=== PATIENT | female | born 1955 | race Caucasian/White ===

== ENCOUNTER 2021-07-14 23:40 | Inpatient (IN) | payer MEDICARE, OTHER ==
[~2021-07-14] VITALS: Ht 165.1 cm; Wt 122.1 kg
[~2021-07-14 23:40] MED LIST: CHOL2000 PO; CIPR500T94 PO; CYAN100072 PO; HYDR-2761 PO; MULT-246 PO; NITR100C62 PO; ONDA4TAB12 PO; SULF-143 PO; TAMS0.4C2 PO
[2021-07-14 23:50] VITALS: BP 145/75
[2021-07-15] MEDS ORDERED: BENZOCAINE/MENTHOL LOZENGE. PO PRN
[2021-07-15] MEDS: guaiFENesin DM 200MG/20MG 10 ML SYRUP PO PRN ×2 (00:37→10:23)
[2021-07-15] MEDS: ACETAMINOPHEN 325 MG TABLET. PO PRN ×2 (00:54→10:23)
[2021-07-15 03:00] VITALS: BP 140/77
[2021-07-15 04:46] LABS: BASO % 0 % (0-3); EOS % 0 % (0-3); HEMATOCRIT 35.3 % (36.0-47.0); HEMOGLOBIN 11.8 g/dL (12.0-15.5); LYMPH # 0.9 x10^3/uL (1.0-4.8); LYMPH % 9 % (24-48); MEAN CORPUSCULAR HEMOGLOBIN 29 pg (25-35); MEAN CORPUSCULAR HGB CONC 33 g/dL (31-37); MEAN CORPUSCULAR VOLUME 86 fL (79-100); MONO # 0.7 x10^3/uL (0.0-1.1); MONO % 6 % (0-9); NEUT # 8.9 x10^3/uL (1.8-7.7); NEUT % 85 % (31-73); PLATELET COUNT 350 x10^3/uL (140-400); RED BLOOD COUNT 4.13 x10^6/uL (3.50-5.40); RED CELL DISTRIBUTION WIDTH 14.4 % (11.5-14.5); WHITE BLOOD COUNT 10.5 x10^3/uL (4.0-11.0)
[2021-07-15 05:24] LABS: % LYMPHS 5 % (24-48); % MONOS 6 % (0-10); % SEGS 89 % (35-66); ALBUMIN 2.3 g/dL (3.4-5.0); ALBUMIN/GLOBULIN RATIO 0.6 (1.0-1.7); CALCIUM 8.4 mg/dL (8.5-10.1); CREATININE 0.8 mg/dL (0.6-1.0); PLT ESTIMATE ADEQUATE (ADEQUATE); POTASSIUM 3.8 mmol/L (3.5-5.1); TOTAL BILIRUBIN 0.3 mg/dL (0.2-1.0); TOXIC GRANULATION SLIGHT
[2021-07-15 07:00] VITALS: BP 140/80
[2021-07-15] MEDS ORDERED: DEXAMETHASONE SOD PHOS 4 MG/ML VIAL IVP SCH (09:00)
[2021-07-15] MEDS ORDERED: POTASSIUM CL 20MEQ D5-0.45NACL 1,000 ML IV ONE (09:15)
--- NOTE | 2021-07-15 09:15 | PDOC1 ---
History and Physical Date of Admission Date of Admission DATE: 07/15/21 TIME: 09:13 Identification/Chief Complaint Chief Complaint short of breath Source Source: Chart review, Patient History of Present Illness History of Present Illness pt admitted to [facility] days ago for noted shortness of rbeath, was COVID positive ,and worsened over days. weakness and lethargy worse, hypoxia worse over days, transferred here for poss ICU need, on NRB, risk of intubation is high, this AM, she feels OK, looks lethargic, reports coughing is she moves at all, did eat some breakfast, complaints of headache, 8/10 pain REVIEW OF SYSTEMS: The patient denied any blurring of vision, cataracts, glaucoma or macular degeneration. Denied any earache, tinnitus or sensory deafness. Denied any nosebleed, stuffy nose or postnasal drip. Denied any sore throat, sore tongue, toothache, hoarseness of voice or difficulty swallowing. Denied any nausea, vomiting. Did have some diarrhea. Denied any hematemesis, melena or hematochezia. Denied any dysuria, frequency or hematuria. Denied any chest pain, shortness of breath, orthopnea, paroxysmal nocturnal dyspnea. She does have cough, it is mostly dry. Did feel dizzy. Past Medical History Past Medical History prior severe obeisty, now BMI 35 Cardiovascular: No pertinent hx Pulmonary: No pertinent hx GI: No pertinent hx Past Surgical History Past Surgical History prior morbid obesity for which she underwent gastric bypass surgery. r tonsillectomy and adenoidectomy, cholecystectomy, appendectomy, total abdominal hysterectomy, Family History Family History FAMILY HISTORY: She has one living brother and one living sister. Her younger brother at age of 55 because of myocardial infarction. Mother at age of 91 with dementia. Father at age of 79 because of liver cancer. SOCIAL HISTORY: She lives alone, has a son and a daughter. She quit smoking about 18 years ago. Does not drink alcohol or use any drugs. 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 Family History: No Significant Social History Smoke: Quit (18 years ago) ALCOHOL: rare Drugs: None Current Medications Current Medications Current Medications Ondansetron HCl (Zofran) 4 mg PRN Q6HRS PRN IVP NAUSEA/VOMITING; Start 07/15/21 at 00:00 Throat Lozenges (Cepacol Sore Throat Lozenge) 1 vincent PRN Q2HRS PRN PO SORE THROAT; Start 07/15/21 at 00:00 Ceftriaxone Sodium (Rocephin) 1 gm Q24H IVP ; Start 07/15/21 at 09:00 Azithromycin (Zithromax) 250 mg DAILY PO ; Start 07/15/21 at 09:00 Dexamethasone Sodium Phosphate (Decadron) 10 mg DAILY IVP ; Start 07/15/21 at 09:00 Enoxaparin Sodium (Lovenox 40mg Syringe) 40 mg Q24H SQ ; Start 07/15/21 at 09:00 Lactobacillus Rhamnosus (Culturelle) 1 cap BID PO ; Start 07/15/21 at 09:00 Acetaminophen (Tylenol) 650 mg PRN Q4HRS PRN PO MILD PAIN / TEMP > 100.3'F Last administered on 07/15/21at 00:54; Start 07/15/21 at 00:00 Guaifenesin (Robitussin Dm) 10 ml PRN Q4HRS PRN PO COUGH Last administered on 07/15/21at 00:37; Start 07/15/21 at 00:00 Remdesivir 100 mg/ Sodium Chloride 230 ml @ 460 mls/hr DAILY IV ; Start 07/15/21 at 09:00; Stop 07/18/21 at 09:29 Active Scripts Active Allergies Allergies: Coded Allergies: No Known Drug Allergies (Unverified , 05/15/16) ROS General: YES: Chills, Fatigue, Malaise; No: Night Sweats, Appetite, Other PSYCHOLOGICAL ROS: YES: Sleep disturbances; No: Anxiety, Behavioral Disorder, Concentration difficultie, Decreased libido, Depression, Disorientation, Hallucinations, Hostility, Irritablity, Memory difficulties, Mood Swings, Obsessive thoughts, Physical abuse, Sexual abuse, Suicidal ideation, Other Eyes: No Blurry vision, No Decreased vision, No Double vision, No Dry eyes, No Excessive tearing, No Eye Pain, No Itchy Eyes, No Loss of vision, No Photo phobia, No Scotomata, No Uses contacts, No Uses glasses, No Other HEENT: YES: Heacaches Respiratory: YES: Cough, Pleuritic Pain, Shortness of breath, SOB with excertion Cardiovascular: yes Chest Pain; No Palpitations, No Orthopnea, No Paroxysmal Noc. Dyspnea, No Edema, No Lt Headedness, No Other Gastrointestinal: Yes Nausea; No Vomiting, No Abdominal Pain, No Diarrhea, No Constipation, No Melena, No Hematochezia, No Other Genitourinary: No Dysuria, No Frequency, No Incontinence, No Hematuria, No Retention, No Discharge, No Urgency, No Pain, No Flank Pain, No Other, No , No , No , No , No , No , No Musculoskeletal: Yes Muscle Pain, Yes Muscular Weakness; No Gait Disturbance, No Joint Pain, No Joint Stiffness, No Joint Swelling, No Pain In:, No Swelling In:, No Other Neurological: Yes Headaches; No Behavorial Changes, No Bowel/Bladder ControlChng, No Confusion, No Dizziness, No Gait Disturbance, No Impaired Coord/balance, No Memory Loss, No Numbness/Tingling, No Seizures, No Speech Problems, No Tremors, No Visual Changes, No Weakness, No Other Skin: No Dry Skin, No Eczema, No Hair Changes, No Lumps, No Mole Changes, No Mottling, No Nail Changes, No Pruritus, No Rash, No Skin Lesion Changes, No Other, No Acne Physical Exam General: Alert, Oriented X3, Cooperative, mild distress HEENT: Atraumatic, PERRLA Lungs: Clear to auscultation Abdomen: Normal bowel sounds, Soft (obese, ) Extremities: No edema, Normal pulses Skin: No significant lesion Neuro: Cranial nerves 3-12 NL Psych/Mental Status: Mental status NL, Mood NL Vitals Vitals Vital Signs Date Time Temp Pulse Resp B/P (MAP) Pulse Ox O2 Delivery O2 Flow Rate FiO2 07/15/21 07:00 95.7 70 18 140/80 (100) 96 95.7 07/15/21 03:00 NonRebreather Mask 30.0 Labs Labs Laboratory Tests Test 07/15/21 04:00 White Blood Count 10.5 x10^3/uL (4.0-11.0) Red Blood Count 4.13 x10^6/uL (3.50-5.40) Hemoglobin 11.8 g/dL (12.0-15.5) Hematocrit 35.3 % (36.0-47.0) Mean Corpuscular Volume 86 fL (79-100) Mean Corpuscular Hemoglobin 29 pg (25-35) Mean Corpuscular Hemoglobin Concent 33 g/dL (31-37) Red Cell Distribution Width 14.4 % (11.5-14.5) Platelet Count 350 x10^3/uL (140-400) Neutrophils (%) (Auto) 85 % (31-73) Lymphocytes (%) (Auto) 9 % (24-48) Monocytes (%) (Auto) 6 % (0-9) Eosinophils (%) (Auto) 0 % (0-3) Basophils (%) (Auto) 0 % (0-3) Neutrophils # (Auto) 8.9 x10^3/uL (1.8-7.7) Lymphocytes # (Auto) 0.9 x10^3/uL (1.0-4.8) Monocytes # (Auto) 0.7 x10^3/uL (0.0-1.1) Eosinophils # (Auto) 0.0 x10^3/uL (0.0-0.7) Basophils # (Auto) 0.0 x10^3/uL (0.0-0.2) Segmented Neutrophils % 89 % (35-66) Lymphocytes % 5 % (24-48) Monocytes % 6 % (0-10) Toxic Granulation Slight Platelet Estimate Adequate (ADEQUATE) Sodium Level 142 mmol/L (136-145) Potassium Level 3.8 mmol/L (3.5-5.1) Chloride Level 105 mmol/L (98-107) Carbon Dioxide Level 31 mmol/L (21-32) Anion Gap 6 (6-14) Blood Urea Nitrogen 18 mg/dL (7-20) Creatinine 0.8 mg/dL (0.6-1.0) Estimated GFR (Cockcroft-Gault) 72.0 BUN/Creatinine Ratio 23 (6-20) Glucose Level 108 mg/dL (70-99) Calcium Level 8.4 mg/dL (8.5-10.1) Ferritin 195 ng/mL (8-252) Total Bilirubin 0.3 mg/dL (0.2-1.0) Aspartate Amino Transf (AST/SGOT) 26 U/L (15-37) Alanine Aminotransferase (ALT/SGPT) 25 U/L (14-59) Alkaline Phosphatase 79 U/L (46-116) Total Protein 6.0 g/dL (6.4-8.2) Albumin 2.3 g/dL (3.4-5.0) Albumin/Globulin Ratio 0.6 (1.0-1.7) Laboratory Tests Test 07/15/21 04:00 White Blood Count 10.5 x10^3/uL (4.0-11.0) Red Blood Count 4.13 x10^6/uL (3.50-5.40) Hemoglobin 11.8 g/dL (12.0-15.5) Hematocrit 35.3 % (36.0-47.0) Mean Corpuscular Volume 86 fL (79-100) Mean Corpuscular Hemoglobin 29 pg (25-35) Mean Corpuscular Hemoglobin Concent 33 g/dL (31-37) Red Cell Distribution Width 14.4 % (11.5-14.5) Platelet Count 350 x10^3/uL (140-400) Neutrophils (%) (Auto) 85 % (31-73) Lymphocytes (%) (Auto) 9 % (24-48) Monocytes (%) (Auto) 6 % (0-9) Eosinophils (%) (Auto) 0 % (0-3) Basophils (%) (Auto) 0 % (0-3) Neutrophils # (Auto) 8.9 x10^3/uL (1.8-7.7) Lymphocytes # (Auto) 0.9 x10^3/uL (1.0-4.8) Monocytes # (Auto) 0.7 x10^3/uL (0.0-1.1) Eosinophils # (Auto) 0.0 x10^3/uL (0.0-0.7) Basophils # (Auto) 0.0 x10^3/uL (0.0-0.2) Segmented Neutrophils % 89 % (35-66) Lymphocytes % 5 % (24-48) Monocytes % 6 % (0-10) Toxic Granulation Slight Platelet Estimate Adequate (ADEQUATE) Sodium Level 142 mmol/L (136-145) Potassium Level 3.8 mmol/L (3.5-5.1) Chloride Level 105 mmol/L (98-107) Carbon Dioxide Level 31 mmol/L (21-32) Anion Gap 6 (6-14) Blood Urea Nitrogen 18 mg/dL (7-20) Creatinine 0.8 mg/dL (0.6-1.0) Estimated GFR (Cockcroft-Gault) 72.0 BUN/Creatinine Ratio 23 (6-20) Glucose Level 108 mg/dL (70-99) Calcium Level 8.4 mg/dL (8.5-10.1) Ferritin 195 ng/mL (8-252) Total Bilirubin 0.3 mg/dL (0.2-1.0) Aspartate Amino Transf (AST/SGOT) 26 U/L (15-37) Alanine Aminotransferase (ALT/SGPT) 25 U/L (14-59) Alkaline Phosphatase 79 U/L (46-116) Total Protein 6.0 g/dL (6.4-8.2) Albumin 2.3 g/dL (3.4-5.0) Albumin/Globulin Ratio 0.6 (1.0-1.7) VTE Prophylaxis Ordered VTE Prophylaxis Devices: Yes VTE Pharmacological Prophylaxi: Yes Assessment/Plan Assessment/Plan acute hypoxic respiratory failure COVID 19 pneumonia, will give standard treatement protocol looks a little dry, scant UO and poor PO intake, will give 1 liter iv fluid ARDS sepsis obese, BMI 35, with severe malnutrition, albumin 2.3 Justifications for Admission Other Justification JERMAINE PETERS MD Jul 15, 2021 09:15
[2021-07-15] MEDS: REMDESIVIR 100mg in NORMAL SALINE 250ML X 4 DAYS IV SCH (10:23)
[2021-07-15] MEDS: ASCORBIC ACID 500 MG TABLET PO SCH (10:23)
[2021-07-15] MEDS: ENOXAPARIN 40 MG/0.4 ML SYRINGE. SQ SCH (10:23)
[2021-07-15] MEDS: LACTOBACILLUS RHAMNOSUS GG 1 CAPSULE. PO SCH ×2 (10:23→20:04)
[2021-07-15] MEDS: AZITHROMYCIN 250 MG TABLET. PO SCH (10:23)
[2021-07-15] MEDS: cefTRIAXone IV Push 1 GM VIAL. IVP SCH (10:24)
[2021-07-15] MEDS: ZINC SULFATE 220 MG CAPSULE. PO SCH (10:24)
[2021-07-15 11:00] VITALS: BP 135/64
--- NOTE | 2021-07-15 13:08 | PDOC ---
PULMONARY PROGRESS NOTES DATE: 07/15/21 TIME: 13:07 Vitals Vital Signs Date Time Temp Pulse Resp B/P (MAP) Pulse Ox O2 Delivery O2 Flow Rate FiO2 07/15/21 11:00 96.1 63 17 135/64 (87) 89 Nonrebreather and Nasal Canula 30.0 96.1 Labs Laboratory Tests Test 07/15/21 04:00 White Blood Count 10.5 x10^3/uL (4.0-11.0) Red Blood Count 4.13 x10^6/uL (3.50-5.40) Hemoglobin 11.8 g/dL (12.0-15.5) Hematocrit 35.3 % (36.0-47.0) Mean Corpuscular Volume 86 fL (79-100) Mean Corpuscular Hemoglobin 29 pg (25-35) Mean Corpuscular Hemoglobin Concent 33 g/dL (31-37) Red Cell Distribution Width 14.4 % (11.5-14.5) Platelet Count 350 x10^3/uL (140-400) Neutrophils (%) (Auto) 85 % (31-73) Lymphocytes (%) (Auto) 9 % (24-48) Monocytes (%) (Auto) 6 % (0-9) Eosinophils (%) (Auto) 0 % (0-3) Basophils (%) (Auto) 0 % (0-3) Neutrophils # (Auto) 8.9 x10^3/uL (1.8-7.7) Lymphocytes # (Auto) 0.9 x10^3/uL (1.0-4.8) Monocytes # (Auto) 0.7 x10^3/uL (0.0-1.1) Eosinophils # (Auto) 0.0 x10^3/uL (0.0-0.7) Basophils # (Auto) 0.0 x10^3/uL (0.0-0.2) Segmented Neutrophils % 89 % (35-66) Lymphocytes % 5 % (24-48) Monocytes % 6 % (0-10) Toxic Granulation Slight Platelet Estimate Adequate (ADEQUATE) Sodium Level 142 mmol/L (136-145) Potassium Level 3.8 mmol/L (3.5-5.1) Chloride Level 105 mmol/L (98-107) Carbon Dioxide Level 31 mmol/L (21-32) Anion Gap 6 (6-14) Blood Urea Nitrogen 18 mg/dL (7-20) Creatinine 0.8 mg/dL (0.6-1.0) Estimated GFR (Cockcroft-Gault) 72.0 BUN/Creatinine Ratio 23 (6-20) Glucose Level 108 mg/dL (70-99) Calcium Level 8.4 mg/dL (8.5-10.1) Ferritin 195 ng/mL (8-252) Total Bilirubin 0.3 mg/dL (0.2-1.0) Aspartate Amino Transf (AST/SGOT) 26 U/L (15-37) Alanine Aminotransferase (ALT/SGPT) 25 U/L (14-59) Alkaline Phosphatase 79 U/L (46-116) Total Protein 6.0 g/dL (6.4-8.2) Albumin 2.3 g/dL (3.4-5.0) Albumin/Globulin Ratio 0.6 (1.0-1.7) Laboratory Tests Test 07/15/21 04:00 White Blood Count 10.5 x10^3/uL (4.0-11.0) Red Blood Count 4.13 x10^6/uL (3.50-5.40) Hemoglobin 11.8 g/dL (12.0-15.5) Hematocrit 35.3 % (36.0-47.0) Mean Corpuscular Volume 86 fL (79-100) Mean Corpuscular Hemoglobin 29 pg (25-35) Mean Corpuscular Hemoglobin Concent 33 g/dL (31-37) Red Cell Distribution Width 14.4 % (11.5-14.5) Platelet Count 350 x10^3/uL (140-400) Neutrophils (%) (Auto) 85 % (31-73) Lymphocytes (%) (Auto) 9 % (24-48) Monocytes (%) (Auto) 6 % (0-9) Eosinophils (%) (Auto) 0 % (0-3) Basophils (%) (Auto) 0 % (0-3) Neutrophils # (Auto) 8.9 x10^3/uL (1.8-7.7) Lymphocytes # (Auto) 0.9 x10^3/uL (1.0-4.8) Monocytes # (Auto) 0.7 x10^3/uL (0.0-1.1) Eosinophils # (Auto) 0.0 x10^3/uL (0.0-0.7) Basophils # (Auto) 0.0 x10^3/uL (0.0-0.2) Segmented Neutrophils % 89 % (35-66) Lymphocytes % 5 % (24-48) Monocytes % 6 % (0-10) Toxic Granulation Slight Platelet Estimate Adequate (ADEQUATE) Sodium Level 142 mmol/L (136-145) Potassium Level 3.8 mmol/L (3.5-5.1) Chloride Level 105 mmol/L (98-107) Carbon Dioxide Level 31 mmol/L (21-32) Anion Gap 6 (6-14) Blood Urea Nitrogen 18 mg/dL (7-20) Creatinine 0.8 mg/dL (0.6-1.0) Estimated GFR (Cockcroft-Gault) 72.0 BUN/Creatinine Ratio 23 (6-20) Glucose Level 108 mg/dL (70-99) Calcium Level 8.4 mg/dL (8.5-10.1) Ferritin 195 ng/mL (8-252) Total Bilirubin 0.3 mg/dL (0.2-1.0) Aspartate Amino Transf (AST/SGOT) 26 U/L (15-37) Alanine Aminotransferase (ALT/SGPT) 25 U/L (14-59) Alkaline Phosphatase 79 U/L (46-116) Total Protein 6.0 g/dL (6.4-8.2) Albumin 2.3 g/dL (3.4-5.0) Albumin/Globulin Ratio 0.6 (1.0-1.7) Medications Active Scripts Medications Dose Route/Sig Max Daily Dose Days Date Category Impression . Full note dictated COVID-19 viral pneumonia/ARDS respiratory failure Continue current support Discussed with nurse initiate SJ Carrasco MD Jul 15, 2021 13:08
[2021-07-15 15:56] VITALS: BP 129/71
[2021-07-15 19:00] VITALS: BP 139/76
--- NOTE | 2021-07-15 20:05 | CONS ---
DATE OF CONSULTATION: 07/15/2021 ATTENDING PHYSICIAN: Dr. An. REASON FOR CONSULTATION: The patient is seen in Pulmonary consultation at the request of Dr. An for COVID-19 viral pneumonia. HISTORY OF PRESENT ILLNESS: The patient is a 66-year-old that has been sick for approximately 2 weeks. Last Saturday, she tested positive for COVID. She has not been vaccinated. She was initially admitted to [facility]. She progressed to worsening shortness of breath. She is currently on 100% nonrebreather and nasal cannula. She is hovering around 90-95%. I was asked to see her in consultation. Her imaging study was reviewed, compatible with COVID-19 viral pneumonia. Her labs were likewise reviewed. She had a white count that is normal. Electrolytes were noted. PAST MEDICAL HISTORY: Otherwise, unremarkable. No significant past medical history. She is obese. PAST SURGICAL HISTORY: None. ALLERGIES: No known drug allergies. REVIEW OF SYSTEMS: As indicated above, otherwise a 10-point system was reviewed and negative. CURRENT MEDICATIONS: List was reviewed. She is receiving steroids and remdesivir along with empiric antibiotics. She is on DVT prophylaxis. PHYSICAL EXAMINATION: VITAL SIGNS: Stable. O2 saturation was greater than 92%. LUNGS: Clear. No wheezes. CARDIOVASCULAR: Regular rate and rhythm with S1, S2, no S3. ABDOMEN: Soft, nontender, nondistended. EXTREMITIES: No clubbing, cyanosis or edema. NEUROLOGIC: The patient was awake, alert, following commands. A detailed neuro exam was not performed. IMPRESSION: 1. Acute hypoxemic respiratory failure. 2. COVID-19 viral pneumonia/acute respiratory distress syndrome. 3. Possible bacterial pneumonia. 4. Obesity. PLAN: 1. Continue support with steroids and empiric antibiotics. 2. IV remdesivir. 3. DVT prophylaxis. 4. If continues to do poorly may require Vapotherm or BiPAP. 5. Monitor closely for further deterioration. SESAR LOCKHART: Julius TID: [id number]
[2021-07-15 22:39] VITALS: BP 169/87
[2021-07-16] MEDS: STERILE WATER for RESP 1,000 ML BAG. INH PRN ×2 (01:37→16:19)
[2021-07-16 02:32] VITALS: BP 176/85
[2021-07-16 07:00] VITALS: BP 164/90
[2021-07-16] MEDS: cefTRIAXone IV Push 1 GM VIAL. IVP SCH (09:08)
[2021-07-16] MEDS: ENOXAPARIN 40 MG/0.4 ML SYRINGE. SQ SCH (09:08)
[2021-07-16] MEDS: guaiFENesin DM 200MG/20MG 10 ML SYRUP PO PRN (09:08)
[2021-07-16] MEDS: DEXAMETHASONE SOD PHOS 4 MG/ML VIAL IVP SCH (09:08)
[2021-07-16] MEDS: oxyCODONE/APAP 5/325 1 TAB TABLET PO PRN (09:09)
[2021-07-16] MEDS: AZITHROMYCIN 250 MG TABLET. PO SCH (09:09)
[2021-07-16] MEDS: LACTOBACILLUS RHAMNOSUS GG 1 CAPSULE. PO SCH ×2 (09:09→20:14)
[2021-07-16] MEDS: ASCORBIC ACID 500 MG TABLET PO SCH (09:09)
[2021-07-16] MEDS: ZINC SULFATE 220 MG CAPSULE. PO SCH (09:09)
[2021-07-16] MEDS: REMDESIVIR 100mg in NORMAL SALINE 250ML X 4 DAYS IV SCH (09:09)
--- NOTE | 2021-07-16 10:27 | PDOC ---
PULMONARY PROGRESS NOTES DATE: 07/16/21 TIME: 10:26 Subjective Patient at times desaturates, currently on nonrebreather and nasal cannula No chest pain no pressure Vitals Vital Signs Date Time Temp Pulse Resp B/P (MAP) Pulse Ox O2 Delivery O2 Flow Rate FiO2 07/16/21 09:39 17 93 40.0 07/16/21 08:27 VAPOTHERM 07/16/21 07:00 96.5 71 164/90 (114) 96.5 ROS: No Nausea, No Chest Pain, No Abdominal Pain, No Increase Cough Lungs: Crackles Cardiovascular: S1, S2 Abdomen: Soft Neuro Exam: Alert Extremities: No Edema Skin: Warm Labs Laboratory Tests Test 07/15/21 04:00 White Blood Count 10.5 x10^3/uL (4.0-11.0) Red Blood Count 4.13 x10^6/uL (3.50-5.40) Hemoglobin 11.8 g/dL (12.0-15.5) Hematocrit 35.3 % (36.0-47.0) Mean Corpuscular Volume 86 fL (79-100) Mean Corpuscular Hemoglobin 29 pg (25-35) Mean Corpuscular Hemoglobin Concent 33 g/dL (31-37) Red Cell Distribution Width 14.4 % (11.5-14.5) Platelet Count 350 x10^3/uL (140-400) Neutrophils (%) (Auto) 85 % (31-73) Lymphocytes (%) (Auto) 9 % (24-48) Monocytes (%) (Auto) 6 % (0-9) Eosinophils (%) (Auto) 0 % (0-3) Basophils (%) (Auto) 0 % (0-3) Neutrophils # (Auto) 8.9 x10^3/uL (1.8-7.7) Lymphocytes # (Auto) 0.9 x10^3/uL (1.0-4.8) Monocytes # (Auto) 0.7 x10^3/uL (0.0-1.1) Eosinophils # (Auto) 0.0 x10^3/uL (0.0-0.7) Basophils # (Auto) 0.0 x10^3/uL (0.0-0.2) Segmented Neutrophils % 89 % (35-66) Lymphocytes % 5 % (24-48) Monocytes % 6 % (0-10) Toxic Granulation Slight Platelet Estimate Adequate (ADEQUATE) Sodium Level 142 mmol/L (136-145) Potassium Level 3.8 mmol/L (3.5-5.1) Chloride Level 105 mmol/L (98-107) Carbon Dioxide Level 31 mmol/L (21-32) Anion Gap 6 (6-14) Blood Urea Nitrogen 18 mg/dL (7-20) Creatinine 0.8 mg/dL (0.6-1.0) Estimated GFR (Cockcroft-Gault) 72.0 BUN/Creatinine Ratio 23 (6-20) Glucose Level 108 mg/dL (70-99) Calcium Level 8.4 mg/dL (8.5-10.1) Ferritin 195 ng/mL (8-252) Total Bilirubin 0.3 mg/dL (0.2-1.0) Aspartate Amino Transf (AST/SGOT) 26 U/L (15-37) Alanine Aminotransferase (ALT/SGPT) 25 U/L (14-59) Alkaline Phosphatase 79 U/L (46-116) Total Protein 6.0 g/dL (6.4-8.2) Albumin 2.3 g/dL (3.4-5.0) Albumin/Globulin Ratio 0.6 (1.0-1.7) Medications Active Scripts Medications Dose Route/Sig Max Daily Dose Days Date Category Impression . IMPRESSION: 1. Acute hypoxemic respiratory failure. 2. COVID-19 viral pneumonia/acute respiratory distress syndrome. 3. Possible bacterial pneumonia. 4. Obesity. Plan . Continue current support Empiric antibiotics Steroids Remdesivir Monitor closely for deterioration Discussed with RN if possible up to chair PLAN: 1. Continue support with steroids and empiric antibiotics. 2. IV remdesivir. 3. DVT prophylaxis. 4. If continues to do poorly may require Vapotherm or BiPAP. 5. Monitor closely for further deterioration. SJ MORA MD Jul 16, 2021 10:27
--- NOTE | 2021-07-16 10:50 | PDOC ---
[employer] PROGRESS NOTE Date of Service DOS: DATE: 07/16/21 TIME: 10:48 Chief Complaint Chief Complaint acute hypoxic respiratory failure COVID 19 pneumonia, standard treatement protocol sepsis obese, BMI 35, with malnutrition, albumin 2.3 on admit . History of Present Illness History of Present Illness . hsa been place on VAPOTHERM today Continue current support Empiric antibiotics Steroids, vitamins, lovenox Remdesivir Monitor closely for deterioration Discussed with RN if possible up to chair Vitals/I&O Vitals/I&O: Vital Signs Date Time Temp Pulse Resp B/P (MAP) Pulse Ox O2 Delivery O2 Flow Rate FiO2 07/16/21 09:39 17 93 40.0 07/16/21 08:27 VAPOTHERM 07/16/21 07:00 96.5 71 164/90 (114) 96.5 I & O 07/15/21 07/15/21 07/16/21 15:00 23:00 07:00 Intake Total 120 ml 280 ml 0 ml Balance 120 ml 280 ml 0 ml Physical Exam General: Alert, Oriented X3, Cooperative, mild distress Lungs: Crackles Abdomen: Normal bowel sounds, Soft (obese, ) Extremities: No edema, Normal pulses Skin: No significant lesion Review of Systems Review of Systems: resp distress, weakness Comment Review of Relevant I have reviewed the following items jluis (where applicable) has been applied. Medications: Current Medications Medications (Trade) Dose Ordered Sig/Dov Route PRN Reason Start Time Stop Time Status Last Admin Dose Admin Dexamethasone Sodium Phosphate (Decadron) 6 mg DAILY IVP 07/16/21 09:00 07/16/21 09:08 Sterile Water (WATER for RESP) 1,000 ml CONT PRN INH VIA VAPOTHERM DEVICE 07/15/21 13:30 07/16/21 01:37 Justifications for Admission Other Justification JERMAINE PETERS MD Jul 16, 2021 10:50
[2021-07-16] MEDS: POTASSIUM CL 20MEQ D5-0.45NACL 1,000 ML IV SCH ×2 (11:12→20:14)
[2021-07-16 11:44] VITALS: BP 156/83
[2021-07-16 14:59] VITALS: BP 130/75
[2021-07-16 19:42] VITALS: BP 152/87
[2021-07-16 22:01] VITALS: BP 144/87
[2021-07-17] MEDS: guaiFENesin DM 200MG/20MG 10 ML SYRUP PO PRN (00:23)
[2021-07-17 02:22] VITALS: BP 155/86
[2021-07-17 07:00] VITALS: BP 148/74
[2021-07-17] MEDS: LACTOBACILLUS RHAMNOSUS GG 1 CAPSULE. PO SCH ×2 (08:41→19:13)
[2021-07-17] MEDS: AZITHROMYCIN 250 MG TABLET. PO SCH (08:41)
[2021-07-17] MEDS: ZINC SULFATE 220 MG CAPSULE. PO SCH (08:41)
[2021-07-17] MEDS: ASCORBIC ACID 500 MG TABLET PO SCH (08:41)
[2021-07-17] MEDS: ONDANSETRON PF 4 MG/2 ML VIAL. IVP PRN (08:41)
[2021-07-17] MEDS: ACETAMINOPHEN 325 MG TABLET. PO PRN ×2 (08:42→19:18)
[2021-07-17] MEDS: DEXAMETHASONE SOD PHOS 4 MG/ML VIAL IVP SCH (08:42)
[2021-07-17] MEDS: cefTRIAXone IV Push 1 GM VIAL. IVP SCH (08:43)
[2021-07-17] MEDS: REMDESIVIR 100mg in NORMAL SALINE 250ML X 4 DAYS IV SCH (08:43)
[2021-07-17] MEDS: POTASSIUM CL 20MEQ D5-0.45NACL 1,000 ML IV SCH (08:43)
[2021-07-17] MEDS: ENOXAPARIN 40 MG/0.4 ML SYRINGE. SQ SCH (08:44)
[2021-07-17 11:00] VITALS: BP 136/77
--- NOTE | 2021-07-17 11:54 | PDOC ---
PULMONARY PROGRESS NOTES DATE: 07/17/21 TIME: 11:54 Subjective Patient feels about the same On Vapotherm Vitals Vital Signs Date Time Temp Pulse Resp B/P (MAP) Pulse Ox O2 Delivery O2 Flow Rate FiO2 07/17/21 11:07 94 VAPOTHERM 40.0 07/17/21 07:00 97.2 84 17 148/74 (98) 97.2 ROS: No Nausea, No Chest Pain, No Abdominal Pain, No Increase Cough Lungs: Crackles Cardiovascular: S1, S2 Abdomen: Soft Neuro Exam: Alert Extremities: No Edema Skin: Warm Medications Active Scripts Medications Dose Route/Sig Max Daily Dose Days Date Category Impression . IMPRESSION: 1. Acute hypoxemic respiratory failure. 2. COVID-19 viral pneumonia/acute respiratory distress syndrome. 3. Possible bacterial pneumonia. 4. Obesity. Plan . Updated 07/17 Continue Vapotherm Antibiotics Steroids ordered Remdesivir Up to chair ontinue current support Empiric antibiotics Steroids Remdesivir Monitor closely for deterioration Discussed with RN if possible up to chair PLAN: 1. Continue support with steroids and empiric antibiotics. 2. IV remdesivir. 3. DVT prophylaxis. 4. If continues to do poorly may require Vapotherm or BiPAP. 5. Monitor closely for further deterioration. SJ MORA MD Jul 17, 2021 11:54
[2021-07-17 15:00] VITALS: BP 110/65
--- NOTE | 2021-07-17 15:35 | PDOC ---
[employer] PROGRESS NOTE Date of Service DOS: DATE: 07/17/21 TIME: 15:32 Chief Complaint Chief Complaint acute hypoxic respiratory failure COVID 19 pneumonia, standard treatement protocol sepsis obese, BMI 35, with malnutrition, albumin 2.3 on admit . History of Present Illness History of Present Illness . hsa been place on VAPOTHERM today Continue current support Empiric antibiotics Steroids, vitamins, lovenox Remdesivir Monitor closely for deterioration Discussed with RN if possible up to chair 07/17/2021 No acute events overnight. Patient saturating 90% on 40% Vapotherm. No concerns nursing at this time. Patient's chart, labs, images were reviewed and discussed with RN In addition to my E/M visit, advance care planning done with A total time of 20 minutes was spent from 920 to 940 face to face in discussion with the patient regarding their goals of care, CODE STATUS. Vitals/I&O Vitals/I&O: Vital Signs Date Time Temp Pulse Resp B/P (MAP) Pulse Ox O2 Delivery O2 Flow Rate FiO2 07/17/21 13:12 92 VAPOTHERM 40.0 07/17/21 11:00 98.1 85 18 136/77 (96) 98.1 I & O 07/16/21 07/16/21 07/17/21 15:00 23:00 07:00 Intake Total 550 ml 300 ml 400 ml Output Total 200 ml Balance 550 ml 300 ml 200 ml Physical Exam General: Alert, Oriented X3, Cooperative, mild distress Lungs: Crackles Abdomen: Normal bowel sounds, Soft (obese, ) Extremities: No edema, Normal pulses Skin: No significant lesion Comment Review of Relevant I have reviewed the following items jluis (where applicable) has been applied. Justifications for Admission Other Justification NEPTALI BLANCAS MD Jul 17, 2021 15:35
[2021-07-17 19:12] VITALS: BP 114/63
[2021-07-17 22:09] VITALS: BP 108/61
[2021-07-18 03:58] VITALS: BP 126/73
[2021-07-18 07:00] VITALS: BP 141/76
--- NOTE | 2021-07-18 08:38 | PDOC ---
PULMONARY PROGRESS NOTES DATE: 07/18/21 TIME: 08:37 Subjective Continues to desaturate with minimal exertion On Vapotherm and 40 L 100% Vitals Vital Signs Date Time Temp Pulse Resp B/P (MAP) Pulse Ox O2 Delivery O2 Flow Rate FiO2 07/18/21 07:58 89 VAPOTHERM 40.0 07/18/21 03:58 98.0 75 18 126/73 (90) 98.0 ROS: No Nausea, No Chest Pain, No Abdominal Pain, No Increase Cough Lungs: Crackles Cardiovascular: S1, S2 Abdomen: Soft Neuro Exam: Alert Extremities: No Edema Skin: Warm Medications Active Scripts Medications Dose Route/Sig Max Daily Dose Days Date Category Impression . IMPRESSION: 1. Acute hypoxemic respiratory failure. 2. COVID-19 viral pneumonia/acute respiratory distress syndrome. 3. Possible bacterial pneumonia. 4. Obesity. Plan . Updated 07/18 We will continue steroids and remdesivir, empiric antibiotics, Vapotherm, up to chair as possible Will check into LTAC referral updated 07/17 Continue Vapotherm Antibiotics Steroids ordered Remdesivir Up to chair ontinue current support Empiric antibiotics Steroids Remdesivir Monitor closely for deterioration Discussed with RN if possible up to chair SJ MORA MD Jul 18, 2021 08:37
[2021-07-18] MEDS: REMDESIVIR 100mg in NORMAL SALINE 250ML X 4 DAYS IV SCH (08:59)
[2021-07-18] MEDS: ASCORBIC ACID 500 MG TABLET PO SCH (09:00)
[2021-07-18] MEDS: AZITHROMYCIN 250 MG TABLET. PO SCH (09:00)
[2021-07-18] MEDS: LACTOBACILLUS RHAMNOSUS GG 1 CAPSULE. PO SCH ×2 (09:00→19:12)
[2021-07-18] MEDS: ENOXAPARIN 40 MG/0.4 ML SYRINGE. SQ SCH (09:00)
[2021-07-18] MEDS: ZINC SULFATE 220 MG CAPSULE. PO SCH (09:00)
[2021-07-18] MEDS: DEXAMETHASONE SOD PHOS 4 MG/ML VIAL IVP SCH (09:01)
[2021-07-18] MEDS: cefTRIAXone IV Push 1 GM VIAL. IVP SCH (09:01)
[2021-07-18 11:00] VITALS: BP 132/70
[2021-07-18 15:00] VITALS: BP 111/58
--- NOTE | 2021-07-18 15:12 | PDOC ---
[employer] PROGRESS NOTE Date of Service DOS: DATE: 07/18/21 TIME: 15:09 Chief Complaint Chief Complaint acute hypoxic respiratory failure COVID 19 pneumonia, standard treatement protocol sepsis obese, BMI 35, with malnutrition, albumin 2.3 on admit . History of Present Illness History of Present Illness Continue current support Empiric antibiotics Steroids, vitamins, lovenox Remdesivir Monitor closely for deterioration Discussed with RN if possible up to chair 07/17/2021 No acute events overnight. Patient saturating 90% on 40% Vapotherm. No concerns nursing at this time. Patient's chart, labs, images were reviewed and discussed with RN In addition to my E/M visit, advance care planning done with A total time of 20 minutes was spent from 920 to 940 face to face in discussion with the patient regarding their goals of care, CODE STATUS. 07/18/2021 No acute events overnight. Patient saturating 89% on Vapotherm. No dyspnea upon exertion or at rest. Pending chest x-ray results. No other concerns from nursing. Vitals/I&O Vitals/I&O: Vital Signs Date Time Temp Pulse Resp B/P (MAP) Pulse Ox O2 Delivery O2 Flow Rate FiO2 07/18/21 14:35 93 VAPOTHERM 40.0 07/18/21 11:00 97.5 87 16 132/70 (90) 97.5 I & O 07/17/21 07/17/21 07/18/21 15:00 23:00 07:00 Intake Total 1590 ml 340 ml 100 ml Output Total 800 ml 500 ml Balance 1590 ml -460 ml -400 ml Physical Exam General: Alert, Oriented X3, Cooperative, mild distress Lungs: Crackles Abdomen: Normal bowel sounds, Soft (obese, ) Extremities: No edema, Normal pulses Skin: No significant lesion Comment Review of Relevant I have reviewed the following items jluis (where applicable) has been applied. Justifications for Admission Other Justification NEPTALI BLANCAS MD Jul 18, 2021 15:12
--- NOTE | 2021-07-18 15:32 | NUR ---
SS following for discharge planning. SS reviewed pt chart and discussed with pt RN. Pt is from home and is currently on Vapotherm and non-rebreather at 100%. COVID19 positive. Pt on IV Decadron and IV Rocephin. Sales Account Specialist requesting referral to [facility], ; fax [phone]. SS phoned and faxed referral as requested. Pt's RN notified. SS will continue to follow for discharge planning.
--- NOTE | 2021-07-18 15:34 | RAD ---
Single view of the chest. 07/18/2021 1:19 PM Indication: Reason: covid pna Comparison: None available Findings: Patchy alveolar and interstitial infiltrates are seen throughout the bilateral lungs consis tent with history of Covid pneumonia. No pneumothorax is seen. No definitive effusion is identified. No comparison chest x-rays available for review. No acute osseous changes are appreciated. IMPRESSION: Patchy interstitial and alveolar infiltrates consistent with provided history of Covid pn eumonia Electronically signed by: Kolton Beal MD (07/18/2021 3:31 PM) [id number]
[2021-07-18] MEDS: STERILE WATER for RESP 1,000 ML BAG. INH PRN (16:00)
[2021-07-18] MEDS: guaiFENesin DM 200MG/20MG 10 ML SYRUP PO PRN (19:19)
[2021-07-18] MEDS: oxyCODONE/APAP 5/325 1 TAB TABLET PO PRN (19:20)
[2021-07-18 19:24] VITALS: BP 116/70
[2021-07-18 22:28] VITALS: BP 118/68
[2021-07-19 03:39] VITALS: BP 129/73
[2021-07-19 07:00] VITALS: BP 132/73
[2021-07-19] MEDS: DEXAMETHASONE SOD PHOS 4 MG/ML VIAL IVP SCH (08:35)
[2021-07-19] MEDS: cefTRIAXone IV Push 1 GM VIAL. IVP SCH (08:35)
[2021-07-19] MEDS: ZINC SULFATE 220 MG CAPSULE. PO SCH (08:38)
[2021-07-19] MEDS: LACTOBACILLUS RHAMNOSUS GG 1 CAPSULE. PO SCH ×2 (08:38→20:38)
[2021-07-19] MEDS: ENOXAPARIN 40 MG/0.4 ML SYRINGE. SQ SCH (08:38)
[2021-07-19] MEDS: ASCORBIC ACID 500 MG TABLET PO SCH (08:39)
[2021-07-19] MEDS: AZITHROMYCIN 250 MG TABLET. PO SCH (08:39)
--- NOTE | 2021-07-19 09:44 | PDOC ---
PULMONARY PROGRESS NOTES DATE: 07/19/21 TIME: 09:44 Subjective Feels better today No periods of desaturation On Vapotherm and 40 L 100% Vitals Vital Signs Date Time Temp Pulse Resp B/P (MAP) Pulse Ox O2 Delivery O2 Flow Rate FiO2 07/19/21 08:30 Vapotherm 40.0 07/19/21 07:51 91 07/19/21 07:00 97.6 85 22 132/73 (92) 97.6 ROS: No Nausea, No Chest Pain, No Abdominal Pain, No Increase Cough Lungs: Crackles Cardiovascular: S1, S2 Abdomen: Soft Neuro Exam: Alert Extremities: No Edema Skin: Warm Medications Active Scripts Medications Dose Route/Sig Max Daily Dose Days Date Category Impression . IMPRESSION: 1. Acute hypoxemic respiratory failure. 2. COVID-19 viral pneumonia/acute respiratory distress syndrome. 3. Possible bacterial pneumonia. 4. Obesity. Plan . Updated 07/19 Continue current support Vapotherm Discussed with social service Remdesivir Steroid updated 07/18 We will continue steroids and remdesivir, empiric antibiotics, Vapotherm, up to chair as possible Will check into LTAC referral updated 07/17 Continue Vapotherm Antibiotics Steroids ordered Remdesivir Up to chair ontinue current support Empiric antibiotics Steroids Remdesivir Monitor closely for deterioration Discussed with RN if possible up to chair SJ MORA MD Jul 19, 2021 09:44
[2021-07-19 11:00] VITALS: BP 131/70
--- NOTE | 2021-07-19 13:47 | NUR ---
NURSING CONTACT WITH FAMILY INITIATED BY THIS NURSE TO UPDATE THEM ON PT STATUS. RELATED PATIENT CONDITION , RECENT MEAL INTAKE ET GETTING OUT OF BED FOR TOILETING. DR PARKS COMMENTS REGARDING HER IMPROVED APPEARANCE ET DESIRE TO STICK TO TREATMENT PLAN ALSO PASSED ALONG TO FAMILY. OFFERED TO ANSWER ANY QUESTIONS THEY MAY HAVE, THEY STATED THEY HAD NONE ET WERE "TICKLED" WITH HER PROGRESS.
[2021-07-19 15:00] VITALS: BP 128/72
[2021-07-19] MEDS: STERILE WATER for RESP 1,000 ML BAG. INH PRN (16:17)
--- NOTE | 2021-07-19 17:45 | NUR ---
NURSING PT UP TO CHAIR AT BEDSIDE FOR EVENING MEAL. SHE TOLERATED WELL. PT ET FAMILY BOTH VOICE RELIEF THAT SHE IS ABLE TO GET OUT OF BED FOR MEALS ET TOILETING NEEDS.
[2021-07-19 19:13] VITALS: BP 123/70
--- NOTE | 2021-07-19 21:34 | PDOC ---
[employer] PROGRESS NOTE Date of Service DOS: DATE: 07/19/21 TIME: 21:31 Chief Complaint Chief Complaint acute hypoxic respiratory failure COVID 19 pneumonia, standard treatement protocol sepsis obese, BMI 35, with malnutrition, albumin 2.3 on admit . History of Present Illness History of Present Illness Continue current support Empiric antibiotics Steroids, vitamins, lovenox Remdesivir Monitor closely for deterioration Discussed with RN if possible up to chair 07/17/2021 No acute events overnight. Patient saturating 90% on 40% Vapotherm. No concerns nursing at this time. Patient's chart, labs, images were reviewed and discussed with RN In addition to my E/M visit, advance care planning done with A total time of 20 minutes was spent from 920 to 940 face to face in discussion with the patient regarding their goals of care, CODE STATUS. 07/18/2021 No acute events overnight. Patient saturating 89% on Vapotherm. No dyspnea upon exertion or at rest. Pending chest x-ray results. No other concerns from nursing. 07/19/21 No acute events overnight. Saturating 91% on vapotherm. No dyspnea and is motiviated to get out of bed onto chair. total critical care time spent of 33 minutes Vitals/I&O Vitals/I&O: Vital Signs Date Time Temp Pulse Resp B/P (MAP) Pulse Ox O2 Delivery O2 Flow Rate FiO2 07/19/21 20:00 Vapotherm 40.0 07/19/21 19:13 96.7 93 20 123/70 (87) 93 96.7 I & O 07/18/21 07/18/21 07/19/21 15:00 23:00 07:00 Intake Total 180 ml 180 ml 100 ml Balance 180 ml 180 ml 100 ml Physical Exam General: Alert, Oriented X3, Cooperative, mild distress Lungs: Crackles Abdomen: Normal bowel sounds, Soft (obese, ) Extremities: No edema, Normal pulses Skin: No significant lesion Comment Review of Relevant I have reviewed the following items jluis (where applicable) has been applied. Justifications for Admission Other Justification NEPTALI BLANCAS MD Jul 19, 2021 21:34
[2021-07-19 23:00] VITALS: BP 139/74
[2021-07-20] MEDS: STERILE WATER for RESP 1,000 ML BAG. INH PRN ×2 (02:40→08:03)
[2021-07-20 03:39] VITALS: BP 139/76
[2021-07-20 06:39] VITALS: BP 141/76
--- NOTE | 2021-07-20 07:40 | NUR ---
Helped pt ambulate to bedside commode with oxygen saturation dropping to 79%, patient recovered to spO2 of 87% after 15 minutes of rest.
[2021-07-20] MEDS: ZINC SULFATE 220 MG CAPSULE. PO SCH (08:44)
[2021-07-20] MEDS: ENOXAPARIN 40 MG/0.4 ML SYRINGE. SQ SCH (08:44)
[2021-07-20] MEDS: ASCORBIC ACID 500 MG TABLET PO SCH (08:44)
[2021-07-20] MEDS: LACTOBACILLUS RHAMNOSUS GG 1 CAPSULE. PO SCH ×2 (08:44→20:38)
[2021-07-20] MEDS: cefTRIAXone IV Push 1 GM VIAL. IVP SCH (08:44)
[2021-07-20] MEDS: DEXAMETHASONE SOD PHOS 4 MG/ML VIAL IVP SCH (08:44)
[2021-07-20] MEDS: AZITHROMYCIN 250 MG TABLET. PO SCH (08:44)
--- NOTE | 2021-07-20 09:39 | PDOC ---
PULMONARY PROGRESS NOTES DATE: 07/20/21 TIME: 09:39 Subjective Patient feels about the same. Not more short of air Vitals Vital Signs Date Time Temp Pulse Resp B/P (MAP) Pulse Ox O2 Delivery O2 Flow Rate FiO2 07/20/21 08:01 92 VAPOTHERM 40.0 07/20/21 06:39 98.6 90 18 141/76 (97) 98.6 ROS: No Nausea, No Chest Pain, No Abdominal Pain, No Increase Cough Lungs: Crackles Cardiovascular: S1, S2 Abdomen: Soft Neuro Exam: Alert Extremities: No Edema Skin: Warm Medications Active Scripts Medications Dose Route/Sig Max Daily Dose Days Date Category Impression . IMPRESSION: 1. Acute hypoxemic respiratory failure. 2. COVID-19 viral pneumonia/acute respiratory distress syndrome. 3. Possible bacterial pneumonia. 4. Obesity. Plan . Updated 07/20 Patient has been on Vapotherm 40 L flow, 100% oxygen She was due to transfer to [facility], unfortunately unable to tolerate BiPAP, for transfer I visited with patient during the time that EMS was here for transfer. I recommend that she stays. At this juncture not safe to transfer patient to LTAC on BiPAP updated 07/19 Continue current support Vapotherm Discussed with social service Remdesivir Steroid updated 07/18 We will continue steroids and remdesivir, empiric antibiotics, Vapotherm, up to chair as possible Will check into LTAC referral updated 07/17 Continue Vapotherm Antibiotics Steroids ordered Remdesivir Up to chair SJ MORA MD Jul 20, 2021 09:39
[2021-07-20 10:58] VITALS: BP 149/79
[2021-07-20] MEDS ORDERED: PRED20TA PO (12:26)
--- NOTE | 2021-07-20 12:27 | SNU/HH DC ---
DISCHARGE ORDERS DISCHARGE INFORMATION: DISCHARGE DATE: Jul 20, 2021 CONDITION ON DISCHARGE: Stable CODE STATUS: Code Status: Full CARE HOME: SNF STAY <30 DAYS: Yes POST DISCHARGE ORDERS: ACTIVITY ORDERS: Activity as tolerated WEIGHT BEARING STATUS: As tolerated DIET AFTER DISCHARGE: Cardiac FOLLOW-UP: PHYSICIAN FOLLOW-UP: PCP BJ upon discharge on arrival to [facility] ADDITIONAL FOLLOW-UP: Pulmonology as needed LAB ORDERS FOR FOLLOW-UP: CBC, CMP, chest x-ray ANTICOAGULATION F/U NEEDED: DVT prophylaxis for Covid pneumonia TREATMENT/EQUIPMENT ORDERS: RESPIRATORY EQUIPMENT NEEDED: Oxygen Physical Therapy For: Evalulation/Treatment Occupational Therapy For: Evaluation/Treatment DISCHARGE MEDICATIONS: Home Meds Active Scripts Prednisone (PREDNISONE) 20 Mg Tablet, 1 TAB PO DAILY for covid pneumonia for 5 Days, #5 TAB Prov:NEPTALI BLANCAS MD 07/20/21 NEPTALI BLANCAS MD Jul 20, 2021 12:27
[2021-07-20 15:01] VITALS: BP 139/79
[2021-07-20 19:00] VITALS: BP 133/71
[2021-07-20 22:42] VITALS: BP 155/73
[2021-07-21 03:03] VITALS: BP 116/73
[2021-07-21 07:00] VITALS: BP 120/66
[2021-07-21] MEDS: LACTOBACILLUS RHAMNOSUS GG 1 CAPSULE. PO SCH ×2 (08:16→21:02)
[2021-07-21] MEDS: AZITHROMYCIN 250 MG TABLET. PO SCH (08:17)
[2021-07-21] MEDS: ENOXAPARIN 40 MG/0.4 ML SYRINGE. SQ SCH (08:17)
[2021-07-21] MEDS: ASCORBIC ACID 500 MG TABLET PO SCH (08:17)
[2021-07-21] MEDS: ZINC SULFATE 220 MG CAPSULE. PO SCH (08:17)
[2021-07-21] MEDS: DEXAMETHASONE SOD PHOS 4 MG/ML VIAL IVP SCH (08:19)
[2021-07-21] MEDS: cefTRIAXone IV Push 1 GM VIAL. IVP SCH (08:23)
--- NOTE | 2021-07-21 08:29 | PDOC ---
[employer] PROGRESS NOTE Date of Service DOS: DATE: 07/20/21 TIME: 08:28 Chief Complaint Chief Complaint acute hypoxic respiratory failure COVID 19 pneumonia, standard treatement protocol sepsis obese, BMI 35, with malnutrition, albumin 2.3 on admit . History of Present Illness History of Present Illness Continue current support Empiric antibiotics Steroids, vitamins, lovenox Remdesivir Monitor closely for deterioration Discussed with RN if possible up to chair 07/17/2021 No acute events overnight. Patient saturating 90% on 40% Vapotherm. No concerns nursing at this time. Patient's chart, labs, images were reviewed and discussed with RN In addition to my E/M visit, advance care planning done with A total time of 20 minutes was spent from 920 to 940 face to face in discussion with the patient regarding their goals of care, CODE STATUS. 07/18/2021 No acute events overnight. Patient saturating 89% on Vapotherm. No dyspnea upon exertion or at rest. Pending chest x-ray results. No other concerns from nursing. 07/19/21 No acute events overnight. Saturating 91% on vapotherm. No dyspnea and is motiviated to get out of bed onto chair. total critical care time spent of 33 minutes 07/20/2021 No acute events overnight. Patient seen and examined bedside. Saturating well on Vapotherm. Patient accepted at [facility]. No concerns with nursing. A total of 35 minutes of critical care time was spent in reviewing chart, labs, and images. Discussed with RN and SW. Vitals/I&O Vitals/I&O: Vital Signs Date Time Temp Pulse Resp B/P (MAP) Pulse Ox O2 Delivery O2 Flow Rate FiO2 07/21/21 04:11 90 VAPOTHERM 40.0 07/21/21 03:03 97.7 93 22 116/73 (87) 97.7 I & O 07/20/21 07/20/21 07/21/21 15:00 23:00 07:00 Intake Total 580 ml 180 ml 100 ml Output Total 100 ml Balance 580 ml 180 ml 0 ml Physical Exam General: Alert, Oriented X3, Cooperative, mild distress Lungs: Crackles Abdomen: Normal bowel sounds, Soft (obese, ) Extremities: No edema, Normal pulses Skin: No significant lesion Comment Review of Relevant I have reviewed the following items jluis (where applicable) has been applied. Justifications for Admission Other Justification NEPTALI BLANCAS MD Jul 21, 2021 08:29
--- NOTE | 2021-07-21 08:41 | PDOC ---
PULMONARY PROGRESS NOTES DATE: 07/21/21 TIME: 08:38 Subjective Patient feels about the same. Not more short of air Remains on 100% FiO2 via Vapotherm and 15 L nonrebreather mask Vitals Vital Signs Date Time Temp Pulse Resp B/P (MAP) Pulse Ox O2 Delivery O2 Flow Rate FiO2 07/21/21 08:32 88 VAPOTHERM 40.0 07/21/21 07:00 98.7 82 24 120/66 (84) 98.7 ROS: No Nausea, No Chest Pain, No Abdominal Pain, No Increase Cough Lungs: Crackles Cardiovascular: S1, S2 Abdomen: Soft Neuro Exam: Alert Extremities: No Edema Skin: Warm Medications Active Scripts Medications Dose Route/Sig Max Daily Dose Days Date Category Impression . IMPRESSION: 1. Acute hypoxemic respiratory failure. 2. COVID-19 viral pneumonia/acute respiratory distress syndrome. 3. Possible bacterial pneumonia. 4. Obesity. Plan . Updated 07/21 Patient has been on Vapotherm 40 L flow, 100% oxygen and additional nonrebreather mask. She was due to transfer to [facility], unfortunately unable to tolerate BiPAP, for transfer At present she is unstable for the transfer. We will continue present aggressive care for now. Continue steroids with taper over 10 days Updated 07/20 Patient has been on Vapotherm 40 L flow, 100% oxygen She was due to transfer to [facility], unfortunately unable to tolerate BiPAP, for transfer I visited with patient during the time that EMS was here for transfer. I recommend that she stays. At this juncture not safe to transfer patient to AC on BiPAP updated 07/19 Continue current support Vapotherm Discussed with social service Remdesivir Steroid updated 07/18 We will continue steroids and remdesivir, empiric antibiotics, Vapotherm, up to chair as possible Will check into LTAC referral updated 07/17 Continue Vapotherm Antibiotics Steroids ordered Remdesivir Up to chair RAFIA EGAN MD Jul 21, 2021 08:41
[2021-07-21 11:00] VITALS: BP 116/66
--- NOTE | 2021-07-21 12:48 | NUR ---
SPOKE WITH FAMILY THIS AM, RE: PT STATUS. THEY REQUESTED INFORMATION FROM SS RE: POSSIBLE OTHER FACILITIES FOR DC PLANNING. THEY ALSO EXPRESSED A DESIRE FOR HER TO BE UP FOR EVERY MEAL. ENCOURAGED PT TO CHAIR FOR NOON MEAL, BUT SHE DECLINED. CONTACT INFO FOR SON PASSED ON TO SS.
[2021-07-21] MEDS: oxyCODONE/APAP 5/325 1 TAB TABLET PO PRN (13:18)
--- NOTE | 2021-07-21 13:39 | NUR ---
SS following up with discharge planning. SS reviewed pt chart and discussed with pt RN. Pt's son, Lorenzo, , contacted SS requesting referral to other LTACH facilities. Pt's son discussed concerns with SS and requested referral to [facility], ; fax [phone], and [facility], ; fax [phone]. Pt's son reported that he is arranging tours at both facilities. SS phoned and faxed referrals as requested. Pt's son provided with SS and Case Quality Improvement Specialist's contact information. Pt's son requesting that SS continue to follow at this time. SS will continue to follow for discharge planning. Addendum: 07/21/21 at 1346 by MAKENZIE NASSAR Pt is currently on Vapotherm at 100% and non-rebreather at 15 liters. Pt on IV Decadron. Not stable for transfer at this time. Addendum: 07/21/21 at 1537 by MAKENZIE NASSAR Pt accepted at [facility]. Pt's son, Lorenzo, contacted and reported that he would like pt transferred to [facility] on Saturday if bed is available. SS discussed with physician and Pulmonology. Pt's family requesting new COVID19 test prior to discharge. Pt's RN notified.
--- NOTE | 2021-07-21 14:17 | PDOC ---
[employer] PROGRESS NOTE Date of Service DOS: DATE: 07/21/21 TIME: 14:15 Chief Complaint Chief Complaint acute hypoxic respiratory failure COVID 19 pneumonia, standard treatement protocol sepsis obese, BMI 35, with malnutrition, albumin 2.3 on admit . History of Present Illness History of Present Illness 07/17/2021 No acute events overnight. Patient saturating 90% on 40% Vapotherm. No c oncerns nursing at this time. Patient's chart, labs, images were reviewed and discussed with RN In addition to my E/M visit, advance care planning done with A total time of 20 minutes was spent from 920 to 940 face to face in discussion with the patient regarding their goals of care, CODE STATUS. 07/18/2021 No acute events overnight. Patient saturating 89% on Vapotherm. No dyspnea upon exertion or at rest. Pending chest x-ray results. No other concerns from nursing. 07/19/21 No acute events overnight. Saturating 91% on vapotherm. No dyspnea and is motiviated to get out of bed onto chair. total critical care time spent of 33 minutes 07/20/2021 No acute events overnight. Patient seen and examined bedside. Saturating well on Vapotherm. Patient accepted at [facility]. No concerns with nursing. A total of 35 minutes of critical care time was spent in reviewing chart, labs, and images. Discussed with RN and SW. 07/21/2021 No acute events overnight. Unfortunately patient was unable to be transferred t o [facility] because of unable to tolerate BiPAP. At this point we will continue BiPAP and Vapotherm for inpatient care. Patient's chart, labs, images were reviewed and discussed with RN A total of 32 minutes of critical care time was spent in reviewing chart, labs, and images. Discussed with RN and SW. Vitals/I&O Vitals/I&O: Vital Signs Date Time Temp Pulse Resp B/P (MAP) Pulse Ox O2 Delivery O2 Flow Rate FiO2 07/21/21 13:18 20 93 vapotherm et non rebreather 40.0 07/21/21 11:00 97.6 92 116/66 (83) 97.6 I & O 07/20/21 07/20/21 07/21/21 15:00 23:00 07:00 Intake Total 580 ml 180 ml 100 ml Output Total 100 ml Balance 580 ml 180 ml 0 ml Physical Exam General: Alert, Oriented X3, Cooperative, mild distress Lungs: Crackles Abdomen: Normal bowel sounds, Soft (obese, ) Extremities: No edema, Normal pulses Skin: No significant lesion Comment Review of Relevant I have reviewed the following items jluis (where applicable) has been applied. Justifications for Admission Other Justification NEPTALI BLANCAS MD Jul 21, 2021 14:17
[2021-07-21 15:00] VITALS: BP 122/70
[2021-07-21 19:00] VITALS: BP 132/76
[2021-07-21 23:00] VITALS: BP 122/72
[2021-07-22 02:00] VITALS: BP 147/79
[2021-07-22 07:00] VITALS: BP 120/57
--- NOTE | 2021-07-22 08:44 | PDOC ---
PULMONARY PROGRESS NOTES DATE: 07/22/21 TIME: 08:42 Subjective Patient feels about the same. Not more short of air Remains on 100% FiO2 via Vapotherm and 15 L nonrebreather mask Vitals Vital Signs Date Time Temp Pulse Resp B/P (MAP) Pulse Ox O2 Delivery O2 Flow Rate FiO2 07/22/21 07:00 96.9 98 25 120/57 (78) 100 Vapotherm 40.0 96.9 ROS: No Nausea, No Chest Pain, No Abdominal Pain, No Increase Cough Lungs: Crackles Cardiovascular: S1, S2 Abdomen: Soft Neuro Exam: Alert Extremities: No Edema Skin: Warm Medications Active Scripts Medications Dose Route/Sig Max Daily Dose Days Date Category Impression . IMPRESSION: 1. Acute hypoxemic respiratory failure. 2. COVID-19 viral pneumonia/acute respiratory distress syndrome. 3. Possible bacterial pneumonia. 4. Obesity. Plan . Updated 07/22 Patient has been on Vapotherm 40 L flow, 100% oxygen and additional nonrebreather mask. Patient is tolerating the current oxygen reasonably well. Patient's [facility] She should be stable for the transfer due to very short distance of transfer We will continue present aggressive care for now. Continue steroids with taper over 10 days Updated 07/21 Patient has been on Vapotherm 40 L flow, 100% oxygen and additional nonrebreather mask. She was due to transfer to [facility], unfortunately unable to tolerate BiPAP, for transfer At present she is unstable for the transfer. We will continue present aggressive care for now. Continue steroids with taper over 10 days Updated 07/20 Patient has been on Vapotherm 40 L flow, 100% oxygen She was due to transfer to [facility], unfortunately unable to tolerate BiPAP, for transfer I visited with patient during the time that EMS was here for transfer. I recommend that she stays. At this juncture not safe to transfer patient to [facility] on BiPAP updated 07/19 Continue current support Vapotherm Discussed with social service Remdesivir Steroid updated 07/18 We will continue steroids and remdesivir, empiric antibiotics, Vapotherm, up to chair as possible Will check into LTAC referral updated 07/17 Continue Vapotherm Antibiotics Steroids ordered Remdesivir Up to chair RAFIA EGAN MD Jul 22, 2021 08:43
[2021-07-22] MEDS: LACTOBACILLUS RHAMNOSUS GG 1 CAPSULE. PO SCH ×2 (10:02→20:42)
[2021-07-22] MEDS: ZINC SULFATE 220 MG CAPSULE. PO SCH (10:02)
[2021-07-22] MEDS: ASCORBIC ACID 500 MG TABLET PO SCH (10:02)
[2021-07-22] MEDS: DEXAMETHASONE SOD PHOS 4 MG/ML VIAL IVP SCH (10:02)
[2021-07-22] MEDS: ENOXAPARIN 40 MG/0.4 ML SYRINGE. SQ SCH (10:03)
[2021-07-22 11:00] VITALS: BP 117/63
[2021-07-22] MEDS ORDERED: LOPERAMIDE 2 MG CAPSULE PO PRN (12:45)
--- NOTE | 2021-07-22 13:02 | PDOC ---
[employer] PROGRESS NOTE Date of Service DOS: DATE: 07/22/21 TIME: 13:00 Chief Complaint Chief Complaint acute hypoxic respiratory failure COVID 19 pneumonia, standard treatement protocol sepsis obese, BMI 35, with malnutrition, albumin 2.3 on admit . History of Present Illness History of Present Illness 07/17/2021 No acute events overnight. Patient saturating 90% on 40% Vapotherm. No c oncerns nursing at this time. Patient's chart, labs, images were reviewed and discussed with RN In addition to my E/M visit, advance care planning done with A total time of 20 minutes was spent from 920 to 940 face to face in discussion with the patient regarding their goals of care, CODE STATUS. 07/18/2021 No acute events overnight. Patient saturating 89% on Vapotherm. No dyspnea upon exertion or at rest. Pending chest x-ray results. No other concerns from nursing. 07/19/21 No acute events overnight. Saturating 91% on vapotherm. No dyspnea and is motiviated to get out of bed onto chair. total critical care time spent of 33 minutes 07/20/2021 No acute events overnight. Patient seen and examined bedside. Saturating well on Vapotherm. Patient accepted at [facility]. No concerns with nursing. A total of 35 minutes of critical care time was spent in reviewing chart, labs, and images. Discussed with RN and TRAVIS. 07/21/2021 No acute events overnight. Unfortunately patient was unable to be transferred t o [facility] because of unable to tolerate BiPAP. At this point we will continue BiPAP and Vapotherm for inpatient care. Patient's chart, labs, images were reviewed and discussed with RN A total of 32 minutes of critical care time was spent in reviewing chart, labs, and images. Discussed with RN and SW. 07/22/2021 No acute events overnight. Patient seen and examined bedside. Saturating 100% on FiO2 and 15 L nonrebreather mask. Does complain of diarrhea and one-time Imodium was administered. Afebrile last 24 hours. Continue PT OT modalities. Encourage prone positioning when able. Patient's chart, labs, images were reviewed and discussed with RN A total of 32 minutes of critical care time was spent in reviewing chart, labs, and images. Discussed with RN and SW. Vitals/I&O Vitals/I&O: Vital Signs Date Time Temp Pulse Resp B/P (MAP) Pulse Ox O2 Delivery O2 Flow Rate FiO2 07/22/21 11:37 84 VAPOTHERM 40.0 07/22/21 11:00 97.5 97 25 117/63 (81) 97.5 I & O 07/21/21 07/21/21 07/22/21 15:00 23:00 07:00 Intake Total 200 ml 320 ml 150 ml Output Total 350 ml 100 ml Balance -150 ml 220 ml 150 ml Physical Exam General: Alert, Oriented X3, Cooperative, mild distress Lungs: Crackles Abdomen: Normal bowel sounds, Soft (obese, ) Extremities: No edema, Normal pulses Skin: No significant lesion Labs Labs: Laboratory Tests Test 07/21/21 15:50 SARS-CoV-2 RNA ([facility]) Positive (Negative) Comment Review of Relevant I have reviewed the following items jluis (where applicable) has been applied. Justifications for Admission Other Justification NEPTALI BLANCAS MD Jul 22, 2021 13:02
[2021-07-22 15:00] VITALS: BP 104/57
[2021-07-22 19:14] VITALS: BP 134/71
[2021-07-22] MEDS: guaiFENesin DM 200MG/20MG 10 ML SYRUP PO PRN (20:46)
[2021-07-22 22:25] VITALS: BP 146/76
[2021-07-22] MEDS: ONDANSETRON PF 4 MG/2 ML VIAL. IVP PRN (22:51)
[2021-07-22] MEDS: LORazepam 0.5 MG TABLET PO PRN (22:51)
[2021-07-23] VITALS (14 sets, daily range): BP systolic 84–157; BP diastolic 57–98
[2021-07-23] MEDS: guaiFENesin DM 200MG/20MG 10 ML SYRUP PO PRN ×2 (04:50→13:00)
--- NOTE | 2021-07-23 09:19 | PDOC ---
PULMONARY PROGRESS NOTES DATE: 07/23/21 TIME: 09:17 Subjective Patient had a rough night. Oxygen levels fluctuated in the high 70s and low 80s. BiPAP was offered but she declined to use the BiPAP. Remains on 100% FiO2 via Vapotherm and 15 L nonrebreather mask Vitals Vital Signs Date Time Temp Pulse Resp B/P (MAP) Pulse Ox O2 Delivery O2 Flow Rate FiO2 07/23/21 07:27 83 VAPOTHERM 40.0 07/23/21 06:05 97.9 117 20 142/72 (95) 97.9 ROS: No Nausea, No Chest Pain, No Abdominal Pain, No Increase Cough General: Alert Lungs: Crackles Cardiovascular: S1, S2 Abdomen: Soft Neuro Exam: Alert Extremities: No Edema Skin: Warm Labs Laboratory Tests Test 07/21/21 15:50 SARS-CoV-2 RNA ([facility]YSON) Positive (Negative) Medications Active Scripts Medications Dose Route/Sig Max Daily Dose Days Date Category Impression . IMPRESSION: 1. Acute hypoxemic respiratory failure secondary to COVID-19 viral pneumonia. 2. COVID-19 viral pneumonia/acute respiratory distress syndrome. 3. Possible bacterial pneumonia. 4. Obesity. Plan . Updated 07/23 As discussed above patient had a rough night. Her oxygen level fluctuated in the high 70s and low 80s. She declined to be placed on BiPAP. Patient has been on Vapotherm 40 L flow, 100% oxygen and additional nonrebreather mask. She desaturates with minimal activity. We will continue present aggressive care for now. Continue steroids with taper over 10 days I had a long discussion with the patient and it was witnessed by the nurse Cindy about advanced directives. All pros and cons of being on a ventilator were discussed. Patient does not want to be on a ventilator. I spoke to patient's son Lorenzo and informed about patient's decision. She will be a DNR. We will continue present aggressive care. [facility] for the transfer. Critical care time 30 minutes addend: Informed by RN. Patient changed her decision to be full code. She will be transfered to ICU and will proceed with intubation. Updated 07/22 Patient has been on Vapotherm 40 L flow, 100% oxygen and additional nonrebreather mask. Patient is tolerating the current oxygen reasonably well. [facility] She should be stable for the transfer due to very short distance of transfer We will continue present aggressive care for now. Continue steroids with taper over 10 days Updated 07/21 Patient has been on Vapotherm 40 L flow, 100% oxygen and additional nonrebreather mask. She was due to transfer to [facility], unfortunately unable to tolerate BiPAP, for transfer At present she is unstable for the transfer. We will continue present aggressive care for now. Continue steroids with taper over 10 days Updated 07/20 Patient has been on Vapotherm 40 L flow, 100% oxygen She was due to transfer to [facility], unfortunately unable to tolerate BiPAP, for transfer I visited with patient during the time that EMS was here for transfer. I recommend that she stays. At this juncture not safe to transfer patient to [facility] on BiPAP updated 07/19 Continue current support Vapotherm Discussed with social service Remdesivir Steroid updated 07/18 We will continue steroids and remdesivir, empiric antibiotics, Vapotherm, up to chair as possible Will check into LTAC referral updated 07/17 Continue Vapotherm Antibiotics Steroids ordered Remdesivir Up to chair RAFAI EGAN MD Jul 23, 2021 09:19
[2021-07-23] MEDS: ZINC SULFATE 220 MG CAPSULE. PO SCH (09:47)
[2021-07-23] MEDS: LACTOBACILLUS RHAMNOSUS GG 1 CAPSULE. PO SCH ×2 (09:47→20:23)
[2021-07-23] MEDS: LORazepam 0.5 MG TABLET PO PRN (09:47)
[2021-07-23] MEDS: ASCORBIC ACID 500 MG TABLET PO SCH (09:47)
[2021-07-23] MEDS: ENOXAPARIN 40 MG/0.4 ML SYRINGE. SQ SCH (09:48)
[2021-07-23] MEDS: DEXAMETHASONE SOD PHOS 4 MG/ML VIAL IVP SCH (09:48)
--- NOTE | 2021-07-23 11:37 | PDOC ---
[employer] PROGRESS NOTE Date of Service DOS: DATE: 07/23/21 TIME: 11:34 Chief Complaint Chief Complaint acute hypoxic respiratory failure COVID 19 pneumonia, standard treatement protocol sepsis obese, BMI 35, with malnutrition, albumin 2.3 on admit . History of Present Illness History of Present Illness 07/17/2021 No acute events overnight. Patient saturating 90% on 40% Vapotherm. No c oncerns nursing at this time. Patient's chart, labs, images were reviewed and discussed with RN In addition to my E/M visit, advance care planning done with A total time of 20 minutes was spent from 920 to 940 face to face in discussion with the patient regarding their goals of care, CODE STATUS. 07/18/2021 No acute events overnight. Patient saturating 89% on Vapotherm. No dyspnea upon exertion or at rest. Pending chest x-ray results. No other concerns from nursing. 07/19/21 No acute events overnight. Saturating 91% on vapotherm. No dyspnea and is motiviated to get out of bed onto chair. total critical care time spent of 33 minutes 07/20/2021 No acute events overnight. Patient seen and examined bedside. Saturating well on Vapotherm. Patient accepted at [facility]. No concerns with nursing. A total of 35 minutes of critical care time was spent in reviewing chart, labs, and images. Discussed with RN and TRAVIS. 07/21/2021 No acute events overnight. Unfortunately patient was unable to be transferred t o [facility] because of unable to tolerate BiPAP. At this point we will continue BiPAP and Vapotherm for inpatient care. Patient's chart, labs, images were reviewed and discussed with RN A total of 32 minutes of critical care time was spent in reviewing chart, labs, and images. Discussed with RN and SW. 07/22/2021 No acute events overnight. Patient seen and examined bedside. Saturating 100% on FiO2 and 15 L nonrebreather mask. Does complain of diarrhea and one-time Imodium was administered. Afebrile last 24 hours. Continue PT OT modalities. Encourage prone positioning when able. Patient's chart, labs, images were reviewed and discussed with RN A total of 32 minutes of critical care time was spent in reviewing chart, labs, and images. Discussed with RN and TRAVIS. 07/23/2021 No acute events overnight. Patient seen and examined resting comfortably at bedside. Saturating 83% on Vapotherm. Patient did have dyspneic episodes overnight desaturating down to 70s and 80s. She was offered BiPAP but she is declining and wishing to be DNR today. Patient's chart, labs, images were reviewed and discussed with RN Vitals/I&O Vitals/I&O: Vital Signs Date Time Temp Pulse Resp B/P (MAP) Pulse Ox O2 Delivery O2 Flow Rate FiO2 07/23/21 07:27 83 VAPOTHERM 40.0 07/23/21 06:05 97.9 117 20 142/72 (95) 97.9 I & O 07/22/21 07/22/21 07/23/21 15:00 23:00 07:00 Intake Total 200 ml 240 ml 0 ml Output Total 400 ml 200 ml Balance 200 ml -160 ml -200 ml Physical Exam General: Alert, Oriented X3, Cooperative, mild distress Lungs: Crackles Abdomen: Normal bowel sounds, Soft (obese, ) Extremities: No edema, Normal pulses Skin: No significant lesion Comment Review of Relevant I have reviewed the following items jluis (where applicable) has been applied. Medications: Current Medications Medications (Trade) Dose Ordered Sig/Dov Route PRN Reason Start Time Stop Time Status Last Admin Dose Admin Loperamide HCl (Imodium) 2 mg PRN 1X PRN PO DIARRHEA 07/22/21 12:45 07/22/21 20:42 Justifications for Admission Other Justification NEPTALI BLANCAS MD Jul 23, 2021 11:37
[2021-07-23] MEDS: oxyCODONE/APAP 5/325 1 TAB TABLET PO PRN (13:00)
[2021-07-23] MEDS ORDERED: SUCCINYLCHOLINE 200 MG/10 ML VIAL. ONE ×2 (13:45→14:00)
[2021-07-23] MEDS ORDERED: ETOMIDATE 20 MG/10 ML VIAL. IV ONE ×2 (13:45→14:00)
[2021-07-23] MEDS ORDERED: PROPOFOL 100 ML IV ONE (13:45)
[2021-07-23] MEDS ORDERED: PROPOFOL 10 MG/ML (100ML) VIAL. IV ONE (14:00)
[2021-07-23] MEDS ORDERED: MORPHINE SULFATE 4 MG/ML INJ. IV PRN (14:00)
[2021-07-23] MEDS ORDERED: MORPHINE SULFATE 2 MG/ML INJ. IV PRN (14:00)
[2021-07-23] MEDS ORDERED: fentaNYL PF VIAL 100 MCG/2 ML VIAL IV PRN ×2 (14:00)
[2021-07-23] MEDS ORDERED: LORazepam 0.5 MG TABLET PO PRN (14:30)
[2021-07-23] MEDS: MIDAZOLAM 100mg/100ml NS BAG 100 ML IV PRN (14:57)
[2021-07-23] MEDS: VECURONIUM BOLUS 10 MG VIAL. IV PRN (15:02)
[2021-07-23 16:26] LABS: BASE EXCESS COOX -1 mmol/L (-3-3); HCO3 COOX 25 mmol/L (21-28); METHEMOGLOBIN 0.3 % (0.0-1.9); OXYHEMOGLOBIN 85.6 %; PCO2 COOX 49 mmHg (35-46); PO2 COOX 58 mmHg (65-108); SAT O2 COOX 87 % (92-99)
--- NOTE | 2021-07-23 16:28 | RAD ---
PROCEDURE: XR CHEST 1V.07/23/2021 4:24 PM REASON FOR STUDY: Reason: gastric and ETT placement / Spl. Instructions: / History: . COMPARISON: Study of 07/18/2021. FINDINGS: ETT is now present with its tip about 4 cm above the ratna. NG tube extends at least to th e proximal stomach. Bilateral infiltrates persist and may have worsened slightly. No pleural fluid or pneumothorax is seen. Heart size is normal. IMPRESSION: Placement of ET and NG. Electronically signed by: Kennedy Rivera Jr., MD (07/23/2021 4:25 PM) [id number]
[2021-07-23] MEDS: PROPOFOL 100 ML IV PRN (18:22)
[2021-07-24] VITALS (24 sets, daily range): BP systolic 77–136; BP diastolic 51–76
[2021-07-24] MEDS: MIDAZOLAM 100mg/100ml NS BAG 100 ML IV PRN ×2 (03:22→14:05)
[2021-07-24] MEDS: PROPOFOL 100 ML IV PRN ×2 (03:49→13:03)
[2021-07-24 07:01] LABS: ALBUMIN 1.9 g/dL (3.4-5.0); ALBUMIN/GLOBULIN RATIO 0.5 (1.0-1.7); CALCIUM 8.5 mg/dL (8.5-10.1); CREATININE 0.8 mg/dL (0.6-1.0); POTASSIUM 4.7 mmol/L (3.5-5.1); TOTAL BILIRUBIN 0.4 mg/dL (0.2-1.0); TOTAL PROTEIN 5.9 g/dL (6.4-8.2)
[2021-07-24 07:17] LABS: BASO % 0 % (0-3); EOS % 0 % (0-3); HEMATOCRIT 36.7 % (36.0-47.0); HEMOGLOBIN 11.9 g/dL (12.0-15.5); LYMPH # 0.7 x10^3/uL (1.0-4.8); LYMPH % 3 % (24-48); MEAN CORPUSCULAR HEMOGLOBIN 28 pg (25-35); MEAN CORPUSCULAR HGB CONC 32 g/dL (31-37); MEAN CORPUSCULAR VOLUME 87 fL (79-100); MONO # 1.1 x10^3/uL (0.0-1.1); MONO % 5 % (0-9); NEUT # 19.7 x10^3/uL (1.8-7.7); NEUT % 91 % (31-73); PLATELET COUNT 413 x10^3/uL (140-400); RED CELL DISTRIBUTION WIDTH 15.1 % (11.5-14.5); WHITE BLOOD COUNT 21.5 x10^3/uL (4.0-11.0)
[2021-07-24 07:43] LABS: MAGNESIUM 2.5 mg/dL (1.8-2.4); PHOSPHORUS 4.3 mg/dL (2.6-4.7)
--- NOTE | 2021-07-24 08:03 | PDOC ---
[employer] PROGRESS NOTE Date of Service DOS: DATE: 07/24/21 TIME: 07:58 Chief Complaint Chief Complaint acute hypoxic respiratory failure COVID 19 pneumonia, standard treatement protocol sepsis obese, BMI 35, with malnutrition, albumin 2.3 on admit . History of Present Illness History of Present Illness 07/17/2021 No acute events overnight. Patient saturating 90% on 40% Vapotherm. No c oncerns nursing at this time. Patient's chart, labs, images were reviewed and discussed with RN In addition to my E/M visit, advance care planning done with A total time of 20 minutes was spent from 920 to 940 face to face in discussion with the patient regarding their goals of care, CODE STATUS. 07/18/2021 No acute events overnight. Patient saturating 89% on Vapotherm. No dyspnea upon exertion or at rest. Pending chest x-ray results. No other concerns from nursing. 07/19/21 No acute events overnight. Saturating 91% on vapotherm. No dyspnea and is motiviated to get out of bed onto chair. total critical care time spent of 33 minutes 07/20/2021 No acute events overnight. Patient seen and examined bedside. Saturating well on Vapotherm. Patient accepted at [facility]. No concerns with nursing. A total of 35 minutes of critical care time was spent in reviewing chart, labs, and images. Discussed with RN and TRAVIS. 07/21/2021 No acute events overnight. Unfortunately patient was unable to be transferred t o [facility] because of unable to tolerate BiPAP. At this point we will continue BiPAP and Vapotherm for inpatient care. Patient's chart, labs, images were reviewed and discussed with RN A total of 32 minutes of critical care time was spent in reviewing chart, labs, and images. Discussed with RN and SW. 07/22/2021 No acute events overnight. Patient seen and examined bedside. Saturating 100% on FiO2 and 15 L nonrebreather mask. Does complain of diarrhea and one-time Imodium was administered. Afebrile last 24 hours. Continue PT OT modalities. Encourage prone positioning when able. Patient's chart, labs, images were reviewed and discussed with RN A total of 32 minutes of critical care time was spent in reviewing chart, labs, and images. Discussed with RN and TRAVIS. 07/23/2021 No acute events overnight. Patient seen and examined resting comfortably at bedside. Saturating 83% on Vapotherm. Patient did have dyspneic episodes overnight desaturating down to 70s and 80s. She was offered BiPAP but she is declining and wishing to be DNR today. Patient's chart, labs, images were reviewed and discussed with RN 07/24/2021: Patient transferred to the ICU and intubated overnight. Currently afebrile, tachycardic. On vent with FiO2 100%, PEEP 8. We will continue steroids to complete 10-day course; begin taper tomorrow. Vitals/I&O Vitals/I&O: Vital Signs Date Time Temp Pulse Resp B/P (MAP) Pulse Ox O2 Delivery O2 Flow Rate FiO2 07/24/21 07:00 101 22 87/55 (66) 95 Ventilator 07/24/21 04:00 98.3 98.3 07/23/21 23:15 40.0 I & O 07/23/21 07/23/21 07/24/21 15:00 23:00 07:00 Intake Total 35 ml 172 ml Output Total 725 ml 275 ml Balance -690 ml -103 ml Physical Exam General: Cooperative, mild distress, Other (ET and NG tube in place) Heart: Other (Tachycardic) Lungs: Crackles Abdomen: Normal bowel sounds, Soft (obese, ) Extremities: No edema, Normal pulses Skin: No significant lesion Labs Labs: Laboratory Tests Test 07/23/21 16:20 07/23/21 23:45 07/24/21 05:40 O2 Saturation 87 % (92-99) Arterial Blood pH 7.33 (7.35-7.45) Arterial Blood pCO2 at Patient Temp 49 mmHg (35-46) Arterial Blood pO2 at Patient Temp 58 mmHg (65-108) Arterial Blood HCO3 25 mmol/L (21-28) Arterial Blood Base Excess -1 mmol/L (-3-3) Oxyhemoglobin 85.6 % Methemoglobin 0.3 % (0.0-1.9) Carbon Monoxide, Quantitative 1.0 % (0.0-1.9) FiO2 100 Glucose (Fingerstick) 146 mg/dL (70-99) White Blood Count 21.5 x10^3/uL (4.0-11.0) Red Blood Count 4.20 x10^6/uL (3.50-5.40) Hemoglobin 11.9 g/dL (12.0-15.5) Hematocrit 36.7 % (36.0-47.0) Mean Corpuscular Volume 87 fL (79-100) Mean Corpuscular Hemoglobin 28 pg (25-35) Mean Corpuscular Hemoglobin Concent 32 g/dL (31-37) Red Cell Distribution Width 15.1 % (11.5-14.5) Platelet Count 413 x10^3/uL (140-400) Neutrophils (%) (Auto) 91 % (31-73) Lymphocytes (%) (Auto) 3 % (24-48) Monocytes (%) (Auto) 5 % (0-9) Eosinophils (%) (Auto) 0 % (0-3) Basophils (%) (Auto) 0 % (0-3) Neutrophils # (Auto) 19.7 x10^3/uL (1.8-7.7) Lymphocytes # (Auto) 0.7 x10^3/uL (1.0-4.8) Monocytes # (Auto) 1.1 x10^3/uL (0.0-1.1) Eosinophils # (Auto) 0.0 x10^3/uL (0.0-0.7) Basophils # (Auto) 0.0 x10^3/uL (0.0-0.2) Sodium Level 138 mmol/L (136-145) Potassium Level 4.7 mmol/L (3.5-5.1) Chloride Level 102 mmol/L (98-107) Carbon Dioxide Level 30 mmol/L (21-32) Anion Gap 6 (6-14) Blood Urea Nitrogen 29 mg/dL (7-20) Creatinine 0.8 mg/dL (0.6-1.0) Estimated GFR (Cockcroft-Gault) 72.0 BUN/Creatinine Ratio 36 (6-20) Glucose Level 122 mg/dL (70-99) Calcium Level 8.5 mg/dL (8.5-10.1) Phosphorus Level 4.3 mg/dL (2.6-4.7) Magnesium Level 2.5 mg/dL (1.8-2.4) Total Bilirubin 0.4 mg/dL (0.2-1.0) Aspartate Amino Transf (AST/SGOT) 24 U/L (15-37) Alanine Aminotransferase (ALT/SGPT) 15 U/L (14-59) Alkaline Phosphatase 119 U/L (46-116) Total Protein 5.9 g/dL (6.4-8.2) Albumin 1.9 g/dL (3.4-5.0) Albumin/Globulin Ratio 0.5 (1.0-1.7) Comment Review of Relevant I have reviewed the following items jluis (where applicable) has been applied. Medications: Current Medications Medications (Trade) Dose Ordered Sig/Dov Route PRN Reason Start Time Stop Time Status Last Admin Dose Admin Fentanyl Citrate 30 ml @ 0 mls/hr CONT PRN IV SEE PROTOCOL 07/23/21 14:00 07/23/21 23:15 Propofol 100 ml @ 0 mls/hr CONT PRN IV PER PROTOCOL 07/23/21 14:00 07/24/21 03:49 Midazolam HCl 100 ml @ 0 mls/hr CONT PRN IV SEE PROTOCOL 07/23/21 14:00 07/24/21 03:22 Vecuronium [place] (Norcuron Bolus) 6 mg PRN Q2HR PRN IV VENTILATOR COMPLIANCE 07/23/21 14:00 07/23/21 15:02 Justifications for Admission Other Justification GAYLE YUNG MD Jul 24, 2021 08:03
[2021-07-24 08:40] LABS: BASE EXCESS ABG 3 mmol/L (-3-3); HCO3 ABG 28 mmol/L (21-28); PCO2 ABG 46 mmHg (35-46); PO2 ABG 62 mmHg (65-108); SAT O2 ABG 90 % (92-99)
[2021-07-24] MEDS: PANTOPRAZOLE IV PUSH 40 MG VIAL. IVP SCH (09:04)
[2021-07-24] MEDS: LACTOBACILLUS RHAMNOSUS GG 1 CAPSULE. PO SCH ×2 (09:04→21:02)
[2021-07-24] MEDS: DEXAMETHASONE SOD PHOS 4 MG/ML VIAL IVP SCH (09:04)
[2021-07-24] MEDS: ASCORBIC ACID 500 MG TABLET PO SCH (09:04)
[2021-07-24] MEDS: ZINC SULFATE 220 MG CAPSULE. PO SCH (09:04)
[2021-07-24] MEDS: ENOXAPARIN 40 MG/0.4 ML SYRINGE. SQ SCH (09:05)
[2021-07-24 09:06] LABS: % MONOS 1 % (0-10); % SEGS 99 % (35-66); PLT ESTIMATE ADEQUATE (ADEQUATE)
[2021-07-24] MEDS ORDERED: IV NORMAL SALINE 500ML BAG 500 ML IV PRN (10:00)
--- NOTE | 2021-07-24 10:08 | PDOC ---
PULMONARY PROGRESS NOTES DATE: 07/24/21 TIME: 10:04 Subjective Patient change her CODE STATUS 07/23 to full code. Patient was transferred to the ICU intubated and sedated.07/23 Currently on assist control mode ,100% FiO2 and 8 of PEEP Vitals Vital Signs Date Time Temp Pulse Resp B/P (MAP) Pulse Ox O2 Delivery O2 Flow Rate FiO2 07/24/21 08:26 97 Ventilator 07/24/21 07:00 101 22 87/55 (66) 07/24/21 04:00 98.3 98.3 07/23/21 23:15 40.0 Comments Visual exam done due to COVID-19 pneumonia. Patient sedated, no paradoxical breathing. No edema no skin rash Labs Laboratory Tests Test 07/23/21 16:20 07/23/21 23:45 07/24/21 05:40 O2 Saturation 87 % (92-99) Arterial Blood pH 7.33 (7.35-7.45) Arterial Blood pCO2 at Patient Temp 49 mmHg (35-46) Arterial Blood pO2 at Patient Temp 58 mmHg (65-108) Arterial Blood HCO3 25 mmol/L (21-28) Arterial Blood Base Excess -1 mmol/L (-3-3) Oxyhemoglobin 85.6 % Methemoglobin 0.3 % (0.0-1.9) Carbon Monoxide, Quantitative 1.0 % (0.0-1.9) FiO2 100 Glucose (Fingerstick) 146 mg/dL (70-99) White Blood Count 21.5 x10^3/uL (4.0-11.0) Red Blood Count 4.20 x10^6/uL (3.50-5.40) Hemoglobin 11.9 g/dL (12.0-15.5) Hematocrit 36.7 % (36.0-47.0) Mean Corpuscular Volume 87 fL (79-100) Mean Corpuscular Hemoglobin 28 pg (25-35) Mean Corpuscular Hemoglobin Concent 32 g/dL (31-37) Red Cell Distribution Width 15.1 % (11.5-14.5) Platelet Count 413 x10^3/uL (140-400) Neutrophils (%) (Auto) 91 % (31-73) Lymphocytes (%) (Auto) 3 % (24-48) Monocytes (%) (Auto) 5 % (0-9) Eosinophils (%) (Auto) 0 % (0-3) Basophils (%) (Auto) 0 % (0-3) Neutrophils # (Auto) 19.7 x10^3/uL (1.8-7.7) Lymphocytes # (Auto) 0.7 x10^3/uL (1.0-4.8) Monocytes # (Auto) 1.1 x10^3/uL (0.0-1.1) Eosinophils # (Auto) 0.0 x10^3/uL (0.0-0.7) Basophils # (Auto) 0.0 x10^3/uL (0.0-0.2) Segmented Neutrophils % 99 % (35-66) Monocytes % 1 % (0-10) Platelet Estimate Adequate (ADEQUATE) Sodium Level 138 mmol/L (136-145) Potassium Level 4.7 mmol/L (3.5-5.1) Chloride Level 102 mmol/L (98-107) Carbon Dioxide Level 30 mmol/L (21-32) Anion Gap 6 (6-14) Blood Urea Nitrogen 29 mg/dL (7-20) Creatinine 0.8 mg/dL (0.6-1.0) Estimated GFR (Cockcroft-Gault) 72.0 BUN/Creatinine Ratio 36 (6-20) Glucose Level 122 mg/dL (70-99) Calcium Level 8.5 mg/dL (8.5-10.1) Phosphorus Level 4.3 mg/dL (2.6-4.7) Magnesium Level 2.5 mg/dL (1.8-2.4) Total Bilirubin 0.4 mg/dL (0.2-1.0) Aspartate Amino Transf (AST/SGOT) 24 U/L (15-37) Alanine Aminotransferase (ALT/SGPT) 15 U/L (14-59) Alkaline Phosphatase 119 U/L (46-116) Total Protein 5.9 g/dL (6.4-8.2) Albumin 1.9 g/dL (3.4-5.0) Albumin/Globulin Ratio 0.5 (1.0-1.7) Laboratory Tests Test 07/23/21 16:20 07/23/21 23:45 07/24/21 05:40 O2 Saturation 87 % (92-99) Arterial Blood pH 7.33 (7.35-7.45) Arterial Blood pCO2 at Patient Temp 49 mmHg (35-46) Arterial Blood pO2 at Patient Temp 58 mmHg (65-108) Arterial Blood HCO3 25 mmol/L (21-28) Arterial Blood Base Excess -1 mmol/L (-3-3) Oxyhemoglobin 85.6 % Methemoglobin 0.3 % (0.0-1.9) Carbon Monoxide, Quantitative 1.0 % (0.0-1.9) FiO2 100 Glucose (Fingerstick) 146 mg/dL (70-99) White Blood Count 21.5 x10^3/uL (4.0-11.0) Red Blood Count 4.20 x10^6/uL (3.50-5.40) Hemoglobin 11.9 g/dL (12.0-15.5) Hematocrit 36.7 % (36.0-47.0) Mean Corpuscular Volume 87 fL (79-100) Mean Corpuscular Hemoglobin 28 pg (25-35) Mean Corpuscular Hemoglobin Concent 32 g/dL (31-37) Red Cell Distribution Width 15.1 % (11.5-14.5) Platelet Count 413 x10^3/uL (140-400) Neutrophils (%) (Auto) 91 % (31-73) Lymphocytes (%) (Auto) 3 % (24-48) Monocytes (%) (Auto) 5 % (0-9) Eosinophils (%) (Auto) 0 % (0-3) Basophils (%) (Auto) 0 % (0-3) Neutrophils # (Auto) 19.7 x10^3/uL (1.8-7.7) Lymphocytes # (Auto) 0.7 x10^3/uL (1.0-4.8) Monocytes # (Auto) 1.1 x10^3/uL (0.0-1.1) Eosinophils # (Auto) 0.0 x10^3/uL (0.0-0.7) Basophils # (Auto) 0.0 x10^3/uL (0.0-0.2) Segmented Neutrophils % 99 % (35-66) Monocytes % 1 % (0-10) Platelet Estimate Adequate (ADEQUATE) Sodium Level 138 mmol/L (136-145) Potassium Level 4.7 mmol/L (3.5-5.1) Chloride Level 102 mmol/L (98-107) Carbon Dioxide Level 30 mmol/L (21-32) Anion Gap 6 (6-14) Blood Urea Nitrogen 29 mg/dL (7-20) Creatinine 0.8 mg/dL (0.6-1.0) Estimated GFR (Cockcroft-Gault) 72.0 BUN/Creatinine Ratio 36 (6-20) Glucose Level 122 mg/dL (70-99) Calcium Level 8.5 mg/dL (8.5-10.1) Phosphorus Level 4.3 mg/dL (2.6-4.7) Magnesium Level 2.5 mg/dL (1.8-2.4) Total Bilirubin 0.4 mg/dL (0.2-1.0) Aspartate Amino Transf (AST/SGOT) 24 U/L (15-37) Alanine Aminotransferase (ALT/SGPT) 15 U/L (14-59) Alkaline Phosphatase 119 U/L (46-116) Total Protein 5.9 g/dL (6.4-8.2) Albumin 1.9 g/dL (3.4-5.0) Albumin/Globulin Ratio 0.5 (1.0-1.7) Medications Active Scripts Medications Dose Route/Sig Max Daily Dose Days Date Category Comments Chest x-ray reviewed 07/23/2021. Diffuse bilateral interstitial infiltrates Impression . IMPRESSION: 1. Acute hypoxemic respiratory failure secondary to COVID-19 viral pneumonia/ARDS. Worsening hypoxia. Intubated 07/23/2021 2. COVID-19 viral pneumonia/acute respiratory distress syndrome. 3. Possible bacterial pneumonia. 4. Obesity. Plan . Updated 07/24/21 Continue present assist control mode, 100% FiO2, and 8 of PEEP. Follow ABGs and make necessary adjustments. Today's PO2 is 58. No room to wean. We will continue present aggressive care for now. Continue steroids with taper over 10 days DVT prophylaxis Stress ulcer prophylaxis Enteral nutrition Follow labs and make corrections as needed Critical care time 30 minutes Updated 07/23 As discussed above patient had a rough night. Her oxygen level fluctuated in the high 70s and low 80s. She declined to be placed on BiPAP. Patient has been on Vapotherm 40 L flow, 100% oxygen and additional nonrebreather mask. She desaturates with minimal activity. We will continue present aggressive care for now. Continue steroids with taper over 10 days I had a long discussion with the patient and it was witnessed by the nurse Cindy about advanced directives. All pros and cons of being on a ventilator were discussed. Patient does not want to be on a ventilator. I spoke to patient's son Lorenzo and informed about patient's decision. She will be a DNR. We will continue present aggressive care. At this point will only transfer to [facility] if we have BiPAP available for the transfer. Critical care time 30 minutes addend: Informed by RN. Patient changed her decision to be full code. She will be transfered to ICU and will proceed with intubation. Updated 07/22 Patient has been on Vapotherm 40 L flow, 100% oxygen and additional nonrebreather mask. Patient is tolerating the current oxygen reasonably well. Patient's family wants her to transfer to [facility] Saturday. She should be stable for the transfer due to very short distance of transfer We will continue present aggressive care for now. Continue steroids with taper over 10 days Updated 07/21 Patient has been on Vapotherm 40 L flow, 100% oxygen and additional nonrebreather mask. She was due to transfer to [facility], unfortunately unable to tolerate BiPAP, for transfer At present she is unstable for the transfer. We will continue present aggressive care for now. Continue steroids with taper over 10 days Updated 07/20 Patient has been on Vapotherm 40 L flow, 100% oxygen She was due to transfer to [facility], unfortunately unable to tolerate BiPAP, for transfer I visited with patient during the time that EMS was here for transfer. I recommend that she stays. At this juncture not safe to transfer patient to [facility] on BiPAP updated 07/19 Continue current support Vapotherm Discussed with social service Remdesivir Steroid updated 07/18 We will continue steroids and remdesivir, empiric antibiotics, Vapotherm, up to chair as possible Will check into LTAC referral updated 07/17 Continue Vapotherm Antibiotics Steroids ordered Remdesivir Up to chair RAFIA EGAN MD Jul 24, 2021 10:08
[2021-07-24 10:13] LABS: FIO2 ABG 100% VENT
[2021-07-24] MEDS: DEXMEDETOMIDINE 400 MCG in IV NORMAL SALINE 100ML 96 ML IV PRN ×3 (10:54→22:53)
--- NOTE | 2021-07-24 12:35 | RAD ---
EXAM: Chest, single view. HISTORY: PICC line placement. COMPARISON: 07/23/2021 FINDINGS: A frontal view of the chest is obtained. There is a right PICC with the tip overlying expec matt location of the superior cavoatrial junction. There is no pneumothorax. There is an endotracheal tube within the mid trachea. There is a nasogastric tube within the proximal stomach. There is stable diffuse interstitial infiltrate. No pleural effusion is seen. The heart is normal in size. IMPRESSION: 1. Right PICC with the tip overlying expected region of the superior cavoatrial junction. 2. Stable diffuse infiltrate and remaining support lines and tubes. Electronically signed by: Debbie Sellers MD (07/24/2021 12:32 PM) [id number]
--- NOTE | 2021-07-24 15:04 | NUR ---
SS following up with discharge planning. SS reviewed pt chart and discussed with pt RN. Pt was transferred to ICU on 07/23/2021 and was intubated. Pt is currently on the vent at 100%. COVID19 positive. Pt now on tube feeding. Pt on Propofol, Fentanyl, Versed, and Precedex. Pt on IV Decadron. Pt accepted at [facility], ; fax [phone]. Pt not stable for transfer today. Clinical updates phoned and faxed to [facility]. SS contacted pt's son Lorenzo, , and provided update. SS will continue to follow for discharge planning.
[2021-07-24] MEDS ORDERED: DEXTROSE 50% 25 GM / 50ML DISP.SYRIN. IV PRN (18:00)
[2021-07-24] MEDS: INSULIN LISPRO 300 UNITS/3 ML VIAL. SQ SCH (18:45)
[2021-07-25] VITALS (34 sets, daily range): BP systolic 112–168; BP diastolic 68–93
[2021-07-25] MEDS: INSULIN LISPRO 300 UNITS/3 ML VIAL. SQ SCH ×4 (01:33→17:39)
[2021-07-25] MEDS: MIDAZOLAM 100mg/100ml NS BAG 100 ML IV PRN ×3 (01:33→23:01)
[2021-07-25] MEDS: DEXMEDETOMIDINE 400 MCG in IV NORMAL SALINE 100ML 96 ML IV PRN ×4 (04:07→19:33)
[2021-07-25 05:03] LABS: BASO # 0.1 x10^3/uL (0.0-0.2); BASO % 1 % (0-3); EOS % 0 % (0-3); HEMATOCRIT 34.7 % (36.0-47.0); LYMPH # 0.5 x10^3/uL (1.0-4.8); LYMPH % 3 % (24-48); MEAN CORPUSCULAR HEMOGLOBIN 28 pg (25-35); MEAN CORPUSCULAR HGB CONC 32 g/dL (31-37); MEAN CORPUSCULAR VOLUME 88 fL (79-100); MONO # 0.9 x10^3/uL (0.0-1.1); MONO % 5 % (0-9); NEUT # 16.8 x10^3/uL (1.8-7.7); NEUT % 92 % (31-73); PLATELET COUNT 279 x10^3/uL (140-400); RED BLOOD COUNT 3.93 x10^6/uL (3.50-5.40); WHITE BLOOD COUNT 18.3 x10^3/uL (4.0-11.0)
[2021-07-25 05:34] LABS: CREATININE 0.6 mg/dL (0.6-1.0); GFR 100.3; POTASSIUM 4.8 mmol/L (3.5-5.1)
--- NOTE | 2021-07-25 06:42 | PDOC ---
[employer] PROGRESS NOTE Date of Service DOS: DATE: 07/25/21 TIME: 06:38 Chief Complaint Chief Complaint acute hypoxic respiratory failure COVID 19 pneumonia, standard treatement protocol sepsis obese, BMI 35, with malnutrition, albumin 2.3 on admit . History of Present Illness History of Present Illness 07/17/2021 No acute events overnight. Patient saturating 90% on 40% Vapotherm. No c oncerns nursing at this time. Patient's chart, labs, images were reviewed and discussed with RN In addition to my E/M visit, advance care planning done with A total time of 20 minutes was spent from 920 to 940 face to face in discussion with the patient regarding their goals of care, CODE STATUS. 07/18/2021 No acute events overnight. Patient saturating 89% on Vapotherm. No dyspnea upon exertion or at rest. Pending chest x-ray results. No other concerns from nursing. 07/19/21 No acute events overnight. Saturating 91% on vapotherm. No dyspnea and is motiviated to get out of bed onto chair. total critical care time spent of 33 minutes 07/20/2021 No acute events overnight. Patient seen and examined bedside. Saturating well on Vapotherm. Patient accepted at [facility]. No concerns with nursing. A total of 35 minutes of critical care time was spent in reviewing chart, labs, and images. Discussed with RN and TRAVIS. 07/21/2021 No acute events overnight. Unfortunately patient was unable to be transferred t o [facility] because of unable to tolerate BiPAP. At this point we will continue BiPAP and Vapotherm for inpatient care. Patient's chart, labs, images were reviewed and discussed with RN A total of 32 minutes of critical care time was spent in reviewing chart, labs, and images. Discussed with RN and SW. 07/22/2021 No acute events overnight. Patient seen and examined bedside. Saturating 100% on FiO2 and 15 L nonrebreather mask. Does complain of diarrhea and one-time Imodium was administered. Afebrile last 24 hours. Continue PT OT modalities. Encourage prone positioning when able. Patient's chart, labs, images were reviewed and discussed with RN A total of 32 minutes of critical care time was spent in reviewing chart, labs, and images. Discussed with RN and TRAVIS. 07/23/2021 No acute events overnight. Patient seen and examined resting comfortably at bedside. Saturating 83% on Vapotherm. Patient did have dyspneic episodes overnight desaturating down to 70s and 80s. She was offered BiPAP but she is declining and wishing to be DNR today. Patient's chart, labs, images were reviewed and discussed with RN 07/24/2021: Patient transferred to the ICU and intubated overnight. Currently afebrile, tachycardic. On vent with FiO2 100%, PEEP 8. We will continue steroids to complete 10-day course; begin taper tomorrow. 07/25/2021: Afebrile, no acute events overnight. On vent with FiO2 100%, PEEP 8. Completed remdesivir. Day 10 of steroids, will begin taper over 10 days. Continue supportive care. Critical care time 30 min spent reviewing charts, reviewing imaging, reviewing labs, and discussion with RN. Vitals/I&O Vitals/I&O: Vital Signs Date Time Temp Pulse Resp B/P (MAP) Pulse Ox O2 Delivery O2 Flow Rate FiO2 07/25/21 05:30 64 22 137/78 (97) 99 Ventilator 07/25/21 04:00 97.9 97.9 07/24/21 11:24 40.0 I & O 07/24/21 07/24/21 07/25/21 15:00 23:00 07:00 Intake Total 60 ml 3082.7 ml 630 ml Output Total 210 ml 440 ml 440 ml Balance -150 ml 2642.7 ml 190 ml Physical Exam General: Cooperative, mild distress, Other (ET and NG tube in place) Heart: Other (Tachycardic) Lungs: Other (Intubated on vent) Abdomen: Normal bowel sounds, Soft (obese, ) Extremities: No cyanosis, No edema, Normal pulses Skin: No rashes, No significant lesion Labs Labs: Laboratory Tests Test 07/24/21 09:15 07/24/21 18:41 07/25/21 00:02 07/25/21 04:50 O2 Saturation 90 % (92-99) Arterial Blood pH 7.40 (7.35-7.45) Arterial Blood pCO2 at Patient Temp 46 mmHg (35-46) Arterial Blood pO2 at Patient Temp 62 mmHg (65-108) Arterial Blood HCO3 28 mmol/L (21-28) Arterial Blood Base Excess 3 mmol/L (-3-3) FiO2 100% vent Glucose (Fingerstick) 182 mg/dL (70-99) 183 mg/dL (70-99) White Blood Count 18.3 x10^3/uL (4.0-11.0) Red Blood Count 3.93 x10^6/uL (3.50-5.40) Hemoglobin 11.0 g/dL (12.0-15.5) Hematocrit 34.7 % (36.0-47.0) Mean Corpuscular Volume 88 fL (79-100) Mean Corpuscular Hemoglobin 28 pg (25-35) Mean Corpuscular Hemoglobin Concent 32 g/dL (31-37) Red Cell Distribution Width 15.0 % (11.5-14.5) Platelet Count 279 x10^3/uL (140-400) Neutrophils (%) (Auto) 92 % (31-73) Lymphocytes (%) (Auto) 3 % (24-48) Monocytes (%) (Auto) 5 % (0-9) Eosinophils (%) (Auto) 0 % (0-3) Basophils (%) (Auto) 1 % (0-3) Neutrophils # (Auto) 16.8 x10^3/uL (1.8-7.7) Lymphocytes # (Auto) 0.5 x10^3/uL (1.0-4.8) Monocytes # (Auto) 0.9 x10^3/uL (0.0-1.1) Eosinophils # (Auto) 0.0 x10^3/uL (0.0-0.7) Basophils # (Auto) 0.1 x10^3/uL (0.0-0.2) Sodium Level 138 mmol/L (136-145) Potassium Level 4.8 mmol/L (3.5-5.1) Chloride Level 104 mmol/L (98-107) Carbon Dioxide Level 30 mmol/L (21-32) Anion Gap 4 (6-14) Blood Urea Nitrogen 23 mg/dL (7-20) Creatinine 0.6 mg/dL (0.6-1.0) Estimated GFR (Cockcroft-Gault) 100.3 Glucose Level 170 mg/dL (70-99) Calcium Level 8.0 mg/dL (8.5-10.1) Test 07/25/21 05:54 Glucose (Fingerstick) 177 mg/dL (70-99) Comment Review of Relevant I have reviewed the following items jluis (where applicable) has been applied. Medications: Current Medications Medications (Trade) Dose Ordered Sig/Dov Route PRN Reason Start Time Stop Time Status Last Admin Dose Admin Pantoprazole Sodium (PROTONIX VIAL for IV PUSH) 40 mg DAILYAC IVP 07/24/21 09:00 07/24/21 09:04 Dexmedetomidine HCl 400 mcg/ Sodium Chloride 100 ml @ 0 mls/hr CONT PRN IV PER PROTOCOL 07/24/21 10:00 07/25/21 04:07 Insulin Human Lispro (HumaLOG) 0-5 UNITS Q6HRS SQ 07/24/21 18:00 07/25/21 01:33 Justifications for Admission Other Justification GAYLE YUNG MD Jul 25, 2021 06:42
[2021-07-25] MEDS: PROPOFOL 100 ML IV PRN (07:04)
[2021-07-25 08:46] LABS: BASE EXCESS ABG 0 mmol/L (-3-3); HCO3 ABG 25 mmol/L (21-28); PCO2 ABG 46 mmHg (35-46); PO2 ABG 67 mmHg (65-108); SAT O2 ABG 91 % (92-99)
[2021-07-25] MEDS: ENOXAPARIN 40 MG/0.4 ML SYRINGE. SQ SCH (08:46)
[2021-07-25] MEDS: LACTOBACILLUS RHAMNOSUS GG 1 CAPSULE. PO SCH ×2 (08:46→21:24)
[2021-07-25] MEDS: DEXAMETHASONE SOD PHOS 4 MG/ML VIAL IVP SCH (08:46)
[2021-07-25] MEDS: ZINC SULFATE 220 MG CAPSULE. PO SCH (08:46)
[2021-07-25] MEDS: ASCORBIC ACID 500 MG TABLET PO SCH (08:46)
[2021-07-25] MEDS: PANTOPRAZOLE IV PUSH 40 MG VIAL. IVP SCH (08:46)
[2021-07-25 09:02] LABS: FIO2 ABG 100% VENT
--- NOTE | 2021-07-25 10:51 | PDOC ---
PULMONARY PROGRESS NOTES DATE: 07/25/21 TIME: 10:50 Subjective Patient change her CODE STATUS 07/23 to full code. Patient was transferred to the ICU intubated and sedated.07/23 Currently on assist control mode ,100% FiO2 and 8 of PEEP Vitals Vital Signs Date Time Temp Pulse Resp B/P (MAP) Pulse Ox O2 Delivery O2 Flow Rate FiO2 07/25/21 09:31 99 40.0 07/25/21 08:17 Ventilator 07/25/21 07:00 60 19 155/84 (107) 07/25/21 04:00 97.9 97.9 Comments Visual exam done due to COVID-19 pneumonia. Patient sedated, no paradoxical breathing. No edema no skin rash Lungs: Other (Intubated on vent) Labs Laboratory Tests Test 07/23/21 16:20 07/23/21 23:45 07/24/21 05:40 07/24/21 09:15 O2 Saturation 87 % (92-99) 90 % (92-99) Arterial Blood pH 7.33 (7.35-7.45) 7.40 (7.35-7.45) Arterial Blood pCO2 at Patient Temp 49 mmHg (35-46) 46 mmHg (35-46) Arterial Blood pO2 at Patient Temp 58 mmHg (65-108) 62 mmHg (65-108) Arterial Blood HCO3 25 mmol/L (21-28) 28 mmol/L (21-28) Arterial Blood Base Excess -1 mmol/L (-3-3) 3 mmol/L (-3-3) Oxyhemoglobin 85.6 % Methemoglobin 0.3 % (0.0-1.9) Carbon Monoxide, Quantitative 1.0 % (0.0-1.9) FiO2 100 100% vent Glucose (Fingerstick) 146 mg/dL (70-99) White Blood Count 21.5 x10^3/uL (4.0-11.0) Red Blood Count 4.20 x10^6/uL (3.50-5.40) Hemoglobin 11.9 g/dL (12.0-15.5) Hematocrit 36.7 % (36.0-47.0) Mean Corpuscular Volume 87 fL (79-100) Mean Corpuscular Hemoglobin 28 pg (25-35) Mean Corpuscular Hemoglobin Concent 32 g/dL (31-37) Red Cell Distribution Width 15.1 % (11.5-14.5) Platelet Count 413 x10^3/uL (140-400) Neutrophils (%) (Auto) 91 % (31-73) Lymphocytes (%) (Auto) 3 % (24-48) Monocytes (%) (Auto) 5 % (0-9) Eosinophils (%) (Auto) 0 % (0-3) Basophils (%) (Auto) 0 % (0-3) Neutrophils # (Auto) 19.7 x10^3/uL (1.8-7.7) Lymphocytes # (Auto) 0.7 x10^3/uL (1.0-4.8) Monocytes # (Auto) 1.1 x10^3/uL (0.0-1.1) Eosinophils # (Auto) 0.0 x10^3/uL (0.0-0.7) Basophils # (Auto) 0.0 x10^3/uL (0.0-0.2) Segmented Neutrophils % 99 % (35-66) Monocytes % 1 % (0-10) Platelet Estimate Adequate (ADEQUATE) Sodium Level 138 mmol/L (136-145) Potassium Level 4.7 mmol/L (3.5-5.1) Chloride Level 102 mmol/L (98-107) Carbon Dioxide Level 30 mmol/L (21-32) Anion Gap 6 (6-14) Blood Urea Nitrogen 29 mg/dL (7-20) Creatinine 0.8 mg/dL (0.6-1.0) Estimated GFR (Cockcroft-Gault) 72.0 BUN/Creatinine Ratio 36 (6-20) Glucose Level 122 mg/dL (70-99) Calcium Level 8.5 mg/dL (8.5-10.1) Phosphorus Level 4.3 mg/dL (2.6-4.7) Magnesium Level 2.5 mg/dL (1.8-2.4) Total Bilirubin 0.4 mg/dL (0.2-1.0) Aspartate Amino Transf (AST/SGOT) 24 U/L (15-37) Alanine Aminotransferase (ALT/SGPT) 15 U/L (14-59) Alkaline Phosphatase 119 U/L (46-116) Total Protein 5.9 g/dL (6.4-8.2) Albumin 1.9 g/dL (3.4-5.0) Albumin/Globulin Ratio 0.5 (1.0-1.7) Test 07/24/21 18:41 07/25/21 00:02 07/25/21 04:50 07/25/21 05:54 Glucose (Fingerstick) 182 mg/dL (70-99) 183 mg/dL (70-99) 177 mg/dL (70-99) White Blood Count 18.3 x10^3/uL (4.0-11.0) Red Blood Count 3.93 x10^6/uL (3.50-5.40) Hemoglobin 11.0 g/dL (12.0-15.5) Hematocrit 34.7 % (36.0-47.0) Mean Corpuscular Volume 88 fL (79-100) Mean Corpuscular Hemoglobin 28 pg (25-35) Mean Corpuscular Hemoglobin Concent 32 g/dL (31-37) Red Cell Distribution Width 15.0 % (11.5-14.5) Platelet Count 279 x10^3/uL (140-400) Neutrophils (%) (Auto) 92 % (31-73) Lymphocytes (%) (Auto) 3 % (24-48) Monocytes (%) (Auto) 5 % (0-9) Eosinophils (%) (Auto) 0 % (0-3) Basophils (%) (Auto) 1 % (0-3) Neutrophils # (Auto) 16.8 x10^3/uL (1.8-7.7) Lymphocytes # (Auto) 0.5 x10^3/uL (1.0-4.8) Monocytes # (Auto) 0.9 x10^3/uL (0.0-1.1) Eosinophils # (Auto) 0.0 x10^3/uL (0.0-0.7) Basophils # (Auto) 0.1 x10^3/uL (0.0-0.2) Sodium Level 138 mmol/L (136-145) Potassium Level 4.8 mmol/L (3.5-5.1) Chloride Level 104 mmol/L (98-107) Carbon Dioxide Level 30 mmol/L (21-32) Anion Gap 4 (6-14) Blood Urea Nitrogen 23 mg/dL (7-20) Creatinine 0.6 mg/dL (0.6-1.0) Estimated GFR (Cockcroft-Gault) 100.3 Glucose Level 170 mg/dL (70-99) Calcium Level 8.0 mg/dL (8.5-10.1) Test 07/25/21 08:45 O2 Saturation 91 % (92-99) Arterial Blood pH 7.36 (7.35-7.45) Arterial Blood pCO2 at Patient Temp 46 mmHg (35-46) Arterial Blood pO2 at Patient Temp 67 mmHg (65-108) Arterial Blood HCO3 25 mmol/L (21-28) Arterial Blood Base Excess 0 mmol/L (-3-3) FiO2 100% vent Laboratory Tests Test 07/24/21 18:41 07/25/21 00:02 07/25/21 04:50 07/25/21 05:54 Glucose (Fingerstick) 182 mg/dL (70-99) 183 mg/dL (70-99) 177 mg/dL (70-99) White Blood Count 18.3 x10^3/uL (4.0-11.0) Red Blood Count 3.93 x10^6/uL (3.50-5.40) Hemoglobin 11.0 g/dL (12.0-15.5) Hematocrit 34.7 % (36.0-47.0) Mean Corpuscular Volume 88 fL (79-100) Mean Corpuscular Hemoglobin 28 pg (25-35) Mean Corpuscular Hemoglobin Concent 32 g/dL (31-37) Red Cell Distribution Width 15.0 % (11.5-14.5) Platelet Count 279 x10^3/uL (140-400) Neutrophils (%) (Auto) 92 % (31-73) Lymphocytes (%) (Auto) 3 % (24-48) Monocytes (%) (Auto) 5 % (0-9) Eosinophils (%) (Auto) 0 % (0-3) Basophils (%) (Auto) 1 % (0-3) Neutrophils # (Auto) 16.8 x10^3/uL (1.8-7.7) Lymphocytes # (Auto) 0.5 x10^3/uL (1.0-4.8) Monocytes # (Auto) 0.9 x10^3/uL (0.0-1.1) Eosinophils # (Auto) 0.0 x10^3/uL (0.0-0.7) Basophils # (Auto) 0.1 x10^3/uL (0.0-0.2) Sodium Level 138 mmol/L (136-145) Potassium Level 4.8 mmol/L (3.5-5.1) Chloride Level 104 mmol/L (98-107) Carbon Dioxide Level 30 mmol/L (21-32) Anion Gap 4 (6-14) Blood Urea Nitrogen 23 mg/dL (7-20) Creatinine 0.6 mg/dL (0.6-1.0) Estimated GFR (Cockcroft-Gault) 100.3 Glucose Level 170 mg/dL (70-99) Calcium Level 8.0 mg/dL (8.5-10.1) Test 07/25/21 08:45 O2 Saturation 91 % (92-99) Arterial Blood pH 7.36 (7.35-7.45) Arterial Blood pCO2 at Patient Temp 46 mmHg (35-46) Arterial Blood pO2 at Patient Temp 67 mmHg (65-108) Arterial Blood HCO3 25 mmol/L (21-28) Arterial Blood Base Excess 0 mmol/L (-3-3) FiO2 100% vent Medications Active Scripts Medications Dose Route/Sig Max Daily Dose Days Date Category Comments Chest x-ray reviewed 07/23/2021. Diffuse bilateral interstitial infiltrates Impression . IMPRESSION: 1. Acute hypoxemic respiratory failure secondary to COVID-19 viral pneumonia/ARDS. Worsening hypoxia. Intubated 07/23/2021 2. COVID-19 viral pneumonia/acute respiratory distress syndrome. 3. Possible bacterial pneumonia. 4. Obesity. Plan . Updated 07/25/21 Continue present assist control mode, 100% FiO2, and 8 of PEEP. Patient had some increased respiratory rate. Will increase fentanyl today Follow ABGs and make necessary adjustments. No room to wean. We will continue present aggressive care for now. Continue steroids with taper over 10 days DVT prophylaxis Stress ulcer prophylaxis Enteral nutrition Follow labs and make corrections as needed Updated 07/24/21 Continue present assist control mode, 100% FiO2, and 8 of PEEP. Follow ABGs and make necessary adjustments. Today's PO2 is 58. No room to wean. We will continue present aggressive care for now. Continue steroids with taper over 10 days DVT prophylaxis Stress ulcer prophylaxis Enteral nutrition Follow labs and make corrections as needed Critical care time 30 minutes Updated 07/23 As discussed above patient had a rough night. Her oxygen level fluctuated in the high 70s and low 80s. She declined to be placed on BiPAP. Patient has been on Vapotherm 40 L flow, 100% oxygen and additional nonrebreather mask. She desaturates with minimal activity. We will continue present aggressive care for now. Continue steroids with taper over 10 days I had a long discussion with the patient and it was witnessed by the nurse Cindy about advanced directives. All pros and cons of being on a ventilator were discussed. Patient does not want to be on a ventilator. I spoke to patient's son Lorenzo and informed about patient's decision. She will be a DNR. We will continue present aggressive care. At this point will only transfer to [facility] if we have BiPAP available for the transfer. Critical care time 30 minutes addend: Informed by RN. Patient changed her decision to be full code. She will be transfered to ICU and will proceed with intubation. Updated 07/22 Patient has been on Vapotherm 40 L flow, 100% oxygen and additional nonrebreather mask. Patient is tolerating the current oxygen reasonably well. Patient's family wants her to transfer to [facility] Saturday. She should be stable for the transfer due to very short distance of transfer We will continue present aggressive care for now. Continue steroids with taper over 10 days Updated 07/21 Patient has been on Vapotherm 40 L flow, 100% oxygen and additional nonr ebreather mask. She was due to transfer to [facility], unfortunately unable to tolerate BiPAP, for transfer At present she is unstable for the transfer. We will continue present aggressive care for now. Continue steroids with taper over 10 days Updated 07/20 Patient has been on Vapotherm 40 L flow, 100% oxygen She was due to transfer to [facility], unfortunately unable to tolerate BiPAP, for transfer I visited with patient during the time that EMS was here for transfer. I recommend that she stays. At this juncture not safe to transfer patient to [facility] on BiPAP updated 07/19 Continue current support Vapotherm Discussed with social service Remdesivir Steroid updated 07/18 We will continue steroids and remdesivir, empiric antibiotics, Vapotherm, up to chair as possible Will check into LTAC referral updated 9/6 Continue Vapotherm Antibiotics Steroids ordered Remdesivir Up to chair RAFIA EGAN MD Jul 25, 2021 10:51
--- NOTE | 2021-07-25 11:00 | NUR ---
SS following up with discharge planning. SS reviewed pt chart and discussed with pt RN. Pt is currently on the vent at 100%. COVID19 positive. Pt on Propofol, Fentanyl, Versed, and Precedex. Tube feeds. Pt on IV Decadron. Pt accepted at [facility], ; fax [phone]. Not stable. SS will continue to follow for discharge planning.
[2021-07-25] MEDS: fentaNYL HIGH DOSE PCA 55 ML IV PRN (16:43)
[2021-07-26] VITALS (30 sets, daily range): BP systolic 76–167; BP diastolic 49–94
[2021-07-26] MEDS: DEXMEDETOMIDINE 400 MCG in IV NORMAL SALINE 100ML 96 ML IV PRN ×5 (01:02→20:28)
[2021-07-26] MEDS: INSULIN LISPRO 300 UNITS/3 ML VIAL. SQ SCH ×4 (02:37→17:34)
[2021-07-26 05:33] LABS: BASO # 0.2 x10^3/uL (0.0-0.2); BASO % 1 % (0-3); EOS % 0 % (0-3); HEMATOCRIT 35.8 % (36.0-47.0); HEMOGLOBIN 11.5 g/dL (12.0-15.5); LYMPH # 0.6 x10^3/uL (1.0-4.8); LYMPH % 4 % (24-48); MEAN CORPUSCULAR HEMOGLOBIN 28 pg (25-35); MEAN CORPUSCULAR HGB CONC 32 g/dL (31-37); MEAN CORPUSCULAR VOLUME 88 fL (79-100); MONO # 0.7 x10^3/uL (0.0-1.1); MONO % 4 % (0-9); NEUT # 14.3 x10^3/uL (1.8-7.7); NEUT % 91 % (31-73); PLATELET COUNT 249 x10^3/uL (140-400); RED BLOOD COUNT 4.09 x10^6/uL (3.50-5.40); RED CELL DISTRIBUTION WIDTH 14.6 % (11.5-14.5); WHITE BLOOD COUNT 15.8 x10^3/uL (4.0-11.0)
[2021-07-26 05:43] LABS: CALCIUM 8.2 mg/dL (8.5-10.1); CREATININE 0.5 mg/dL (0.6-1.0); GFR 123.8; POTASSIUM 4.6 mmol/L (3.5-5.1)
[2021-07-26] MEDS: PROPOFOL 100 ML IV PRN ×3 (06:40→21:28)
--- NOTE | 2021-07-26 06:41 | PDOC ---
[employer] PROGRESS NOTE Date of Service DOS: DATE: 07/26/21 TIME: 06:32 Chief Complaint Chief Complaint acute hypoxic respiratory failure COVID 19 pneumonia, standard treatement protocol sepsis obese, BMI 35, with malnutrition, albumin 2.3 on admit . History of Present Illness History of Present Illness 07/17/2021 No acute events overnight. Patient saturating 90% on 40% Vapotherm. No c oncerns nursing at this time. Patient's chart, labs, images were reviewed and discussed with RN In addition to my E/M visit, advance care planning done with A total time of 20 minutes was spent from 920 to 940 face to face in discussion with the patient regarding their goals of care, CODE STATUS. 07/18/2021 No acute events overnight. Patient saturating 89% on Vapotherm. No dyspnea upon exertion or at rest. Pending chest x-ray results. No other concerns from nursing. 07/19/21 No acute events overnight. Saturating 91% on vapotherm. No dyspnea and is motiviated to get out of bed onto chair. total critical care time spent of 33 minutes 07/20/2021 No acute events overnight. Patient seen and examined bedside. Saturating well on Vapotherm. Patient accepted at [facility]. No concerns with nursing. A total of 35 minutes of critical care time was spent in reviewing chart, labs, and images. Discussed with RN and TRAVIS. 07/21/2021 No acute events overnight. Unfortunately patient was unable to be transferred t o [facility] because of unable to tolerate BiPAP. At this point we will continue BiPAP and Vapotherm for inpatient care. Patient's chart, labs, images were reviewed and discussed with RN A total of 32 minutes of critical care time was spent in reviewing chart, labs, and images. Discussed with RN and SW. 07/22/2021 No acute events overnight. Patient seen and examined bedside. Saturating 100% on FiO2 and 15 L nonrebreather mask. Does complain of diarrhea and one-time Imodium was administered. Afebrile last 24 hours. Continue PT OT modalities. Encourage prone positioning when able. Patient's chart, labs, images were reviewed and discussed with RN A total of 32 minutes of critical care time was spent in reviewing chart, labs, and images. Discussed with RN and TRAVIS. 07/23/2021 No acute events overnight. Patient seen and examined resting comfortably at bedside. Saturating 83% on Vapotherm. Patient did have dyspneic episodes overnight desaturating down to 70s and 80s. She was offered BiPAP but she is declining and wishing to be DNR today. Patient's chart, labs, images were reviewed and discussed with RN 07/24/2021: Patient transferred to the ICU and intubated overnight. Currently afebrile, tachycardic. On vent with FiO2 100%, PEEP 8. We will continue steroids to complete 10-day course; begin taper tomorrow. 07/25/2021: Afebrile, no acute events overnight. On vent with FiO2 100%, PEEP 8. Completed remdesivir. Day 10 of steroids, will begin taper over 10 days. Continue supportive care. Critical care time 30 min spent reviewing charts, reviewing imaging, reviewing labs, and discussion with RN. 07/26/2021: Afebrile. On vent with FiO2 100%, PEEP 8. Completed remdesivir and 10 days of steroids; will begin slow steroid taper. Chest x-ray from 07/24 showed stable diffuse infiltrate. Leukocytosis likely secondary to steroid use. Will obtain CRP and procalcitonin. Continue supportive care. Critical care time 30 min spent reviewing charts, reviewing imaging, reviewing labs, and discussion with RN. Vitals/I&O Vitals/I&O: Vital Signs Date Time Temp Pulse Resp B/P (MAP) Pulse Ox O2 Delivery O2 Flow Rate FiO2 07/26/21 05:30 97 22 122/65 (84) 97 Ventilator 07/26/21 04:00 97.6 97.6 07/25/21 17:13 40.0 I & O 07/25/21 07/25/21 07/26/21 15:00 23:00 07:00 Intake Total 200 ml 1666 ml 1112 ml Output Total 660 ml 800 ml 670 ml Balance -460 ml 866 ml 442 ml Physical Exam General: Cooperative, mild distress, Other (ET and NG tube in place) Heart: Other (Tachycardic) Lungs: Other (Intubated on vent) Abdomen: Normal bowel sounds, Soft (obese, ) Extremities: No cyanosis, No edema, Normal pulses Skin: No rashes, No significant lesion Labs Labs: Laboratory Tests Test 07/25/21 08:45 07/25/21 11:36 07/25/21 17:33 07/26/21 00:38 O2 Saturation 91 % (92-99) Arterial Blood pH 7.36 (7.35-7.45) Arterial Blood pCO2 at Patient Temp 46 mmHg (35-46) Arterial Blood pO2 at Patient Temp 67 mmHg (65-108) Arterial Blood HCO3 25 mmol/L (21-28) Arterial Blood Base Excess 0 mmol/L (-3-3) FiO2 100% vent Glucose (Fingerstick) 155 mg/dL (70-99) 195 mg/dL (70-99) 193 mg/dL (70-99) Test 07/26/21 05:18 White Blood Count 15.8 x10^3/uL (4.0-11.0) Red Blood Count 4.09 x10^6/uL (3.50-5.40) Hemoglobin 11.5 g/dL (12.0-15.5) Hematocrit 35.8 % (36.0-47.0) Mean Corpuscular Volume 88 fL (79-100) Mean Corpuscular Hemoglobin 28 pg (25-35) Mean Corpuscular Hemoglobin Concent 32 g/dL (31-37) Red Cell Distribution Width 14.6 % (11.5-14.5) Platelet Count 249 x10^3/uL (140-400) Neutrophils (%) (Auto) 91 % (31-73) Lymphocytes (%) (Auto) 4 % (24-48) Monocytes (%) (Auto) 4 % (0-9) Eosinophils (%) (Auto) 0 % (0-3) Basophils (%) (Auto) 1 % (0-3) Neutrophils # (Auto) 14.3 x10^3/uL (1.8-7.7) Lymphocytes # (Auto) 0.6 x10^3/uL (1.0-4.8) Monocytes # (Auto) 0.7 x10^3/uL (0.0-1.1) Eosinophils # (Auto) 0.0 x10^3/uL (0.0-0.7) Basophils # (Auto) 0.2 x10^3/uL (0.0-0.2) Sodium Level 136 mmol/L (136-145) Potassium Level 4.6 mmol/L (3.5-5.1) Chloride Level 102 mmol/L (98-107) Carbon Dioxide Level 32 mmol/L (21-32) Anion Gap 2 (6-14) Blood Urea Nitrogen 19 mg/dL (7-20) Creatinine 0.5 mg/dL (0.6-1.0) Estimated GFR (Cockcroft-Gault) 123.8 Glucose Level 159 mg/dL (70-99) Calcium Level 8.2 mg/dL (8.5-10.1) Comment Review of Relevant I have reviewed the following items jluis (where applicable) has been applied. Medications: Current Medications Medications (Trade) Dose Ordered Sig/Dov Route PRN Reason Start Time Stop Time Status Last Admin Dose Admin Fentanyl Citrate 55 ml @ 0 mls/hr CONT PRN IV SEE PROTOCOL 07/25/21 16:00 07/25/21 16:43 Justifications for Admission Other Justification GAYLE YUNG MD Jul 26, 2021 06:41
[2021-07-26] MEDS: PANTOPRAZOLE IV PUSH 40 MG VIAL. IVP SCH (07:30)
[2021-07-26 08:04] LABS: BASE EXCESS ABG 5 mmol/L (-3-3); HCO3 ABG 30 mmol/L (21-28); PCO2 ABG 48 mmHg (35-46); PO2 ABG 60 mmHg (65-108); SAT O2 ABG 90 % (92-99)
[2021-07-26 08:33] LABS: FIO2 ABG 100% VENT
[2021-07-26] MEDS: DEXAMETHASONE SOD PHOS 4 MG/ML VIAL IVP SCH (08:33)
[2021-07-26] MEDS: ENOXAPARIN 40 MG/0.4 ML SYRINGE. SQ SCH (08:34)
[2021-07-26] MEDS: ASCORBIC ACID 500 MG TABLET PO SCH (08:34)
[2021-07-26] MEDS: LACTOBACILLUS RHAMNOSUS GG 1 CAPSULE. PO SCH ×2 (08:34→21:27)
[2021-07-26] MEDS: ZINC SULFATE 220 MG CAPSULE. PO SCH (08:34)
[2021-07-26] MEDS: VECURONIUM BOLUS 10 MG VIAL. IV PRN ×2 (08:35→15:32)
[2021-07-26] MEDS: MIDAZOLAM 100mg/100ml NS BAG 100 ML IV PRN ×2 (10:36→20:28)
--- NOTE | 2021-07-26 10:40 | PDOC ---
PULMONARY PROGRESS NOTES DATE: 07/26/21 TIME: 10:36 Subjective Patient was transferred to the ICU intubated and sedated.07/23 Currently on assist control mode ,100% FiO2 and 8 of PEEP Low blood pressure today. Patient required as needed paralysis for asynchrony with the ventilator Vitals Vital Signs Date Time Temp Pulse Resp B/P (MAP) Pulse Ox O2 Delivery O2 Flow Rate FiO2 07/26/21 10:00 64 25 78/57 (64) 97 Ventilator 07/26/21 08:00 97.6 97.6 07/25/21 17:13 40.0 Comments Visual exam done due to COVID-19 pneumonia. Patient sedated, no paradoxical breathing. No edema no skin rash Labs Laboratory Tests Test 07/24/21 18:41 07/25/21 00:02 07/25/21 04:50 07/25/21 05:54 Glucose (Fingerstick) 182 mg/dL (70-99) 183 mg/dL (70-99) 177 mg/dL (70-99) White Blood Count 18.3 x10^3/uL (4.0-11.0) Red Blood Count 3.93 x10^6/uL (3.50-5.40) Hemoglobin 11.0 g/dL (12.0-15.5) Hematocrit 34.7 % (36.0-47.0) Mean Corpuscular Volume 88 fL (79-100) Mean Corpuscular Hemoglobin 28 pg (25-35) Mean Corpuscular Hemoglobin Concent 32 g/dL (31-37) Red Cell Distribution Width 15.0 % (11.5-14.5) Platelet Count 279 x10^3/uL (140-400) Neutrophils (%) (Auto) 92 % (31-73) Lymphocytes (%) (Auto) 3 % (24-48) Monocytes (%) (Auto) 5 % (0-9) Eosinophils (%) (Auto) 0 % (0-3) Basophils (%) (Auto) 1 % (0-3) Neutrophils # (Auto) 16.8 x10^3/uL (1.8-7.7) Lymphocytes # (Auto) 0.5 x10^3/uL (1.0-4.8) Monocytes # (Auto) 0.9 x10^3/uL (0.0-1.1) Eosinophils # (Auto) 0.0 x10^3/uL (0.0-0.7) Basophils # (Auto) 0.1 x10^3/uL (0.0-0.2) Sodium Level 138 mmol/L (136-145) Potassium Level 4.8 mmol/L (3.5-5.1) Chloride Level 104 mmol/L (98-107) Carbon Dioxide Level 30 mmol/L (21-32) Anion Gap 4 (6-14) Blood Urea Nitrogen 23 mg/dL (7-20) Creatinine 0.6 mg/dL (0.6-1.0) Estimated GFR (Cockcroft-Gault) 100.3 Glucose Level 170 mg/dL (70-99) Calcium Level 8.0 mg/dL (8.5-10.1) Test 07/25/21 08:45 07/25/21 11:36 07/25/21 17:33 07/26/21 00:38 O2 Saturation 91 % (92-99) Arterial Blood pH 7.36 (7.35-7.45) Arterial Blood pCO2 at Patient Temp 46 mmHg (35-46) Arterial Blood pO2 at Patient Temp 67 mmHg (65-108) Arterial Blood HCO3 25 mmol/L (21-28) Arterial Blood Base Excess 0 mmol/L (-3-3) FiO2 100% vent Glucose (Fingerstick) 155 mg/dL (70-99) 195 mg/dL (70-99) 193 mg/dL (70-99) Test 07/26/21 05:18 07/26/21 08:00 White Blood Count 15.8 x10^3/uL (4.0-11.0) Red Blood Count 4.09 x10^6/uL (3.50-5.40) Hemoglobin 11.5 g/dL (12.0-15.5) Hematocrit 35.8 % (36.0-47.0) Mean Corpuscular Volume 88 fL (79-100) Mean Corpuscular Hemoglobin 28 pg (25-35) Mean Corpuscular Hemoglobin Concent 32 g/dL (31-37) Red Cell Distribution Width 14.6 % (11.5-14.5) Platelet Count 249 x10^3/uL (140-400) Neutrophils (%) (Auto) 91 % (31-73) Lymphocytes (%) (Auto) 4 % (24-48) Monocytes (%) (Auto) 4 % (0-9) Eosinophils (%) (Auto) 0 % (0-3) Basophils (%) (Auto) 1 % (0-3) Neutrophils # (Auto) 14.3 x10^3/uL (1.8-7.7) Lymphocytes # (Auto) 0.6 x10^3/uL (1.0-4.8) Monocytes # (Auto) 0.7 x10^3/uL (0.0-1.1) Eosinophils # (Auto) 0.0 x10^3/uL (0.0-0.7) Basophils # (Auto) 0.2 x10^3/uL (0.0-0.2) Sodium Level 136 mmol/L (136-145) Potassium Level 4.6 mmol/L (3.5-5.1) Chloride Level 102 mmol/L (98-107) Carbon Dioxide Level 32 mmol/L (21-32) Anion Gap 2 (6-14) Blood Urea Nitrogen 19 mg/dL (7-20) Creatinine 0.5 mg/dL (0.6-1.0) Estimated GFR (Cockcroft-Gault) 123.8 Glucose Level 159 mg/dL (70-99) Calcium Level 8.2 mg/dL (8.5-10.1) O2 Saturation 90 % (92-99) Arterial Blood pH 7.42 (7.35-7.45) Arterial Blood pCO2 at Patient Temp 48 mmHg (35-46) Arterial Blood pO2 at Patient Temp 60 mmHg (65-108) Arterial Blood HCO3 30 mmol/L (21-28) Arterial Blood Base Excess 5 mmol/L (-3-3) FiO2 100% vent Laboratory Tests Test 07/25/21 11:36 07/25/21 17:33 07/26/21 00:38 07/26/21 05:18 Glucose (Fingerstick) 155 mg/dL (70-99) 195 mg/dL (70-99) 193 mg/dL (70-99) White Blood Count 15.8 x10^3/uL (4.0-11.0) Red Blood Count 4.09 x10^6/uL (3.50-5.40) Hemoglobin 11.5 g/dL (12.0-15.5) Hematocrit 35.8 % (36.0-47.0) Mean Corpuscular Volume 88 fL (79-100) Mean Corpuscular Hemoglobin 28 pg (25-35) Mean Corpuscular Hemoglobin Concent 32 g/dL (31-37) Red Cell Distribution Width 14.6 % (11.5-14.5) Platelet Count 249 x10^3/uL (140-400) Neutrophils (%) (Auto) 91 % (31-73) Lymphocytes (%) (Auto) 4 % (24-48) Monocytes (%) (Auto) 4 % (0-9) Eosinophils (%) (Auto) 0 % (0-3) Basophils (%) (Auto) 1 % (0-3) Neutrophils # (Auto) 14.3 x10^3/uL (1.8-7.7) Lymphocytes # (Auto) 0.6 x10^3/uL (1.0-4.8) Monocytes # (Auto) 0.7 x10^3/uL (0.0-1.1) Eosinophils # (Auto) 0.0 x10^3/uL (0.0-0.7) Basophils # (Auto) 0.2 x10^3/uL (0.0-0.2) Sodium Level 136 mmol/L (136-145) Potassium Level 4.6 mmol/L (3.5-5.1) Chloride Level 102 mmol/L (98-107) Carbon Dioxide Level 32 mmol/L (21-32) Anion Gap 2 (6-14) Blood Urea Nitrogen 19 mg/dL (7-20) Creatinine 0.5 mg/dL (0.6-1.0) Estimated GFR (Cockcroft-Gault) 123.8 Glucose Level 159 mg/dL (70-99) Calcium Level 8.2 mg/dL (8.5-10.1) Test 07/26/21 08:00 O2 Saturation 90 % (92-99) Arterial Blood pH 7.42 (7.35-7.45) Arterial Blood pCO2 at Patient Temp 48 mmHg (35-46) Arterial Blood pO2 at Patient Temp 60 mmHg (65-108) Arterial Blood HCO3 30 mmol/L (21-28) Arterial Blood Base Excess 5 mmol/L (-3-3) FiO2 100% vent Medications Active Scripts Medications Dose Route/Sig Max Daily Dose Days Date Category Comments Chest x-ray reviewed 07/24/2021. Unchanged diffuse bilateral interstitial infiltrates Chest x-ray reviewed 07/23/2021. Diffuse bilateral interstitial infiltrates Impression . IMPRESSION: 1. Acute hypoxemic respiratory failure secondary to COVID-19 viral pneumonia/ARDS. Worsening hypoxia. Intubated 07/23/2021 2. COVID-19 viral pneumonia/acute respiratory distress syndrome. 3. Possible bacterial pneumonia. 4. Obesity. 5. Abnormal chest x-ray consistent with viral pneumonia 6. Hypertension. Could be related to propofol. Volume contraction would be a consideration as well Plan . Updated 07/26/21 Continue present assist control mode, 100% FiO2, and 8 of PEEP. Patient had some asynchrony with the ventilator. Currently fully sedated along with as needed vecuronium. Follow ABGs and make necessary adjustments. No room to wean. We will continue present aggressive care for now. Continue steroids with taper over 10 days DVT prophylaxis Stress ulcer prophylaxis Enteral nutrition Will try to reduce propofol to see an improvement in hypotension. We will add as needed Ativan Total critical care time 30 minutes including review of labs and decision making Updated 07/25/21 Continue present assist control mode, 100% FiO2, and 8 of PEEP. Patient had some increased respiratory rate. Will increase fentanyl today Follow ABGs and make necessary adjustments. No room to wean. We will continue present aggressive care for now. Continue steroids with taper over 10 days DVT prophylaxis Stress ulcer prophylaxis Enteral nutrition Follow labs and make corrections as needed Updated 07/24/21 Continue present assist control mode, 100% FiO2, and 8 of PEEP. Follow ABGs and make necessary adjustments. Today's PO2 is 58. No room to wean. We will continue present aggressive care for now. Continue steroids with taper over 10 days DVT prophylaxis Stress ulcer prophylaxis Enteral nutrition Follow labs and make corrections as needed Critical care time 30 minutes Updated 07/23 As discussed above patient had a rough night. Her oxygen level fluctuated in the high 70s and low 80s. She declined to be placed on BiPAP. Patient has been on Vapotherm 40 L flow, 100% oxygen and additional nonrebreather mask. She desaturates with minimal activity. We will continue present aggressive care for now. Continue steroids with taper over 10 days I had a long discussion with the patient and it was witnessed by the nurse Cindy about advanced directives. All pros and cons of being on a ventilator were discussed. Patient does not want to be on a ventilator. I spoke to patient's son Lorenzo and informed about patient's decision. She will be a DNR. We will continue present aggressive care. At this point will only transfer to [facility] if we have BiPAP available for the transfer. Critical care time 30 minutes addend: Informed by RN. Patient changed her decision to be full code. She will be transfered to ICU and will proceed with intubation. Updated 07/22 Patient has been on Vapotherm 40 L flow, 100% oxygen and additional nonrebreather mask. Patient is tolerating the current oxygen reasonably well. [facility] She should be stable for the transfer due to very short distance of transfer We will continue present aggressive care for now. Continue steroids with taper over 10 days Updated 07/21 Patient has been on Vapotherm 40 L flow, 100% oxygen and additional nonrebreather mask. She was due to transfer to [facility], unfortunately unable to tolerate BiPAP, for transfer At present she is unstable for the transfer. We will continue present aggressive care for now. Continue steroids with taper over 10 days Updated 07/20 Patient has been on Vapotherm 40 L flow, 100% oxygen She was due to transfer to [facility], unfortunately unable to tolerate BiPAP, for transfer I visited with patient during the time that EMS was here for transfer. I recommend that she stays. At this juncture not safe to transfer patient to [facility] on BiPAP updated 07/19 Continue current support Vapotherm Discussed with social service Remdesivir Steroid updated 07/18 We will continue steroids and remdesivir, empiric antibiotics, Vapotherm, up to chair as possible Will check into LTAC referral updated 07/17 Continue Vapotherm Antibiotics Steroids ordered Remdesivir Up to chair RAFIA EGAN MD Jul 26, 2021 10:40
--- NOTE | 2021-07-26 15:49 | NUR ---
SS following up with discharge planning. SS reviewed pt chart and discussed with pt RN. Pt is currently on the vent at 100%. COVID19 positive. Pt on Propofol, Fentanyl, Versed, Precedex, and PRN Vec. Tube feeds. Pt on IV Decadron. Pt accepted at [facility], ; fax [phone]. Clinical updates phoned and faxed to [facility]. Not stable. SS will continue to follow for discharge planning.
--- NOTE | 2021-07-26 17:09 | NUR ---
Spoke with Lorenzo, patients' son, he stated that the patient had a earlier positive COVID19 test at [place] when he spoke with Irma from Social Work. Madhav called [place] and I was called. I called and spoke with Lorenzo around 1649 today, stated that we needed to have 21 days fever free from the time of the initial positive test before there would be any discussion of visitors. Since the initial positive test was at [facility] on July 10 of this year. 21 days would be July 31 at the earliest, provided there are no fevers. I informed Lorenzo that there would be confirmation that she is COVID Recovered before anyone could visit and that he should call the unit on the or Irma in Social Work before anyone makes a trip here to visit.
[2021-07-26] MEDS: fentaNYL HIGH DOSE PCA 55 ML IV PRN (18:34)
[2021-07-27] VITALS (25 sets, daily range): BP systolic 77–127; BP diastolic 47–82
[2021-07-27] MEDS: INSULIN LISPRO 300 UNITS/3 ML VIAL. SQ SCH ×4 (06:00→16:34)
[2021-07-27] MEDS: DEXMEDETOMIDINE 400 MCG in IV NORMAL SALINE 100ML 96 ML IV PRN ×6 (06:17→22:39)
[2021-07-27] MEDS: VECURONIUM BOLUS 10 MG VIAL. IV PRN ×3 (06:17→11:41)
[2021-07-27 06:36] LABS: BASO % 0 % (0-3); EOS # 0.1 x10^3/uL (0.0-0.7); EOS % 0 % (0-3); HEMATOCRIT 34.2 % (36.0-47.0); LYMPH # 0.7 x10^3/uL (1.0-4.8); LYMPH % 4 % (24-48); MEAN CORPUSCULAR HEMOGLOBIN 29 pg (25-35); MEAN CORPUSCULAR HGB CONC 32 g/dL (31-37); MEAN CORPUSCULAR VOLUME 88 fL (79-100); MONO # 0.9 x10^3/uL (0.0-1.1); MONO % 5 % (0-9); NEUT # 15.5 x10^3/uL (1.8-7.7); NEUT % 90 % (31-73); PLATELET COUNT 175 x10^3/uL (140-400); RED BLOOD COUNT 3.87 x10^6/uL (3.50-5.40); RED CELL DISTRIBUTION WIDTH 15.4 % (11.5-14.5); WHITE BLOOD COUNT 17.2 x10^3/uL (4.0-11.0)
[2021-07-27 07:09] LABS: CALCIUM 7.8 mg/dL (8.5-10.1); CREATININE 0.6 mg/dL (0.6-1.0); GFR 100.3; POTASSIUM 5.1 mmol/L (3.5-5.1)
[2021-07-27] MEDS: PROPOFOL 100 ML IV PRN ×3 (07:25→21:52)
[2021-07-27] MEDS: MIDAZOLAM 100mg/100ml NS BAG 100 ML IV PRN ×2 (07:26→16:27)
[2021-07-27 08:11] LABS: BASE EXCESS ABG 0 mmol/L (-3-3); HCO3 ABG 27 mmol/L (21-28); PCO2 ABG 56 mmHg (35-46); PO2 ABG 54 mmHg (65-108); SAT O2 ABG 85 % (92-99)
[2021-07-27 09:27] LABS: FIO2 ABG 100% VENT
[2021-07-27] MEDS: DEXAMETHASONE SOD PHOS 4 MG/ML VIAL IVP SCH (09:27)
[2021-07-27] MEDS: PANTOPRAZOLE IV PUSH 40 MG VIAL. IVP SCH (09:27)
[2021-07-27] MEDS: ASCORBIC ACID 500 MG TABLET PO SCH (09:28)
[2021-07-27] MEDS: ENOXAPARIN 40 MG/0.4 ML SYRINGE. SQ SCH (09:28)
[2021-07-27] MEDS: ZINC SULFATE 220 MG CAPSULE. PO SCH (09:28)
--- NOTE | 2021-07-27 10:46 | PDOC ---
PULMONARY PROGRESS NOTES DATE: 07/27/21 TIME: 10:44 Subjective Patient was transferred to the ICU intubated and sedated.07/23 Currently on assist control mode ,100% FiO2 and 8 of PEEP Patient required as needed paralysis for asynchrony with the ventilator Vitals Vital Signs Date Time Temp Pulse Resp B/P (MAP) Pulse Ox O2 Delivery O2 Flow Rate FiO2 07/27/21 09:25 91 Ventilator 07/27/21 07:00 92 22 90/53 (65) 07/27/21 04:00 99.0 99.0 07/26/21 21:27 40.0 Comments Visual exam done due to COVID-19 pneumonia. Patient sedated, no paradoxical breathing. No edema no skin rash Labs Laboratory Tests Test 07/25/21 11:36 07/25/21 17:33 07/26/21 00:38 07/26/21 05:18 Glucose (Fingerstick) 155 mg/dL (70-99) 195 mg/dL (70-99) 193 mg/dL (70-99) White Blood Count 15.8 x10^3/uL (4.0-11.0) Red Blood Count 4.09 x10^6/uL (3.50-5.40) Hemoglobin 11.5 g/dL (12.0-15.5) Hematocrit 35.8 % (36.0-47.0) Mean Corpuscular Volume 88 fL (79-100) Mean Corpuscular Hemoglobin 28 pg (25-35) Mean Corpuscular Hemoglobin Concent 32 g/dL (31-37) Red Cell Distribution Width 14.6 % (11.5-14.5) Platelet Count 249 x10^3/uL (140-400) Neutrophils (%) (Auto) 91 % (31-73) Lymphocytes (%) (Auto) 4 % (24-48) Monocytes (%) (Auto) 4 % (0-9) Eosinophils (%) (Auto) 0 % (0-3) Basophils (%) (Auto) 1 % (0-3) Neutrophils # (Auto) 14.3 x10^3/uL (1.8-7.7) Lymphocytes # (Auto) 0.6 x10^3/uL (1.0-4.8) Monocytes # (Auto) 0.7 x10^3/uL (0.0-1.1) Eosinophils # (Auto) 0.0 x10^3/uL (0.0-0.7) Basophils # (Auto) 0.2 x10^3/uL (0.0-0.2) Sodium Level 136 mmol/L (136-145) Potassium Level 4.6 mmol/L (3.5-5.1) Chloride Level 102 mmol/L (98-107) Carbon Dioxide Level 32 mmol/L (21-32) Anion Gap 2 (6-14) Blood Urea Nitrogen 19 mg/dL (7-20) Creatinine 0.5 mg/dL (0.6-1.0) Estimated GFR (Cockcroft-Gault) 123.8 Glucose Level 159 mg/dL (70-99) Calcium Level 8.2 mg/dL (8.5-10.1) Test 07/26/21 08:00 07/26/21 11:33 07/26/21 17:32 07/27/21 04:35 O2 Saturation 90 % (92-99) Arterial Blood pH 7.42 (7.35-7.45) Arterial Blood pCO2 at Patient Temp 48 mmHg (35-46) Arterial Blood pO2 at Patient Temp 60 mmHg (65-108) Arterial Blood HCO3 30 mmol/L (21-28) Arterial Blood Base Excess 5 mmol/L (-3-3) FiO2 100% vent Glucose (Fingerstick) 124 mg/dL (70-99) 180 mg/dL (70-99) Sodium Level 137 mmol/L (136-145) Potassium Level 5.1 mmol/L (3.5-5.1) Chloride Level 102 mmol/L (98-107) Carbon Dioxide Level 31 mmol/L (21-32) Anion Gap 4 (6-14) Blood Urea Nitrogen 25 mg/dL (7-20) Creatinine 0.6 mg/dL (0.6-1.0) Estimated GFR (Cockcroft-Gault) 100.3 Glucose Level 128 mg/dL (70-99) Calcium Level 7.8 mg/dL (8.5-10.1) Test 07/27/21 05:30 07/27/21 05:43 07/27/21 08:00 White Blood Count 17.2 x10^3/uL (4.0-11.0) Red Blood Count 3.87 x10^6/uL (3.50-5.40) Hemoglobin 11.0 g/dL (12.0-15.5) Hematocrit 34.2 % (36.0-47.0) Mean Corpuscular Volume 88 fL (79-100) Mean Corpuscular Hemoglobin 29 pg (25-35) Mean Corpuscular Hemoglobin Concent 32 g/dL (31-37) Red Cell Distribution Width 15.4 % (11.5-14.5) Platelet Count 175 x10^3/uL (140-400) Neutrophils (%) (Auto) 90 % (31-73) Lymphocytes (%) (Auto) 4 % (24-48) Monocytes (%) (Auto) 5 % (0-9) Eosinophils (%) (Auto) 0 % (0-3) Basophils (%) (Auto) 0 % (0-3) Neutrophils # (Auto) 15.5 x10^3/uL (1.8-7.7) Lymphocytes # (Auto) 0.7 x10^3/uL (1.0-4.8) Monocytes # (Auto) 0.9 x10^3/uL (0.0-1.1) Eosinophils # (Auto) 0.1 x10^3/uL (0.0-0.7) Basophils # (Auto) 0.0 x10^3/uL (0.0-0.2) C-Reactive Protein, Quantitative 50.8 mg/L (0-3.3) Procalcitonin 0.10 ng/mL (0.00-0.10) Glucose (Fingerstick) 126 mg/dL (70-99) O2 Saturation 85 % (92-99) Arterial Blood pH 7.31 (7.35-7.45) Arterial Blood pCO2 at Patient Temp 56 mmHg (35-46) Arterial Blood pO2 at Patient Temp 54 mmHg (65-108) Arterial Blood HCO3 27 mmol/L (21-28) Arterial Blood Base Excess 0 mmol/L (-3-3) FiO2 100% vent Laboratory Tests Test 07/26/21 11:33 07/26/21 17:32 07/27/21 04:35 07/27/21 05:30 Glucose (Fingerstick) 124 mg/dL (70-99) 180 mg/dL (70-99) Sodium Level 137 mmol/L (136-145) Potassium Level 5.1 mmol/L (3.5-5.1) Chloride Level 102 mmol/L (98-107) Carbon Dioxide Level 31 mmol/L (21-32) Anion Gap 4 (6-14) Blood Urea Nitrogen 25 mg/dL (7-20) Creatinine 0.6 mg/dL (0.6-1.0) Estimated GFR (Cockcroft-Gault) 100.3 Glucose Level 128 mg/dL (70-99) Calcium Level 7.8 mg/dL (8.5-10.1) White Blood Count 17.2 x10^3/uL (4.0-11.0) Red Blood Count 3.87 x10^6/uL (3.50-5.40) Hemoglobin 11.0 g/dL (12.0-15.5) Hematocrit 34.2 % (36.0-47.0) Mean Corpuscular Volume 88 fL (79-100) Mean Corpuscular Hemoglobin 29 pg (25-35) Mean Corpuscular Hemoglobin Concent 32 g/dL (31-37) Red Cell Distribution Width 15.4 % (11.5-14.5) Platelet Count 175 x10^3/uL (140-400) Neutrophils (%) (Auto) 90 % (31-73) Lymphocytes (%) (Auto) 4 % (24-48) Monocytes (%) (Auto) 5 % (0-9) Eosinophils (%) (Auto) 0 % (0-3) Basophils (%) (Auto) 0 % (0-3) Neutrophils # (Auto) 15.5 x10^3/uL (1.8-7.7) Lymphocytes # (Auto) 0.7 x10^3/uL (1.0-4.8) Monocytes # (Auto) 0.9 x10^3/uL (0.0-1.1) Eosinophils # (Auto) 0.1 x10^3/uL (0.0-0.7) Basophils # (Auto) 0.0 x10^3/uL (0.0-0.2) C-Reactive Protein, Quantitative 50.8 mg/L (0-3.3) Procalcitonin 0.10 ng/mL (0.00-0.10) Test 07/27/21 05:43 07/27/21 08:00 Glucose (Fingerstick) 126 mg/dL (70-99) O2 Saturation 85 % (92-99) Arterial Blood pH 7.31 (7.35-7.45) Arterial Blood pCO2 at Patient Temp 56 mmHg (35-46) Arterial Blood pO2 at Patient Temp 54 mmHg (65-108) Arterial Blood HCO3 27 mmol/L (21-28) Arterial Blood Base Excess 0 mmol/L (-3-3) FiO2 100% vent Medications Active Scripts Medications Dose Route/Sig Max Daily Dose Days Date Category Comments Chest x-ray reviewed 07/24/2021. Unchanged diffuse bilateral interstitial infiltrates Chest x-ray reviewed 07/23/2021. Diffuse bilateral interstitial infiltrates Impression . IMPRESSION: 1. Acute hypoxemic respiratory failure secondary to COVID-19 viral pneumonia/ARDS. Worsening hypoxia. Intubated 07/23/2021 2. COVID-19 viral pneumonia/acute respiratory distress syndrome. 3. Possible bacterial pneumonia. 4. Obesity. 5. Abnormal chest x-ray consistent with viral pneumonia 6. Hypotension, improved Plan . Updated 07/27/21 Continue present assist control mode, 100% FiO2, oxygenation is marginal today. We will increase the PEEP to 9. Patient had some asynchrony with the ve ntilator. Currently fully sedated along with as needed vecuronium. Follow ABGs and make necessary adjustments. No room to wean. We will continue present aggressive care for now. Continue steroids with taper over 10 days DVT prophylaxis Stress ulcer prophylaxis Enteral nutrition Continue present aggressive care. Updated 07/26/21 Continue present assist control mode, 100% FiO2, and 8 of PEEP. Patient had some asynchrony with the ventilator. Currently fully sedated along with as needed vecuronium. Follow ABGs and make necessary adjustments. No room to wean. We will continue present aggressive care for now. Continue steroids with taper over 10 days DVT prophylaxis Stress ulcer prophylaxis Enteral nutrition Will try to reduce propofol to see an improvement in hypotension. We will add as needed Ativan Total critical care time 30 minutes including review of labs and decision making Updated 07/25/21 Continue present assist control mode, 100% FiO2, and 8 of PEEP. Patient had some increased respiratory rate. Will increase fentanyl today Follow ABGs and make necessary adjustments. No room to wean. We will continue present aggressive care for now. Continue steroids with taper over 10 days DVT prophylaxis Stress ulcer prophylaxis Enteral nutrition Follow labs and make corrections as needed Updated 07/24/21 Continue present assist control mode, 100% FiO2, and 8 of PEEP. Follow ABGs and make necessary adjustments. Today's PO2 is 58. No room to wean. We will continue present aggressive care for now. Continue steroids with taper over 10 days DVT prophylaxis Stress ulcer prophylaxis Enteral nutrition Follow labs and make corrections as needed Critical care time 30 minutes Updated 07/23 As discussed above patient had a rough night. Her oxygen level fluctuated in t he high 70s and low 80s. She declined to be placed on BiPAP. Patient has been on Vapotherm 40 L flow, 100% oxygen and additional nonrebreather mask. She desaturates with minimal activity. We will continue present aggressive care for now. Continue steroids with taper over 10 days I had a long discussion with the patient and it was witnessed by the nurse Cindy about advanced directives. All pros and cons of being on a ventilator were discussed. Patient does not want to be on a ventilator. I spoke to patient's son Lorenzo and informed about patient's decision. She will be a DNR. We will continue present aggressive care. At this point will only transfer to [facility] if we have BiPAP available for the transfer. Critical care time 30 minutes addend: Informed by RN. Patient changed her decision to be full code. She will be transfered to ICU and will proceed with intubation. Updated 07/22 Patient has been on Vapotherm 40 L flow, 100% oxygen and additional nonrebreather mask. Patient is tolerating the current oxygen reasonably well. Patient's family wants her to transfer to [facility] Saturday. She should be stable for the transfer due to very short distance of transfer We will continue present aggressive care for now. Continue steroids with taper over 10 days Updated 07/21 Patient has been on Vapotherm 40 L flow, 100% oxygen and additional nonrebreather mask. She was due to transfer to [facility], unfortunately unable to tolerate BiPAP, for transfer At present she is unstable for the transfer. We will continue present aggressive care for now. Continue steroids with taper over 10 days Updated 07/20 Patient has been on Vapotherm 40 L flow, 100% oxygen She was due to transfer to [facility], unfortunately unable to tolerate BiPAP, for transfer I visited with patient during the time that EMS was here for transfer. I recommend that she stays. At this juncture not safe to transfer patient to LTAC on BiPAP updated 07/19 Continue current support Vapotherm Discussed with social service Remdesivir Steroid updated 07/18 We will continue steroids and remdesivir, empiric antibiotics, Vapotherm, up to chair as possible Will check into LTAC referral updated 07/17 Continue Vapotherm Antibiotics Steroids ordered Remdesivir Up to chair RAFIA EGAN MD Jul 27, 2021 10:46
--- NOTE | 2021-07-27 11:46 | PDOC ---
[employer] PROGRESS NOTE Date of Service DOS: DATE: 07/27/21 TIME: 11:37 Chief Complaint Chief Complaint acute hypoxic respiratory failure COVID 19 pneumonia, standard treatement protocol sepsis obese, BMI 35, with malnutrition, albumin 2.3 on admit . History of Present Illness History of Present Illness 07/17/2021 No acute events overnight. Patient saturating 90% on 40% Vapotherm. No c oncerns nursing at this time. Patient's chart, labs, images were reviewed and discussed with RN In addition to my E/M visit, advance care planning done with A total time of 20 minutes was spent from 920 to 940 face to face in discussion with the patient regarding their goals of care, CODE STATUS. 07/18/2021 No acute events overnight. Patient saturating 89% on Vapotherm. No dyspnea upon exertion or at rest. Pending chest x-ray results. No other concerns from nursing. 07/19/21 No acute events overnight. Saturating 91% on vapotherm. No dyspnea and is motiviated to get out of bed onto chair. total critical care time spent of 33 minutes 07/20/2021 No acute events overnight. Patient seen and examined bedside. Saturating well on Vapotherm. Patient accepted at [facility]. No concerns with nursing. A total of 35 minutes of critical care time was spent in reviewing chart, labs, and images. Discussed with RN and TRAIVS. 07/21/2021 No acute events overnight. Unfortunately patient was unable to be transferred t o [facility] because of unable to tolerate BiPAP. At this point we will continue BiPAP and Vapotherm for inpatient care. Patient's chart, labs, images were reviewed and discussed with RN A total of 32 minutes of critical care time was spent in reviewing chart, labs, and images. Discussed with RN and SW. 07/22/2021 No acute events overnight. Patient seen and examined bedside. Saturating 100% on FiO2 and 15 L nonrebreather mask. Does complain of diarrhea and one-time Imodium was administered. Afebrile last 24 hours. Continue PT OT modalities. Encourage prone positioning when able. Patient's chart, labs, images were reviewed and discussed with RN A total of 32 minutes of critical care time was spent in reviewing chart, labs, and images. Discussed with RN and TRAVIS. 07/23/2021 No acute events overnight. Patient seen and examined resting comfortably at bedside. Saturating 83% on Vapotherm. Patient did have dyspneic episodes overnight desaturating down to 70s and 80s. She was offered BiPAP but she is declining and wishing to be DNR today. Patient's chart, labs, images were reviewed and discussed with RN 07/24/2021: Patient transferred to the ICU and intubated overnight. Currently afebrile, tachycardic. On vent with FiO2 100%, PEEP 8. We will continue steroids to complete 10-day course; begin taper tomorrow. 07/25/2021: Afebrile, no acute events overnight. On vent with FiO2 100%, PEEP 8. Completed remdesivir. Day 10 of steroids, will begin taper over 10 days. Continue supportive care. Critical care time 30 min spent reviewing charts, reviewing imaging, reviewing labs, and discussion with RN. 07/26/2021: Afebrile. On vent with FiO2 100%, PEEP 8. Completed remdesivir and 10 days of steroids; will begin slow steroid taper. Chest x-ray from 07/24 showed stable diffuse infiltrate. Leukocytosis likely secondary to steroid use. Will obtain CRP and procalcitonin. Continue supportive care. Critical care time 30 min spent reviewing charts, reviewing imaging, reviewing labs, and discussion with RN. 07/27/2021: Afebrile. On vent with FiO2 100%, PEEP 9. CRP 15, procalcitonin 0.10. WBC 17.2. We will hold off on further antibiotics for now continue to monitor. Completed remdesivir and 10 days of steroids; continue slow Decadron taper. Continue supportive care. Critical care time 30 min spent reviewing charts, reviewing imaging, reviewing labs, and discussion with RN. Vitals/I&O Vitals/I&O: Vital Signs Date Time Temp Pulse Resp B/P (MAP) Pulse Ox O2 Delivery O2 Flow Rate FiO2 07/27/21 11:00 103 22 112/58 (76) 86 Ventilator 07/27/21 08:00 99.6 99.6 07/26/21 21:27 40.0 I & O 07/26/21 07/26/21 07/27/21 15:00 23:00 07:00 Intake Total 200 ml 1076 ml 415 ml Output Total 720 ml 380 ml 225 ml Balance -520 ml 696 ml 190 ml Physical Exam General: Cooperative, No acute distress, Other (ET and NG tube in place) Heart: Other (Tachycardic) Abdomen: Normal bowel sounds, Soft (obese, ) Extremities: No cyanosis, No edema, Normal pulses Skin: No rashes, No significant lesion Labs Labs: Laboratory Tests Test 07/26/21 17:32 07/27/21 04:35 07/27/21 05:30 07/27/21 05:43 Glucose (Fingerstick) 180 mg/dL (70-99) 126 mg/dL (70-99) Sodium Level 137 mmol/L (136-145) Potassium Level 5.1 mmol/L (3.5-5.1) Chloride Level 102 mmol/L (98-107) Carbon Dioxide Level 31 mmol/L (21-32) Anion Gap 4 (6-14) Blood Urea Nitrogen 25 mg/dL (7-20) Creatinine 0.6 mg/dL (0.6-1.0) Estimated GFR (Cockcroft-Gault) 100.3 Glucose Level 128 mg/dL (70-99) Calcium Level 7.8 mg/dL (8.5-10.1) White Blood Count 17.2 x10^3/uL (4.0-11.0) Red Blood Count 3.87 x10^6/uL (3.50-5.40) Hemoglobin 11.0 g/dL (12.0-15.5) Hematocrit 34.2 % (36.0-47.0) Mean Corpuscular Volume 88 fL (79-100) Mean Corpuscular Hemoglobin 29 pg (25-35) Mean Corpuscular Hemoglobin Concent 32 g/dL (31-37) Red Cell Distribution Width 15.4 % (11.5-14.5) Platelet Count 175 x10^3/uL (140-400) Neutrophils (%) (Auto) 90 % (31-73) Lymphocytes (%) (Auto) 4 % (24-48) Monocytes (%) (Auto) 5 % (0-9) Eosinophils (%) (Auto) 0 % (0-3) Basophils (%) (Auto) 0 % (0-3) Neutrophils # (Auto) 15.5 x10^3/uL (1.8-7.7) Lymphocytes # (Auto) 0.7 x10^3/uL (1.0-4.8) Monocytes # (Auto) 0.9 x10^3/uL (0.0-1.1) Eosinophils # (Auto) 0.1 x10^3/uL (0.0-0.7) Basophils # (Auto) 0.0 x10^3/uL (0.0-0.2) C-Reactive Protein, Quantitative 50.8 mg/L (0-3.3) Procalcitonin 0.10 ng/mL (0.00-0.10) Test 07/27/21 08:00 O2 Saturation 85 % (92-99) Arterial Blood pH 7.31 (7.35-7.45) Arterial Blood pCO2 at Patient Temp 56 mmHg (35-46) Arterial Blood pO2 at Patient Temp 54 mmHg (65-108) Arterial Blood HCO3 27 mmol/L (21-28) Arterial Blood Base Excess 0 mmol/L (-3-3) FiO2 100% vent Comment Review of Relevant I have reviewed the following items jluis (where applicable) has been applied. Justifications for Admission Other Justification GAYLE YUNG MD Jul 27, 2021 11:46
[2021-07-27] MEDS: NORCURON - VECURONIUM 50 MG in IV NORMAL SALINE 50ML 50 ML IV PRN ×2 (12:02→16:26)
--- NOTE | 2021-07-27 15:37 | NUR ---
SS following up with discharge planning. SS reviewed pt chart and discussed with pt RN. Pt is currently on the vent at 100%. COVID19 positive. Pt on Propofol, Fentanyl, Versed, Precedex, and PRN Vec. Tube feeds. Pt on IV Decadron. Pt accepted at [facility], ; fax [phone]. Not stable. SS will continue to follow for discharge planning.
[2021-07-27] MEDS: NOREPINEPHRINE VIAL 8 MG in IV DEXTROSE 5% 250 ML IV PRN (16:59)
[2021-07-27] MEDS: fentaNYL HIGH DOSE PCA 55 ML IV PRN (21:52)
[2021-07-28] VITALS (23 sets, daily range): BP systolic 104–123; BP diastolic 61–86
[2021-07-28] MEDS: fentaNYL HIGH DOSE PCA 55 ML IV PRN ×2 (00:27→23:27)
[2021-07-28] MEDS: DEXMEDETOMIDINE 400 MCG in IV NORMAL SALINE 100ML 96 ML IV PRN ×6 (01:15→22:36)
[2021-07-28] MEDS: PROPOFOL 100 ML IV PRN ×4 (01:16→23:31)
[2021-07-28] MEDS: MIDAZOLAM 100mg/100ml NS BAG 100 ML IV PRN ×2 (04:18→15:03)
[2021-07-28] MEDS: NOREPINEPHRINE VIAL 8 MG in IV DEXTROSE 5% 250 ML IV PRN ×2 (05:16→20:17)
[2021-07-28] MEDS: NORCURON - VECURONIUM 50 MG in IV NORMAL SALINE 50ML 50 ML IV PRN ×2 (05:18→20:18)
[2021-07-28] MEDS: INSULIN LISPRO 300 UNITS/3 ML VIAL. SQ SCH ×4 (06:00→16:32)
[2021-07-28 06:43] LABS: BASO % 0 % (0-3); EOS # 0.1 x10^3/uL (0.0-0.7); EOS % 1 % (0-3); HEMATOCRIT 36.5 % (36.0-47.0); HEMOGLOBIN 11.7 g/dL (12.0-15.5); LYMPH % 5 % (24-48); MEAN CORPUSCULAR HEMOGLOBIN 29 pg (25-35); MEAN CORPUSCULAR HGB CONC 32 g/dL (31-37); MEAN CORPUSCULAR VOLUME 89 fL (79-100); MONO % 5 % (0-9); NEUT # 18.5 x10^3/uL (1.8-7.7); NEUT % 89 % (31-73); PLATELET COUNT 209 x10^3/uL (140-400); RED BLOOD COUNT 4.11 x10^6/uL (3.50-5.40); RED CELL DISTRIBUTION WIDTH 15.4 % (11.5-14.5); WHITE BLOOD COUNT 20.7 x10^3/uL (4.0-11.0)
[2021-07-28 06:53] LABS: CREATININE 0.6 mg/dL (0.6-1.0); GFR 100.3; POTASSIUM 5.3 mmol/L (3.5-5.1)
--- NOTE | 2021-07-28 07:24 | PDOC ---
[employer] PROGRESS NOTE Date of Service DOS: DATE: 07/28/21 TIME: 07:19 Chief Complaint Chief Complaint acute hypoxic respiratory failure COVID 19 pneumonia, standard treatement protocol sepsis obese, BMI 35, with malnutrition, albumin 2.3 on admit . History of Present Illness History of Present Illness 07/17/2021 No acute events overnight. Patient saturating 90% on 40% Vapotherm. No c oncerns nursing at this time. Patient's chart, labs, images were reviewed and discussed with RN In addition to my E/M visit, advance care planning done with A total time of 20 minutes was spent from 920 to 940 face to face in discussion with the patient regarding their goals of care, CODE STATUS. 07/18/2021 No acute events overnight. Patient saturating 89% on Vapotherm. No dyspnea upon exertion or at rest. Pending chest x-ray results. No other concerns from nursing. 07/19/21 No acute events overnight. Saturating 91% on vapotherm. No dyspnea and is motiviated to get out of bed onto chair. total critical care time spent of 33 minutes 07/20/2021 No acute events overnight. Patient seen and examined bedside. Saturating well on Vapotherm. Patient accepted at [facility]. No concerns with nursing. A total of 35 minutes of critical care time was spent in reviewing chart, labs, and images. Discussed with RN and TRAVIS. 07/21/2021 No acute events overnight. Unfortunately patient was unable to be transferred t o [facility] because of unable to tolerate BiPAP. At this point we will continue BiPAP and Vapotherm for inpatient care. Patient's chart, labs, images were reviewed and discussed with RN A total of 32 minutes of critical care time was spent in reviewing chart, labs, and images. Discussed with RN and SW. 07/22/2021 No acute events overnight. Patient seen and examined bedside. Saturating 100% on FiO2 and 15 L nonrebreather mask. Does complain of diarrhea and one-time Imodium was administered. Afebrile last 24 hours. Continue PT OT modalities. Encourage prone positioning when able. Patient's chart, labs, images were reviewed and discussed with RN A total of 32 minutes of critical care time was spent in reviewing chart, labs, and images. Discussed with RN and TRAVIS. 07/23/2021 No acute events overnight. Patient seen and examined resting comfortably at bedside. Saturating 83% on Vapotherm. Patient did have dyspneic episodes overnight desaturating down to 70s and 80s. She was offered BiPAP but she is declining and wishing to be DNR today. Patient's chart, labs, images were reviewed and discussed with RN 07/24/2021: Patient transferred to the ICU and intubated overnight. Currently afebrile, tachycardic. On vent with FiO2 100%, PEEP 8. We will continue steroids to complete 10-day course; begin taper tomorrow. 07/25/2021: Afebrile, no acute events overnight. On vent with FiO2 100%, PEEP 8. Completed remdesivir. Day 10 of steroids, will begin taper over 10 days. Continue supportive care. Critical care time 30 min spent reviewing charts, reviewing imaging, reviewing labs, and discussion with RN. 07/26/2021: Afebrile. On vent with FiO2 100%, PEEP 8. Completed remdesivir and 10 days of steroids; will begin slow steroid taper. Chest x-ray from 07/24 showed stable diffuse infiltrate. Leukocytosis likely secondary to steroid use. Will obtain CRP and procalcitonin. Continue supportive care. Critical care time 30 min spent reviewing charts, reviewing imaging, reviewing labs, and discussion with RN. 07/27/2021: Afebrile. On vent with FiO2 100%, PEEP 9. CRP 15, procalcitonin 0.10. WBC 17.2. We will hold off on further antibiotics for now continue to monitor. Completed remdesivir and 10 days of steroids; continue slow Decadron taper. Continue supportive care. Critical care time 30 min spent reviewing charts, reviewing imaging, reviewing labs, and discussion with RN. 07/28/2021: Afebrile. On vent FiO2 100%, PEEP 9. Completed remdesivir and 10 days of steroids; continue slow Decadron taper. Continue supportive care; on vasopressors. Critical care time 30 min spent reviewing charts, reviewing imaging, reviewing labs, and discussion with RN. Vitals/I&O Vitals/I&O: Vital Signs Date Time Temp Pulse Resp B/P (MAP) Pulse Ox O2 Delivery O2 Flow Rate FiO2 07/28/21 06:00 91 22 120/79 (93) 98 Ventilator 07/28/21 04:00 98.9 98.9 07/28/21 00:59 40.0 I & O 07/27/21 07/27/21 07/28/21 15:00 23:00 07:00 Intake Total 200 ml 2526 ml 767 ml Output Total 400 ml 500 ml 275 ml Balance -200 ml 2026 ml 492 ml Physical Exam General: Cooperative, No acute distress, Other (ET and NG tube in place) Heart: Other (Tachycardic) Lungs: Other (Intubated) Abdomen: Normal bowel sounds, Soft (obese, ) Extremities: No cyanosis, No edema, Normal pulses Skin: No rashes, No significant lesion Labs Labs: Laboratory Tests Test 07/27/21 08:00 07/27/21 11:52 07/27/21 16:31 07/28/21 00:27 O2 Saturation 85 % (92-99) Arterial Blood pH 7.31 (7.35-7.45) Arterial Blood pCO2 at Patient Temp 56 mmHg (35-46) Arterial Blood pO2 at Patient Temp 54 mmHg (65-108) Arterial Blood HCO3 27 mmol/L (21-28) Arterial Blood Base Excess 0 mmol/L (-3-3) FiO2 100% vent Glucose (Fingerstick) 181 mg/dL (70-99) 171 mg/dL (70-99) 187 mg/dL (70-99) Test 07/28/21 06:00 07/28/21 06:05 Sodium Level 136 mmol/L (136-145) Potassium Level 5.3 mmol/L (3.5-5.1) Chloride Level 101 mmol/L (98-107) Carbon Dioxide Level 33 mmol/L (21-32) Anion Gap 2 (6-14) Blood Urea Nitrogen 20 mg/dL (7-20) Creatinine 0.6 mg/dL (0.6-1.0) Estimated GFR (Cockcroft-Gault) 100.3 Glucose Level 175 mg/dL (70-99) Calcium Level 8.0 mg/dL (8.5-10.1) Glucose (Fingerstick) 178 mg/dL (70-99) Comment Review of Relevant I have reviewed the following items jluis (where applicable) has been applied. Medications: Current Medications Medications (Trade) Dose Ordered Sig/Dov Route PRN Reason Start Time Stop Time Status Last Admin Dose Admin Vecuronium [place] 50 mg/ Sodium Chloride 50 ml @ 4.502 mls/ hr CONT PRN IV SEE I/O RECORD 07/27/21 11:30 07/28/21 05:18 Norepinephrine Bitartrate 8 mg/ Dextrose 258 ml @ 18.15 mls/ hr CONT PRN IV PER PROTOCOL 07/27/21 17:00 07/28/21 05:16 Justifications for Admission Other Justification GAYLE YUNG MD Jul 28, 2021 07:24
[2021-07-28 08:01] LABS: BASE EXCESS ABG 5 mmol/L (-3-3); HCO3 ABG 33 mmol/L (21-28); PO2 ABG 71 mmHg (65-108); SAT O2 ABG 93 % (92-99)
[2021-07-28] MEDS: ZINC SULFATE 220 MG CAPSULE. PO SCH (08:15)
[2021-07-28] MEDS: ENOXAPARIN 40 MG/0.4 ML SYRINGE. SQ SCH (08:15)
[2021-07-28] MEDS: DEXAMETHASONE SOD PHOS 4 MG/ML VIAL IVP SCH (08:16)
[2021-07-28] MEDS: PANTOPRAZOLE IV PUSH 40 MG VIAL. IVP SCH (08:16)
[2021-07-28] MEDS: ASCORBIC ACID 500 MG TABLET PO SCH (08:16)
[2021-07-28 08:45] LABS: FIO2 ABG 100; PCO2 ABG 64 mmHg (35-46)
--- NOTE | 2021-07-28 09:11 | RAD ---
EXAM: Chest, single view. HISTORY: Respiratory failure. COMPARISON: 07/24/2021 FINDINGS: A frontal view of the chest is obtained. There is stable diffuse interstitial and alveolar infiltrate. There are stable suspected small pleural effusions. There is a stable cardiac silhouette. There is an endotracheal tube within the mid trachea. There is a nasogastric tube within the stomach . There is a right PICC with the tip overlying expected location of the superior cavoatrial junction. No pneumothorax is seen. IMPRESSION: 1. Stable diffuse infiltrate and small pleural effusions. 2. Stable support lines and tubes. Electronically signed by: Debbie Sellers MD (07/28/2021 9:08 AM) [id number]
--- NOTE | 2021-07-28 10:08 | PDOC ---
PULMONARY PROGRESS NOTES DATE: 07/28/21 TIME: 10:05 Subjective Patient was transferred to the ICU intubated and sedated.07/23 Currently on assist control mode ,100% FiO2 and 9 of PEEP Patient required as needed paralysis for asynchrony with the ventilator Vitals Vital Signs Date Time Temp Pulse Resp B/P (MAP) Pulse Ox O2 Delivery O2 Flow Rate FiO2 07/28/21 09:00 97 Ventilator 07/28/21 06:00 91 22 120/79 (93) 07/28/21 04:00 98.9 98.9 07/28/21 00:59 40.0 Comments Visual exam done due to COVID-19 pneumonia. Patient sedated, no paradoxical breathing. No edema no skin rash Labs Laboratory Tests Test 07/26/21 11:33 07/26/21 17:32 07/27/21 04:35 07/27/21 05:30 Glucose (Fingerstick) 124 mg/dL (70-99) 180 mg/dL (70-99) Sodium Level 137 mmol/L (136-145) Potassium Level 5.1 mmol/L (3.5-5.1) Chloride Level 102 mmol/L (98-107) Carbon Dioxide Level 31 mmol/L (21-32) Anion Gap 4 (6-14) Blood Urea Nitrogen 25 mg/dL (7-20) Creatinine 0.6 mg/dL (0.6-1.0) Estimated GFR (Cockcroft-Gault) 100.3 Glucose Level 128 mg/dL (70-99) Calcium Level 7.8 mg/dL (8.5-10.1) White Blood Count 17.2 x10^3/uL (4.0-11.0) Red Blood Count 3.87 x10^6/uL (3.50-5.40) Hemoglobin 11.0 g/dL (12.0-15.5) Hematocrit 34.2 % (36.0-47.0) Mean Corpuscular Volume 88 fL (79-100) Mean Corpuscular Hemoglobin 29 pg (25-35) Mean Corpuscular Hemoglobin Concent 32 g/dL (31-37) Red Cell Distribution Width 15.4 % (11.5-14.5) Platelet Count 175 x10^3/uL (140-400) Neutrophils (%) (Auto) 90 % (31-73) Lymphocytes (%) (Auto) 4 % (24-48) Monocytes (%) (Auto) 5 % (0-9) Eosinophils (%) (Auto) 0 % (0-3) Basophils (%) (Auto) 0 % (0-3) Neutrophils # (Auto) 15.5 x10^3/uL (1.8-7.7) Lymphocytes # (Auto) 0.7 x10^3/uL (1.0-4.8) Monocytes # (Auto) 0.9 x10^3/uL (0.0-1.1) Eosinophils # (Auto) 0.1 x10^3/uL (0.0-0.7) Basophils # (Auto) 0.0 x10^3/uL (0.0-0.2) C-Reactive Protein, Quantitative 50.8 mg/L (0-3.3) Procalcitonin 0.10 ng/mL (0.00-0.10) Test 07/27/21 05:43 07/27/21 08:00 07/27/21 11:52 07/27/21 16:31 Glucose (Fingerstick) 126 mg/dL (70-99) 181 mg/dL (70-99) 171 mg/dL (70-99) O2 Saturation 85 % (92-99) Arterial Blood pH 7.31 (7.35-7.45) Arterial Blood pCO2 at Patient Temp 56 mmHg (35-46) Arterial Blood pO2 at Patient Temp 54 mmHg (65-108) Arterial Blood HCO3 27 mmol/L (21-28) Arterial Blood Base Excess 0 mmol/L (-3-3) FiO2 100% vent Test 07/28/21 00:27 07/28/21 06:00 07/28/21 06:05 07/28/21 07:56 Glucose (Fingerstick) 187 mg/dL (70-99) 178 mg/dL (70-99) White Blood Count 20.7 x10^3/uL (4.0-11.0) Red Blood Count 4.11 x10^6/uL (3.50-5.40) Hemoglobin 11.7 g/dL (12.0-15.5) Hematocrit 36.5 % (36.0-47.0) Mean Corpuscular Volume 89 fL (79-100) Mean Corpuscular Hemoglobin 29 pg (25-35) Mean Corpuscular Hemoglobin Concent 32 g/dL (31-37) Red Cell Distribution Width 15.4 % (11.5-14.5) Platelet Count 209 x10^3/uL (140-400) Neutrophils (%) (Auto) 89 % (31-73) Lymphocytes (%) (Auto) 5 % (24-48) Monocytes (%) (Auto) 5 % (0-9) Eosinophils (%) (Auto) 1 % (0-3) Basophils (%) (Auto) 0 % (0-3) Neutrophils # (Auto) 18.5 x10^3/uL (1.8-7.7) Lymphocytes # (Auto) 1.0 x10^3/uL (1.0-4.8) Monocytes # (Auto) 1.0 x10^3/uL (0.0-1.1) Eosinophils # (Auto) 0.1 x10^3/uL (0.0-0.7) Basophils # (Auto) 0.0 x10^3/uL (0.0-0.2) Sodium Level 136 mmol/L (136-145) Potassium Level 5.3 mmol/L (3.5-5.1) Chloride Level 101 mmol/L (98-107) Carbon Dioxide Level 33 mmol/L (21-32) Anion Gap 2 (6-14) Blood Urea Nitrogen 20 mg/dL (7-20) Creatinine 0.6 mg/dL (0.6-1.0) Estimated GFR (Cockcroft-Gault) 100.3 Glucose Level 175 mg/dL (70-99) Calcium Level 8.0 mg/dL (8.5-10.1) O2 Saturation 93 % (92-99) Arterial Blood pH 7.32 (7.35-7.45) Arterial Blood pCO2 at Patient Temp 64 mmHg (35-46) Arterial Blood pO2 at Patient Temp 71 mmHg (65-108) Arterial Blood HCO3 33 mmol/L (21-28) Arterial Blood Base Excess 5 mmol/L (-3-3) FiO2 100 Laboratory Tests Test 07/27/21 11:52 07/27/21 16:31 07/28/21 00:27 07/28/21 06:00 Glucose (Fingerstick) 181 mg/dL (70-99) 171 mg/dL (70-99) 187 mg/dL (70-99) White Blood Count 20.7 x10^3/uL (4.0-11.0) Red Blood Count 4.11 x10^6/uL (3.50-5.40) Hemoglobin 11.7 g/dL (12.0-15.5) Hematocrit 36.5 % (36.0-47.0) Mean Corpuscular Volume 89 fL (79-100) Mean Corpuscular Hemoglobin 29 pg (25-35) Mean Corpuscular Hemoglobin Concent 32 g/dL (31-37) Red Cell Distribution Width 15.4 % (11.5-14.5) Platelet Count 209 x10^3/uL (140-400) Neutrophils (%) (Auto) 89 % (31-73) Lymphocytes (%) (Auto) 5 % (24-48) Monocytes (%) (Auto) 5 % (0-9) Eosinophils (%) (Auto) 1 % (0-3) Basophils (%) (Auto) 0 % (0-3) Neutrophils # (Auto) 18.5 x10^3/uL (1.8-7.7) Lymphocytes # (Auto) 1.0 x10^3/uL (1.0-4.8) Monocytes # (Auto) 1.0 x10^3/uL (0.0-1.1) Eosinophils # (Auto) 0.1 x10^3/uL (0.0-0.7) Basophils # (Auto) 0.0 x10^3/uL (0.0-0.2) Sodium Level 136 mmol/L (136-145) Potassium Level 5.3 mmol/L (3.5-5.1) Chloride Level 101 mmol/L (98-107) Carbon Dioxide Level 33 mmol/L (21-32) Anion Gap 2 (6-14) Blood Urea Nitrogen 20 mg/dL (7-20) Creatinine 0.6 mg/dL (0.6-1.0) Estimated GFR (Cockcroft-Gault) 100.3 Glucose Level 175 mg/dL (70-99) Calcium Level 8.0 mg/dL (8.5-10.1) Test 07/28/21 06:05 07/28/21 07:56 Glucose (Fingerstick) 178 mg/dL (70-99) O2 Saturation 93 % (92-99) Arterial Blood pH 7.32 (7.35-7.45) Arterial Blood pCO2 at Patient Temp 64 mmHg (35-46) Arterial Blood pO2 at Patient Temp 71 mmHg (65-108) Arterial Blood HCO3 33 mmol/L (21-28) Arterial Blood Base Excess 5 mmol/L (-3-3) FiO2 100 Medications Active Scripts Medications Dose Route/Sig Max Daily Dose Days Date Category Comments Chest x-ray reviewed 07/28/2021 Bilateral diffuse interstitial infiltrates. No significant change. In my opinion no significant pleural effusions Chest x-ray reviewed 07/24/2021. Unchanged diffuse bilateral interstitial infiltrates Chest x-ray reviewed 07/23/2021. Diffuse bilateral interstitial infiltrates Impression . IMPRESSION: 1. Acute hypoxemic respiratory failure secondary to COVID-19 viral pne umonia/ARDS. Worsening hypoxia. Intubated 07/23/2021 2. COVID-19 viral pneumonia/acute respiratory distress syndrome. 3. Possible bacterial pneumonia. 4. Obesity. 5. Abnormal chest x-ray consistent with viral pneumonia 6. Hypotension, improved 7. Leukocytosis, no fever. Monitor closely. Would add empiric antibiotics Plan . Updated 07/28/21 Continue present assist control mode, 100% FiO2, PEEP of 9. Patient had some asynchrony with the ventilator. Currently fully sedated along with as needed vecuronium. Okay with permissive hypercapnia. Follow ABGs and make necessary adjustments. No room to wean. We will continue present aggressive care for now. Continue steroids with taper over 10 days DVT prophylaxis Stress ulcer prophylaxis Enteral nutrition Continue present aggressive care. Monitor white cell count. Add Zosyn today. Discussed with RN and RT. Critical care time 30 minutes including review of the labs, imaging studies and decision making Updated 07/27/21 Continue present assist control mode, 100% FiO2, oxygenation is marginal today. We will increase the PEEP to 9. Patient had some asynchrony with the ventilator. Currently fully sedated along with as needed vecuronium. Follow ABGs and make necessary adjustments. No room to wean. We will continue present aggressive care for now. Continue steroids with taper over 10 days DVT prophylaxis Stress ulcer prophylaxis Enteral nutrition Continue present aggressive care. Updated 07/26/21 Continue present assist control mode, 100% FiO2, and 8 of PEEP. Patient had some asynchrony with the ventilator. Currently fully sedated along with as needed vecuronium. Follow ABGs and make necessary adjustments. No room to wean. We will continue present aggressive care for now. Continue steroids with taper over 10 days DVT prophylaxis Stress ulcer prophylaxis Enteral nutrition Will try to reduce propofol to see an improvement in hypotension. We will add as needed Ativan Total critical care time 30 minutes including review of labs and decision making Updated 07/25/21 Continue present assist control mode, 100% FiO2, and 8 of PEEP. Patient had some increased respiratory rate. Will increase fentanyl today Follow ABGs and make necessary adjustments. No room to wean. We will continue present aggressive care for now. Continue steroids with taper over 10 days DVT prophylaxis Stress ulcer prophylaxis Enteral nutrition Follow labs and make corrections as needed Updated 07/24/21 Continue present assist control mode, 100% FiO2, and 8 of PEEP. Follow ABGs and make necessary adjustments. Today's PO2 is 58. No room to wean. We will continue present aggressive care for now. Continue steroids with taper over 10 days DVT prophylaxis Stress ulcer prophylaxis Enteral nutrition Follow labs and make corrections as needed Critical care time 30 minutes Updated 07/23 As discussed above patient had a rough night. Her oxygen level fluctuated in the high 70s and low 80s. She declined to be placed on BiPAP. Patient has been on Vapotherm 40 L flow, 100% oxygen and additional nonrebreather mask. She desaturates with minimal activity. We will continue present aggressive care for now. Continue steroids with taper over 10 days I had a long discussion with the patient and it was witnessed by the nurse Cindy about advanced directives. All pros and cons of being on a ventilator were discussed. Patient does not want to be on a ventilator. I spoke to patient's son Lorenzo and informed about patient's decision. She will be a DNR. We will continue present aggressive care. At this point will only transfer to [facility] if we have BiPAP available for the transfer. Critical care time 30 minutes addend: Informed by RN. Patient changed her decision to be full code. She will be transfered to ICU and will proceed with intubation. Updated 07/22 Patient has been on Vapotherm 40 L flow, 100% oxygen and additional nonrebreather mask. Patient is tolerating the current oxygen reasonably well. Patient's family wants her to transfer to [facility] Saturday. She should be stable for the transfer due to very short distance of transfer We will continue present aggressive care for now. Continue steroids with taper over 10 days Updated 07/21 Patient has been on Vapotherm 40 L flow, 100% oxygen and additional nonrebreather mask. She was due to transfer to [facility], unfortunately unable to tolerate BiPAP, for transfer At present she is unstable for the transfer. We will continue present aggressive care for now. Continue steroids with taper over 10 days Updated 07/20 Patient has been on Vapotherm 40 L flow, 100% oxygen She was due to transfer to [facility], unfortunately unable to tolerate BiPAP, for transfer I visited with patient during the time that EMS was here for transfer. I recommend that she stays. At this juncture not safe to transfer patient to LTAC on BiPAP updated 07/19 Continue current support Vapotherm Discussed with social service Remdesivir Steroid updated 07/18 We will continue steroids and remdesivir, empiric antibiotics, Vapotherm, up to chair as possible Will check into LTAC referral updated 07/17 Continue Vapotherm Antibiotics Steroids ordered Remdesivir Up to chair RAFIA EGAN MD Jul 28, 2021 10:08
[2021-07-28] MEDS ORDERED: PIP/TAZO PER PHARMACY MC PRN (10:15)
[2021-07-28] MEDS: PIPERACILLIN/TAZOBACTAM 3.375 GM in IV NORMAL SALINE 50ML 50 ML IV SCH ×3 (10:48→23:27)
[2021-07-28] MEDS: IV NORMAL SALINE 1000ML BAG 1,000 ML IV SCH (11:25)
--- NOTE | 2021-07-28 15:57 | NUR ---
SS following up with discharge planning. SS reviewed pt chart and discussed with pt RN. Pt is currently on the vent at 100%. COVID19 positive. Pt on Propofol, Fentanyl, Versed, Precedex, Levophed, and PRN Vec. Tube feeds. Pt on IV Decadron and IV Zosyn. Pt accepted at [facility], ; fax [phone]. Not stable. SS will continue to follow for discharge planning.
[2021-07-29] VITALS (23 sets, daily range): BP systolic 87–125; BP diastolic 51–109
[2021-07-29] MEDS: DEXMEDETOMIDINE 400 MCG in IV NORMAL SALINE 100ML 96 ML IV PRN ×6 (01:55→20:06)
--- NOTE | 2021-07-29 05:30 | PDOC ---
PULMONARY PROGRESS NOTES DATE: 07/29/21 TIME: 05:28 Subjective intubated 07/23 sedated on vent on prop precedex fentanyl versed on vec gtt Currently on assist control mode ,100% FiO2 and 9 of PEEP Vitals Vital Signs Date Time Temp Pulse Resp B/P (MAP) Pulse Ox O2 Delivery O2 Flow Rate FiO2 07/29/21 05:00 96 22 112/71 (85) 98 Ventilator 07/29/21 04:00 99.0 99.0 07/29/21 00:01 40.0 Comments ros unable to obtain Visual exam done due to COVID-19 pneumonia. Patient sedated, on vent nc at rrr no accessory muscle use abd obese No edema no skin rash Lungs: Other (Intubated) Labs Laboratory Tests Test 07/27/21 05:30 07/27/21 05:43 07/27/21 08:00 07/27/21 11:52 White Blood Count 17.2 x10^3/uL (4.0-11.0) Red Blood Count 3.87 x10^6/uL (3.50-5.40) Hemoglobin 11.0 g/dL (12.0-15.5) Hematocrit 34.2 % (36.0-47.0) Mean Corpuscular Volume 88 fL (79-100) Mean Corpuscular Hemoglobin 29 pg (25-35) Mean Corpuscular Hemoglobin Concent 32 g/dL (31-37) Red Cell Distribution Width 15.4 % (11.5-14.5) Platelet Count 175 x10^3/uL (140-400) Neutrophils (%) (Auto) 90 % (31-73) Lymphocytes (%) (Auto) 4 % (24-48) Monocytes (%) (Auto) 5 % (0-9) Eosinophils (%) (Auto) 0 % (0-3) Basophils (%) (Auto) 0 % (0-3) Neutrophils # (Auto) 15.5 x10^3/uL (1.8-7.7) Lymphocytes # (Auto) 0.7 x10^3/uL (1.0-4.8) Monocytes # (Auto) 0.9 x10^3/uL (0.0-1.1) Eosinophils # (Auto) 0.1 x10^3/uL (0.0-0.7) Basophils # (Auto) 0.0 x10^3/uL (0.0-0.2) C-Reactive Protein, Quantitative 50.8 mg/L (0-3.3) Procalcitonin 0.10 ng/mL (0.00-0.10) Glucose (Fingerstick) 126 mg/dL (70-99) 181 mg/dL (70-99) O2 Saturation 85 % (92-99) Arterial Blood pH 7.31 (7.35-7.45) Arterial Blood pCO2 at Patient Temp 56 mmHg (35-46) Arterial Blood pO2 at Patient Temp 54 mmHg (65-108) Arterial Blood HCO3 27 mmol/L (21-28) Arterial Blood Base Excess 0 mmol/L (-3-3) FiO2 100% vent Test 07/27/21 16:31 07/28/21 00:27 07/28/21 06:00 07/28/21 06:05 Glucose (Fingerstick) 171 mg/dL (70-99) 187 mg/dL (70-99) 178 mg/dL (70-99) White Blood Count 20.7 x10^3/uL (4.0-11.0) Red Blood Count 4.11 x10^6/uL (3.50-5.40) Hemoglobin 11.7 g/dL (12.0-15.5) Hematocrit 36.5 % (36.0-47.0) Mean Corpuscular Volume 89 fL (79-100) Mean Corpuscular Hemoglobin 29 pg (25-35) Mean Corpuscular Hemoglobin Concent 32 g/dL (31-37) Red Cell Distribution Width 15.4 % (11.5-14.5) Platelet Count 209 x10^3/uL (140-400) Neutrophils (%) (Auto) 89 % (31-73) Lymphocytes (%) (Auto) 5 % (24-48) Monocytes (%) (Auto) 5 % (0-9) Eosinophils (%) (Auto) 1 % (0-3) Basophils (%) (Auto) 0 % (0-3) Neutrophils # (Auto) 18.5 x10^3/uL (1.8-7.7) Lymphocytes # (Auto) 1.0 x10^3/uL (1.0-4.8) Monocytes # (Auto) 1.0 x10^3/uL (0.0-1.1) Eosinophils # (Auto) 0.1 x10^3/uL (0.0-0.7) Basophils # (Auto) 0.0 x10^3/uL (0.0-0.2) Sodium Level 136 mmol/L (136-145) Potassium Level 5.3 mmol/L (3.5-5.1) Chloride Level 101 mmol/L (98-107) Carbon Dioxide Level 33 mmol/L (21-32) Anion Gap 2 (6-14) Blood Urea Nitrogen 20 mg/dL (7-20) Creatinine 0.6 mg/dL (0.6-1.0) Estimated GFR (Cockcroft-Gault) 100.3 Glucose Level 175 mg/dL (70-99) Calcium Level 8.0 mg/dL (8.5-10.1) Test 07/28/21 07:56 07/28/21 11:11 07/28/21 16:27 07/28/21 23:15 O2 Saturation 93 % (92-99) Arterial Blood pH 7.32 (7.35-7.45) Arterial Blood pCO2 at Patient Temp 64 mmHg (35-46) Arterial Blood pO2 at Patient Temp 71 mmHg (65-108) Arterial Blood HCO3 33 mmol/L (21-28) Arterial Blood Base Excess 5 mmol/L (-3-3) FiO2 100 Glucose (Fingerstick) 184 mg/dL (70-99) 225 mg/dL (70-99) 159 mg/dL (70-99) Laboratory Tests Test 07/28/21 06:00 07/28/21 06:05 07/28/21 07:56 07/28/21 11:11 White Blood Count 20.7 x10^3/uL (4.0-11.0) Red Blood Count 4.11 x10^6/uL (3.50-5.40) Hemoglobin 11.7 g/dL (12.0-15.5) Hematocrit 36.5 % (36.0-47.0) Mean Corpuscular Volume 89 fL (79-100) Mean Corpuscular Hemoglobin 29 pg (25-35) Mean Corpuscular Hemoglobin Concent 32 g/dL (31-37) Red Cell Distribution Width 15.4 % (11.5-14.5) Platelet Count 209 x10^3/uL (140-400) Neutrophils (%) (Auto) 89 % (31-73) Lymphocytes (%) (Auto) 5 % (24-48) Monocytes (%) (Auto) 5 % (0-9) Eosinophils (%) (Auto) 1 % (0-3) Basophils (%) (Auto) 0 % (0-3) Neutrophils # (Auto) 18.5 x10^3/uL (1.8-7.7) Lymphocytes # (Auto) 1.0 x10^3/uL (1.0-4.8) Monocytes # (Auto) 1.0 x10^3/uL (0.0-1.1) Eosinophils # (Auto) 0.1 x10^3/uL (0.0-0.7) Basophils # (Auto) 0.0 x10^3/uL (0.0-0.2) Sodium Level 136 mmol/L (136-145) Potassium Level 5.3 mmol/L (3.5-5.1) Chloride Level 101 mmol/L (98-107) Carbon Dioxide Level 33 mmol/L (21-32) Anion Gap 2 (6-14) Blood Urea Nitrogen 20 mg/dL (7-20) Creatinine 0.6 mg/dL (0.6-1.0) Estimated GFR (Cockcroft-Gault) 100.3 Glucose Level 175 mg/dL (70-99) Calcium Level 8.0 mg/dL (8.5-10.1) Glucose (Fingerstick) 178 mg/dL (70-99) 184 mg/dL (70-99) O2 Saturation 93 % (92-99) Arterial Blood pH 7.32 (7.35-7.45) Arterial Blood pCO2 at Patient Temp 64 mmHg (35-46) Arterial Blood pO2 at Patient Temp 71 mmHg (65-108) Arterial Blood HCO3 33 mmol/L (21-28) Arterial Blood Base Excess 5 mmol/L (-3-3) FiO2 100 Test 07/28/21 16:27 07/28/21 23:15 Glucose (Fingerstick) 225 mg/dL (70-99) 159 mg/dL (70-99) Medications Active Scripts Medications Dose Route/Sig Max Daily Dose Days Date Category Comments Chest x-ray reviewed 07/28/2021 Bilateral diffuse interstitial infiltrates. No significant change. In my opinion no significant pleural effusions Chest x-ray reviewed 07/24/2021. Unchanged diffuse bilateral interstitial infiltrates Chest x-ray reviewed 07/23/2021. Diffuse bilateral interstitial infiltrates Impression . IMPRESSION: 1. Acute hypoxemic respiratory failure secondary to COVID-19 viral pne umonia/ARDS. Worsening hypoxia. Intubated 07/23/2021 2. COVID-19 viral pneumonia/acute respiratory distress syndrome. 3. Possible bacterial pneumonia. 4. Obesity. 5. Abnormal chest x-ray consistent with viral pneumonia 6. Hypotension, improved 7. Leukocytosis, no fever. Monitor closely. Would add empiric antibiotics Plan . Updated 07/28/21 Continue present assist control mode, 100% FiO2, PEEP of 9. Patient had some asynchrony with the ventilator. Currently fully sedated along with vecuronium gtt Okay with permissive hypercapnia. Follow ABGs and make necessary adjustments. titrate fio2 peep as tolerated We will continue present aggressive care for now. Continue steroids with taper over 10 days DVT prophylaxis Stress ulcer prophylaxis Enteral nutrition Continue present aggressive care. Monitor white cell count. Zosyn added Discussed with RN and RT. reviewed labs, imaging studies Updated 07/27/21 Continue present assist control mode, 100% FiO2, oxygenation is marginal today. We will increase the PEEP to 9. Patient had some asynchrony with the ventilator. Currently fully sedated along with as needed vecuronium. Follow ABGs and make necessary adjustments. No room to wean. We will continue present aggressive care for now. Continue steroids with taper over 10 days DVT prophylaxis Stress ulcer prophylaxis Enteral nutrition Continue present aggressive care. Updated 07/26/21 Continue present assist control mode, 100% FiO2, and 8 of PEEP. Patient had some asynchrony with the ventilator. Currently fully sedated along with as needed vecuronium. Follow ABGs and make necessary adjustments. No room to wean. We will continue present aggressive care for now. Continue steroids with taper over 10 days DVT prophylaxis Stress ulcer prophylaxis Enteral nutrition Will try to reduce propofol to see an improvement in hypotension. We will add as needed Ativan Total critical care time 30 minutes including review of labs and decision making Updated 07/25/21 Continue present assist control mode, 100% FiO2, and 8 of PEEP. Patient had some increased respiratory rate. Will increase fentanyl today Follow ABGs and make necessary adjustments. No room to wean. We will continue present aggressive care for now. Continue steroids with taper over 10 days DVT prophylaxis Stress ulcer prophylaxis Enteral nutrition Follow labs and make corrections as needed Updated 07/24/21 Continue present assist control mode, 100% FiO2, and 8 of PEEP. Follow ABGs and make necessary adjustments. Today's PO2 is 58. No room to wean. We will continue present aggressive care for now. Continue steroids with taper over 10 days DVT prophylaxis Stress ulcer prophylaxis Enteral nutrition Follow labs and make corrections as needed Critical care time 30 minutes Updated 07/23 As discussed above patient had a rough night. Her oxygen level fluctuated in the high 70s and low 80s. She declined to be placed on BiPAP. Patient has been on Vapotherm 40 L flow, 100% oxygen and additional nonrebreather mask. She desaturates with minimal activity. We will continue present aggressive care for now. Continue steroids with taper over 10 days I had a long discussion with the patient and it was witnessed by the nurse Cindy about advanced directives. All pros and cons of being on a ventilator were discussed. Patient does not want to be on a ventilator. I spoke to patient's son Lorenzo and informed about patient's decision. She will be a DNR. We will continue present aggressive care. At this point will only transfer to [facility] if we have BiPAP available for the transfer. Critical care time 30 minutes addend: Informed by RN. Patient changed her decision to be full code. She will be transfered to ICU and will proceed with intubation. Updated 07/22 Patient has been on Vapotherm 40 L flow, 100% oxygen and additional nonrebreather mask. Patient is tolerating the current oxygen reasonably well. Patient's family wants her to transfer to [facility] Saturday. She should be stable for the transfer due to very short distance of transfer We will continue present aggressive care for now. Continue steroids with taper over 10 days Updated 07/21 Patient has been on Vapotherm 40 L flow, 100% oxygen and additional nonrebreather mask. She was due to transfer to [facility], unfortunately unable to tolerate BiPAP, for transfer At present she is unstable for the transfer. We will continue present aggressive care for now. Continue steroids with taper over 10 days Updated 07/20 Patient has been on Vapotherm 40 L flow, 100% oxygen She was due to transfer to [facility], unfortunately unable to tolerate BiPAP, for transfer I visited with patient during the time that EMS was here for transfer. I recommend that she stays. At this juncture not safe to transfer patient to LTAC on BiPAP updated 07/19 Continue current support Vapotherm Discussed with social service Remdesivir Steroid updated 07/18 We will continue steroids and remdesivir, empiric antibiotics, Vapotherm, up to chair as possible Will check into LTAC referral updated 07/17 Continue Vapotherm Antibiotics Steroids ordered Remdesivir Up to chair JANELLE DENTON MD Jul 29, 2021 05:30
[2021-07-29] MEDS: INSULIN LISPRO 300 UNITS/3 ML VIAL. SQ SCH ×4 (05:38→18:17)
[2021-07-29] MEDS: PIPERACILLIN/TAZOBACTAM 3.375 GM in IV NORMAL SALINE 50ML 50 ML IV SCH ×4 (05:38→23:49)
[2021-07-29 06:01] LABS: BASO # 0.1 x10^3/uL (0.0-0.2); BASO % 1 % (0-3); EOS # 0.2 x10^3/uL (0.0-0.7); EOS % 1 % (0-3); HEMOGLOBIN 10.2 g/dL (12.0-15.5); LYMPH # 1.3 x10^3/uL (1.0-4.8); LYMPH % 7 % (24-48); MEAN CORPUSCULAR HEMOGLOBIN 28 pg (25-35); MEAN CORPUSCULAR HGB CONC 32 g/dL (31-37); MEAN CORPUSCULAR VOLUME 89 fL (79-100); MONO % 5 % (0-9); NEUT # 16.1 x10^3/uL (1.8-7.7); NEUT % 86 % (31-73); PLATELET COUNT 182 x10^3/uL (140-400); RED BLOOD COUNT 3.59 x10^6/uL (3.50-5.40); RED CELL DISTRIBUTION WIDTH 15.4 % (11.5-14.5); WHITE BLOOD COUNT 18.7 x10^3/uL (4.0-11.0)
[2021-07-29 06:06] LABS: CALCIUM 6.8 mg/dL (8.5-10.1); CREATININE 0.6 mg/dL (0.6-1.0); GFR 100.3; POTASSIUM 4.6 mmol/L (3.5-5.1)
--- NOTE | 2021-07-29 07:34 | PDOC ---
[employer] PROGRESS NOTE Date of Service DOS: DATE: 07/29/21 TIME: 07:32 Chief Complaint Chief Complaint acute hypoxic respiratory failure COVID 19 pneumonia, standard treatement protocol sepsis obese, BMI 35, with malnutrition, albumin 2.3 on admit . History of Present Illness History of Present Illness 07/17/2021 No acute events overnight. Patient saturating 90% on 40% Vapotherm. No c oncerns nursing at this time. Patient's chart, labs, images were reviewed and discussed with RN In addition to my E/M visit, advance care planning done with A total time of 20 minutes was spent from 920 to 940 face to face in discussion with the patient regarding their goals of care, CODE STATUS. 07/18/2021 No acute events overnight. Patient saturating 89% on Vapotherm. No dyspnea upon exertion or at rest. Pending chest x-ray results. No other concerns from nursing. 07/19/21 No acute events overnight. Saturating 91% on vapotherm. No dyspnea and is motiviated to get out of bed onto chair. total critical care time spent of 33 minutes 07/20/2021 No acute events overnight. Patient seen and examined bedside. Saturating well on Vapotherm. Patient accepted at [facility]. No concerns with nursing. A total of 35 minutes of critical care time was spent in reviewing chart, labs, and images. Discussed with RN and TRAVIS. 07/21/2021 No acute events overnight. Unfortunately patient was unable to be transferred t o [facility] because of unable to tolerate BiPAP. At this point we will continue BiPAP and Vapotherm for inpatient care. Patient's chart, labs, images were reviewed and discussed with RN A total of 32 minutes of critical care time was spent in reviewing chart, labs, and images. Discussed with RN and SW. 07/22/2021 No acute events overnight. Patient seen and examined bedside. Saturating 100% on FiO2 and 15 L nonrebreather mask. Does complain of diarrhea and one-time Imodium was administered. Afebrile last 24 hours. Continue PT OT modalities. Encourage prone positioning when able. Patient's chart, labs, images were reviewed and discussed with RN A total of 32 minutes of critical care time was spent in reviewing chart, labs, and images. Discussed with RN and TRAVIS. 07/23/2021 No acute events overnight. Patient seen and examined resting comfortably at bedside. Saturating 83% on Vapotherm. Patient did have dyspneic episodes overnight desaturating down to 70s and 80s. She was offered BiPAP but she is declining and wishing to be DNR today. Patient's chart, labs, images were reviewed and discussed with RN 07/24/2021: Patient transferred to the ICU and intubated overnight. Currently afebrile, tachycardic. On vent with FiO2 100%, PEEP 8. We will continue steroids to complete 10-day course; begin taper tomorrow. 07/25/2021: Afebrile, no acute events overnight. On vent with FiO2 100%, PEEP 8. Completed remdesivir. Day 10 of steroids, will begin taper over 10 days. Continue supportive care. Critical care time 30 min spent reviewing charts, reviewing imaging, reviewing labs, and discussion with RN. 07/26/2021: Afebrile. On vent with FiO2 100%, PEEP 8. Completed remdesivir and 10 days of steroids; will begin slow steroid taper. Chest x-ray from 07/24 showed stable diffuse infiltrate. Leukocytosis likely secondary to steroid use. Will obtain CRP and procalcitonin. Continue supportive care. Critical care time 30 min spent reviewing charts, reviewing imaging, reviewing labs, and discussion with RN. 07/27/2021: Afebrile. On vent with FiO2 100%, PEEP 9. CRP 15, procalcitonin 0.10. WBC 17.2. We will hold off on further antibiotics for now continue to monitor. Completed remdesivir and 10 days of steroids; continue slow Decadron taper. Continue supportive care. Critical care time 30 min spent reviewing charts, reviewing imaging, reviewing labs, and discussion with RN. 07/28/2021: Afebrile. On vent FiO2 100%, PEEP 9. Completed remdesivir and 10 days of steroids; continue slow Decadron taper. Continue supportive care; on vasopressors. Critical care time 30 min spent reviewing charts, reviewing imaging, reviewing labs, and discussion with RN. 07/29/2021: Afebrile, no significant change overnight. On vent FiO2 100%, PEEP 9. Completed remdesivir and 10 days of steroids; continue slow Decadron taper. Continue supportive care; on vasopressors. Critical care time 30 min spent reviewing charts, reviewing imaging, reviewing labs, and discussion with RN. Vitals/I&O Vitals/I&O: Vital Signs Date Time Temp Pulse Resp B/P (MAP) Pulse Ox O2 Delivery O2 Flow Rate FiO2 07/29/21 06:00 96 22 110/64 (79) 98 Ventilator 07/29/21 04:00 99.0 99.0 07/29/21 00:01 40.0 I & O 07/28/21 07/28/21 07/29/21 15:00 23:00 07:00 Intake Total 200 ml 842 ml 1825 ml Output Total 800 ml 1350 ml 650 ml Balance -600 ml -508 ml 1175 ml Physical Exam General: Cooperative, No acute distress, Other (ET and NG tube in place) Heart: Other (Tachycardic) Lungs: Other (Intubated) Abdomen: Normal bowel sounds, Soft (obese, ) Extremities: No cyanosis, No edema, Normal pulses Skin: No rashes, No significant lesion Labs Labs: Laboratory Tests Test 07/28/21 07:56 07/28/21 11:11 07/28/21 16:27 07/28/21 23:15 O2 Saturation 93 % (92-99) Arterial Blood pH 7.32 (7.35-7.45) Arterial Blood pCO2 at Patient Temp 64 mmHg (35-46) Arterial Blood pO2 at Patient Temp 71 mmHg (65-108) Arterial Blood HCO3 33 mmol/L (21-28) Arterial Blood Base Excess 5 mmol/L (-3-3) FiO2 100 Glucose (Fingerstick) 184 mg/dL (70-99) 225 mg/dL (70-99) 159 mg/dL (70-99) Test 07/29/21 05:45 07/29/21 05:49 White Blood Count 18.7 x10^3/uL (4.0-11.0) Red Blood Count 3.59 x10^6/uL (3.50-5.40) Hemoglobin 10.2 g/dL (12.0-15.5) Hematocrit 32.0 % (36.0-47.0) Mean Corpuscular Volume 89 fL (79-100) Mean Corpuscular Hemoglobin 28 pg (25-35) Mean Corpuscular Hemoglobin Concent 32 g/dL (31-37) Red Cell Distribution Width 15.4 % (11.5-14.5) Platelet Count 182 x10^3/uL (140-400) Neutrophils (%) (Auto) 86 % (31-73) Lymphocytes (%) (Auto) 7 % (24-48) Monocytes (%) (Auto) 5 % (0-9) Eosinophils (%) (Auto) 1 % (0-3) Basophils (%) (Auto) 1 % (0-3) Neutrophils # (Auto) 16.1 x10^3/uL (1.8-7.7) Lymphocytes # (Auto) 1.3 x10^3/uL (1.0-4.8) Monocytes # (Auto) 1.0 x10^3/uL (0.0-1.1) Eosinophils # (Auto) 0.2 x10^3/uL (0.0-0.7) Basophils # (Auto) 0.1 x10^3/uL (0.0-0.2) Sodium Level 137 mmol/L (136-145) Potassium Level 4.6 mmol/L (3.5-5.1) Chloride Level 104 mmol/L (98-107) Carbon Dioxide Level 33 mmol/L (21-32) Anion Gap 0 (6-14) Blood Urea Nitrogen 16 mg/dL (7-20) Creatinine 0.6 mg/dL (0.6-1.0) Estimated GFR (Cockcroft-Gault) 100.3 Glucose Level 201 mg/dL (70-99) Calcium Level 6.8 mg/dL (8.5-10.1) Glucose (Fingerstick) 189 mg/dL (70-99) Comment Review of Relevant I have reviewed the following items jluis (where applicable) has been applied. Medications: Current Medications Medications (Trade) Dose Ordered Sig/Dov Route PRN Reason Start Time Stop Time Status Last Admin Dose Admin Piperacillin Sod/ Tazobactam Sod 3.375 gm/Sodium Chloride 50 ml @ 100 mls/hr Q6HRS IV 07/28/21 11:00 07/29/21 05:38 Sodium Chloride 1,000 ml @ 30 mls/hr Q24H IV 07/28/21 11:00 07/28/21 11:25 Justifications for Admission Other Justification GAYLE YUNG MD Jul 29, 2021 07:34
[2021-07-29] MEDS: PROPOFOL 100 ML IV PRN ×2 (07:39→17:36)
[2021-07-29] MEDS: PANTOPRAZOLE IV PUSH 40 MG VIAL. IVP SCH ×2 (07:44→10:44)
[2021-07-29 08:15] LABS: BASE EXCESS ABG 4 mmol/L (-3-3); HCO3 ABG 32 mmol/L (21-28); PO2 ABG 68 mmHg (65-108); SAT O2 ABG 92 % (92-99)
[2021-07-29 08:21] LABS: FIO2 ABG 100; PCO2 ABG 62 mmHg (35-46)
[2021-07-29] MEDS: DEXAMETHASONE SOD PHOS 4 MG/ML VIAL IVP SCH (10:44)
[2021-07-29] MEDS: ENOXAPARIN 40 MG/0.4 ML SYRINGE. SQ SCH (10:44)
[2021-07-29] MEDS: ASCORBIC ACID 500 MG TABLET PO SCH (10:54)
[2021-07-29] MEDS: ZINC SULFATE 220 MG CAPSULE. PO SCH (10:54)
[2021-07-29] MEDS: IV NORMAL SALINE 1000ML BAG 1,000 ML IV SCH (10:59)
[2021-07-29] MEDS: MIDAZOLAM 100mg/100ml NS BAG 100 ML IV PRN ×2 (11:56→23:24)
[2021-07-30] VITALS (25 sets, daily range): BP systolic 84–125; BP diastolic 55–77
[2021-07-30] MEDS: DEXMEDETOMIDINE 400 MCG in IV NORMAL SALINE 100ML 96 ML IV PRN ×6 (00:14→21:35)
[2021-07-30] MEDS: fentaNYL HIGH DOSE PCA 55 ML IV PRN (01:23)
[2021-07-30] MEDS: PROPOFOL 100 ML IV PRN ×3 (02:06→19:18)
[2021-07-30] MEDS: NORCURON - VECURONIUM 50 MG in IV NORMAL SALINE 50ML 50 ML IV PRN ×2 (04:26→21:36)
[2021-07-30 05:31] LABS: BASO % 0 % (0-3); EOS # 0.3 x10^3/uL (0.0-0.7); EOS % 2 % (0-3); HEMATOCRIT 31.4 % (36.0-47.0); HEMOGLOBIN 10.2 g/dL (12.0-15.5); LYMPH # 1.3 x10^3/uL (1.0-4.8); LYMPH % 7 % (24-48); MEAN CORPUSCULAR HEMOGLOBIN 29 pg (25-35); MEAN CORPUSCULAR HGB CONC 33 g/dL (31-37); MEAN CORPUSCULAR VOLUME 88 fL (79-100); MONO # 0.9 x10^3/uL (0.0-1.1); MONO % 5 % (0-9); NEUT # 15.2 x10^3/uL (1.8-7.7); NEUT % 86 % (31-73); PLATELET COUNT 163 x10^3/uL (140-400); RED BLOOD COUNT 3.57 x10^6/uL (3.50-5.40); RED CELL DISTRIBUTION WIDTH 15.2 % (11.5-14.5); WHITE BLOOD COUNT 17.7 x10^3/uL (4.0-11.0)
[2021-07-30 05:44] LABS: BLOOD UREA NITROGEN 19 mg/dL (7-20); CALCIUM 7.7 mg/dL (8.5-10.1); CARBON DIOXIDE 39 mmol/L (21-32); CHLORIDE 101 mmol/L (98-107); CREATININE 0.6 mg/dL (0.6-1.0); GFR 100.3; GLUCOSE 163 mg/dL (70-99); SODIUM 136 mmol/L (136-145)
[2021-07-30] MEDS: PIPERACILLIN/TAZOBACTAM 3.375 GM in IV NORMAL SALINE 50ML 50 ML IV SCH ×3 (05:52→18:05)
[2021-07-30] MEDS: INSULIN LISPRO 300 UNITS/3 ML VIAL. SQ SCH ×4 (06:02→17:15)
--- NOTE | 2021-07-30 06:58 | PDOC ---
PULMONARY PROGRESS NOTES DATE: 07/30/21 TIME: 06:58 Subjective intubated 07/23 sedated on vent on prop precedex fentanyl versed on vec gtt Currently on assist control mode ,100% FiO2 and 9 of PEEP Vitals Vital Signs Date Time Temp Pulse Resp B/P (MAP) Pulse Ox O2 Delivery O2 Flow Rate FiO2 07/30/21 06:00 90 22 108/65 (79) 95 Ventilator 07/30/21 04:00 98.0 98.0 Comments ros unable to obtain Visual exam done due to COVID-19 pneumonia. Patient sedated, on vent nc at rrr no accessory muscle use abd obese No edema no skin rash Lungs: Other (Intubated) Labs Laboratory Tests Test 07/28/21 07:56 07/28/21 11:11 07/28/21 16:27 07/28/21 23:15 O2 Saturation 93 % (92-99) Arterial Blood pH 7.32 (7.35-7.45) Arterial Blood pCO2 at Patient Temp 64 mmHg (35-46) Arterial Blood pO2 at Patient Temp 71 mmHg (65-108) Arterial Blood HCO3 33 mmol/L (21-28) Arterial Blood Base Excess 5 mmol/L (-3-3) FiO2 100 Glucose (Fingerstick) 184 mg/dL (70-99) 225 mg/dL (70-99) 159 mg/dL (70-99) Test 07/29/21 05:45 07/29/21 05:49 07/29/21 08:10 07/29/21 12:02 White Blood Count 18.7 x10^3/uL (4.0-11.0) Red Blood Count 3.59 x10^6/uL (3.50-5.40) Hemoglobin 10.2 g/dL (12.0-15.5) Hematocrit 32.0 % (36.0-47.0) Mean Corpuscular Volume 89 fL (79-100) Mean Corpuscular Hemoglobin 28 pg (25-35) Mean Corpuscular Hemoglobin Concent 32 g/dL (31-37) Red Cell Distribution Width 15.4 % (11.5-14.5) Platelet Count 182 x10^3/uL (140-400) Neutrophils (%) (Auto) 86 % (31-73) Lymphocytes (%) (Auto) 7 % (24-48) Monocytes (%) (Auto) 5 % (0-9) Eosinophils (%) (Auto) 1 % (0-3) Basophils (%) (Auto) 1 % (0-3) Neutrophils # (Auto) 16.1 x10^3/uL (1.8-7.7) Lymphocytes # (Auto) 1.3 x10^3/uL (1.0-4.8) Monocytes # (Auto) 1.0 x10^3/uL (0.0-1.1) Eosinophils # (Auto) 0.2 x10^3/uL (0.0-0.7) Basophils # (Auto) 0.1 x10^3/uL (0.0-0.2) Sodium Level 137 mmol/L (136-145) Potassium Level 4.6 mmol/L (3.5-5.1) Chloride Level 104 mmol/L (98-107) Carbon Dioxide Level 33 mmol/L (21-32) Anion Gap 0 (6-14) Blood Urea Nitrogen 16 mg/dL (7-20) Creatinine 0.6 mg/dL (0.6-1.0) Estimated GFR (Cockcroft-Gault) 100.3 Glucose Level 201 mg/dL (70-99) Calcium Level 6.8 mg/dL (8.5-10.1) Glucose (Fingerstick) 189 mg/dL (70-99) 151 mg/dL (70-99) O2 Saturation 92 % (92-99) Arterial Blood pH 7.32 (7.35-7.45) Arterial Blood pCO2 at Patient Temp 62 mmHg (35-46) Arterial Blood pO2 at Patient Temp 68 mmHg (65-108) Arterial Blood HCO3 32 mmol/L (21-28) Arterial Blood Base Excess 4 mmol/L (-3-3) FiO2 100 Test 07/29/21 12:14 07/29/21 23:55 07/30/21 05:10 Glucose (Fingerstick) 177 mg/dL (70-99) 133 mg/dL (70-99) White Blood Count 17.7 x10^3/uL (4.0-11.0) Red Blood Count 3.57 x10^6/uL (3.50-5.40) Hemoglobin 10.2 g/dL (12.0-15.5) Hematocrit 31.4 % (36.0-47.0) Mean Corpuscular Volume 88 fL (79-100) Mean Corpuscular Hemoglobin 29 pg (25-35) Mean Corpuscular Hemoglobin Concent 33 g/dL (31-37) Red Cell Distribution Width 15.2 % (11.5-14.5) Platelet Count 163 x10^3/uL (140-400) Neutrophils (%) (Auto) 86 % (31-73) Lymphocytes (%) (Auto) 7 % (24-48) Monocytes (%) (Auto) 5 % (0-9) Eosinophils (%) (Auto) 2 % (0-3) Basophils (%) (Auto) 0 % (0-3) Neutrophils # (Auto) 15.2 x10^3/uL (1.8-7.7) Lymphocytes # (Auto) 1.3 x10^3/uL (1.0-4.8) Monocytes # (Auto) 0.9 x10^3/uL (0.0-1.1) Eosinophils # (Auto) 0.3 x10^3/uL (0.0-0.7) Basophils # (Auto) 0.0 x10^3/uL (0.0-0.2) Sodium Level 136 mmol/L (136-145) Potassium Level 5.0 mmol/L (3.5-5.1) Chloride Level 101 mmol/L (98-107) Carbon Dioxide Level 39 mmol/L (21-32) Anion Gap (6-14) Blood Urea Nitrogen 19 mg/dL (7-20) Creatinine 0.6 mg/dL (0.6-1.0) Estimated GFR (Cockcroft-Gault) 100.3 Glucose Level 163 mg/dL (70-99) Calcium Level 7.7 mg/dL (8.5-10.1) Laboratory Tests Test 07/29/21 08:10 07/29/21 12:02 07/29/21 12:14 07/29/21 23:55 O2 Saturation 92 % (92-99) Arterial Blood pH 7.32 (7.35-7.45) Arterial Blood pCO2 at Patient Temp 62 mmHg (35-46) Arterial Blood pO2 at Patient Temp 68 mmHg (65-108) Arterial Blood HCO3 32 mmol/L (21-28) Arterial Blood Base Excess 4 mmol/L (-3-3) FiO2 100 Glucose (Fingerstick) 151 mg/dL (70-99) 177 mg/dL (70-99) 133 mg/dL (70-99) Test 07/30/21 05:10 White Blood Count 17.7 x10^3/uL (4.0-11.0) Red Blood Count 3.57 x10^6/uL (3.50-5.40) Hemoglobin 10.2 g/dL (12.0-15.5) Hematocrit 31.4 % (36.0-47.0) Mean Corpuscular Volume 88 fL (79-100) Mean Corpuscular Hemoglobin 29 pg (25-35) Mean Corpuscular Hemoglobin Concent 33 g/dL (31-37) Red Cell Distribution Width 15.2 % (11.5-14.5) Platelet Count 163 x10^3/uL (140-400) Neutrophils (%) (Auto) 86 % (31-73) Lymphocytes (%) (Auto) 7 % (24-48) Monocytes (%) (Auto) 5 % (0-9) Eosinophils (%) (Auto) 2 % (0-3) Basophils (%) (Auto) 0 % (0-3) Neutrophils # (Auto) 15.2 x10^3/uL (1.8-7.7) Lymphocytes # (Auto) 1.3 x10^3/uL (1.0-4.8) Monocytes # (Auto) 0.9 x10^3/uL (0.0-1.1) Eosinophils # (Auto) 0.3 x10^3/uL (0.0-0.7) Basophils # (Auto) 0.0 x10^3/uL (0.0-0.2) Sodium Level 136 mmol/L (136-145) Potassium Level 5.0 mmol/L (3.5-5.1) Chloride Level 101 mmol/L (98-107) Carbon Dioxide Level 39 mmol/L (21-32) Anion Gap (6-14) Blood Urea Nitrogen 19 mg/dL (7-20) Creatinine 0.6 mg/dL (0.6-1.0) Estimated GFR (Cockcroft-Gault) 100.3 Glucose Level 163 mg/dL (70-99) Calcium Level 7.7 mg/dL (8.5-10.1) Medications Active Scripts Medications Dose Route/Sig Max Daily Dose Days Date Category Comments Chest x-ray reviewed 07/28/2021 Bilateral diffuse interstitial infiltrates. No significant change. In my opinion no significant pleural effusions Chest x-ray reviewed 07/24/2021. Unchanged diffuse bilateral interstitial infiltrates Chest x-ray reviewed 07/23/2021. Diffuse bilateral interstitial infiltrates Impression . IMPRESSION: 1. Acute hypoxemic respiratory failure secondary to COVID-19 viral pneumonia/ARDS. Worsening hypoxia. Intubated 07/23/2021 2. COVID-19 viral pneumonia/acute respiratory distress syndrome. 3. Possible bacterial pneumonia. 4. Obesity. 5. Abnormal chest x-ray consistent with viral pneumonia 6. Hypotension, improved 7. Leukocytosis, no fever. Monitor closely. Would add empiric antibiotics Plan . Updated 07/30/21 Continue present assist control mode, 100% FiO2, PEEP of 9. Currently fully sedated along and vecuronium gtt will allow permissive hypercapnia, try to keep plateau pressure below 30 Follow ABGs and make necessary adjustments. titrate fio2 peep as tolerated We will continue present aggressive care for now. Continue steroids with taper over 10 days DVT prophylaxis Stress ulcer prophylaxis Enteral nutrition Continue present aggressive care. Monitor white cell count. trending down Zosyn added 07/28 Discussed with RN and RT. reviewed labs, imaging studies Updated 07/28/21 Continue present assist control mode, 100% FiO2, PEEP of 9. Patient had some asynchrony with the ventilator. Currently fully sedated along with vecuronium gtt Okay with permissive hypercapnia. Follow ABGs and make necessary adjustments. titrate fio2 peep as tolerated We will continue present aggressive care for now. Continue steroids with taper over 10 days DVT prophylaxis Stress ulcer prophylaxis Enteral nutrition Continue present aggressive care. Monitor white cell count. Zosyn added Discussed with RN and RT. reviewed labs, imaging studies Updated 07/27/21 Continue present assist control mode, 100% FiO2, oxygenation is marginal today. We will increase the PEEP to 9. Patient had some asynchrony with the ventilator. Currently fully sedated along with as needed vecuronium. Follow ABGs and make necessary adjustments. No room to wean. We will continue present aggressive care for now. Continue steroids with taper over 10 days DVT prophylaxis Stress ulcer prophylaxis Enteral nutrition Continue present aggressive care. Updated 07/26/21 Continue present assist control mode, 100% FiO2, and 8 of PEEP. Patient had some asynchrony with the ventilator. Currently fully sedated along with as needed vecuronium. Follow ABGs and make necessary adjustments. No room to wean. We will continue present aggressive care for now. Continue steroids with taper over 10 days DVT prophylaxis Stress ulcer prophylaxis Enteral nutrition Will try to reduce propofol to see an improvement in hypotension. We will add as needed Ativan Total critical care time 30 minutes including review of labs and decision making Updated 07/25/21 Continue present assist control mode, 100% FiO2, and 8 of PEEP. Patient had some increased respiratory rate. Will increase fentanyl today Follow ABGs and make necessary adjustments. No room to wean. We will continue present aggressive care for now. Continue steroids with taper over 10 days DVT prophylaxis Stress ulcer prophylaxis Enteral nutrition Follow labs and make corrections as needed Updated 07/24/21 Continue present assist control mode, 100% FiO2, and 8 of PEEP. Follow ABGs and make necessary adjustments. Today's PO2 is 58. No room to wean. We will continue present aggressive care for now. Continue steroids with taper over 10 days DVT prophylaxis Stress ulcer prophylaxis Enteral nutrition Follow labs and make corrections as needed Critical care time 30 minutes Updated 07/23 As discussed above patient had a rough night. Her oxygen level fluctuated in the high 70s and low 80s. She declined to be placed on BiPAP. Patient has been on Vapotherm 40 L flow, 100% oxygen and additional nonrebreather mask. She desaturates with minimal activity. We will continue present aggressive care for now. Continue steroids with taper over 10 days I had a long discussion with the patient and it was witnessed by the nurse Cindy about advanced directives. All pros and cons of being on a ventilator were discussed. Patient does not want to be on a ventilator. I spoke to patient's son Lorenzo and informed about patient's decision. She will be a DNR. We will continue present aggressive care. [facility] for the transfer. Critical care time 30 minutes addend: Informed by RN. Patient changed her decision to be full code. She will be transfered to ICU and will proceed with intubation. Updated 07/22 Patient has been on Vapotherm 40 L flow, 100% oxygen and additional nonrebreather mask. Patient is tolerating the current oxygen reasonably well. [facility] She should be stable for the transfer due to very short distance of transfer We will continue present aggressive care for now. Continue steroids with taper over 10 days Updated 07/21 Patient has been on Vapotherm 40 L flow, 100% oxygen and additional nonrebreather mask. She was due to transfer to [facility], unfortunately unable to tolerate BiPAP, for transfer At present she is unstable for the transfer. We will continue present aggressive care for now. Continue steroids with taper over 10 days Updated 07/20 Patient has been on Vapotherm 40 L flow, 100% oxygen She was due to transfer to [facility], unfortunately unable to tolerate BiPAP, for transfer I visited with patient during the time that EMS was here for transfer. I recommend that she stays. At this juncture not safe to transfer patient to LTAC on BiPAP updated 07/19 Continue current support Vapotherm Discussed with social service Remdesivir Steroid updated 07/18 We will continue steroids and remdesivir, empiric antibiotics, Vapotherm, up to chair as possible Will check into LTAC referral updated 07/17 Continue Vapotherm Antibiotics Steroids ordered Remdesivir Up to chair JANELLE DENTON MD Jul 30, 2021 06:58
--- NOTE | 2021-07-30 06:58 | PDOC ---
[employer] PROGRESS NOTE Date of Service DOS: DATE: 07/30/21 TIME: 06:51 Chief Complaint Chief Complaint acute hypoxic respiratory failure COVID 19 pneumonia, standard treatement protocol sepsis obese, BMI 35, with malnutrition, albumin 2.3 on admit . History of Present Illness History of Present Illness 07/17/2021 No acute events overnight. Patient saturating 90% on 40% Vapotherm. No c oncerns nursing at this time. Patient's chart, labs, images were reviewed and discussed with RN In addition to my E/M visit, advance care planning done with A total time of 20 minutes was spent from 920 to 940 face to face in discussion with the patient regarding their goals of care, CODE STATUS. 07/18/2021 No acute events overnight. Patient saturating 89% on Vapotherm. No dyspnea upon exertion or at rest. Pending chest x-ray results. No other concerns from nursing. 07/19/21 No acute events overnight. Saturating 91% on vapotherm. No dyspnea and is motiviated to get out of bed onto chair. total critical care time spent of 33 minutes 07/20/2021 No acute events overnight. Patient seen and examined bedside. Saturating well on Vapotherm. Patient accepted at [facility]. No concerns with nursing. A total of 35 minutes of critical care time was spent in reviewing chart, labs, and images. Discussed with RN and TRAVIS. 07/21/2021 No acute events overnight. Unfortunately patient was unable to be transferred t o [facility] because of unable to tolerate BiPAP. At this point we will continue BiPAP and Vapotherm for inpatient care. Patient's chart, labs, images were reviewed and discussed with RN A total of 32 minutes of critical care time was spent in reviewing chart, labs, and images. Discussed with RN and SW. 07/22/2021 No acute events overnight. Patient seen and examined bedside. Saturating 100% on FiO2 and 15 L nonrebreather mask. Does complain of diarrhea and one-time Imodium was administered. Afebrile last 24 hours. Continue PT OT modalities. Encourage prone positioning when able. Patient's chart, labs, images were reviewed and discussed with RN A total of 32 minutes of critical care time was spent in reviewing chart, labs, and images. Discussed with RN and TRAVIS. 07/23/2021 No acute events overnight. Patient seen and examined resting comfortably at bedside. Saturating 83% on Vapotherm. Patient did have dyspneic episodes overnight desaturating down to 70s and 80s. She was offered BiPAP but she is declining and wishing to be DNR today. Patient's chart, labs, images were reviewed and discussed with RN 07/24/2021: Patient transferred to the ICU and intubated overnight. Currently afebrile, tachycardic. On vent with FiO2 100%, PEEP 8. We will continue steroids to complete 10-day course; begin taper tomorrow. 07/25/2021: Afebrile, no acute events overnight. On vent with FiO2 100%, PEEP 8. Completed remdesivir. Day 10 of steroids, will begin taper over 10 days. Continue supportive care. Critical care time 30 min spent reviewing charts, reviewing imaging, reviewing labs, and discussion with RN. 07/26/2021: Afebrile. On vent with FiO2 100%, PEEP 8. Completed remdesivir and 10 days of steroids; will begin slow steroid taper. Chest x-ray from 07/24 showed stable diffuse infiltrate. Leukocytosis likely secondary to steroid use. Will obtain CRP and procalcitonin. Continue supportive care. Critical care time 30 min spent reviewing charts, reviewing imaging, reviewing labs, and discussion with RN. 07/27/2021: Afebrile. On vent with FiO2 100%, PEEP 9. CRP 15, procalcitonin 0.10. WBC 17.2. We will hold off on further antibiotics for now continue to monitor. Completed remdesivir and 10 days of steroids; continue slow Decadron taper. Continue supportive care. Critical care time 30 min spent reviewing charts, reviewing imaging, reviewing labs, and discussion with RN. 07/28/2021: Afebrile. On vent FiO2 100%, PEEP 9. Completed remdesivir and 10 days of steroids; continue slow Decadron taper. Continue supportive care; on vasopressors. Critical care time 30 min spent reviewing charts, reviewing imaging, reviewing labs, and discussion with RN. 07/29/2021: Afebrile, no significant change overnight. On vent FiO2 100%, PEEP 9. Completed remdesivir and 10 days of steroids; continue slow Decadron taper. Continue supportive care; on vasopressors. Critical care time 30 min spent reviewing charts, reviewing imaging, reviewing labs, and discussion with RN. 07/30/2021: Afebrile. On vent with FiO2 100%, PEEP 9. Completed remdesivir and 10 days of steroids; continue slow Decadron taper (last day of Decadron taper should be tomorrow). Empiric antibiotics, supportive care; on Levophed. Empiric antibiotics could likely stop after Decadron taper; will obtain procalcitonin and chest x-ray tomorrow. Critical care time 30 min spent reviewing charts, reviewing imaging, reviewing labs, and discussion with RN. Vitals/I&O Vitals/I&O: Vital Signs Date Time Temp Pulse Resp B/P (MAP) Pulse Ox O2 Delivery O2 Flow Rate FiO2 07/30/21 06:00 90 22 108/65 (79) 95 Ventilator 07/30/21 04:00 98.0 98.0 I & O 07/29/21 07/29/21 07/30/21 15:00 23:00 07:00 Intake Total 200 ml 750 ml 1367.83 ml Output Total 720 ml 910 ml 650 ml Balance -520 ml -160 ml 717.83 ml Physical Exam General: Cooperative, No acute distress, Other (ET and NG tube in place) Heart: Other (Tachycardic) Lungs: Other (Intubated) Abdomen: Normal bowel sounds, Soft (obese, ) Extremities: No cyanosis, No edema, Normal pulses Skin: No rashes, No significant lesion Labs Labs: Laboratory Tests Test 07/29/21 08:10 07/29/21 12:02 07/29/21 12:14 07/29/21 23:55 O2 Saturation 92 % (92-99) Arterial Blood pH 7.32 (7.35-7.45) Arterial Blood pCO2 at Patient Temp 62 mmHg (35-46) Arterial Blood pO2 at Patient Temp 68 mmHg (65-108) Arterial Blood HCO3 32 mmol/L (21-28) Arterial Blood Base Excess 4 mmol/L (-3-3) FiO2 100 Glucose (Fingerstick) 151 mg/dL (70-99) 177 mg/dL (70-99) 133 mg/dL (70-99) Test 07/30/21 05:10 White Blood Count 17.7 x10^3/uL (4.0-11.0) Red Blood Count 3.57 x10^6/uL (3.50-5.40) Hemoglobin 10.2 g/dL (12.0-15.5) Hematocrit 31.4 % (36.0-47.0) Mean Corpuscular Volume 88 fL (79-100) Mean Corpuscular Hemoglobin 29 pg (25-35) Mean Corpuscular Hemoglobin Concent 33 g/dL (31-37) Red Cell Distribution Width 15.2 % (11.5-14.5) Platelet Count 163 x10^3/uL (140-400) Neutrophils (%) (Auto) 86 % (31-73) Lymphocytes (%) (Auto) 7 % (24-48) Monocytes (%) (Auto) 5 % (0-9) Eosinophils (%) (Auto) 2 % (0-3) Basophils (%) (Auto) 0 % (0-3) Neutrophils # (Auto) 15.2 x10^3/uL (1.8-7.7) Lymphocytes # (Auto) 1.3 x10^3/uL (1.0-4.8) Monocytes # (Auto) 0.9 x10^3/uL (0.0-1.1) Eosinophils # (Auto) 0.3 x10^3/uL (0.0-0.7) Basophils # (Auto) 0.0 x10^3/uL (0.0-0.2) Sodium Level 136 mmol/L (136-145) Potassium Level 5.0 mmol/L (3.5-5.1) Chloride Level 101 mmol/L (98-107) Carbon Dioxide Level 39 mmol/L (21-32) Anion Gap (6-14) Blood Urea Nitrogen 19 mg/dL (7-20) Creatinine 0.6 mg/dL (0.6-1.0) Estimated GFR (Cockcroft-Gault) 100.3 Glucose Level 163 mg/dL (70-99) Calcium Level 7.7 mg/dL (8.5-10.1) Comment Review of Relevant I have reviewed the following items jluis (where applicable) has been applied. Justifications for Admission Other Justification GAYLE YUNG MD Jul 30, 2021 06:58
[2021-07-30 08:39] LABS: BASE EXCESS ABG 8 mmol/L (-3-3); HCO3 ABG 36 mmol/L (21-28); PO2 ABG 72 mmHg (65-108); SAT O2 ABG 93 % (92-99)
[2021-07-30 08:45] LABS: PCO2 ABG 68 mmHg (35-46)
[2021-07-30 08:46] LABS: FIO2 ABG 100
[2021-07-30] MEDS: MIDAZOLAM 100mg/100ml NS BAG 100 ML IV PRN ×2 (08:55→20:31)
[2021-07-30] MEDS: ASCORBIC ACID 500 MG TABLET PO SCH (08:57)
[2021-07-30] MEDS: ENOXAPARIN 40 MG/0.4 ML SYRINGE. SQ SCH (08:57)
[2021-07-30] MEDS: DEXAMETHASONE SOD PHOS 4 MG/ML VIAL IVP SCH (08:57)
[2021-07-30] MEDS: ZINC SULFATE 220 MG CAPSULE. PO SCH (08:57)
[2021-07-30] MEDS: IV NORMAL SALINE 1000ML BAG 1,000 ML IV SCH (11:40)
[2021-07-31] VITALS (24 sets, daily range): BP systolic 83–114; BP diastolic 52–71
[2021-07-31] MEDS: PIPERACILLIN/TAZOBACTAM 3.375 GM in IV NORMAL SALINE 50ML 50 ML IV SCH ×5 (00:11→23:55)
[2021-07-31] MEDS: DEXMEDETOMIDINE 400 MCG in IV NORMAL SALINE 100ML 96 ML IV PRN ×6 (01:44→23:39)
[2021-07-31] MEDS: fentaNYL HIGH DOSE PCA 55 ML IV PRN (04:19)
[2021-07-31 05:47] LABS: BASO % 0 % (0-3); EOS # 0.5 x10^3/uL (0.0-0.7); EOS % 5 % (0-3); HEMATOCRIT 31.4 % (36.0-47.0); HEMOGLOBIN 9.9 g/dL (12.0-15.5); LYMPH # 1.2 x10^3/uL (1.0-4.8); LYMPH % 11 % (24-48); MEAN CORPUSCULAR HEMOGLOBIN 28 pg (25-35); MEAN CORPUSCULAR HGB CONC 32 g/dL (31-37); MEAN CORPUSCULAR VOLUME 89 fL (79-100); MONO # 0.7 x10^3/uL (0.0-1.1); MONO % 6 % (0-9); NEUT # 8.9 x10^3/uL (1.8-7.7); NEUT % 78 % (31-73); PLATELET COUNT 145 x10^3/uL (140-400); RED BLOOD COUNT 3.53 x10^6/uL (3.50-5.40); RED CELL DISTRIBUTION WIDTH 15.3 % (11.5-14.5); WHITE BLOOD COUNT 11.5 x10^3/uL (4.0-11.0)
[2021-07-31] MEDS: PROPOFOL 100 ML IV PRN ×3 (05:49→21:54)
[2021-07-31 05:53] LABS: CALCIUM 7.7 mg/dL (8.5-10.1); CREATININE 0.5 mg/dL (0.6-1.0); GFR 123.8
[2021-07-31] MEDS: INSULIN LISPRO 300 UNITS/3 ML VIAL. SQ SCH ×5 (05:55→23:51)
--- NOTE | 2021-07-31 07:07 | PDOC ---
PULMONARY PROGRESS NOTES DATE: 07/31/21 TIME: 07:07 Subjective Patient currently on 1 to 2% FiO2 9 PEEP Requiring norepinephrine No overnight events Vitals Vital Signs Date Time Temp Pulse Resp B/P (MAP) Pulse Ox O2 Delivery O2 Flow Rate FiO2 07/31/21 06:00 74 22 89/57 (68) 98 Ventilator 07/31/21 04:00 97.8 97.8 Lungs: Clear Cardiovascular: S1, S2 Abdomen: Soft Extremities: Other (Mild edema) Labs Laboratory Tests Test 07/29/21 08:10 07/29/21 12:02 07/29/21 12:14 07/29/21 23:55 O2 Saturation 92 % (92-99) Arterial Blood pH 7.32 (7.35-7.45) Arterial Blood pCO2 at Patient Temp 62 mmHg (35-46) Arterial Blood pO2 at Patient Temp 68 mmHg (65-108) Arterial Blood HCO3 32 mmol/L (21-28) Arterial Blood Base Excess 4 mmol/L (-3-3) FiO2 100 Glucose (Fingerstick) 151 mg/dL (70-99) 177 mg/dL (70-99) 133 mg/dL (70-99) Test 07/30/21 05:10 07/30/21 07:56 07/30/21 11:23 07/31/21 00:05 White Blood Count 17.7 x10^3/uL (4.0-11.0) Red Blood Count 3.57 x10^6/uL (3.50-5.40) Hemoglobin 10.2 g/dL (12.0-15.5) Hematocrit 31.4 % (36.0-47.0) Mean Corpuscular Volume 88 fL (79-100) Mean Corpuscular Hemoglobin 29 pg (25-35) Mean Corpuscular Hemoglobin Concent 33 g/dL (31-37) Red Cell Distribution Width 15.2 % (11.5-14.5) Platelet Count 163 x10^3/uL (140-400) Neutrophils (%) (Auto) 86 % (31-73) Lymphocytes (%) (Auto) 7 % (24-48) Monocytes (%) (Auto) 5 % (0-9) Eosinophils (%) (Auto) 2 % (0-3) Basophils (%) (Auto) 0 % (0-3) Neutrophils # (Auto) 15.2 x10^3/uL (1.8-7.7) Lymphocytes # (Auto) 1.3 x10^3/uL (1.0-4.8) Monocytes # (Auto) 0.9 x10^3/uL (0.0-1.1) Eosinophils # (Auto) 0.3 x10^3/uL (0.0-0.7) Basophils # (Auto) 0.0 x10^3/uL (0.0-0.2) Sodium Level 136 mmol/L (136-145) Potassium Level 5.0 mmol/L (3.5-5.1) Chloride Level 101 mmol/L (98-107) Carbon Dioxide Level 39 mmol/L (21-32) Anion Gap (6-14) Blood Urea Nitrogen 19 mg/dL (7-20) Creatinine 0.6 mg/dL (0.6-1.0) Estimated GFR (Cockcroft-Gault) 100.3 Glucose Level 163 mg/dL (70-99) Calcium Level 7.7 mg/dL (8.5-10.1) O2 Saturation 93 % (92-99) Arterial Blood pH 7.34 (7.35-7.45) Arterial Blood pCO2 at Patient Temp 68 mmHg (35-46) Arterial Blood pO2 at Patient Temp 72 mmHg (65-108) Arterial Blood HCO3 36 mmol/L (21-28) Arterial Blood Base Excess 8 mmol/L (-3-3) FiO2 100 Glucose (Fingerstick) 176 mg/dL (70-99) 136 mg/dL (70-99) Test 07/31/21 05:20 White Blood Count 11.5 x10^3/uL (4.0-11.0) Red Blood Count 3.53 x10^6/uL (3.50-5.40) Hemoglobin 9.9 g/dL (12.0-15.5) Hematocrit 31.4 % (36.0-47.0) Mean Corpuscular Volume 89 fL (79-100) Mean Corpuscular Hemoglobin 28 pg (25-35) Mean Corpuscular Hemoglobin Concent 32 g/dL (31-37) Red Cell Distribution Width 15.3 % (11.5-14.5) Platelet Count 145 x10^3/uL (140-400) Neutrophils (%) (Auto) 78 % (31-73) Lymphocytes (%) (Auto) 11 % (24-48) Monocytes (%) (Auto) 6 % (0-9) Eosinophils (%) (Auto) 5 % (0-3) Basophils (%) (Auto) 0 % (0-3) Neutrophils # (Auto) 8.9 x10^3/uL (1.8-7.7) Lymphocytes # (Auto) 1.2 x10^3/uL (1.0-4.8) Monocytes # (Auto) 0.7 x10^3/uL (0.0-1.1) Eosinophils # (Auto) 0.5 x10^3/uL (0.0-0.7) Basophils # (Auto) 0.0 x10^3/uL (0.0-0.2) Sodium Level 136 mmol/L (136-145) Potassium Level 5.0 mmol/L (3.5-5.1) Chloride Level 100 mmol/L (98-107) Carbon Dioxide Level 36 mmol/L (21-32) Anion Gap 0 (6-14) Blood Urea Nitrogen 18 mg/dL (7-20) Creatinine 0.5 mg/dL (0.6-1.0) Estimated GFR (Cockcroft-Gault) 123.8 Glucose Level 142 mg/dL (70-99) Calcium Level 7.7 mg/dL (8.5-10.1) C-Reactive Protein, Quantitative 45.7 mg/L (0-3.3) Procalcitonin < 0.10 ng/mL (0.00-0.10) Laboratory Tests Test 07/30/21 07:56 07/30/21 11:23 07/31/21 00:05 07/31/21 05:20 O2 Saturation 93 % (92-99) Arterial Blood pH 7.34 (7.35-7.45) Arterial Blood pCO2 at Patient Temp 68 mmHg (35-46) Arterial Blood pO2 at Patient Temp 72 mmHg (65-108) Arterial Blood HCO3 36 mmol/L (21-28) Arterial Blood Base Excess 8 mmol/L (-3-3) FiO2 100 Glucose (Fingerstick) 176 mg/dL (70-99) 136 mg/dL (70-99) White Blood Count 11.5 x10^3/uL (4.0-11.0) Red Blood Count 3.53 x10^6/uL (3.50-5.40) Hemoglobin 9.9 g/dL (12.0-15.5) Hematocrit 31.4 % (36.0-47.0) Mean Corpuscular Volume 89 fL (79-100) Mean Corpuscular Hemoglobin 28 pg (25-35) Mean Corpuscular Hemoglobin Concent 32 g/dL (31-37) Red Cell Distribution Width 15.3 % (11.5-14.5) Platelet Count 145 x10^3/uL (140-400) Neutrophils (%) (Auto) 78 % (31-73) Lymphocytes (%) (Auto) 11 % (24-48) Monocytes (%) (Auto) 6 % (0-9) Eosinophils (%) (Auto) 5 % (0-3) Basophils (%) (Auto) 0 % (0-3) Neutrophils # (Auto) 8.9 x10^3/uL (1.8-7.7) Lymphocytes # (Auto) 1.2 x10^3/uL (1.0-4.8) Monocytes # (Auto) 0.7 x10^3/uL (0.0-1.1) Eosinophils # (Auto) 0.5 x10^3/uL (0.0-0.7) Basophils # (Auto) 0.0 x10^3/uL (0.0-0.2) Sodium Level 136 mmol/L (136-145) Potassium Level 5.0 mmol/L (3.5-5.1) Chloride Level 100 mmol/L (98-107) Carbon Dioxide Level 36 mmol/L (21-32) Anion Gap 0 (6-14) Blood Urea Nitrogen 18 mg/dL (7-20) Creatinine 0.5 mg/dL (0.6-1.0) Estimated GFR (Cockcroft-Gault) 123.8 Glucose Level 142 mg/dL (70-99) Calcium Level 7.7 mg/dL (8.5-10.1) C-Reactive Protein, Quantitative 45.7 mg/L (0-3.3) Procalcitonin < 0.10 ng/mL (0.00-0.10) Medications Active Scripts Medications Dose Route/Sig Max Daily Dose Days Date Category Impression . IMPRESSION: 1. Acute hypoxemic respiratory failure secondary to COVID-19 viral pneumonia/ARDS. Intubated 07/23/2021 2. COVID-19 viral pneumonia/acute respiratory distress syndrome. 3. Possible bacterial pneumonia. 4. Obesity. 5. Abnormal chest x-ray consistent with viral pneumonia 6. Hypotension, improved 7. Leukocytosis, Plan . Updated 07/31 Patient continues to require 90 PEEP 100% FiO2 Chest x-ray reviewed no significant change Status post remdesivir Continue steroids DVT GI prophylaxis Started on Zosyn on 917 Updated 07/30/21 Continue present assist control mode, 100% FiO2, PEEP of 9. Currently fully sedated along and vecuronium gtt will allow permissive hypercapnia, try to keep plateau pressure below 30 Follow ABGs and make necessary adjustments. titrate fio2 peep as tolerated We will continue present aggressive care for now. Continue steroids with taper over 10 days DVT prophylaxis Stress ulcer prophylaxis Enteral nutrition Continue present aggressive care. Monitor white cell count. trending down Zosyn added 07/28 Discussed with RN and RT. reviewed labs, imaging studies Updated 07/28/21 Continue present assist control mode, 100% FiO2, PEEP of 9. Patient had some asynchrony with the ventilator. Currently fully sedated along with vecuronium gtt Okay with permissive hypercapnia. Follow ABGs and make necessary adjustments. titrate fio2 peep as tolerated We will continue present aggressive care for now. Continue steroids with taper over 10 days DVT prophylaxis Stress ulcer prophylaxis Enteral nutrition Continue present aggressive care. Monitor white cell count. Zosyn added Discussed with RN and RT. reviewed labs, imaging studies SJ MORA MD Jul 31, 2021 07:07
[2021-07-31] MEDS: MIDAZOLAM 100mg/100ml NS BAG 100 ML IV PRN ×2 (07:40→17:28)
[2021-07-31 08:17] LABS: BASE EXCESS ABG 10 mmol/L (-3-3); HCO3 ABG 36 mmol/L (21-28); PCO2 ABG 59 mmHg (35-46); PO2 ABG 73 mmHg (65-108); SAT O2 ABG 94 % (92-99)
[2021-07-31 08:20] LABS: FIO2 ABG 100
[2021-07-31] MEDS: PANTOPRAZOLE IV PUSH 40 MG VIAL. IVP SCH (08:43)
[2021-07-31] MEDS: ASCORBIC ACID 500 MG TABLET PO SCH (08:43)
[2021-07-31] MEDS: ENOXAPARIN 40 MG/0.4 ML SYRINGE. SQ SCH (08:43)
[2021-07-31] MEDS: ZINC SULFATE 220 MG CAPSULE. PO SCH (08:43)
--- NOTE | 2021-07-31 08:59 | RAD ---
XR CHEST 1V History: Covid 19 pneumonia Comparison: 07/28/2021, 07/24/2021 Technique: Portable AP chest radiograph. Findings: Tubes and lines: Endotracheal tube tip projects 5.5 cm above the ratna. Right upper extremity PICC t ip projects at the lower SVC. Gastric tube courses below the left diaphragm. Lungs and pleura: Bilateral airspace opacity perhaps minimally improving from 913. No pneumothorax or pleural effusion. Incidental azygos fissure. Cardiac silhouette and pulmonary vasculature: Stable. Osseous structures and other: No acute findings. Impression: 1. Bilateral diffuse airspace opacities, possibly minimally improving from 07/24. Electronically signed by: Amaury Sultana MD (07/31/2021 8:56 AM) [id number]
--- NOTE | 2021-07-31 11:15 | PDOC ---
[employer] PROGRESS NOTE Date of Service DOS: DATE: 07/31/21 TIME: 11:13 Chief Complaint Chief Complaint acute hypoxic respiratory failure COVID 19 pneumonia, standard treatement protocol sepsis obese, BMI 35, with malnutrition, albumin 2.3 on admit . History of Present Illness History of Present Illness 07/17/2021 No acute events overnight. Patient saturating 90% on 40% Vapotherm. No c oncerns nursing at this time. Patient's chart, labs, images were reviewed and discussed with RN In addition to my E/M visit, advance care planning done with A total time of 20 minutes was spent from 920 to 940 face to face in discussion with the patient regarding their goals of care, CODE STATUS. 07/18/2021 No acute events overnight. Patient saturating 89% on Vapotherm. No dyspnea upon exertion or at rest. Pending chest x-ray results. No other concerns from nursing. 07/19/21 No acute events overnight. Saturating 91% on vapotherm. No dyspnea and is motiviated to get out of bed onto chair. total critical care time spent of 33 minutes 07/20/2021 No acute events overnight. Patient seen and examined bedside. Saturating well on Vapotherm. Patient accepted at [facility]. No concerns with nursing. A total of 35 minutes of critical care time was spent in reviewing chart, labs, and images. Discussed with RN and TRAVIS. 07/21/2021 No acute events overnight. Unfortunately patient was unable to be transferred t o [facility] because of unable to tolerate BiPAP. At this point we will continue BiPAP and Vapotherm for inpatient care. Patient's chart, labs, images were reviewed and discussed with RN A total of 32 minutes of critical care time was spent in reviewing chart, labs, and images. Discussed with RN and SW. 07/22/2021 No acute events overnight. Patient seen and examined bedside. Saturating 100% on FiO2 and 15 L nonrebreather mask. Does complain of diarrhea and one-time Imodium was administered. Afebrile last 24 hours. Continue PT OT modalities. Encourage prone positioning when able. Patient's chart, labs, images were reviewed and discussed with RN A total of 32 minutes of critical care time was spent in reviewing chart, labs, and images. Discussed with RN and TRAVIS. 07/23/2021 No acute events overnight. Patient seen and examined resting comfortably at bedside. Saturating 83% on Vapotherm. Patient did have dyspneic episodes overnight desaturating down to 70s and 80s. She was offered BiPAP but she is declining and wishing to be DNR today. Patient's chart, labs, images were reviewed and discussed with RN 07/24/2021: Patient transferred to the ICU and intubated overnight. Currently afebrile, tachycardic. On vent with FiO2 100%, PEEP 8. We will continue steroids to complete 10-day course; begin taper tomorrow. 07/25/2021: Afebrile, no acute events overnight. On vent with FiO2 100%, PEEP 8. Completed remdesivir. Day 10 of steroids, will begin taper over 10 days. Continue supportive care. Critical care time 30 min spent reviewing charts, reviewing imaging, reviewing labs, and discussion with RN. 07/26/2021: Afebrile. On vent with FiO2 100%, PEEP 8. Completed remdesivir and 10 days of steroids; will begin slow steroid taper. Chest x-ray from 07/24 showed stable diffuse infiltrate. Leukocytosis likely secondary to steroid use. Will obtain CRP and procalcitonin. Continue supportive care. Critical care time 30 min spent reviewing charts, reviewing imaging, reviewing labs, and discussion with RN. 07/27/2021: Afebrile. On vent with FiO2 100%, PEEP 9. CRP 15, procalcitonin 0.10. WBC 17.2. We will hold off on further antibiotics for now continue to monitor. Completed remdesivir and 10 days of steroids; continue slow Decadron taper. Continue supportive care. Critical care time 30 min spent reviewing charts, reviewing imaging, reviewing labs, and discussion with RN. 07/28/2021: Afebrile. On vent FiO2 100%, PEEP 9. Completed remdesivir and 10 days of steroids; continue slow Decadron taper. Continue supportive care; on vasopressors. Critical care time 30 min spent reviewing charts, reviewing imaging, reviewing labs, and discussion with RN. 07/29/2021: Afebrile, no significant change overnight. On vent FiO2 100%, PEEP 9. Completed remdesivir and 10 days of steroids; continue slow Decadron taper. Continue supportive care; on vasopressors. Critical care time 30 min spent reviewing charts, reviewing imaging, reviewing labs, and discussion with RN. 07/30/2021: Afebrile. On vent with FiO2 100%, PEEP 9. Completed remdesivir and 10 days of steroids; continue slow Decadron taper (last day of Decadron taper should be tomorrow). Empiric antibiotics, supportive care; on Levophed. Empiric antibiotics could likely stop after Decadron taper; will obtain procalcitonin and chest x-ray tomorrow. Critical care time 30 min spent reviewing charts, reviewing imaging, reviewing labs, and discussion with RN. 07/31 Patient remains afebrile. Remains ventilated and sedated. Decadron taper finished today. Normal procalcitonin on the labs chest x-ray mildly improved. Pulmonary continues to follow. Continuing current plan, will wean oxygen as tolerated. Vitals/I&O Vitals/I&O: Vital Signs Date Time Temp Pulse Resp B/P (MAP) Pulse Ox O2 Delivery O2 Flow Rate FiO2 07/31/21 10:00 83 114/65 (81) 86 07/31/21 09:00 24 Ventilator 40.0 07/31/21 08:00 97.8 97.8 I & O 07/30/21 07/30/21 07/31/21 15:00 23:00 07:00 Intake Total 250 ml 1821 ml 1807.54 ml Output Total 350 ml 1140 ml 675 ml Balance -100 ml 681 ml 1132.54 ml Physical Exam General: Cooperative, No acute distress, Other (ET and NG tube in place) Heart: Other (Tachycardic) Lungs: Clear Abdomen: Normal bowel sounds, Soft (obese, ) Extremities: No cyanosis, No edema, Normal pulses Skin: No rashes, No significant lesion Labs Labs: Laboratory Tests Test 07/30/21 11:23 07/31/21 00:05 07/31/21 05:20 07/31/21 08:05 Glucose (Fingerstick) 176 mg/dL (70-99) 136 mg/dL (70-99) White Blood Count 11.5 x10^3/uL (4.0-11.0) Red Blood Count 3.53 x10^6/uL (3.50-5.40) Hemoglobin 9.9 g/dL (12.0-15.5) Hematocrit 31.4 % (36.0-47.0) Mean Corpuscular Volume 89 fL (79-100) Mean Corpuscular Hemoglobin 28 pg (25-35) Mean Corpuscular Hemoglobin Concent 32 g/dL (31-37) Red Cell Distribution Width 15.3 % (11.5-14.5) Platelet Count 145 x10^3/uL (140-400) Neutrophils (%) (Auto) 78 % (31-73) Lymphocytes (%) (Auto) 11 % (24-48) Monocytes (%) (Auto) 6 % (0-9) Eosinophils (%) (Auto) 5 % (0-3) Basophils (%) (Auto) 0 % (0-3) Neutrophils # (Auto) 8.9 x10^3/uL (1.8-7.7) Lymphocytes # (Auto) 1.2 x10^3/uL (1.0-4.8) Monocytes # (Auto) 0.7 x10^3/uL (0.0-1.1) Eosinophils # (Auto) 0.5 x10^3/uL (0.0-0.7) Basophils # (Auto) 0.0 x10^3/uL (0.0-0.2) Sodium Level 136 mmol/L (136-145) Potassium Level 5.0 mmol/L (3.5-5.1) Chloride Level 100 mmol/L (98-107) Carbon Dioxide Level 36 mmol/L (21-32) Anion Gap 0 (6-14) Blood Urea Nitrogen 18 mg/dL (7-20) Creatinine 0.5 mg/dL (0.6-1.0) Estimated GFR (Cockcroft-Gault) 123.8 Glucose Level 142 mg/dL (70-99) Calcium Level 7.7 mg/dL (8.5-10.1) C-Reactive Protein, Quantitative 45.7 mg/L (0-3.3) Procalcitonin < 0.10 ng/mL (0.00-0.10) O2 Saturation 94 % (92-99) Arterial Blood pH 7.41 (7.35-7.45) Arterial Blood pCO2 at Patient Temp 59 mmHg (35-46) Arterial Blood pO2 at Patient Temp 73 mmHg (65-108) Arterial Blood HCO3 36 mmol/L (21-28) Arterial Blood Base Excess 10 mmol/L (-3-3) FiO2 100 Comment Review of Relevant I have reviewed the following items jluis (where applicable) has been applied. Justifications for Admission Other Justification JAMEE ESPINAL MD Jul 31, 2021 11:15
[2021-07-31] MEDS: NORCURON - VECURONIUM 50 MG in IV NORMAL SALINE 50ML 50 ML IV PRN ×2 (12:03→21:56)
--- NOTE | 2021-07-31 15:32 | NUR ---
SS following up with discharge planning. SS reviewed pt chart and discussed with pt RN. Pt is currently on the vent at 100%. COVID19 positive. Pt on IV Zosyn. Tube feeds. Pt on Precedex, Vec drip, Propofol, Fentanyl, and Versed. Not stable for transfer at this time. Pt accepted at [facility], ; fax [phone]. Clinical updates phoned and faxed to [facility]. SS will continue to follow for discharge planning.
[2021-08-01] VITALS (24 sets, daily range): BP systolic 83–162; BP diastolic 48–87
[2021-08-01] MEDS: DEXMEDETOMIDINE 400 MCG in IV NORMAL SALINE 100ML 96 ML IV PRN ×5 (04:29→21:48)
[2021-08-01] MEDS: MIDAZOLAM 100mg/100ml NS BAG 100 ML IV PRN ×2 (05:29→12:07)
[2021-08-01] MEDS: IV NORMAL SALINE 1000ML BAG 1,000 ML IV SCH ×2 (05:29→12:19)
[2021-08-01 05:30] LABS: BASO % 0 % (0-3); EOS # 0.8 x10^3/uL (0.0-0.7); EOS % 6 % (0-3); HEMATOCRIT 29.7 % (36.0-47.0); HEMOGLOBIN 9.5 g/dL (12.0-15.5); LYMPH # 1.4 x10^3/uL (1.0-4.8); LYMPH % 11 % (24-48); MEAN CORPUSCULAR HEMOGLOBIN 29 pg (25-35); MEAN CORPUSCULAR HGB CONC 32 g/dL (31-37); MEAN CORPUSCULAR VOLUME 90 fL (79-100); MONO # 0.8 x10^3/uL (0.0-1.1); MONO % 6 % (0-9); NEUT % 77 % (31-73); PLATELET COUNT 159 x10^3/uL (140-400); RED BLOOD COUNT 3.32 x10^6/uL (3.50-5.40); RED CELL DISTRIBUTION WIDTH 15.6 % (11.5-14.5)
[2021-08-01] MEDS: PIPERACILLIN/TAZOBACTAM 3.375 GM in IV NORMAL SALINE 50ML 50 ML IV SCH ×4 (05:38→23:55)
[2021-08-01 05:43] LABS: BLOOD UREA NITROGEN 21 mg/dL (7-20); CALCIUM 7.8 mg/dL (8.5-10.1); CARBON DIOXIDE 37 mmol/L (21-32); CHLORIDE 101 mmol/L (98-107); CREATININE 0.5 mg/dL (0.6-1.0); GFR 123.8; GLUCOSE 125 mg/dL (70-99); POTASSIUM 4.6 mmol/L (3.5-5.1); SODIUM 136 mmol/L (136-145)
[2021-08-01] MEDS: INSULIN LISPRO 300 UNITS/3 ML VIAL. SQ SCH ×3 (06:00→17:11)
[2021-08-01] MEDS: NORCURON - VECURONIUM 50 MG in IV NORMAL SALINE 50ML 50 ML IV PRN ×3 (06:07→20:49)
[2021-08-01] MEDS: fentaNYL HIGH DOSE PCA 55 ML IV PRN (07:06)
[2021-08-01] MEDS: PANTOPRAZOLE IV PUSH 40 MG VIAL. IVP SCH (08:20)
[2021-08-01] MEDS: ZINC SULFATE 220 MG CAPSULE. PO SCH (08:20)
[2021-08-01] MEDS: ASCORBIC ACID 500 MG TABLET PO SCH (08:20)
[2021-08-01] MEDS: ENOXAPARIN 40 MG/0.4 ML SYRINGE. SQ SCH (08:21)
--- NOTE | 2021-08-01 08:50 | PDOC ---
PULMONARY PROGRESS NOTES DATE: 08/01/21 TIME: 08:50 Subjective Patient currently on 100 %, 9 of PEEP, saturations low Vitals Vital Signs Date Time Temp Pulse Resp B/P (MAP) Pulse Ox O2 Delivery O2 Flow Rate FiO2 08/01/21 07:36 22 83 Ventilator 08/01/21 06:00 92 114/70 (85) 08/01/21 04:00 97.7 97.7 07/31/21 09:00 40.0 Lungs: Clear Cardiovascular: S1, S2 Abdomen: Soft Extremities: Other (Mild edema) Labs Laboratory Tests Test 07/30/21 11:23 07/31/21 00:05 07/31/21 05:20 07/31/21 08:05 Glucose (Fingerstick) 176 mg/dL (70-99) 136 mg/dL (70-99) White Blood Count 11.5 x10^3/uL (4.0-11.0) Red Blood Count 3.53 x10^6/uL (3.50-5.40) Hemoglobin 9.9 g/dL (12.0-15.5) Hematocrit 31.4 % (36.0-47.0) Mean Corpuscular Volume 89 fL (79-100) Mean Corpuscular Hemoglobin 28 pg (25-35) Mean Corpuscular Hemoglobin Concent 32 g/dL (31-37) Red Cell Distribution Width 15.3 % (11.5-14.5) Platelet Count 145 x10^3/uL (140-400) Neutrophils (%) (Auto) 78 % (31-73) Lymphocytes (%) (Auto) 11 % (24-48) Monocytes (%) (Auto) 6 % (0-9) Eosinophils (%) (Auto) 5 % (0-3) Basophils (%) (Auto) 0 % (0-3) Neutrophils # (Auto) 8.9 x10^3/uL (1.8-7.7) Lymphocytes # (Auto) 1.2 x10^3/uL (1.0-4.8) Monocytes # (Auto) 0.7 x10^3/uL (0.0-1.1) Eosinophils # (Auto) 0.5 x10^3/uL (0.0-0.7) Basophils # (Auto) 0.0 x10^3/uL (0.0-0.2) Sodium Level 136 mmol/L (136-145) Potassium Level 5.0 mmol/L (3.5-5.1) Chloride Level 100 mmol/L (98-107) Carbon Dioxide Level 36 mmol/L (21-32) Anion Gap 0 (6-14) Blood Urea Nitrogen 18 mg/dL (7-20) Creatinine 0.5 mg/dL (0.6-1.0) Estimated GFR (Cockcroft-Gault) 123.8 Glucose Level 142 mg/dL (70-99) Calcium Level 7.7 mg/dL (8.5-10.1) C-Reactive Protein, Quantitative 45.7 mg/L (0-3.3) Procalcitonin < 0.10 ng/mL (0.00-0.10) O2 Saturation 94 % (92-99) Arterial Blood pH 7.41 (7.35-7.45) Arterial Blood pCO2 at Patient Temp 59 mmHg (35-46) Arterial Blood pO2 at Patient Temp 73 mmHg (65-108) Arterial Blood HCO3 36 mmol/L (21-28) Arterial Blood Base Excess 10 mmol/L (-3-3) FiO2 100 Test 07/31/21 12:06 07/31/21 17:32 07/31/21 23:45 08/01/21 05:25 Glucose (Fingerstick) 185 mg/dL (70-99) 172 mg/dL (70-99) 115 mg/dL (70-99) White Blood Count 13.0 x10^3/uL (4.0-11.0) Red Blood Count 3.32 x10^6/uL (3.50-5.40) Hemoglobin 9.5 g/dL (12.0-15.5) Hematocrit 29.7 % (36.0-47.0) Mean Corpuscular Volume 90 fL (79-100) Mean Corpuscular Hemoglobin 29 pg (25-35) Mean Corpuscular Hemoglobin Concent 32 g/dL (31-37) Red Cell Distribution Width 15.6 % (11.5-14.5) Platelet Count 159 x10^3/uL (140-400) Neutrophils (%) (Auto) 77 % (31-73) Lymphocytes (%) (Auto) 11 % (24-48) Monocytes (%) (Auto) 6 % (0-9) Eosinophils (%) (Auto) 6 % (0-3) Basophils (%) (Auto) 0 % (0-3) Neutrophils # (Auto) 10.0 x10^3/uL (1.8-7.7) Lymphocytes # (Auto) 1.4 x10^3/uL (1.0-4.8) Monocytes # (Auto) 0.8 x10^3/uL (0.0-1.1) Eosinophils # (Auto) 0.8 x10^3/uL (0.0-0.7) Basophils # (Auto) 0.0 x10^3/uL (0.0-0.2) Sodium Level 136 mmol/L (136-145) Potassium Level 4.6 mmol/L (3.5-5.1) Chloride Level 101 mmol/L (98-107) Carbon Dioxide Level 37 mmol/L (21-32) Anion Gap (6-14) Blood Urea Nitrogen 21 mg/dL (7-20) Creatinine 0.5 mg/dL (0.6-1.0) Estimated GFR (Cockcroft-Gault) 123.8 Glucose Level 125 mg/dL (70-99) Calcium Level 7.8 mg/dL (8.5-10.1) Laboratory Tests Test 07/31/21 12:06 07/31/21 17:32 07/31/21 23:45 08/01/21 05:25 Glucose (Fingerstick) 185 mg/dL (70-99) 172 mg/dL (70-99) 115 mg/dL (70-99) White Blood Count 13.0 x10^3/uL (4.0-11.0) Red Blood Count 3.32 x10^6/uL (3.50-5.40) Hemoglobin 9.5 g/dL (12.0-15.5) Hematocrit 29.7 % (36.0-47.0) Mean Corpuscular Volume 90 fL (79-100) Mean Corpuscular Hemoglobin 29 pg (25-35) Mean Corpuscular Hemoglobin Concent 32 g/dL (31-37) Red Cell Distribution Width 15.6 % (11.5-14.5) Platelet Count 159 x10^3/uL (140-400) Neutrophils (%) (Auto) 77 % (31-73) Lymphocytes (%) (Auto) 11 % (24-48) Monocytes (%) (Auto) 6 % (0-9) Eosinophils (%) (Auto) 6 % (0-3) Basophils (%) (Auto) 0 % (0-3) Neutrophils # (Auto) 10.0 x10^3/uL (1.8-7.7) Lymphocytes # (Auto) 1.4 x10^3/uL (1.0-4.8) Monocytes # (Auto) 0.8 x10^3/uL (0.0-1.1) Eosinophils # (Auto) 0.8 x10^3/uL (0.0-0.7) Basophils # (Auto) 0.0 x10^3/uL (0.0-0.2) Sodium Level 136 mmol/L (136-145) Potassium Level 4.6 mmol/L (3.5-5.1) Chloride Level 101 mmol/L (98-107) Carbon Dioxide Level 37 mmol/L (21-32) Anion Gap (6-14) Blood Urea Nitrogen 21 mg/dL (7-20) Creatinine 0.5 mg/dL (0.6-1.0) Estimated GFR (Cockcroft-Gault) 123.8 Glucose Level 125 mg/dL (70-99) Calcium Level 7.8 mg/dL (8.5-10.1) Medications Active Scripts Medications Dose Route/Sig Max Daily Dose Days Date Category Impression . IMPRESSION: 1. Acute hypoxemic respiratory failure secondary to COVID-19 viral pneumonia/ARDS. Intubated 07/23/2021 2. COVID-19 viral pneumonia/acute respiratory distress syndrome. 3. Possible bacterial pneumonia. 4. Obesity. 5. Abnormal chest x-ray consistent with viral pneumonia 6. Hypotension, improved 7. Leukocytosis, Plan . Updated 08/01 Increase inverse ratio Will avoid any increase PEEP, to decrease chance of barotrauma Continue Zosyn Continue steroids Status post remdesivir Patient not expected to survive Noted she is a full code updated 07/31 Patient continues to require 90 PEEP 100% FiO2 Chest x-ray reviewed no significant change Status post remdesivir Continue steroids DVT GI prophylaxis Started on Zosyn on 917 Updated 07/30/21 Continue present assist control mode, 100% FiO2, PEEP of 9. Currently fully sedated along and vecuronium gtt will allow permissive hypercapnia, try to keep plateau pressure below 30 Follow ABGs and make necessary adjustments. titrate fio2 peep as tolerated We will continue present aggressive care for now. Continue steroids with taper over 10 days DVT prophylaxis Stress ulcer prophylaxis Enteral nutrition Continue present aggressive care. Monitor white cell count. trending down Zosyn added 07/28 Discussed with RN and RT. reviewed labs, imaging studies SJ MORA MD Aug 01, 2021 08:50
[2021-08-01 09:38] LABS: BASE EXCESS ABG 10 mmol/L (-3-3); HCO3 ABG 39 mmol/L (21-28); SAT O2 ABG 82 % (92-99)
[2021-08-01] MEDS ORDERED: FUROSEMIDE 40 MG/4 ML VIAL. IVP ONE (11:15)
--- NOTE | 2021-08-01 11:18 | NUR ---
SS following up with discharge planning. SS reviewed pt chart and discussed with pt RN. Pt is currently on the vent at 100%. COVID19 recovered. Pt on IV Zosyn. Tube feeds. Pt on Precedex, Vec, Propofol, Fentanyl, and Versed. Not stable for transfer at this time. Pt accepted at [facility], ; fax [phone]. SS will continue to follow for discharge planning.
--- NOTE | 2021-08-01 11:23 | PDOC ---
[employer] PROGRESS NOTE Date of Service DOS: DATE: 08/01/21 TIME: 11:20 Chief Complaint Chief Complaint acute hypoxic respiratory failure COVID 19 pneumonia, standard treatement protocol sepsis obese, BMI 35, with malnutrition, albumin 2.3 on admit . History of Present Illness History of Present Illness 07/17/2021 No acute events overnight. Patient saturating 90% on 40% Vapotherm. No c oncerns nursing at this time. Patient's chart, labs, images were reviewed and discussed with RN In addition to my E/M visit, advance care planning done with A total time of 20 minutes was spent from 920 to 940 face to face in discussion with the patient regarding their goals of care, CODE STATUS. 07/18/2021 No acute events overnight. Patient saturating 89% on Vapotherm. No dyspnea upon exertion or at rest. Pending chest x-ray results. No other concerns from nursing. 07/19/21 No acute events overnight. Saturating 91% on vapotherm. No dyspnea and is motiviated to get out of bed onto chair. total critical care time spent of 33 minutes 07/20/2021 No acute events overnight. Patient seen and examined bedside. Saturating well on Vapotherm. Patient accepted at [facility] [place]. No concerns with nursing. A total of 35 minutes of critical care time was spent in reviewing chart, labs, and images. Discussed with RN and TRAVIS. 07/21/2021 No acute events overnight. Unfortunately patient was unable to be transferred t o [facility] [place] because of unable to tolerate BiPAP. At this point we will continue BiPAP and Vapotherm for inpatient care. Patient's chart, labs, images were reviewed and discussed with RN A total of 32 minutes of critical care time was spent in reviewing chart, labs, and images. Discussed with RN and SW. 07/22/2021 No acute events overnight. Patient seen and examined bedside. Saturating 100% on FiO2 and 15 L nonrebreather mask. Does complain of diarrhea and one-time Imodium was administered. Afebrile last 24 hours. Continue PT OT modalities. Encourage prone positioning when able. Patient's chart, labs, images were reviewed and discussed with RN A total of 32 minutes of critical care time was spent in reviewing chart, labs, and images. Discussed with RN and TRAVIS. 07/23/2021 No acute events overnight. Patient seen and examined resting comfortably at bedside. Saturating 83% on Vapotherm. Patient did have dyspneic episodes overnight desaturating down to 70s and 80s. She was offered BiPAP but she is declining and wishing to be DNR today. Patient's chart, labs, images were reviewed and discussed with RN 07/24/2021: Patient transferred to the ICU and intubated overnight. Currently afebrile, tachycardic. On vent with FiO2 100%, PEEP 8. We will continue steroids to complete 10-day course; begin taper tomorrow. 07/25/2021: Afebrile, no acute events overnight. On vent with FiO2 100%, PEEP 8. Completed remdesivir. Day 10 of steroids, will begin taper over 10 days. Continue supportive care. Critical care time 30 min spent reviewing charts, reviewing imaging, reviewing labs, and discussion with RN. 07/26/2021: Afebrile. On vent with FiO2 100%, PEEP 8. Completed remdesivir and 10 days of steroids; will begin slow steroid taper. Chest x-ray from 07/24 showed stable diffuse infiltrate. Leukocytosis likely secondary to steroid use. Will obtain CRP and procalcitonin. Continue supportive care. Critical care time 30 min spent reviewing charts, reviewing imaging, reviewing labs, and discussion with RN. 07/27/2021: Afebrile. On vent with FiO2 100%, PEEP 9. CRP 15, procalcitonin 0.10. WBC 17.2. We will hold off on further antibiotics for now continue to monitor. Completed remdesivir and 10 days of steroids; continue slow Decadron taper. Continue supportive care. Critical care time 30 min spent reviewing charts, reviewing imaging, reviewing labs, and discussion with RN. 07/28/2021: Afebrile. On vent FiO2 100%, PEEP 9. Completed remdesivir and 10 days of steroids; continue slow Decadron taper. Continue supportive care; on vasopressors. Critical care time 30 min spent reviewing charts, reviewing imaging, reviewing labs, and discussion with RN. 07/29/2021: Afebrile, no significant change overnight. On vent FiO2 100%, PEEP 9. Completed remdesivir and 10 days of steroids; continue slow Decadron taper. Continue supportive care; on vasopressors. Critical care time 30 min spent reviewing charts, reviewing imaging, reviewing labs, and discussion with RN. 07/30/2021: Afebrile. On vent with FiO2 100%, PEEP 9. Completed remdesivir and 10 days of steroids; continue slow Decadron taper (last day of Decadron taper should be tomorrow). Empiric antibiotics, supportive care; on Levophed. Empiric antibiotics could likely stop after Decadron taper; will obtain procalcitonin and chest x-ray tomorrow. Critical care time 30 min spent reviewing charts, reviewing imaging, reviewing labs, and discussion with RN. 07/31 Patient remains afebrile. Remains ventilated and sedated. Decadron taper finished today. Normal procalcitonin on the labs chest x-ray mildly improved. Pulmonary continues to follow. Continuing current plan, will wean oxygen as tolerated. 08/01 Patient evaluated examined at bedside. Some low saturations this morning. Remains ventilated and sedated. Continue COVID treatment. Vitals/I&O Vitals/I&O: Vital Signs Date Time Temp Pulse Resp B/P (MAP) Pulse Ox O2 Delivery O2 Flow Rate FiO2 08/01/21 08:00 Mechanical Ventilator 08/01/21 07:36 22 83 08/01/21 06:00 92 114/70 (85) 08/01/21 04:00 97.7 97.7 07/31/21 09:00 40.0 I & O 07/31/21 07/31/21 08/01/21 15:00 23:00 07:00 Intake Total 250 ml 2103 ml 1630.66 ml Output Total 450 ml 665 ml 480 ml Balance -200 ml 1438 ml 1150.66 ml Physical Exam General: Cooperative, No acute distress, Other (ET and NG tube in place) Heart: Other (Tachycardic) Lungs: Clear Abdomen: Normal bowel sounds, Soft (obese, ) Extremities: No cyanosis, No edema, Normal pulses Skin: No rashes, No significant lesion Labs Labs: Laboratory Tests Test 07/31/21 12:06 07/31/21 17:32 07/31/21 23:45 08/01/21 05:25 Glucose (Fingerstick) 185 mg/dL (70-99) 172 mg/dL (70-99) 115 mg/dL (70-99) White Blood Count 13.0 x10^3/uL (4.0-11.0) Red Blood Count 3.32 x10^6/uL (3.50-5.40) Hemoglobin 9.5 g/dL (12.0-15.5) Hematocrit 29.7 % (36.0-47.0) Mean Corpuscular Volume 90 fL (79-100) Mean Corpuscular Hemoglobin 29 pg (25-35) Mean Corpuscular Hemoglobin Concent 32 g/dL (31-37) Red Cell Distribution Width 15.6 % (11.5-14.5) Platelet Count 159 x10^3/uL (140-400) Neutrophils (%) (Auto) 77 % (31-73) Lymphocytes (%) (Auto) 11 % (24-48) Monocytes (%) (Auto) 6 % (0-9) Eosinophils (%) (Auto) 6 % (0-3) Basophils (%) (Auto) 0 % (0-3) Neutrophils # (Auto) 10.0 x10^3/uL (1.8-7.7) Lymphocytes # (Auto) 1.4 x10^3/uL (1.0-4.8) Monocytes # (Auto) 0.8 x10^3/uL (0.0-1.1) Eosinophils # (Auto) 0.8 x10^3/uL (0.0-0.7) Basophils # (Auto) 0.0 x10^3/uL (0.0-0.2) Sodium Level 136 mmol/L (136-145) Potassium Level 4.6 mmol/L (3.5-5.1) Chloride Level 101 mmol/L (98-107) Carbon Dioxide Level 37 mmol/L (21-32) Anion Gap (6-14) Blood Urea Nitrogen 21 mg/dL (7-20) Creatinine 0.5 mg/dL (0.6-1.0) Estimated GFR (Cockcroft-Gault) 123.8 Glucose Level 125 mg/dL (70-99) Calcium Level 7.8 mg/dL (8.5-10.1) Comment Review of Relevant I have reviewed the following items jluis (where applicable) has been applied. Justifications for Admission Other Justification JAMEE ESPINAL MD Aug 01, 2021 11:23
[2021-08-01 11:38] LABS: FIO2 ABG 100; PCO2 ABG 85 mmHg (35-46); PO2 ABG 49 mmHg (65-108)
[2021-08-01] MEDS: PROPOFOL 100 ML IV PRN (12:15)
[2021-08-02] VITALS (25 sets, daily range): BP systolic 96–178; BP diastolic 59–104
[2021-08-02] MEDS: PROPOFOL 100 ML IV PRN ×4 (00:11→23:59)
[2021-08-02] MEDS: MIDAZOLAM 100mg/100ml NS BAG 100 ML IV PRN ×2 (01:46→13:29)
[2021-08-02] MEDS: DEXMEDETOMIDINE 400 MCG in IV NORMAL SALINE 100ML 96 ML IV PRN ×5 (01:47→20:52)
[2021-08-02] MEDS: NORCURON - VECURONIUM 50 MG in IV NORMAL SALINE 50ML 50 ML IV PRN ×3 (04:53→22:43)
[2021-08-02] MEDS: PIPERACILLIN/TAZOBACTAM 3.375 GM in IV NORMAL SALINE 50ML 50 ML IV SCH ×4 (05:38→23:48)
[2021-08-02] MEDS: INSULIN LISPRO 300 UNITS/3 ML VIAL. SQ SCH ×5 (05:54→23:56)
[2021-08-02] MEDS: fentaNYL HIGH DOSE PCA 55 ML IV PRN (07:36)
--- NOTE | 2021-08-02 08:08 | RAD ---
XR CHEST 1V INDICATION: RF/ARDS 105 COMPARISON STUDY: 07/31/2021. FINDINGS: Life Support Devices: Stable endotracheal tube, enteric tube, right PICC. Lungs: Normal lung volume. Stable bilateral perihilar and basilar heterogeneous opacities. Pleura: Stable pleural spaces. Heart and Mediastinum: Stable cardiomediastinal silhouette and great vessels. IMPRESSION: 1. Stable life support devices. 2. Stable bilateral perihilar and basilar opacities. Electronically signed by: Serafin Johnson MD (08/02/2021 8:05 AM) [id number]
[2021-08-02 08:27] LABS: BASO # 0.1 x10^3/uL (0.0-0.2); BASO % 1 % (0-3); EOS % 6 % (0-3); HEMATOCRIT 30.4 % (36.0-47.0); HEMOGLOBIN 9.5 g/dL (12.0-15.5); LYMPH % 6 % (24-48); MEAN CORPUSCULAR HEMOGLOBIN 28 pg (25-35); MEAN CORPUSCULAR HGB CONC 31 g/dL (31-37); MEAN CORPUSCULAR VOLUME 90 fL (79-100); MONO # 0.8 x10^3/uL (0.0-1.1); MONO % 5 % (0-9); NEUT # 14.1 x10^3/uL (1.8-7.7); NEUT % 83 % (31-73); PLATELET COUNT 225 x10^3/uL (140-400); RED BLOOD COUNT 3.37 x10^6/uL (3.50-5.40); RED CELL DISTRIBUTION WIDTH 16.2 % (11.5-14.5); WHITE BLOOD COUNT 16.9 x10^3/uL (4.0-11.0)
[2021-08-02] MEDS: ZINC SULFATE 220 MG CAPSULE. PO SCH (08:28)
[2021-08-02] MEDS: ASCORBIC ACID 500 MG TABLET PO SCH (08:28)
[2021-08-02] MEDS: PANTOPRAZOLE IV PUSH 40 MG VIAL. IVP SCH (08:28)
[2021-08-02] MEDS: ENOXAPARIN 40 MG/0.4 ML SYRINGE. SQ SCH (08:28)
[2021-08-02 08:31] LABS: CALCIUM 7.5 mg/dL (8.5-10.1); CREATININE 0.5 mg/dL (0.6-1.0); GFR 123.8; POTASSIUM 4.1 mmol/L (3.5-5.1)
[2021-08-02 08:33] LABS: BASE EXCESS ABG 11 mmol/L (-3-3); HCO3 ABG 38 mmol/L (21-28); PO2 ABG 52 mmHg (65-108); SAT O2 ABG 86 % (92-99)
--- NOTE | 2021-08-02 09:13 | PDOC ---
PULMONARY PROGRESS NOTES DATE: 08/02/21 TIME: 09:13 Subjective No overnight events Patient currently on 100 %, 9 of PEEP, saturations low Vitals Vital Signs Date Time Temp Pulse Resp B/P (MAP) Pulse Ox O2 Delivery O2 Flow Rate FiO2 08/02/21 07:36 79 Ventilator 08/02/21 06:00 102 22 149/78 (101) 08/02/21 04:00 100.2 100.2 Lungs: Clear Cardiovascular: S1, S2 Abdomen: Soft Extremities: Other (Mild edema) Labs Laboratory Tests Test 07/31/21 12:06 07/31/21 17:32 07/31/21 23:45 08/01/21 05:25 Glucose (Fingerstick) 185 mg/dL (70-99) 172 mg/dL (70-99) 115 mg/dL (70-99) White Blood Count 13.0 x10^3/uL (4.0-11.0) Red Blood Count 3.32 x10^6/uL (3.50-5.40) Hemoglobin 9.5 g/dL (12.0-15.5) Hematocrit 29.7 % (36.0-47.0) Mean Corpuscular Volume 90 fL (79-100) Mean Corpuscular Hemoglobin 29 pg (25-35) Mean Corpuscular Hemoglobin Concent 32 g/dL (31-37) Red Cell Distribution Width 15.6 % (11.5-14.5) Platelet Count 159 x10^3/uL (140-400) Neutrophils (%) (Auto) 77 % (31-73) Lymphocytes (%) (Auto) 11 % (24-48) Monocytes (%) (Auto) 6 % (0-9) Eosinophils (%) (Auto) 6 % (0-3) Basophils (%) (Auto) 0 % (0-3) Neutrophils # (Auto) 10.0 x10^3/uL (1.8-7.7) Lymphocytes # (Auto) 1.4 x10^3/uL (1.0-4.8) Monocytes # (Auto) 0.8 x10^3/uL (0.0-1.1) Eosinophils # (Auto) 0.8 x10^3/uL (0.0-0.7) Basophils # (Auto) 0.0 x10^3/uL (0.0-0.2) Sodium Level 136 mmol/L (136-145) Potassium Level 4.6 mmol/L (3.5-5.1) Chloride Level 101 mmol/L (98-107) Carbon Dioxide Level 37 mmol/L (21-32) Anion Gap (6-14) Blood Urea Nitrogen 21 mg/dL (7-20) Creatinine 0.5 mg/dL (0.6-1.0) Estimated GFR (Cockcroft-Gault) 123.8 Glucose Level 125 mg/dL (70-99) Calcium Level 7.8 mg/dL (8.5-10.1) Test 08/01/21 09:20 08/01/21 12:14 08/01/21 17:11 08/02/21 00:08 O2 Saturation 82 % (92-99) Arterial Blood pH 7.28 (7.35-7.45) Arterial Blood pCO2 at Patient Temp 85 mmHg (35-46) Arterial Blood pO2 at Patient Temp 49 mmHg (65-108) Arterial Blood HCO3 39 mmol/L (21-28) Arterial Blood Base Excess 10 mmol/L (-3-3) FiO2 100 Glucose (Fingerstick) 173 mg/dL (70-99) 141 mg/dL (70-99) 124 mg/dL (70-99) Test 08/02/21 05:51 08/02/21 07:00 Glucose (Fingerstick) 153 mg/dL (70-99) White Blood Count 16.9 x10^3/uL (4.0-11.0) Red Blood Count 3.37 x10^6/uL (3.50-5.40) Hemoglobin 9.5 g/dL (12.0-15.5) Hematocrit 30.4 % (36.0-47.0) Mean Corpuscular Volume 90 fL (79-100) Mean Corpuscular Hemoglobin 28 pg (25-35) Mean Corpuscular Hemoglobin Concent 31 g/dL (31-37) Red Cell Distribution Width 16.2 % (11.5-14.5) Platelet Count 225 x10^3/uL (140-400) Neutrophils (%) (Auto) 83 % (31-73) Lymphocytes (%) (Auto) 6 % (24-48) Monocytes (%) (Auto) 5 % (0-9) Eosinophils (%) (Auto) 6 % (0-3) Basophils (%) (Auto) 1 % (0-3) Neutrophils # (Auto) 14.1 x10^3/uL (1.8-7.7) Lymphocytes # (Auto) 1.0 x10^3/uL (1.0-4.8) Monocytes # (Auto) 0.8 x10^3/uL (0.0-1.1) Eosinophils # (Auto) 1.0 x10^3/uL (0.0-0.7) Basophils # (Auto) 0.1 x10^3/uL (0.0-0.2) Sodium Level 137 mmol/L (136-145) Potassium Level 4.1 mmol/L (3.5-5.1) Chloride Level 97 mmol/L (98-107) Carbon Dioxide Level 39 mmol/L (21-32) Anion Gap 1 (6-14) Blood Urea Nitrogen 24 mg/dL (7-20) Creatinine 0.5 mg/dL (0.6-1.0) Estimated GFR (Cockcroft-Gault) 123.8 Glucose Level 138 mg/dL (70-99) Calcium Level 7.5 mg/dL (8.5-10.1) Laboratory Tests Test 08/01/21 09:20 08/01/21 12:14 08/01/21 17:11 08/02/21 00:08 O2 Saturation 82 % (92-99) Arterial Blood pH 7.28 (7.35-7.45) Arterial Blood pCO2 at Patient Temp 85 mmHg (35-46) Arterial Blood pO2 at Patient Temp 49 mmHg (65-108) Arterial Blood HCO3 39 mmol/L (21-28) Arterial Blood Base Excess 10 mmol/L (-3-3) FiO2 100 Glucose (Fingerstick) 173 mg/dL (70-99) 141 mg/dL (70-99) 124 mg/dL (70-99) Test 08/02/21 05:51 08/02/21 07:00 Glucose (Fingerstick) 153 mg/dL (70-99) White Blood Count 16.9 x10^3/uL (4.0-11.0) Red Blood Count 3.37 x10^6/uL (3.50-5.40) Hemoglobin 9.5 g/dL (12.0-15.5) Hematocrit 30.4 % (36.0-47.0) Mean Corpuscular Volume 90 fL (79-100) Mean Corpuscular Hemoglobin 28 pg (25-35) Mean Corpuscular Hemoglobin Concent 31 g/dL (31-37) Red Cell Distribution Width 16.2 % (11.5-14.5) Platelet Count 225 x10^3/uL (140-400) Neutrophils (%) (Auto) 83 % (31-73) Lymphocytes (%) (Auto) 6 % (24-48) Monocytes (%) (Auto) 5 % (0-9) Eosinophils (%) (Auto) 6 % (0-3) Basophils (%) (Auto) 1 % (0-3) Neutrophils # (Auto) 14.1 x10^3/uL (1.8-7.7) Lymphocytes # (Auto) 1.0 x10^3/uL (1.0-4.8) Monocytes # (Auto) 0.8 x10^3/uL (0.0-1.1) Eosinophils # (Auto) 1.0 x10^3/uL (0.0-0.7) Basophils # (Auto) 0.1 x10^3/uL (0.0-0.2) Sodium Level 137 mmol/L (136-145) Potassium Level 4.1 mmol/L (3.5-5.1) Chloride Level 97 mmol/L (98-107) Carbon Dioxide Level 39 mmol/L (21-32) Anion Gap 1 (6-14) Blood Urea Nitrogen 24 mg/dL (7-20) Creatinine 0.5 mg/dL (0.6-1.0) Estimated GFR (Cockcroft-Gault) 123.8 Glucose Level 138 mg/dL (70-99) Calcium Level 7.5 mg/dL (8.5-10.1) Medications Active Scripts Medications Dose Route/Sig Max Daily Dose Days Date Category Impression . IMPRESSION: 1. Acute hypoxemic respiratory failure secondary to COVID-19 viral pneumo ashutosh/ARDS. Intubated 07/23/2021 2. COVID-19 viral pneumonia/acute respiratory distress syndrome. 3. Possible bacterial pneumonia. 4. Obesity. 5. Abnormal chest x-ray consistent with viral pneumonia 6. Hypotension, improved 7. Leukocytosis, Plan . Updated 08/02 We will increase PEEP to 10, decreased driving pressure, Saturations continue to be low, Continue steroids Remdesivir Zosyn Patient not expected to survive Patient is a full code, previous conversations with family, family wishes to be aggressive updated 08/01 Increase inverse ratio Will avoid any increase PEEP, to decrease chance of barotrauma Continue Zosyn Continue steroids Status post remdesivir Patient not expected to survive Noted she is a full code updated 07/31 Patient continues to require 90 PEEP 100% FiO2 Chest x-ray reviewed no significant change Status post remdesivir Continue steroids DVT GI prophylaxis Started on Zosyn on 917 SJ MORA MD Aug 02, 2021 09:13
[2021-08-02 09:14] LABS: FIO2 ABG 100% VENT; PCO2 ABG 64 mmHg (35-46)
--- NOTE | 2021-08-02 10:48 | PDOC ---
[employer] PROGRESS NOTE Date of Service DOS: DATE: 08/02/21 TIME: 10:35 Chief Complaint Chief Complaint acute hypoxic respiratory failure requiring mechanical ventilation COVID 19 pneumonia, standard treatement protocol . History of Present Illness History of Present Illness 07/17/2021 No acute events overnight. Patient saturating 90% on 40% Vapotherm. No concerns nursing at this time. Patient's chart, labs, images were reviewed and discussed with RN In addition to my E/M visit, advance care planning done with A total time of 20 minutes was spent from 920 to 940 face to face in discussion with the patient regarding their goals of care, CODE STATUS. 07/18/2021 No acute events overnight. Patient saturating 89% on Vapotherm. No dyspnea upon exertion or at rest. Pending chest x-ray results. No other concerns from nursing. 07/19/21 No acute events overnight. Saturating 91% on vapotherm. No dyspnea and is motiviated to get out of bed onto chair. total critical care time spent of 33 minutes 07/20/2021 No acute events overnight. Patient seen and examined bedside. Saturating well on Vapotherm. Patient accepted at [facility]. No concerns with nursing. A total of 35 minutes of critical care time was spent in reviewing chart, labs, and images. Discussed with RN and TRAVIS. 07/21/2021 No acute events overnight. Unfortunately patient was unable to be transferred to [facility] because of unable to tolerate BiPAP. At this point we will continue BiPAP and Vapotherm for inpatient care. Patient's chart, labs, images were reviewed and discussed with RN A total of 32 minutes of critical care time was spent in reviewing chart, labs, and images. Discussed with RN and SW. 07/22/2021 No acute events overnight. Patient seen and examined bedside. Saturating 100% on FiO2 and 15 L nonrebreather mask. Does complain of diarrhea and one-time Imodium was administered. Afebrile last 24 hours. Continue PT OT modalities. Encourage prone positioning when able. Patient's chart, labs, images were reviewed and discussed with RN A total of 32 minutes of critical care time was spent in reviewing chart, labs, and images. Discussed with RN and SW. 07/23/2021 No acute events overnight. Patient seen and examined resting comfortably at bedside. Saturating 83% on Vapotherm. Patient did have dyspneic episodes overnight desaturating down to 70s and 80s. She was offered BiPAP but she is declining and wishing to be DNR today. Patient's chart, labs, images were reviewed and discussed with RN 07/24/2021: Patient transferred to the ICU and intubated overnight. Currently afebrile, tachycardic. On vent with FiO2 100%, PEEP 8. We will continue steroids to complete 10-day course; begin taper tomorrow. 07/25/2021: Afebrile, no acute events overnight. On vent with FiO2 100%, PEEP 8. Completed remdesivir. Day 10 of steroids, will begin taper over 10 days. Continue supportive care. Critical care time 30 min spent reviewing charts, reviewing imaging, reviewing labs, and discussion with RN. 07/26/2021: Afebrile. On vent with FiO2 100%, PEEP 8. Completed remdesivir and 10 days of steroids; will begin slow steroid taper. Chest x-ray from 07/24 showed stable diffuse infiltrate. Leukocytosis likely secondary to steroid use. Will obtain CRP and procalcitonin. Continue supportive care. Critical care time 30 min spent reviewing charts, reviewing imaging, reviewing labs, and discussion with RN. 07/27/2021: Afebrile. On vent with FiO2 100%, PEEP 9. CRP 15, procalcitonin 0.10. WBC 17.2. We will hold off on further antibiotics for now continue to monitor. Completed remdesivir and 10 days of steroids; continue slow Decadron taper. Continue supportive care. Critical care time 30 min spent reviewing charts, reviewing imaging, reviewing labs, and discussion with RN. 07/28/2021: Afebrile. On vent FiO2 100%, PEEP 9. Completed remdesivir and 10 days of steroids; continue slow Decadron taper. Continue supportive care; on vasopressors. Critical care time 30 min spent reviewing charts, reviewing imaging, reviewing labs, and discussion with RN. 07/29/2021: Afebrile, no significant change overnight. On vent FiO2 100%, PEEP 9. Completed remdesivir and 10 days of steroids; continue slow Decadron taper. Continue supportive care; on vasopressors. Critical care time 30 min spent reviewing charts, reviewing imaging, reviewing labs, and discussion with RN. 07/30/2021: Afebrile. On vent with FiO2 100%, PEEP 9. Completed remdesivir and 10 days of steroids; continue slow Decadron taper (last day of Decadron taper should be tomorrow). Empiric antibiotics, supportive care; on Levophed. Empiric antibiotics could likely stop after Decadron taper; will obtain procalcitonin and chest x-ray tomorrow. Critical care time 30 min spent reviewing charts, reviewing imaging, reviewing labs, and discussion with RN. 07/31 Patient remains afebrile. Remains ventilated and sedated. Decadron taper finished today. Normal procalcitonin on the labs chest x-ray mildly improved. Pulmonary continues to follow. Continuing current plan, will wean oxygen as tolerated. 08/01 Patient evaluated examined at bedside. Some low saturations this morning. Remains ventilated and sedated. Continue COVID treatment. 08/02 Patient evaluated examined at bedside. She is still having lower saturation and this low 80s and upper 70s despite high oxygen provided. Contacted patient's son today and discussed case with him. He is well aware of her condition and at this point poor prognosis. I did bring up the idea of the DNR DNI and starting to look towards a hospice route as patient has been intubated for 10 days and is actually worsening. Patient son reported that he would like to talk with his and sister before making a final decision. Will likely have a family meeting with them Saturday or Saturday. Vitals/I&O Vitals/I&O: Vital Signs Date Time Temp Pulse Resp B/P (MAP) Pulse Ox O2 Delivery O2 Flow Rate FiO2 08/02/21 08:06 79 08/02/21 08:00 Mechanical Ventilator 08/02/21 06:00 102 22 149/78 (101) 08/02/21 04:00 100.2 100.2 I & O 08/01/21 08/01/21 08/02/21 15:00 23:00 07:00 Intake Total 250 ml 2781.54 ml 1956.95 ml Output Total 860 ml 1395 ml 120 ml Balance -610 ml 1386.54 ml 1836.95 ml Physical Exam General: Cooperative, No acute distress, Other (ET and NG tube in place) Heart: Other (Tachycardic) Lungs: Clear Abdomen: Normal bowel sounds, Soft (obese, ) Extremities: No cyanosis, No edema, Normal pulses Skin: No rashes, No significant lesion Labs Labs: Laboratory Tests Test 08/01/21 12:14 08/01/21 17:11 08/02/21 00:08 08/02/21 05:51 Glucose (Fingerstick) 173 mg/dL (70-99) 141 mg/dL (70-99) 124 mg/dL (70-99) 153 mg/dL (70-99) Test 08/02/21 07:00 08/02/21 08:00 White Blood Count 16.9 x10^3/uL (4.0-11.0) Red Blood Count 3.37 x10^6/uL (3.50-5.40) Hemoglobin 9.5 g/dL (12.0-15.5) Hematocrit 30.4 % (36.0-47.0) Mean Corpuscular Volume 90 fL (79-100) Mean Corpuscular Hemoglobin 28 pg (25-35) Mean Corpuscular Hemoglobin Concent 31 g/dL (31-37) Red Cell Distribution Width 16.2 % (11.5-14.5) Platelet Count 225 x10^3/uL (140-400) Neutrophils (%) (Auto) 83 % (31-73) Lymphocytes (%) (Auto) 6 % (24-48) Monocytes (%) (Auto) 5 % (0-9) Eosinophils (%) (Auto) 6 % (0-3) Basophils (%) (Auto) 1 % (0-3) Neutrophils # (Auto) 14.1 x10^3/uL (1.8-7.7) Lymphocytes # (Auto) 1.0 x10^3/uL (1.0-4.8) Monocytes # (Auto) 0.8 x10^3/uL (0.0-1.1) Eosinophils # (Auto) 1.0 x10^3/uL (0.0-0.7) Basophils # (Auto) 0.1 x10^3/uL (0.0-0.2) Sodium Level 137 mmol/L (136-145) Potassium Level 4.1 mmol/L (3.5-5.1) Chloride Level 97 mmol/L (98-107) Carbon Dioxide Level 39 mmol/L (21-32) Anion Gap 1 (6-14) Blood Urea Nitrogen 24 mg/dL (7-20) Creatinine 0.5 mg/dL (0.6-1.0) Estimated GFR (Cockcroft-Gault) 123.8 Glucose Level 138 mg/dL (70-99) Calcium Level 7.5 mg/dL (8.5-10.1) O2 Saturation 86 % (92-99) Arterial Blood pH 7.39 (7.35-7.45) Arterial Blood pCO2 at Patient Temp 64 mmHg (35-46) Arterial Blood pO2 at Patient Temp 52 mmHg (65-108) Arterial Blood HCO3 38 mmol/L (21-28) Arterial Blood Base Excess 11 mmol/L (-3-3) FiO2 100% vent Comment Review of Relevant I have reviewed the following items jluis (where applicable) has been applied. Medications: Current Medications Medications (Trade) Dose Ordered Sig/Dov Route PRN Reason Start Time Stop Time Status Last Admin Dose Admin Furosemide (Lasix) 40 mg 1X ONCE IVP 08/01/21 11:15 08/01/21 11:16 DC 08/01/21 12:12 Justifications for Admission Other Justification JAMEE ESPINAL MD Aug 02, 2021 10:48
[2021-08-02] MEDS: IV NORMAL SALINE 1000ML BAG 1,000 ML IV SCH (11:48)
--- NOTE | 2021-08-02 15:45 | NUR ---
SS following up with discharge planning. SS reviewed pt chart and discussed with pt RN. Pt is currently on the vent at 100%. COVID19 recovered. Pt on IV Zosyn. Tube feeds. Pt on Precedex, Vec, Propofol, Fentanyl, and Versed. Not stable for transfer at this time. Pt accepted at [facility], ; fax [phone]. SS will continue to follow for discharge planning.
[2021-08-03] VITALS (25 sets, daily range): BP systolic 69–119; BP diastolic 52–72
[2021-08-03] MEDS: DEXMEDETOMIDINE 400 MCG in IV NORMAL SALINE 100ML 96 ML IV PRN ×6 (01:10→23:18)
[2021-08-03] MEDS: MIDAZOLAM 100mg/100ml NS BAG 100 ML IV PRN ×2 (01:11→12:12)
[2021-08-03] MEDS: IV NORMAL SALINE 1000ML BAG 1,000 ML IV SCH (04:59)
[2021-08-03] MEDS: NORCURON - VECURONIUM 50 MG in IV NORMAL SALINE 50ML 50 ML IV PRN ×2 (05:26→14:21)
[2021-08-03] MEDS: PIPERACILLIN/TAZOBACTAM 3.375 GM in IV NORMAL SALINE 50ML 50 ML IV SCH ×3 (05:44→17:25)
[2021-08-03] MEDS: INSULIN LISPRO 300 UNITS/3 ML VIAL. SQ SCH ×3 (05:47→17:24)
[2021-08-03 06:03] LABS: BASO # 0.1 x10^3/uL (0.0-0.2); BASO % 1 % (0-3); EOS # 0.9 x10^3/uL (0.0-0.7); EOS % 6 % (0-3); HEMATOCRIT 27.9 % (36.0-47.0); HEMOGLOBIN 8.8 g/dL (12.0-15.5); LYMPH # 0.9 x10^3/uL (1.0-4.8); LYMPH % 6 % (24-48); MEAN CORPUSCULAR HEMOGLOBIN 29 pg (25-35); MEAN CORPUSCULAR HGB CONC 32 g/dL (31-37); MEAN CORPUSCULAR VOLUME 91 fL (79-100); MONO # 0.6 x10^3/uL (0.0-1.1); MONO % 4 % (0-9); NEUT # 13.7 x10^3/uL (1.8-7.7); NEUT % 84 % (31-73); PLATELET COUNT 237 x10^3/uL (140-400); RED BLOOD COUNT 3.07 x10^6/uL (3.50-5.40); RED CELL DISTRIBUTION WIDTH 16.7 % (11.5-14.5); WHITE BLOOD COUNT 16.3 x10^3/uL (4.0-11.0)
[2021-08-03 06:10] LABS: BLOOD UREA NITROGEN 23 mg/dL (7-20); CALCIUM 7.8 mg/dL (8.5-10.1); CARBON DIOXIDE 40 mmol/L (21-32); CHLORIDE 98 mmol/L (98-107); CREATININE 0.6 mg/dL (0.6-1.0); GFR 100.3; GLUCOSE 152 mg/dL (70-99); POTASSIUM 4.4 mmol/L (3.5-5.1); SODIUM 136 mmol/L (136-145)
[2021-08-03] MEDS: PANTOPRAZOLE IV PUSH 40 MG VIAL. IVP SCH (08:02)
[2021-08-03] MEDS: ZINC SULFATE 220 MG CAPSULE. PO SCH (08:02)
[2021-08-03] MEDS: ASCORBIC ACID 500 MG TABLET PO SCH (08:02)
[2021-08-03] MEDS: ENOXAPARIN 40 MG/0.4 ML SYRINGE. SQ SCH (08:03)
--- NOTE | 2021-08-03 08:22 | PDOC ---
PULMONARY PROGRESS NOTES DATE: 08/03/21 TIME: 08:22 Subjective Patient with decreased sats at times, given Lasix this morning currently on norepinephrine Vitals Vital Signs Date Time Temp Pulse Resp B/P (MAP) Pulse Ox O2 Delivery O2 Flow Rate FiO2 08/03/21 07:00 114 22 87/56 (66) 82 Ventilator 08/03/21 04:00 99.0 99.0 Lungs: Clear Cardiovascular: S1, S2 Abdomen: Soft Extremities: Other (Mild edema) Labs Laboratory Tests Test 08/01/21 09:20 08/01/21 12:14 08/01/21 17:11 08/02/21 00:08 O2 Saturation 82 % (92-99) Arterial Blood pH 7.28 (7.35-7.45) Arterial Blood pCO2 at Patient Temp 85 mmHg (35-46) Arterial Blood pO2 at Patient Temp 49 mmHg (65-108) Arterial Blood HCO3 39 mmol/L (21-28) Arterial Blood Base Excess 10 mmol/L (-3-3) FiO2 100 Glucose (Fingerstick) 173 mg/dL (70-99) 141 mg/dL (70-99) 124 mg/dL (70-99) Test 08/02/21 05:51 08/02/21 07:00 08/02/21 08:00 08/02/21 18:02 Glucose (Fingerstick) 153 mg/dL (70-99) 146 mg/dL (70-99) White Blood Count 16.9 x10^3/uL (4.0-11.0) Red Blood Count 3.37 x10^6/uL (3.50-5.40) Hemoglobin 9.5 g/dL (12.0-15.5) Hematocrit 30.4 % (36.0-47.0) Mean Corpuscular Volume 90 fL (79-100) Mean Corpuscular Hemoglobin 28 pg (25-35) Mean Corpuscular Hemoglobin Concent 31 g/dL (31-37) Red Cell Distribution Width 16.2 % (11.5-14.5) Platelet Count 225 x10^3/uL (140-400) Neutrophils (%) (Auto) 83 % (31-73) Lymphocytes (%) (Auto) 6 % (24-48) Monocytes (%) (Auto) 5 % (0-9) Eosinophils (%) (Auto) 6 % (0-3) Basophils (%) (Auto) 1 % (0-3) Neutrophils # (Auto) 14.1 x10^3/uL (1.8-7.7) Lymphocytes # (Auto) 1.0 x10^3/uL (1.0-4.8) Monocytes # (Auto) 0.8 x10^3/uL (0.0-1.1) Eosinophils # (Auto) 1.0 x10^3/uL (0.0-0.7) Basophils # (Auto) 0.1 x10^3/uL (0.0-0.2) Sodium Level 137 mmol/L (136-145) Potassium Level 4.1 mmol/L (3.5-5.1) Chloride Level 97 mmol/L (98-107) Carbon Dioxide Level 39 mmol/L (21-32) Anion Gap 1 (6-14) Blood Urea Nitrogen 24 mg/dL (7-20) Creatinine 0.5 mg/dL (0.6-1.0) Estimated GFR (Cockcroft-Gault) 123.8 Glucose Level 138 mg/dL (70-99) Calcium Level 7.5 mg/dL (8.5-10.1) O2 Saturation 86 % (92-99) Arterial Blood pH 7.39 (7.35-7.45) Arterial Blood pCO2 at Patient Temp 64 mmHg (35-46) Arterial Blood pO2 at Patient Temp 52 mmHg (65-108) Arterial Blood HCO3 38 mmol/L (21-28) Arterial Blood Base Excess 11 mmol/L (-3-3) FiO2 100% vent Test 08/02/21 23:54 08/03/21 05:42 08/03/21 05:50 Glucose (Fingerstick) 144 mg/dL (70-99) 153 mg/dL (70-99) White Blood Count 16.3 x10^3/uL (4.0-11.0) Red Blood Count 3.07 x10^6/uL (3.50-5.40) Hemoglobin 8.8 g/dL (12.0-15.5) Hematocrit 27.9 % (36.0-47.0) Mean Corpuscular Volume 91 fL (79-100) Mean Corpuscular Hemoglobin 29 pg (25-35) Mean Corpuscular Hemoglobin Concent 32 g/dL (31-37) Red Cell Distribution Width 16.7 % (11.5-14.5) Platelet Count 237 x10^3/uL (140-400) Neutrophils (%) (Auto) 84 % (31-73) Lymphocytes (%) (Auto) 6 % (24-48) Monocytes (%) (Auto) 4 % (0-9) Eosinophils (%) (Auto) 6 % (0-3) Basophils (%) (Auto) 1 % (0-3) Neutrophils # (Auto) 13.7 x10^3/uL (1.8-7.7) Lymphocytes # (Auto) 0.9 x10^3/uL (1.0-4.8) Monocytes # (Auto) 0.6 x10^3/uL (0.0-1.1) Eosinophils # (Auto) 0.9 x10^3/uL (0.0-0.7) Basophils # (Auto) 0.1 x10^3/uL (0.0-0.2) Sodium Level 136 mmol/L (136-145) Potassium Level 4.4 mmol/L (3.5-5.1) Chloride Level 98 mmol/L (98-107) Carbon Dioxide Level 40 mmol/L (21-32) Anion Gap (6-14) Blood Urea Nitrogen 23 mg/dL (7-20) Creatinine 0.6 mg/dL (0.6-1.0) Estimated GFR (Cockcroft-Gault) 100.3 Glucose Level 152 mg/dL (70-99) Calcium Level 7.8 mg/dL (8.5-10.1) Laboratory Tests Test 08/02/21 18:02 08/02/21 23:54 08/03/21 05:42 08/03/21 05:50 Glucose (Fingerstick) 146 mg/dL (70-99) 144 mg/dL (70-99) 153 mg/dL (70-99) White Blood Count 16.3 x10^3/uL (4.0-11.0) Red Blood Count 3.07 x10^6/uL (3.50-5.40) Hemoglobin 8.8 g/dL (12.0-15.5) Hematocrit 27.9 % (36.0-47.0) Mean Corpuscular Volume 91 fL (79-100) Mean Corpuscular Hemoglobin 29 pg (25-35) Mean Corpuscular Hemoglobin Concent 32 g/dL (31-37) Red Cell Distribution Width 16.7 % (11.5-14.5) Platelet Count 237 x10^3/uL (140-400) Neutrophils (%) (Auto) 84 % (31-73) Lymphocytes (%) (Auto) 6 % (24-48) Monocytes (%) (Auto) 4 % (0-9) Eosinophils (%) (Auto) 6 % (0-3) Basophils (%) (Auto) 1 % (0-3) Neutrophils # (Auto) 13.7 x10^3/uL (1.8-7.7) Lymphocytes # (Auto) 0.9 x10^3/uL (1.0-4.8) Monocytes # (Auto) 0.6 x10^3/uL (0.0-1.1) Eosinophils # (Auto) 0.9 x10^3/uL (0.0-0.7) Basophils # (Auto) 0.1 x10^3/uL (0.0-0.2) Sodium Level 136 mmol/L (136-145) Potassium Level 4.4 mmol/L (3.5-5.1) Chloride Level 98 mmol/L (98-107) Carbon Dioxide Level 40 mmol/L (21-32) Anion Gap (6-14) Blood Urea Nitrogen 23 mg/dL (7-20) Creatinine 0.6 mg/dL (0.6-1.0) Estimated GFR (Cockcroft-Gault) 100.3 Glucose Level 152 mg/dL (70-99) Calcium Level 7.8 mg/dL (8.5-10.1) Medications Active Scripts Medications Dose Route/Sig Max Daily Dose Days Date Category Impression . IMPRESSION: 1. Acute hypoxemic respiratory failure secondary to COVID-19 viral pneumonia/ARDS. Intubated 07/23/2021 2. COVID-19 viral pneumonia/acute respiratory distress syndrome. 3. Possible bacterial pneumonia. 4. Obesity. 5. Abnormal chest x-ray consistent with viral pneumonia 6. Hypotension, improved 7. Leukocytosis, Plan . Updated 08/02 As needed Lasix Increase minute ventilation Norepinephrine for mean arterial pressure above 60 Continue Zosyn Continue steroids Discussed with RN and RT Updated 08/02 We will increase PEEP to 10, decreased driving pressure, Saturations continue to be low, Continue steroids Remdesivir Zosyn Patient not expected to survive Patient is a full code, previous conversations with family, family wishes to be aggressive updated 08/01 Increase inverse ratio Will avoid any increase PEEP, to decrease chance of barotrauma Continue Zosyn Continue steroids Status post remdesivir Patient not expected to survive Noted she is a full code updated 07/31 Patient continues to require 90 PEEP 100% FiO2 Chest x-ray reviewed no significant change Status post remdesivir Continue steroids DVT GI prophylaxis Started on Zosyn on 917 SJ MORA MD Aug 03, 2021 08:22
[2021-08-03 09:07] LABS: BASE EXCESS ABG 4 mmol/L (-3-3); HCO3 ABG 31 mmol/L (21-28); PO2 ABG 55 mmHg (65-108); SAT O2 ABG 86 % (92-99)
[2021-08-03 09:11] LABS: FIO2 ABG 100% VENT; PCO2 ABG 65 mmHg (35-46)
[2021-08-03] MEDS: fentaNYL HIGH DOSE PCA 55 ML IV PRN (09:30)
[2021-08-03] MEDS ORDERED: FUROSEMIDE 40 MG/4 ML VIAL. IVP ONE (09:30)
[2021-08-03] MEDS: PROPOFOL 100 ML IV PRN ×2 (09:32→17:32)
--- NOTE | 2021-08-03 09:52 | PDOC ---
[employer] PROGRESS NOTE Date of Service DOS: DATE: 08/03/21 TIME: 09:50 Chief Complaint Chief Complaint acute hypoxic respiratory failure requiring mechanical ventilation COVID 19 pneumonia, standard treatement protocol . History of Present Illness History of Present Illness 07/17/2021 No acute events overnight. Patient saturating 90% on 40% Vapotherm. No concerns nursing at this time. Patient's chart, labs, images were reviewed and discussed with RN In addition to my E/M visit, advance care planning done with A total time of 20 minutes was spent from 920 to 940 face to face in discussion with the patient regarding their goals of care, CODE STATUS. 07/18/2021 No acute events overnight. Patient saturating 89% on Vapotherm. No dyspnea upon exertion or at rest. Pending chest x-ray results. No other concerns from nursing. 07/19/21 No acute events overnight. Saturating 91% on vapotherm. No dyspnea and is motiviated to get out of bed onto chair. total critical care time spent of 33 minutes 07/20/2021 No acute events overnight. Patient seen and examined bedside. Saturating well on Vapotherm. Patient accepted at [facility]. No concerns with nursing. A total of 35 minutes of critical care time was spent in reviewing chart, labs, and images. Discussed with RN and TRAVIS. 07/21/2021 No acute events overnight. Unfortunately patient was unable to be transferred to [facility] because of unable to tolerate BiPAP. At this point we will continue BiPAP and Vapotherm for inpatient care. Patient's chart, labs, images were reviewed and discussed with RN A total of 32 minutes of critical care time was spent in reviewing chart, labs, and images. Discussed with RN and SW. 07/22/2021 No acute events overnight. Patient seen and examined bedside. Saturating 100% on FiO2 and 15 L nonrebreather mask. Does complain of diarrhea and one-time Imodium was administered. Afebrile last 24 hours. Continue PT OT modalities. Encourage prone positioning when able. Patient's chart, labs, images were reviewed and discussed with RN A total of 32 minutes of critical care time was spent in reviewing chart, labs, and images. Discussed with RN and SW. 07/23/2021 No acute events overnight. Patient seen and examined resting comfortably at bedside. Saturating 83% on Vapotherm. Patient did have dyspneic episodes overnight desaturating down to 70s and 80s. She was offered BiPAP but she is declining and wishing to be DNR today. Patient's chart, labs, images were reviewed and discussed with RN 07/24/2021: Patient transferred to the ICU and intubated overnight. Currently afebrile, tachycardic. On vent with FiO2 100%, PEEP 8. We will continue steroids to complete 10-day course; begin taper tomorrow. 07/25/2021: Afebrile, no acute events overnight. On vent with FiO2 100%, PEEP 8. Completed remdesivir. Day 10 of steroids, will begin taper over 10 days. Continue supportive care. Critical care time 30 min spent reviewing charts, reviewing imaging, reviewing labs, and discussion with RN. 07/26/2021: Afebrile. On vent with FiO2 100%, PEEP 8. Completed remdesivir and 10 days of steroids; will begin slow steroid taper. Chest x-ray from 07/24 showed stable diffuse infiltrate. Leukocytosis likely secondary to steroid use. Will obtain CRP and procalcitonin. Continue supportive care. Critical care time 30 min spent reviewing charts, reviewing imaging, reviewing labs, and discussion with RN. 07/27/2021: Afebrile. On vent with FiO2 100%, PEEP 9. CRP 15, procalcitonin 0.10. WBC 17.2. We will hold off on further antibiotics for now continue to monitor. Completed remdesivir and 10 days of steroids; continue slow Decadron taper. Continue supportive care. Critical care time 30 min spent reviewing charts, reviewing imaging, reviewing labs, and discussion with RN. 07/28/2021: Afebrile. On vent FiO2 100%, PEEP 9. Completed remdesivir and 10 days of steroids; continue slow Decadron taper. Continue supportive care; on vasopressors. Critical care time 30 min spent reviewing charts, reviewing imaging, reviewing labs, and discussion with RN. 07/29/2021: Afebrile, no significant change overnight. On vent FiO2 100%, PEEP 9. Completed remdesivir and 10 days of steroids; continue slow Decadron taper. Continue supportive care; on vasopressors. Critical care time 30 min spent reviewing charts, reviewing imaging, reviewing labs, and discussion with RN. 07/30/2021: Afebrile. On vent with FiO2 100%, PEEP 9. Completed remdesivir and 10 days of steroids; continue slow Decadron taper (last day of Decadron taper should be tomorrow). Empiric antibiotics, supportive care; on Levophed. Empiric antibiotics could likely stop after Decadron taper; will obtain procalcitonin and chest x-ray tomorrow. Critical care time 30 min spent reviewing charts, reviewing imaging, reviewing labs, and discussion with RN. 07/31 Patient remains afebrile. Remains ventilated and sedated. Decadron taper finished today. Normal procalcitonin on the labs chest x-ray mildly improved. Pulmonary continues to follow. Continuing current plan, will wean oxygen as tolerated. 08/01 Patient evaluated examined at bedside. Some low saturations this morning. Remains ventilated and sedated. Continue COVID treatment. 08/02 Patient evaluated examined at bedside. She is still having lower saturation and this low 80s and upper 70s despite high oxygen provided. Contacted patient's son today and discussed case with him. He is well aware of her condition and at this point poor prognosis. I did bring up the idea of the DNR DNI and starting to look towards a hospice route as patient has been intubated for 10 days and is actually worsening. Patient son reported that he would like to talk with his and sister before making a final decision. Will likely have a family meeting with them Saturday or Saturday. 08/03 Patient evaluated examined at bedside. Saturations continued to drop despite ventilator adjustments. Very poor prognosis. Discussed with family yesterday. Will attempt to call again today. Otherwise continue current plan. Vitals/I&O Vitals/I&O: Vital Signs Date Time Temp Pulse Resp B/P (MAP) Pulse Ox O2 Delivery O2 Flow Rate FiO2 08/03/21 09:30 24 74 Ventilator 08/03/21 08:00 98.8 102 80/54 (63) 98.8 I & O 08/02/21 08/02/21 08/03/21 15:00 23:00 07:00 Intake Total 200 ml 1487 ml 1835.35 ml Output Total 295 ml 925 ml 430 ml Balance -95 ml 562 ml 1405.35 ml Physical Exam General: Cooperative, No acute distress, Other (ET and NG tube in place) Heart: Other (Tachycardic) Lungs: Clear Abdomen: Normal bowel sounds, Soft (obese, ) Extremities: No cyanosis, No edema, Normal pulses Skin: No rashes, No significant lesion Labs Labs: Laboratory Tests Test 08/02/21 18:02 08/02/21 23:54 08/03/21 05:42 08/03/21 05:50 Glucose (Fingerstick) 146 mg/dL (70-99) 144 mg/dL (70-99) 153 mg/dL (70-99) White Blood Count 16.3 x10^3/uL (4.0-11.0) Red Blood Count 3.07 x10^6/uL (3.50-5.40) Hemoglobin 8.8 g/dL (12.0-15.5) Hematocrit 27.9 % (36.0-47.0) Mean Corpuscular Volume 91 fL (79-100) Mean Corpuscular Hemoglobin 29 pg (25-35) Mean Corpuscular Hemoglobin Concent 32 g/dL (31-37) Red Cell Distribution Width 16.7 % (11.5-14.5) Platelet Count 237 x10^3/uL (140-400) Neutrophils (%) (Auto) 84 % (31-73) Lymphocytes (%) (Auto) 6 % (24-48) Monocytes (%) (Auto) 4 % (0-9) Eosinophils (%) (Auto) 6 % (0-3) Basophils (%) (Auto) 1 % (0-3) Neutrophils # (Auto) 13.7 x10^3/uL (1.8-7.7) Lymphocytes # (Auto) 0.9 x10^3/uL (1.0-4.8) Monocytes # (Auto) 0.6 x10^3/uL (0.0-1.1) Eosinophils # (Auto) 0.9 x10^3/uL (0.0-0.7) Basophils # (Auto) 0.1 x10^3/uL (0.0-0.2) Sodium Level 136 mmol/L (136-145) Potassium Level 4.4 mmol/L (3.5-5.1) Chloride Level 98 mmol/L (98-107) Carbon Dioxide Level 40 mmol/L (21-32) Anion Gap (6-14) Blood Urea Nitrogen 23 mg/dL (7-20) Creatinine 0.6 mg/dL (0.6-1.0) Estimated GFR (Cockcroft-Gault) 100.3 Glucose Level 152 mg/dL (70-99) Calcium Level 7.8 mg/dL (8.5-10.1) Test 08/03/21 08:00 O2 Saturation 86 % (92-99) Arterial Blood pH 7.30 (7.35-7.45) Arterial Blood pCO2 at Patient Temp 65 mmHg (35-46) Arterial Blood pO2 at Patient Temp 55 mmHg (65-108) Arterial Blood HCO3 31 mmol/L (21-28) Arterial Blood Base Excess 4 mmol/L (-3-3) FiO2 100% vent Comment Review of Relevant I have reviewed the following items jluis (where applicable) has been applied. Medications: Current Medications Medications (Trade) Dose Ordered Sig/Dov Route PRN Reason Start Time Stop Time Status Last Admin Dose Admin Furosemide (Lasix) 40 mg 1X ONCE IVP 08/03/21 09:30 08/03/21 09:31 DC 08/03/21 09:28 Justifications for Admission Other Justification JAMEE ESPINAL MD Aug 03, 2021 09:52
[2021-08-03] MEDS: NOREPINEPHRINE VIAL 8 MG in IV DEXTROSE 5% 250 ML IV PRN ×2 (10:26→22:09)
--- NOTE | 2021-08-03 10:37 | NUR ---
SS following up with discharge planning. SS reviewed pt chart and discussed with pt RN. Pt is currently on the vent at 100%. COVID19 recovered. Pt on IV Zosyn. Tube feeds. Pt on Precedex, Vec, Propofol, Fentanyl, Versed, and Levophed. Not stable for transfer at this time. Pt accepted at [facility], ; fax [phone]. SS will continue to follow for discharge planning.
[2021-08-04] VITALS (25 sets, daily range): BP systolic 80–135; BP diastolic 52–79
[2021-08-04] MEDS: PIPERACILLIN/TAZOBACTAM 3.375 GM in IV NORMAL SALINE 50ML 50 ML IV SCH ×5 (00:41→23:24)
[2021-08-04] MEDS: INSULIN LISPRO 300 UNITS/3 ML VIAL. SQ SCH ×5 (00:49→23:33)
[2021-08-04] MEDS: MIDAZOLAM 100mg/100ml NS BAG 100 ML IV PRN ×2 (02:50→12:44)
[2021-08-04] MEDS: DEXMEDETOMIDINE 400 MCG in IV NORMAL SALINE 100ML 96 ML IV PRN ×5 (03:44→20:31)
[2021-08-04 07:07] LABS: BASO # 0.2 x10^3/uL (0.0-0.2); BASO % 1 % (0-3); EOS # 1.1 x10^3/uL (0.0-0.7); EOS % 6 % (0-3); HEMATOCRIT 28.4 % (36.0-47.0); HEMOGLOBIN 9.2 g/dL (12.0-15.5); LYMPH # 0.9 x10^3/uL (1.0-4.8); LYMPH % 5 % (24-48); MEAN CORPUSCULAR HEMOGLOBIN 29 pg (25-35); MEAN CORPUSCULAR HGB CONC 32 g/dL (31-37); MEAN CORPUSCULAR VOLUME 90 fL (79-100); MONO # 0.7 x10^3/uL (0.0-1.1); MONO % 4 % (0-9); NEUT # 15.3 x10^3/uL (1.8-7.7); NEUT % 84 % (31-73); PLATELET COUNT 333 x10^3/uL (140-400); RED BLOOD COUNT 3.16 x10^6/uL (3.50-5.40); RED CELL DISTRIBUTION WIDTH 16.8 % (11.5-14.5); WHITE BLOOD COUNT 18.3 x10^3/uL (4.0-11.0)
[2021-08-04 07:08] LABS: CALCIUM 7.9 mg/dL (8.5-10.1); CREATININE 0.6 mg/dL (0.6-1.0); GFR 100.3
--- NOTE | 2021-08-04 07:56 | RAD ---
XR CHEST 1V INDICATION: Reason: RF/ARDS 105 / Spl. Instructions: / History: . COMPARISON STUDY: 08/02/2021. FINDINGS: Life Support Devices: Stable endotracheal tube, enteric tube, right PICC. Lungs: Normal lung volume. Stable bilateral perihilar and basilar opacities. Pleura: Stable pleural spaces. Heart and Mediastinum: Stable cardiomediastinal silhouette and great vessels. Bones and Soft Tissues: Stable regional skeleton and soft tissues. IMPRESSION: 1. Stable Life support devices. 2. Stable bilateral opacities. Electronically signed by: Serafin Johnson MD (08/04/2021 7:54 AM) [id number]
[2021-08-04 08:35] LABS: BASE EXCESS ABG 9 mmol/L (-3-3); HCO3 ABG 37 mmol/L (21-28); SAT O2 ABG 83 % (92-99)
--- NOTE | 2021-08-04 08:35 | PDOC ---
PULMONARY PROGRESS NOTES DATE: 08/04/21 TIME: 08:35 Subjective Patient not improving, in fact she is oxygenating worse today Currently on norepinephrine Pressure control ventilation, driving pressure of 24 100% FiO2 11 of PEEP Vitals Vital Signs Date Time Temp Pulse Resp B/P (MAP) Pulse Ox O2 Delivery O2 Flow Rate FiO2 08/04/21 04:55 85 Ventilator 08/04/21 01:00 98 24 102/66 (78) 08/04/21 00:00 98.7 98.7 Lungs: Clear Cardiovascular: S1, S2 Abdomen: Soft Extremities: Other (Mild edema) Labs Laboratory Tests Test 08/02/21 18:02 08/02/21 23:54 08/03/21 05:42 08/03/21 05:50 Glucose (Fingerstick) 146 mg/dL (70-99) 144 mg/dL (70-99) 153 mg/dL (70-99) White Blood Count 16.3 x10^3/uL (4.0-11.0) Red Blood Count 3.07 x10^6/uL (3.50-5.40) Hemoglobin 8.8 g/dL (12.0-15.5) Hematocrit 27.9 % (36.0-47.0) Mean Corpuscular Volume 91 fL (79-100) Mean Corpuscular Hemoglobin 29 pg (25-35) Mean Corpuscular Hemoglobin Concent 32 g/dL (31-37) Red Cell Distribution Width 16.7 % (11.5-14.5) Platelet Count 237 x10^3/uL (140-400) Neutrophils (%) (Auto) 84 % (31-73) Lymphocytes (%) (Auto) 6 % (24-48) Monocytes (%) (Auto) 4 % (0-9) Eosinophils (%) (Auto) 6 % (0-3) Basophils (%) (Auto) 1 % (0-3) Neutrophils # (Auto) 13.7 x10^3/uL (1.8-7.7) Lymphocytes # (Auto) 0.9 x10^3/uL (1.0-4.8) Monocytes # (Auto) 0.6 x10^3/uL (0.0-1.1) Eosinophils # (Auto) 0.9 x10^3/uL (0.0-0.7) Basophils # (Auto) 0.1 x10^3/uL (0.0-0.2) Sodium Level 136 mmol/L (136-145) Potassium Level 4.4 mmol/L (3.5-5.1) Chloride Level 98 mmol/L (98-107) Carbon Dioxide Level 40 mmol/L (21-32) Anion Gap (6-14) Blood Urea Nitrogen 23 mg/dL (7-20) Creatinine 0.6 mg/dL (0.6-1.0) Estimated GFR (Cockcroft-Gault) 100.3 Glucose Level 152 mg/dL (70-99) Calcium Level 7.8 mg/dL (8.5-10.1) Test 08/03/21 08:00 08/03/21 12:38 08/03/21 17:23 08/04/21 00:38 O2 Saturation 86 % (92-99) Arterial Blood pH 7.30 (7.35-7.45) Arterial Blood pCO2 at Patient Temp 65 mmHg (35-46) Arterial Blood pO2 at Patient Temp 55 mmHg (65-108) Arterial Blood HCO3 31 mmol/L (21-28) Arterial Blood Base Excess 4 mmol/L (-3-3) FiO2 100% vent Glucose (Fingerstick) 179 mg/dL (70-99) 177 mg/dL (70-99) 175 mg/dL (70-99) Test 08/04/21 06:25 08/04/21 06:35 White Blood Count 18.3 x10^3/uL (4.0-11.0) Red Blood Count 3.16 x10^6/uL (3.50-5.40) Hemoglobin 9.2 g/dL (12.0-15.5) Hematocrit 28.4 % (36.0-47.0) Mean Corpuscular Volume 90 fL (79-100) Mean Corpuscular Hemoglobin 29 pg (25-35) Mean Corpuscular Hemoglobin Concent 32 g/dL (31-37) Red Cell Distribution Width 16.8 % (11.5-14.5) Platelet Count 333 x10^3/uL (140-400) Neutrophils (%) (Auto) 84 % (31-73) Lymphocytes (%) (Auto) 5 % (24-48) Monocytes (%) (Auto) 4 % (0-9) Eosinophils (%) (Auto) 6 % (0-3) Basophils (%) (Auto) 1 % (0-3) Neutrophils # (Auto) 15.3 x10^3/uL (1.8-7.7) Lymphocytes # (Auto) 0.9 x10^3/uL (1.0-4.8) Monocytes # (Auto) 0.7 x10^3/uL (0.0-1.1) Eosinophils # (Auto) 1.1 x10^3/uL (0.0-0.7) Basophils # (Auto) 0.2 x10^3/uL (0.0-0.2) Sodium Level 135 mmol/L (136-145) Potassium Level 4.0 mmol/L (3.5-5.1) Chloride Level 96 mmol/L (98-107) Carbon Dioxide Level 39 mmol/L (21-32) Anion Gap 0 (6-14) Blood Urea Nitrogen 21 mg/dL (7-20) Creatinine 0.6 mg/dL (0.6-1.0) Estimated GFR (Cockcroft-Gault) 100.3 Glucose Level 175 mg/dL (70-99) Calcium Level 7.9 mg/dL (8.5-10.1) Glucose (Fingerstick) 174 mg/dL (70-99) Laboratory Tests Test 08/03/21 12:38 08/03/21 17:23 08/04/21 00:38 08/04/21 06:25 Glucose (Fingerstick) 179 mg/dL (70-99) 177 mg/dL (70-99) 175 mg/dL (70-99) White Blood Count 18.3 x10^3/uL (4.0-11.0) Red Blood Count 3.16 x10^6/uL (3.50-5.40) Hemoglobin 9.2 g/dL (12.0-15.5) Hematocrit 28.4 % (36.0-47.0) Mean Corpuscular Volume 90 fL (79-100) Mean Corpuscular Hemoglobin 29 pg (25-35) Mean Corpuscular Hemoglobin Concent 32 g/dL (31-37) Red Cell Distribution Width 16.8 % (11.5-14.5) Platelet Count 333 x10^3/uL (140-400) Neutrophils (%) (Auto) 84 % (31-73) Lymphocytes (%) (Auto) 5 % (24-48) Monocytes (%) (Auto) 4 % (0-9) Eosinophils (%) (Auto) 6 % (0-3) Basophils (%) (Auto) 1 % (0-3) Neutrophils # (Auto) 15.3 x10^3/uL (1.8-7.7) Lymphocytes # (Auto) 0.9 x10^3/uL (1.0-4.8) Monocytes # (Auto) 0.7 x10^3/uL (0.0-1.1) Eosinophils # (Auto) 1.1 x10^3/uL (0.0-0.7) Basophils # (Auto) 0.2 x10^3/uL (0.0-0.2) Sodium Level 135 mmol/L (136-145) Potassium Level 4.0 mmol/L (3.5-5.1) Chloride Level 96 mmol/L (98-107) Carbon Dioxide Level 39 mmol/L (21-32) Anion Gap 0 (6-14) Blood Urea Nitrogen 21 mg/dL (7-20) Creatinine 0.6 mg/dL (0.6-1.0) Estimated GFR (Cockcroft-Gault) 100.3 Glucose Level 175 mg/dL (70-99) Calcium Level 7.9 mg/dL (8.5-10.1) Test 08/04/21 06:35 Glucose (Fingerstick) 174 mg/dL (70-99) Medications Active Scripts Medications Dose Route/Sig Max Daily Dose Days Date Category Impression . IMPRESSION: 1. Acute hypoxemic respiratory failure secondary to COVID-19 viral pneumonia/ARDS. Intubated 07/23/2021 2. COVID-19 viral pneumonia/acute respiratory distress syndrome. 3. Possible bacterial pneumonia. 4. Obesity. 5. Abnormal chest x-ray consistent with viral pneumonia 6. Hypotension, improved 7. Leukocytosis, Plan . Updated 08/04 We will continue current vent settings, we will not increase PEEP, likelihood of barotrauma leading to pneumothorax is high, I do not think increasing PEEP will make a difference. Plateau pressure is currently 34 Wean norepinephrine off Continue Zosyn Steroids Patient given IV Lasix, no improvement in Continue DVT prophylaxis Continue nutritional support updated 08/03 As needed Lasix Increase minute ventilation Norepinephrine for mean arterial pressure above 60 Continue Zosyn Continue steroids Discussed with RN and RT Updated 08/02 We will increase PEEP to 10, decreased driving pressure, Saturations continue to be low, Continue steroids Remdesivir Zosyn Patient not expected to survive Patient is a full code, previous conversations with family, family wishes to be aggressive SJ MORA MD Aug 04, 2021 08:35
[2021-08-04 08:52] LABS: PCO2 ABG 73 mmHg (35-46); PO2 ABG 49 mmHg (65-108)
[2021-08-04 08:54] LABS: FIO2 ABG 100
[2021-08-04 09:01] LABS: % BANDS 8 % (0-9); % LYMPHS 4 % (24-48); % METAS 1 % (0-0); % MONOS 2 % (0-10)
[2021-08-04 09:02] LABS: % EOS 3 % (0-5); % SEGS 82 % (35-66); ANISOCYTOSIS SLIGHT; PLT ESTIMATE ADEQUATE (ADEQUATE); POLYCHROMASIA PRESENT
[2021-08-04] MEDS: NORCURON - VECURONIUM 50 MG in IV NORMAL SALINE 50ML 50 ML IV PRN (09:29)
[2021-08-04] MEDS: NOREPINEPHRINE VIAL 8 MG in IV DEXTROSE 5% 250 ML IV PRN (09:30)
[2021-08-04] MEDS: ZINC SULFATE 220 MG CAPSULE. PO SCH (09:31)
[2021-08-04] MEDS: PANTOPRAZOLE IV PUSH 40 MG VIAL. IVP SCH (09:31)
[2021-08-04] MEDS: ASCORBIC ACID 500 MG TABLET PO SCH (09:31)
[2021-08-04] MEDS: ENOXAPARIN 40 MG/0.4 ML SYRINGE. SQ SCH (09:32)
[2021-08-04] MEDS: IV NORMAL SALINE 1000ML BAG 1,000 ML IV SCH (11:00)
[2021-08-04] MEDS ORDERED: FUROSEMIDE 40 MG/4 ML VIAL. IVP ONE (11:15)
--- NOTE | 2021-08-04 11:58 | PDOC ---
[employer] PROGRESS NOTE Date of Service DOS: DATE: 08/04/21 TIME: 11:57 Chief Complaint Chief Complaint acute hypoxic respiratory failure requiring mechanical ventilation COVID 19 pneumonia, standard treatement protocol . History of Present Illness History of Present Illness 07/17/2021 No acute events overnight. Patient saturating 90% on 40% Vapotherm. No concerns nursing at this time. Patient's chart, labs, images were reviewed and discussed with RN In addition to my E/M visit, advance care planning done with A total time of 20 minutes was spent from 920 to 940 face to face in discussion with the patient regarding their goals of care, CODE STATUS. 07/18/2021 No acute events overnight. Patient saturating 89% on Vapotherm. No dyspnea upon exertion or at rest. Pending chest x-ray results. No other concerns from nursing. 07/19/21 No acute events overnight. Saturating 91% on vapotherm. No dyspnea and is motiviated to get out of bed onto chair. total critical care time spent of 33 minutes 07/20/2021 No acute events overnight. Patient seen and examined bedside. Saturating well on Vapotherm. Patient accepted at [facility]. No concerns with nursing. A total of 35 minutes of critical care time was spent in reviewing chart, labs, and images. Discussed with RN and TRAVIS. 07/21/2021 No acute events overnight. Unfortunately patient was unable to be transferred to [facility] because of unable to tolerate BiPAP. At this point we will continue BiPAP and Vapotherm for inpatient care. Patient's chart, labs, images were reviewed and discussed with RN A total of 32 minutes of critical care time was spent in reviewing chart, labs, and images. Discussed with RN and SW. 07/22/2021 No acute events overnight. Patient seen and examined bedside. Saturating 100% on FiO2 and 15 L nonrebreather mask. Does complain of diarrhea and one-time Imodium was administered. Afebrile last 24 hours. Continue PT OT modalities. Encourage prone positioning when able. Patient's chart, labs, images were reviewed and discussed with RN A total of 32 minutes of critical care time was spent in reviewing chart, labs, and images. Discussed with RN and SW. 07/23/2021 No acute events overnight. Patient seen and examined resting comfortably at bedside. Saturating 83% on Vapotherm. Patient did have dyspneic episodes overnight desaturating down to 70s and 80s. She was offered BiPAP but she is declining and wishing to be DNR today. Patient's chart, labs, images were reviewed and discussed with RN 07/24/2021: Patient transferred to the ICU and intubated overnight. Currently afebrile, tachycardic. On vent with FiO2 100%, PEEP 8. We will continue steroids to complete 10-day course; begin taper tomorrow. 07/25/2021: Afebrile, no acute events overnight. On vent with FiO2 100%, PEEP 8. Completed remdesivir. Day 10 of steroids, will begin taper over 10 days. Continue supportive care. Critical care time 30 min spent reviewing charts, reviewing imaging, reviewing labs, and discussion with RN. 07/26/2021: Afebrile. On vent with FiO2 100%, PEEP 8. Completed remdesivir and 10 days of steroids; will begin slow steroid taper. Chest x-ray from 07/24 showed stable diffuse infiltrate. Leukocytosis likely secondary to steroid use. Will obtain CRP and procalcitonin. Continue supportive care. Critical care time 30 min spent reviewing charts, reviewing imaging, reviewing labs, and discussion with RN. 07/27/2021: Afebrile. On vent with FiO2 100%, PEEP 9. CRP 15, procalcitonin 0.10. WBC 17.2. We will hold off on further antibiotics for now continue to monitor. Completed remdesivir and 10 days of steroids; continue slow Decadron taper. Continue supportive care. Critical care time 30 min spent reviewing charts, reviewing imaging, reviewing labs, and discussion with RN. 07/28/2021: Afebrile. On vent FiO2 100%, PEEP 9. Completed remdesivir and 10 days of steroids; continue slow Decadron taper. Continue supportive care; on vasopressors. Critical care time 30 min spent reviewing charts, reviewing imaging, reviewing labs, and discussion with RN. 07/29/2021: Afebrile, no significant change overnight. On vent FiO2 100%, PEEP 9. Completed remdesivir and 10 days of steroids; continue slow Decadron taper. Continue supportive care; on vasopressors. Critical care time 30 min spent reviewing charts, reviewing imaging, reviewing labs, and discussion with RN. 07/30/2021: Afebrile. On vent with FiO2 100%, PEEP 9. Completed remdesivir and 10 days of steroids; continue slow Decadron taper (last day of Decadron taper should be tomorrow). Empiric antibiotics, supportive care; on Levophed. Empiric antibiotics could likely stop after Decadron taper; will obtain procalcitonin and chest x-ray tomorrow. Critical care time 30 min spent reviewing charts, reviewing imaging, reviewing labs, and discussion with RN. 07/31 Patient remains afebrile. Remains ventilated and sedated. Decadron taper finished today. Normal procalcitonin on the labs chest x-ray mildly improved. Pulmonary continues to follow. Continuing current plan, will wean oxygen as tolerated. 08/01 Patient evaluated examined at bedside. Some low saturations this morning. Remains ventilated and sedated. Continue COVID treatment. 08/02 Patient evaluated examined at bedside. She is still having lower saturation and this low 80s and upper 70s despite high oxygen provided. Contacted patient's son today and discussed case with him. He is well aware of her condition and at this point poor prognosis. I did bring up the idea of the DNR DNI and starting to look towards a hospice route as patient has been intubated for 10 days and is actually worsening. Patient son reported that he would like to talk with his and sister before making a final decision. Will likely have a family meeting with them Saturday or Saturday. 08/03 Patient evaluated examined at bedside. Saturations continued to drop despite ventilator adjustments. Very poor prognosis. Discussed with family yesterday. Will attempt to call again today. Otherwise continue current plan. 08/04 Evaluated examined at bedside, oxygen saturations definitely worse today. Cont acted patient's son planning for family meeting tomorrow in person. Vitals/I&O Vitals/I&O: Vital Signs Date Time Temp Pulse Resp B/P (MAP) Pulse Ox O2 Delivery O2 Flow Rate FiO2 08/04/21 11:06 82 Ventilator 08/04/21 11:00 106 24 116/66 (83) 08/04/21 08:00 99.9 99.9 I & O 08/03/21 08/03/21 08/04/21 15:00 23:00 07:00 Intake Total 250 ml 2762.81 ml 1924 ml Output Total 920 ml 910 ml 140 ml Balance -670 ml 1852.81 ml 1784 ml Physical Exam General: Cooperative, No acute distress, Other (ET and NG tube in place) Heart: Other (Tachycardic) Lungs: Clear Abdomen: Normal bowel sounds, Soft (obese, ) Extremities: No cyanosis, No edema, Normal pulses Skin: No rashes, No significant lesion Labs Labs: Laboratory Tests Test 08/03/21 12:38 08/03/21 17:23 08/04/21 00:38 08/04/21 06:25 Glucose (Fingerstick) 179 mg/dL (70-99) 177 mg/dL (70-99) 175 mg/dL (70-99) White Blood Count 18.3 x10^3/uL (4.0-11.0) Red Blood Count 3.16 x10^6/uL (3.50-5.40) Hemoglobin 9.2 g/dL (12.0-15.5) Hematocrit 28.4 % (36.0-47.0) Mean Corpuscular Volume 90 fL (79-100) Mean Corpuscular Hemoglobin 29 pg (25-35) Mean Corpuscular Hemoglobin Concent 32 g/dL (31-37) Red Cell Distribution Width 16.8 % (11.5-14.5) Platelet Count 333 x10^3/uL (140-400) Neutrophils (%) (Auto) 84 % (31-73) Lymphocytes (%) (Auto) 5 % (24-48) Monocytes (%) (Auto) 4 % (0-9) Eosinophils (%) (Auto) 6 % (0-3) Basophils (%) (Auto) 1 % (0-3) Neutrophils # (Auto) 15.3 x10^3/uL (1.8-7.7) Lymphocytes # (Auto) 0.9 x10^3/uL (1.0-4.8) Monocytes # (Auto) 0.7 x10^3/uL (0.0-1.1) Eosinophils # (Auto) 1.1 x10^3/uL (0.0-0.7) Basophils # (Auto) 0.2 x10^3/uL (0.0-0.2) Segmented Neutrophils % 82 % (35-66) Band Neutrophils % 8 % (0-9) Lymphocytes % 4 % (24-48) Monocytes % 2 % (0-10) Eosinophils % 3 % (0-5) Metamyelocytes % 1 % (0-0) Platelet Estimate Adequate (ADEQUATE) Polychromasia Present Basophilic Stippling Present Anisocytosis Slight Sodium Level 135 mmol/L (136-145) Potassium Level 4.0 mmol/L (3.5-5.1) Chloride Level 96 mmol/L (98-107) Carbon Dioxide Level 39 mmol/L (21-32) Anion Gap 0 (6-14) Blood Urea Nitrogen 21 mg/dL (7-20) Creatinine 0.6 mg/dL (0.6-1.0) Estimated GFR (Cockcroft-Gault) 100.3 Glucose Level 175 mg/dL (70-99) Calcium Level 7.9 mg/dL (8.5-10.1) Test 08/04/21 06:35 08/04/21 08:10 Glucose (Fingerstick) 174 mg/dL (70-99) O2 Saturation 83 % (92-99) Arterial Blood pH 7.33 (7.35-7.45) Arterial Blood pCO2 at Patient Temp 73 mmHg (35-46) Arterial Blood pO2 at Patient Temp 49 mmHg (65-108) Arterial Blood HCO3 37 mmol/L (21-28) Arterial Blood Base Excess 9 mmol/L (-3-3) FiO2 100 Comment Review of Relevant I have reviewed the following items jluis (where applicable) has been applied. Justifications for Admission Other Justification JAMEE ESPINAL MD Aug 04, 2021 11:58
[2021-08-04] MEDS: fentaNYL HIGH DOSE PCA 55 ML IV PRN (12:45)
--- NOTE | 2021-08-04 15:43 | NUR ---
SS following up with discharge planning. SS reviewed pt chart and discussed with pt RN. No changes. Pt is currently on the vent at 100%. COVID19 recovered. Pt on IV Zosyn. Tube feeds. Pt on Precedex, Vec, Propofol, Fentanyl, Versed, and Levophed. Not stable for transfer at this time. SS will continue to follow for discharge planning.
[2021-08-04] MEDS: PROPOFOL 100 ML IV PRN (22:38)
[2021-08-05] VITALS (26 sets, daily range): BP systolic 78–111; BP diastolic 52–71
[2021-08-05] MEDS: DEXMEDETOMIDINE 400 MCG in IV NORMAL SALINE 100ML 96 ML IV PRN ×6 (01:50→21:18)
[2021-08-05] MEDS: MIDAZOLAM 100mg/100ml NS BAG 100 ML IV PRN ×3 (03:18→21:20)
[2021-08-05] MEDS: INSULIN LISPRO 300 UNITS/3 ML VIAL. SQ SCH ×4 (06:00→23:42)
[2021-08-05] MEDS: PIPERACILLIN/TAZOBACTAM 3.375 GM in IV NORMAL SALINE 50ML 50 ML IV SCH ×4 (06:17→23:42)
[2021-08-05] MEDS: NORCURON - VECURONIUM 50 MG in IV NORMAL SALINE 50ML 50 ML IV PRN ×2 (06:29→12:37)
[2021-08-05 06:38] LABS: BASO # 0.1 x10^3/uL (0.0-0.2); BASO % 1 % (0-3); EOS # 0.8 x10^3/uL (0.0-0.7); EOS % 6 % (0-3); HEMATOCRIT 26.9 % (36.0-47.0); HEMOGLOBIN 8.4 g/dL (12.0-15.5); LYMPH # 0.9 x10^3/uL (1.0-4.8); LYMPH % 6 % (24-48); MEAN CORPUSCULAR HEMOGLOBIN 29 pg (25-35); MEAN CORPUSCULAR HGB CONC 31 g/dL (31-37); MEAN CORPUSCULAR VOLUME 91 fL (79-100); MONO # 0.5 x10^3/uL (0.0-1.1); MONO % 4 % (0-9); NEUT # 11.8 x10^3/uL (1.8-7.7); NEUT % 83 % (31-73); PLATELET COUNT 324 x10^3/uL (140-400); RED BLOOD COUNT 2.96 x10^6/uL (3.50-5.40); RED CELL DISTRIBUTION WIDTH 17.1 % (11.5-14.5); WHITE BLOOD COUNT 14.1 x10^3/uL (4.0-11.0)
[2021-08-05 06:51] LABS: ALBUMIN 1.3 g/dL (3.4-5.0); TOTAL PROTEIN 5.5 g/dL (6.4-8.2)
[2021-08-05 06:52] LABS: ALBUMIN/GLOBULIN RATIO 0.3 (1.0-1.7); ALK PHOS 131 U/L (46-116); ALT (SGPT) 31 U/L (14-59); AST (SGOT) 29 U/L (15-37); BLOOD UREA NITROGEN 21 mg/dL (7-20); BUN/CREATININE RATIO 35 (6-20); CALCIUM 7.9 mg/dL (8.5-10.1); CARBON DIOXIDE 40 mmol/L (21-32); CHLORIDE 96 mmol/L (98-107); CREATININE 0.6 mg/dL (0.6-1.0); GFR 100.3; GLUCOSE 163 mg/dL (70-99); POTASSIUM 3.7 mmol/L (3.5-5.1); SODIUM 134 mmol/L (136-145); TOTAL BILIRUBIN 0.3 mg/dL (0.2-1.0)
--- NOTE | 2021-08-05 07:12 | PDOC ---
PULMONARY PROGRESS NOTES DATE: 08/05/21 TIME: 07:10 Subjective on vent sedated on prop versed precedex fentanyl on vec gtt 100% FiO2 11 of PEEP Vitals Vital Signs Date Time Temp Pulse Resp B/P (MAP) Pulse Ox O2 Delivery O2 Flow Rate FiO2 08/05/21 06:00 98 24 111/67 (82) 82 08/05/21 04:00 98.8 98.8 08/05/21 04:00 Ventilator Comments ros unable to obtain on vent sedated HEENT: Other (nc at perrl orally intubated neck no lad no thyromegaly) Lungs: Other (b lat diminished ) Cardiovascular: S1, S2 Abdomen: Soft Extremities: Other (Mild edema) Skin: No Rashes Labs Laboratory Tests Test 08/03/21 08:00 08/03/21 12:38 08/03/21 17:23 08/04/21 00:38 O2 Saturation 86 % (92-99) Arterial Blood pH 7.30 (7.35-7.45) Arterial Blood pCO2 at Patient Temp 65 mmHg (35-46) Arterial Blood pO2 at Patient Temp 55 mmHg (65-108) Arterial Blood HCO3 31 mmol/L (21-28) Arterial Blood Base Excess 4 mmol/L (-3-3) FiO2 100% vent Glucose (Fingerstick) 179 mg/dL (70-99) 177 mg/dL (70-99) 175 mg/dL (70-99) Test 08/04/21 06:25 08/04/21 06:35 08/04/21 08:10 08/04/21 12:40 White Blood Count 18.3 x10^3/uL (4.0-11.0) Red Blood Count 3.16 x10^6/uL (3.50-5.40) Hemoglobin 9.2 g/dL (12.0-15.5) Hematocrit 28.4 % (36.0-47.0) Mean Corpuscular Volume 90 fL (79-100) Mean Corpuscular Hemoglobin 29 pg (25-35) Mean Corpuscular Hemoglobin Concent 32 g/dL (31-37) Red Cell Distribution Width 16.8 % (11.5-14.5) Platelet Count 333 x10^3/uL (140-400) Neutrophils (%) (Auto) 84 % (31-73) Lymphocytes (%) (Auto) 5 % (24-48) Monocytes (%) (Auto) 4 % (0-9) Eosinophils (%) (Auto) 6 % (0-3) Basophils (%) (Auto) 1 % (0-3) Neutrophils # (Auto) 15.3 x10^3/uL (1.8-7.7) Lymphocytes # (Auto) 0.9 x10^3/uL (1.0-4.8) Monocytes # (Auto) 0.7 x10^3/uL (0.0-1.1) Eosinophils # (Auto) 1.1 x10^3/uL (0.0-0.7) Basophils # (Auto) 0.2 x10^3/uL (0.0-0.2) Segmented Neutrophils % 82 % (35-66) Band Neutrophils % 8 % (0-9) Lymphocytes % 4 % (24-48) Monocytes % 2 % (0-10) Eosinophils % 3 % (0-5) Metamyelocytes % 1 % (0-0) Platelet Estimate Adequate (ADEQUATE) Polychromasia Present Basophilic Stippling Present Anisocytosis Slight Sodium Level 135 mmol/L (136-145) Potassium Level 4.0 mmol/L (3.5-5.1) Chloride Level 96 mmol/L (98-107) Carbon Dioxide Level 39 mmol/L (21-32) Anion Gap 0 (6-14) Blood Urea Nitrogen 21 mg/dL (7-20) Creatinine 0.6 mg/dL (0.6-1.0) Estimated GFR (Cockcroft-Gault) 100.3 Glucose Level 175 mg/dL (70-99) Calcium Level 7.9 mg/dL (8.5-10.1) Glucose (Fingerstick) 174 mg/dL (70-99) 170 mg/dL (70-99) O2 Saturation 83 % (92-99) Arterial Blood pH 7.33 (7.35-7.45) Arterial Blood pCO2 at Patient Temp 73 mmHg (35-46) Arterial Blood pO2 at Patient Temp 49 mmHg (65-108) Arterial Blood HCO3 37 mmol/L (21-28) Arterial Blood Base Excess 9 mmol/L (-3-3) FiO2 100 Test 08/04/21 16:50 08/04/21 23:32 08/05/21 06:16 9/25/21 06:20 Glucose (Fingerstick) 157 mg/dL (70-99) 140 mg/dL (70-99) 144 mg/dL (70-99) White Blood Count 14.1 x10^3/uL (4.0-11.0) Red Blood Count 2.96 x10^6/uL (3.50-5.40) Hemoglobin 8.4 g/dL (12.0-15.5) Hematocrit 26.9 % (36.0-47.0) Mean Corpuscular Volume 91 fL (79-100) Mean Corpuscular Hemoglobin 29 pg (25-35) Mean Corpuscular Hemoglobin Concent 31 g/dL (31-37) Red Cell Distribution Width 17.1 % (11.5-14.5) Platelet Count 324 x10^3/uL (140-400) Neutrophils (%) (Auto) 83 % (31-73) Lymphocytes (%) (Auto) 6 % (24-48) Monocytes (%) (Auto) 4 % (0-9) Eosinophils (%) (Auto) 6 % (0-3) Basophils (%) (Auto) 1 % (0-3) Neutrophils # (Auto) 11.8 x10^3/uL (1.8-7.7) Lymphocytes # (Auto) 0.9 x10^3/uL (1.0-4.8) Monocytes # (Auto) 0.5 x10^3/uL (0.0-1.1) Eosinophils # (Auto) 0.8 x10^3/uL (0.0-0.7) Basophils # (Auto) 0.1 x10^3/uL (0.0-0.2) Sodium Level 134 mmol/L (136-145) Potassium Level 3.7 mmol/L (3.5-5.1) Chloride Level 96 mmol/L (98-107) Carbon Dioxide Level 40 mmol/L (21-32) Anion Gap (6-14) Blood Urea Nitrogen 21 mg/dL (7-20) Creatinine 0.6 mg/dL (0.6-1.0) Estimated GFR (Cockcroft-Gault) 100.3 BUN/Creatinine Ratio 35 (6-20) Glucose Level 163 mg/dL (70-99) Calcium Level 7.9 mg/dL (8.5-10.1) Total Bilirubin 0.3 mg/dL (0.2-1.0) Aspartate Amino Transf (AST/SGOT) 29 U/L (15-37) Alanine Aminotransferase (ALT/SGPT) 31 U/L (14-59) Alkaline Phosphatase 131 U/L (46-116) Total Protein 5.5 g/dL (6.4-8.2) Albumin 1.3 g/dL (3.4-5.0) Albumin/Globulin Ratio 0.3 (1.0-1.7) Laboratory Tests Test 08/04/21 08:10 08/04/21 12:40 08/04/21 16:50 08/04/21 23:32 O2 Saturation 83 % (92-99) Arterial Blood pH 7.33 (7.35-7.45) Arterial Blood pCO2 at Patient Temp 73 mmHg (35-46) Arterial Blood pO2 at Patient Temp 49 mmHg (65-108) Arterial Blood HCO3 37 mmol/L (21-28) Arterial Blood Base Excess 9 mmol/L (-3-3) FiO2 100 Glucose (Fingerstick) 170 mg/dL (70-99) 157 mg/dL (70-99) 140 mg/dL (70-99) Test 08/05/21 06:16 08/05/21 06:20 Glucose (Fingerstick) 144 mg/dL (70-99) White Blood Count 14.1 x10^3/uL (4.0-11.0) Red Blood Count 2.96 x10^6/uL (3.50-5.40) Hemoglobin 8.4 g/dL (12.0-15.5) Hematocrit 26.9 % (36.0-47.0) Mean Corpuscular Volume 91 fL (79-100) Mean Corpuscular Hemoglobin 29 pg (25-35) Mean Corpuscular Hemoglobin Concent 31 g/dL (31-37) Red Cell Distribution Width 17.1 % (11.5-14.5) Platelet Count 324 x10^3/uL (140-400) Neutrophils (%) (Auto) 83 % (31-73) Lymphocytes (%) (Auto) 6 % (24-48) Monocytes (%) (Auto) 4 % (0-9) Eosinophils (%) (Auto) 6 % (0-3) Basophils (%) (Auto) 1 % (0-3) Neutrophils # (Auto) 11.8 x10^3/uL (1.8-7.7) Lymphocytes # (Auto) 0.9 x10^3/uL (1.0-4.8) Monocytes # (Auto) 0.5 x10^3/uL (0.0-1.1) Eosinophils # (Auto) 0.8 x10^3/uL (0.0-0.7) Basophils # (Auto) 0.1 x10^3/uL (0.0-0.2) Sodium Level 134 mmol/L (136-145) Potassium Level 3.7 mmol/L (3.5-5.1) Chloride Level 96 mmol/L (98-107) Carbon Dioxide Level 40 mmol/L (21-32) Anion Gap (6-14) Blood Urea Nitrogen 21 mg/dL (7-20) Creatinine 0.6 mg/dL (0.6-1.0) Estimated GFR (Cockcroft-Gault) 100.3 BUN/Creatinine Ratio 35 (6-20) Glucose Level 163 mg/dL (70-99) Calcium Level 7.9 mg/dL (8.5-10.1) Total Bilirubin 0.3 mg/dL (0.2-1.0) Aspartate Amino Transf (AST/SGOT) 29 U/L (15-37) Alanine Aminotransferase (ALT/SGPT) 31 U/L (14-59) Alkaline Phosphatase 131 U/L (46-116) Total Protein 5.5 g/dL (6.4-8.2) Albumin 1.3 g/dL (3.4-5.0) Albumin/Globulin Ratio 0.3 (1.0-1.7) Medications Active Scripts Medications Dose Route/Sig Max Daily Dose Days Date Category Comments cxr 08/04 reviewed ett keyla mak infilt Impression . IMPRESSION: 1. Acute hypoxemic respiratory failure secondary to COVID-19 viral pneumonia/ARDS. Intubated 07/23/2021 2. COVID-19 viral pneumonia/acute respiratory distress syndrome. 3. Possible bacterial pneumonia. 4. Obesity. 5. Abnormal chest x-ray consistent with viral pneumonia 6. Hypotension, improved 7. Leukocytosis, Plan . Updated 08/05 cont vent support setting reviewed prognosis very poor family meeting today We will continue current vent settings, we will not increase PEEP, likelihood of barotrauma leading to pneumothorax is high, agree increasing PEEP will not make a difference. levo to keep map 65 abx Steroids Patient given IV Lasix, no improvement in Continue DVT prophylaxis Continue nutritional support discussed w rn rt Updated 08/04 We will continue current vent settings, we will not increase PEEP, likelihood of barotrauma leading to pneumothorax is high, I do not think increasing PEEP will make a difference. Plateau pressure is currently 34 Wean norepinephrine off Continue Zosyn Steroids Patient given IV Lasix, no improvement in Continue DVT prophylaxis Continue nutritional support updated 08/03 As needed Lasix Increase minute ventilation Norepinephrine for mean arterial pressure above 60 Continue Zosyn Continue steroids Discussed with RN and RT Updated 08/02 We will increase PEEP to 10, decreased driving pressure, Saturations continue to be low, Continue steroids Remdesivir Zosyn Patient not expected to survive Patient is a full code, previous conversations with family, family wishes to be aggressive JANELLE DENTON MD Aug 05, 2021 07:12
[2021-08-05] MEDS: PANTOPRAZOLE IV PUSH 40 MG VIAL. IVP SCH (08:54)
[2021-08-05] MEDS: ASCORBIC ACID 500 MG TABLET PO SCH (08:54)
[2021-08-05] MEDS: ENOXAPARIN 40 MG/0.4 ML SYRINGE. SQ SCH (08:54)
[2021-08-05] MEDS: ZINC SULFATE 220 MG CAPSULE. PO SCH (08:54)
[2021-08-05] MEDS: PROPOFOL 100 ML IV PRN ×2 (08:55→18:14)
[2021-08-05 09:00] LABS: BASE EXCESS ABG 11 mmol/L (-3-3); HCO3 ABG 38 mmol/L (21-28); SAT O2 ABG 84 % (92-99)
[2021-08-05 09:02] LABS: PCO2 ABG 68 mmHg (35-46); PO2 ABG 50 mmHg (65-108)
[2021-08-05 09:03] LABS: FIO2 ABG 100% VENT
--- NOTE | 2021-08-05 11:38 | PDOC ---
[facility] PROGRESS NOTE Date of Service DOS: DATE: 08/05/21 TIME: 11:36 Chief Complaint Chief Complaint acute hypoxic respiratory failure requiring mechanical ventilation COVID 19 pneumonia, standard treatement protocol . History of Present Illness History of Present Illness 07/17/2021 No acute events overnight. Patient saturating 90% on 40% Vapotherm. No concerns nursing at this time. Patient's chart, labs, images were reviewed and discussed with RN In addition to my E/M visit, advance care planning done with A total time of 20 minutes was spent from 920 to 940 face to face in discussion with the patient regarding their goals of care, CODE STATUS. 07/18/2021 No acute events overnight. Patient saturating 89% on Vapotherm. No dyspnea upon exertion or at rest. Pending chest x-ray results. No other concerns from nursing. 07/19/21 No acute events overnight. Saturating 91% on vapotherm. No dyspnea and is motiviated to get out of bed onto chair. total critical care time spent of 33 minutes 07/20/2021 No acute events overnight. Patient seen and examined bedside. Saturating well on Vapotherm. Patient accepted at [facility]. No concerns with nursing. A total of 35 minutes of critical care time was spent in reviewing chart, labs, and images. Discussed with RN and TRAVIS. 07/21/2021 No acute events overnight. Unfortunately patient was unable to be transferred to [facility] because of unable to tolerate BiPAP. At this point we will continue BiPAP and Vapotherm for inpatient care. Patient's chart, labs, images were reviewed and discussed with RN A total of 32 minutes of critical care time was spent in reviewing chart, labs, and images. Discussed with RN and SW. 07/22/2021 No acute events overnight. Patient seen and examined bedside. Saturating 100% on FiO2 and 15 L nonrebreather mask. Does complain of diarrhea and one-time Imodium was administered. Afebrile last 24 hours. Continue PT OT modalities. Encourage prone positioning when able. Patient's chart, labs, images were reviewed and discussed with RN A total of 32 minutes of critical care time was spent in reviewing chart, labs, and images. Discussed with RN and SW. 07/23/2021 No acute events overnight. Patient seen and examined resting comfortably at bedside. Saturating 83% on Vapotherm. Patient did have dyspneic episodes overnight desaturating down to 70s and 80s. She was offered BiPAP but she is declining and wishing to be DNR today. Patient's chart, labs, images were reviewed and discussed with RN 07/24/2021: Patient transferred to the ICU and intubated overnight. Currently afebrile, tachycardic. On vent with FiO2 100%, PEEP 8. We will continue steroids to complete 10-day course; begin taper tomorrow. 07/25/2021: Afebrile, no acute events overnight. On vent with FiO2 100%, PEEP 8. Completed remdesivir. Day 10 of steroids, will begin taper over 10 days. Continue supportive care. Critical care time 30 min spent reviewing charts, reviewing imaging, reviewing labs, and discussion with RN. 07/26/2021: Afebrile. On vent with FiO2 100%, PEEP 8. Completed remdesivir and 10 days of steroids; will begin slow steroid taper. Chest x-ray from 07/24 showed stable diffuse infiltrate. Leukocytosis likely secondary to steroid use. Will obtain CRP and procalcitonin. Continue supportive care. Critical care time 30 min spent reviewing charts, reviewing imaging, reviewing labs, and discussion with RN. 07/27/2021: Afebrile. On vent with FiO2 100%, PEEP 9. CRP 15, procalcitonin 0.10. WBC 17.2. We will hold off on further antibiotics for now continue to monitor. Completed remdesivir and 10 days of steroids; continue slow Decadron taper. Continue supportive care. Critical care time 30 min spent reviewing charts, reviewing imaging, reviewing labs, and discussion with RN. 07/28/2021: Afebrile. On vent FiO2 100%, PEEP 9. Completed remdesivir and 10 days of steroids; continue slow Decadron taper. Continue supportive care; on vasopressors. Critical care time 30 min spent reviewing charts, reviewing imaging, reviewing labs, and discussion with RN. 07/29/2021: Afebrile, no significant change overnight. On vent FiO2 100%, PEEP 9. Completed remdesivir and 10 days of steroids; continue slow Decadron taper. Continue supportive care; on vasopressors. Critical care time 30 min spent reviewing charts, reviewing imaging, reviewing labs, and discussion with RN. 07/30/2021: Afebrile. On vent with FiO2 100%, PEEP 9. Completed remdesivir and 10 days of steroids; continue slow Decadron taper (last day of Decadron taper should be tomorrow). Empiric antibiotics, supportive care; on Levophed. Empiric antibiotics could likely stop after Decadron taper; will obtain procalcitonin and chest x-ray tomorrow. Critical care time 30 min spent reviewing charts, reviewing imaging, reviewing labs, and discussion with RN. 07/31 Patient remains afebrile. Remains ventilated and sedated. Decadron taper finished today. Normal procalcitonin on the labs chest x-ray mildly improved. Pulmonary continues to follow. Continuing current plan, will wean oxygen as tolerated. 08/01 Patient evaluated examined at bedside. Some low saturations this morning. Remains ventilated and sedated. Continue COVID treatment. 08/02 Patient evaluated examined at bedside. She is still having lower saturation and this low 80s and upper 70s despite high oxygen provided. Contacted patient's son today and discussed case with him. He is well aware of her condition and at this point poor prognosis. I did bring up the idea of the DNR DNI and starting to look towards a hospice route as patient has been intubated for 10 days and is actually worsening. Patient son reported that he would like to talk with his and sister before making a final decision. Will likely have a family meeting with them Saturday or Saturday. 08/03 Patient evaluated examined at bedside. Saturations continued to drop despite ventilator adjustments. Very poor prognosis. Discussed with family yesterday. Will attempt to call again today. Otherwise continue current plan. 08/04 Evaluated examined at bedside, oxygen saturations definitely worse today. Cont acted patient's son planning for family meeting tomorrow in person. 08/05 Patient seen and examined at bedside. Continues to require high levels of oxygen. Met with family at bedside discussing poor prognosis. After discussing family decided they would like to continue full code for right now and assess for any sort of brain injury. Informed them that this would likely require imaging with how much sedation she is on and there is a chance she will not survive the actual process. They would like to think about it more at this point. We will check in with him again tomorrow. Vitals/I&O Vitals/I&O: Vital Signs Date Time Temp Pulse Resp B/P (MAP) Pulse Ox O2 Delivery O2 Flow Rate FiO2 08/05/21 11:00 102 24 108/67 (81) 81 08/05/21 08:55 Ventilator 08/05/21 08:00 97.8 97.8 I & O 08/04/21 08/04/21 08/05/21 14:59 22:59 06:59 Intake Total 390 ml 1708.02 ml 2143 ml Output Total 965 ml 1285 ml 450 ml Balance -575 ml 423.02 ml 1693 ml Physical Exam General: Cooperative, No acute distress, Other (ET and NG tube in place) Heart: Other (Tachycardic) Lungs: Other (b lat diminished ) Abdomen: Normal bowel sounds, Soft (obese, ) Extremities: No cyanosis, No edema, Normal pulses Skin: No rashes, No significant lesion Labs Labs: Laboratory Tests Test 08/04/21 12:40 08/04/21 16:50 08/04/21 23:32 08/05/21 06:16 Glucose (Fingerstick) 170 mg/dL (70-99) 157 mg/dL (70-99) 140 mg/dL (70-99) 144 mg/dL (70-99) Test 08/05/21 06:20 08/05/21 08:00 08/05/21 11:14 White Blood Count 14.1 x10^3/uL (4.0-11.0) Red Blood Count 2.96 x10^6/uL (3.50-5.40) Hemoglobin 8.4 g/dL (12.0-15.5) Hematocrit 26.9 % (36.0-47.0) Mean Corpuscular Volume 91 fL (79-100) Mean Corpuscular Hemoglobin 29 pg (25-35) Mean Corpuscular Hemoglobin Concent 31 g/dL (31-37) Red Cell Distribution Width 17.1 % (11.5-14.5) Platelet Count 324 x10^3/uL (140-400) Neutrophils (%) (Auto) 83 % (31-73) Lymphocytes (%) (Auto) 6 % (24-48) Monocytes (%) (Auto) 4 % (0-9) Eosinophils (%) (Auto) 6 % (0-3) Basophils (%) (Auto) 1 % (0-3) Neutrophils # (Auto) 11.8 x10^3/uL (1.8-7.7) Lymphocytes # (Auto) 0.9 x10^3/uL (1.0-4.8) Monocytes # (Auto) 0.5 x10^3/uL (0.0-1.1) Eosinophils # (Auto) 0.8 x10^3/uL (0.0-0.7) Basophils # (Auto) 0.1 x10^3/uL (0.0-0.2) Sodium Level 134 mmol/L (136-145) Potassium Level 3.7 mmol/L (3.5-5.1) Chloride Level 96 mmol/L (98-107) Carbon Dioxide Level 40 mmol/L (21-32) Anion Gap (6-14) Blood Urea Nitrogen 21 mg/dL (7-20) Creatinine 0.6 mg/dL (0.6-1.0) Estimated GFR (Cockcroft-Gault) 100.3 BUN/Creatinine Ratio 35 (6-20) Glucose Level 163 mg/dL (70-99) Calcium Level 7.9 mg/dL (8.5-10.1) Total Bilirubin 0.3 mg/dL (0.2-1.0) Aspartate Amino Transf (AST/SGOT) 29 U/L (15-37) Alanine Aminotransferase (ALT/SGPT) 31 U/L (14-59) Alkaline Phosphatase 131 U/L (46-116) Total Protein 5.5 g/dL (6.4-8.2) Albumin 1.3 g/dL (3.4-5.0) Albumin/Globulin Ratio 0.3 (1.0-1.7) O2 Saturation 84 % (92-99) Arterial Blood pH 7.37 (7.35-7.45) Arterial Blood pCO2 at Patient Temp 68 mmHg (35-46) Arterial Blood pO2 at Patient Temp 50 mmHg (65-108) Arterial Blood HCO3 38 mmol/L (21-28) Arterial Blood Base Excess 11 mmol/L (-3-3) FiO2 100% vent Glucose (Fingerstick) 158 mg/dL (70-99) Comment Review of Relevant I have reviewed the following items jluis (where applicable) has been applied. Justifications for Admission Other Justification JAMEE ESPINAL MD Aug 05, 2021 11:38
[2021-08-05] MEDS ORDERED: IPRATRPIUM/ALBUTEROL 0.5/2.5MG 3 ML NEBU. NEB SCH (12:00)
[2021-08-05] MEDS: fentaNYL HIGH DOSE PCA 55 ML IV PRN (17:36)
[2021-08-05] MEDS: IV NORMAL SALINE 1000ML BAG 1,000 ML IV SCH (19:25)
--- NOTE | 2021-08-05 20:09 | CONS ---
DATE OF CONSULTATION: 08/05/2021 REFERRING PHYSICIAN: Dr. Sparrow. REASON FOR CONSULTATION: Evaluate for neurologic prognosis. HISTORY OF PRESENT ILLNESS: The patient is an unfortunate 66-year-old woman, unvaccinated for COVID, who developed severe COVID. She was initially admitted to [facility] and then transferred to [facility] because of worsening. She was admitted to this facility on 07/15/2021. She became progressively hypoxic and was transferred to the Intensive Care Unit, initially on a nonrebreather mask. She eventually worsened and required intubation and ventilation. Even with maximal oxygen and PEEP, she has not been oxygenating very well. She has required multiple sedating agents as well as a paralyzing agent in order to saturate at 83%. Anytime the nurses tried to lift the patient or even move the patient to turn her, the saturation worsens, which takes several hours to recover. She is not stable to move at all. She is sedated with propofol, midazolam, Precedex and paralyzed with vecuronium. PAST MEDICAL HISTORY: 1. Prior severe morbid obesity, now with a BMI of 35. 2. Underwent gastric bypass surgery. 3. Tonsillectomy. 4. Adenoidectomy. 5. Cholecystectomy. 6. Appendectomy. 7. Total abdominal hysterectomy. ALLERGIES: No known allergies to drugs. MEDICATIONS: She is currently on albuterol/ipratropium nebulized, piperacillin/tazobactam intravenous, norepinephrine, vecuronium, fentanyl, Precedex, pantoprazole, midazolam, propofol, zinc sulfate, vitamin C, Lovenox. FAMILY HISTORY: She has a living brother and sister. Her younger brother at 55 years of myocardial infarction. Her mother at 91 years with dementia. Her father at 79 years because of liver cancer. SOCIAL HISTORY: She resides alone. She quit smoking 18 years ago. She does not drink alcohol or use recreational drugs. 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 REVIEW OF SYSTEMS: Not obtainable. PHYSICAL EXAMINATION: VITAL SIGNS: The blood pressure was 98/66 with a left radial art line, pulse 95, respirations 24, temperature 97.3 axillary degrees Fahrenheit. Oximetry was 84%. NEUROLOGIC: She was intubated, ventilated, sedated and paralyzed. She had no spontaneous movement. Eyes were closed. When the eyes were held open, the eyelids did stay open until they were manually closed. The eyes were disconjugate. Pupils were 2 mm and did not react. Oculocephalic reflex was absent. Corneal reflex was absent. Neck was supple. Face was flat. Muscle bulk was symmetric. Tone was flaccid. There was no spontaneous movement. There was no withdrawal to nail bed pressure in any of the extremities. Toes were not up or downgoing. Coordination testing was not possible. There was no response to sensory stimulus. Tendon reflexes were absent. She did not cough to deep suction or gag to posterior pharyngeal suctioning. Prolonged noxious stimulation with sternal rub did not provoke any response. LABORATORY RESULTS: CBC was performed on 08/05/2021 revealing an elevated white count at 14.1. Hemoglobin was diminished at 8.4 and hematocrit at 26.9. Platelet count was normal. Chemistries were performed on 08/05/2021. Sodium was low at 134 with normal potassium. Chloride was low at 96 and CO2 elevated at 40. BUN was 21 and creatinine 0.6 with a GFR that calculated at 100.3. Glucose was 163. Calcium was low at 7.9. Alkaline phosphatase was elevated at 131. Total protein low at 5.3, albumin at 1.3. SARS-CoV-2 RNA was positive on 07/21/2021. Arterial blood gas was performed on 08/05/2021, this revealed saturation at 84%, pH was 7.37, pCO2 was elevated at 68, and pO2 was 50. Bicarbonate was 38 on 100% FiO2. DIAGNOSTIC RESULTS: Chest x-ray was performed on 08/04/2021 revealing normal lung volume, stable bilateral perihilar and basilar opacities. Stable pleural spaces. Stable cardiomediastinal silhouette and great vessels. Stable life support devices and stable bilateral opacities. IMPRESSION AND PLAN: The patient is an unfortunate 66-year-old woman who developed severe COVID symptoms. She is on maximal life support, but despite this, it is failing. Neurologic examination in this situation with this level of sedation and paralyzing agents is entirely invalid. I do not see evidence of brainstem reflexes, but cannot draw any conclusions regarding brain . EEG would not be helpful with this level of sedation as it would also be altered. I spoke with the nurse extensively. Any attempted movement causes her to desaturate further. She would not be a good candidate for imaging studies. Overall, in this situation, it would appear the prognosis is extremely poor, regardless of neurologic input. HUDSON DR: Chani TID: [id number] CC: BALDEV MA MD
[2021-08-06] VITALS (25 sets, daily range): BP systolic 85–109; BP diastolic 54–72
[2021-08-06] MEDS: DEXMEDETOMIDINE 400 MCG in IV NORMAL SALINE 100ML 96 ML IV PRN ×5 (01:23→22:02)
[2021-08-06] MEDS: INSULIN LISPRO 300 UNITS/3 ML VIAL. SQ SCH ×4 (05:25→23:26)
[2021-08-06] MEDS: PIPERACILLIN/TAZOBACTAM 3.375 GM in IV NORMAL SALINE 50ML 50 ML IV SCH ×4 (05:26→23:26)
[2021-08-06] MEDS: NORCURON - VECURONIUM 50 MG in IV NORMAL SALINE 50ML 50 ML IV PRN ×2 (05:27→21:09)
[2021-08-06 05:43] LABS: HEMATOCRIT 25.4 % (36.0-47.0); RED BLOOD COUNT 2.77 x10^6/uL (3.50-5.40)
[2021-08-06 05:54] LABS: CREATININE 0.6 mg/dL (0.6-1.0); GFR 100.3; POTASSIUM 3.8 mmol/L (3.5-5.1)
[2021-08-06] MEDS: PROPOFOL 100 ML IV PRN ×2 (06:18→16:25)
--- NOTE | 2021-08-06 06:52 | PDOC ---
PULMONARY PROGRESS NOTES DATE: 08/06/21 TIME: 06:50 Subjective on vent sedated on prop versed precedex fentanyl on vec gtt 100% FiO2 11 of PEEP on low dose levo Vitals Vital Signs Date Time Temp Pulse Resp B/P (MAP) Pulse Ox O2 Delivery O2 Flow Rate FiO2 08/06/21 06:00 92 24 103/65 (78) 81 08/06/21 05:00 Ventilator 08/06/21 04:00 97.3 97.3 Comments ros unable to obtain on vent sedated HEENT: Other (nc at perrl orally intubated neck no lad no thyromegaly) Lungs: Other (b lat diminished ) Cardiovascular: S1, S2 Abdomen: Soft Extremities: Other (Mild edema) Skin: No Rashes Labs Laboratory Tests Test 08/04/21 08:10 08/04/21 12:40 08/04/21 16:50 08/04/21 23:32 O2 Saturation 83 % (92-99) Arterial Blood pH 7.33 (7.35-7.45) Arterial Blood pCO2 at Patient Temp 73 mmHg (35-46) Arterial Blood pO2 at Patient Temp 49 mmHg (65-108) Arterial Blood HCO3 37 mmol/L (21-28) Arterial Blood Base Excess 9 mmol/L (-3-3) FiO2 100 Glucose (Fingerstick) 170 mg/dL (70-99) 157 mg/dL (70-99) 140 mg/dL (70-99) Test 08/05/21 06:16 08/05/21 06:20 08/05/21 08:00 08/05/21 11:14 Glucose (Fingerstick) 144 mg/dL (70-99) 158 mg/dL (70-99) White Blood Count 14.1 x10^3/uL (4.0-11.0) Red Blood Count 2.96 x10^6/uL (3.50-5.40) Hemoglobin 8.4 g/dL (12.0-15.5) Hematocrit 26.9 % (36.0-47.0) Mean Corpuscular Volume 91 fL (79-100) Mean Corpuscular Hemoglobin 29 pg (25-35) Mean Corpuscular Hemoglobin Concent 31 g/dL (31-37) Red Cell Distribution Width 17.1 % (11.5-14.5) Platelet Count 324 x10^3/uL (140-400) Neutrophils (%) (Auto) 83 % (31-73) Lymphocytes (%) (Auto) 6 % (24-48) Monocytes (%) (Auto) 4 % (0-9) Eosinophils (%) (Auto) 6 % (0-3) Basophils (%) (Auto) 1 % (0-3) Neutrophils # (Auto) 11.8 x10^3/uL (1.8-7.7) Lymphocytes # (Auto) 0.9 x10^3/uL (1.0-4.8) Monocytes # (Auto) 0.5 x10^3/uL (0.0-1.1) Eosinophils # (Auto) 0.8 x10^3/uL (0.0-0.7) Basophils # (Auto) 0.1 x10^3/uL (0.0-0.2) Sodium Level 134 mmol/L (136-145) Potassium Level 3.7 mmol/L (3.5-5.1) Chloride Level 96 mmol/L (98-107) Carbon Dioxide Level 40 mmol/L (21-32) Anion Gap (6-14) Blood Urea Nitrogen 21 mg/dL (7-20) Creatinine 0.6 mg/dL (0.6-1.0) Estimated GFR (Cockcroft-Gault) 100.3 BUN/Creatinine Ratio 35 (6-20) Glucose Level 163 mg/dL (70-99) Calcium Level 7.9 mg/dL (8.5-10.1) Total Bilirubin 0.3 mg/dL (0.2-1.0) Aspartate Amino Transf (AST/SGOT) 29 U/L (15-37) Alanine Aminotransferase (ALT/SGPT) 31 U/L (14-59) Alkaline Phosphatase 131 U/L (46-116) Total Protein 5.5 g/dL (6.4-8.2) Albumin 1.3 g/dL (3.4-5.0) Albumin/Globulin Ratio 0.3 (1.0-1.7) O2 Saturation 84 % (92-99) Arterial Blood pH 7.37 (7.35-7.45) Arterial Blood pCO2 at Patient Temp 68 mmHg (35-46) Arterial Blood pO2 at Patient Temp 50 mmHg (65-108) Arterial Blood HCO3 38 mmol/L (21-28) Arterial Blood Base Excess 11 mmol/L (-3-3) FiO2 100% vent Test 08/05/21 17:38 08/05/21 23:41 08/06/21 05:20 08/06/21 05:25 Glucose (Fingerstick) 166 mg/dL (70-99) 137 mg/dL (70-99) 149 mg/dL (70-99) White Blood Count 13.0 x10^3/uL (4.0-11.0) Red Blood Count 2.77 x10^6/uL (3.50-5.40) Hemoglobin 8.0 g/dL (12.0-15.5) Hematocrit 25.4 % (36.0-47.0) Mean Corpuscular Volume 92 fL (79-100) Mean Corpuscular Hemoglobin 29 pg (25-35) Mean Corpuscular Hemoglobin Concent 32 g/dL (31-37) Red Cell Distribution Width 18.0 % (11.5-14.5) Platelet Count 312 x10^3/uL (140-400) Test 08/06/21 05:30 Sodium Level 136 mmol/L (136-145) Potassium Level 3.8 mmol/L (3.5-5.1) Chloride Level 97 mmol/L (98-107) Carbon Dioxide Level 37 mmol/L (21-32) Anion Gap 2 (6-14) Blood Urea Nitrogen 23 mg/dL (7-20) Creatinine 0.6 mg/dL (0.6-1.0) Estimated GFR (Cockcroft-Gault) 100.3 Glucose Level 157 mg/dL (70-99) Calcium Level 8.0 mg/dL (8.5-10.1) Laboratory Tests Test 08/05/21 08:00 08/05/21 11:14 08/05/21 17:38 08/05/21 23:41 O2 Saturation 84 % (92-99) Arterial Blood pH 7.37 (7.35-7.45) Arterial Blood pCO2 at Patient Temp 68 mmHg (35-46) Arterial Blood pO2 at Patient Temp 50 mmHg (65-108) Arterial Blood HCO3 38 mmol/L (21-28) Arterial Blood Base Excess 11 mmol/L (-3-3) FiO2 100% vent Glucose (Fingerstick) 158 mg/dL (70-99) 166 mg/dL (70-99) 137 mg/dL (70-99) Test 08/06/21 05:20 08/06/21 05:25 08/06/21 05:30 White Blood Count 13.0 x10^3/uL (4.0-11.0) Red Blood Count 2.77 x10^6/uL (3.50-5.40) Hemoglobin 8.0 g/dL (12.0-15.5) Hematocrit 25.4 % (36.0-47.0) Mean Corpuscular Volume 92 fL (79-100) Mean Corpuscular Hemoglobin 29 pg (25-35) Mean Corpuscular Hemoglobin Concent 32 g/dL (31-37) Red Cell Distribution Width 18.0 % (11.5-14.5) Platelet Count 312 x10^3/uL (140-400) Glucose (Fingerstick) 149 mg/dL (70-99) Sodium Level 136 mmol/L (136-145) Potassium Level 3.8 mmol/L (3.5-5.1) Chloride Level 97 mmol/L (98-107) Carbon Dioxide Level 37 mmol/L (21-32) Anion Gap 2 (6-14) Blood Urea Nitrogen 23 mg/dL (7-20) Creatinine 0.6 mg/dL (0.6-1.0) Estimated GFR (Cockcroft-Gault) 100.3 Glucose Level 157 mg/dL (70-99) Calcium Level 8.0 mg/dL (8.5-10.1) Medications Active Scripts Medications Dose Route/Sig Max Daily Dose Days Date Category Comments cxr 08/04 reviewed ett ok b lat infilt Impression . IMPRESSION: 1. Acute hypoxemic respiratory failure secondary to COVID-19 viral pneumonia/ARDS. Intubated 07/23/2021 2. COVID-19 viral pneumonia/acute respiratory distress syndrome. 3. Possible bacterial pneumonia. 4. Obesity. 5. Abnormal chest x-ray consistent with viral pneumonia 6. Hypotension, improved 7. Leukocytosis, Plan . Updated 08/06 cont vent support setting reviewed prognosis very poor family meeting 08/05 family wants to cont full support We will continue current vent settings, agree with not increasing PEEP, likelihood of barotrauma leading to pneumothorax is high, agree increasing PEEP will not make a difference. levo to keep map 65 abx Steroids Patient given IV Lasix, no improvement in Continue DVT prophylaxis Continue nutritional support discussed w rn rt Updated 08/05 cont vent support setting reviewed prognosis very poor family meeting today We will continue current vent settings, we will not increase PEEP, likelihood of barotrauma leading to pneumothorax is high, agree increasing PEEP will not make a difference. levo to keep map 65 abx Steroids Patient given IV Lasix, no improvement in Continue DVT prophylaxis Continue nutritional support discussed w rn rt Updated 08/04 We will continue current vent settings, we will not increase PEEP, likelihood of barotrauma leading to pneumothorax is high, I do not think increasing PEEP will make a difference. Plateau pressure is currently 34 Wean norepinephrine off Continue Zosyn Steroids Patient given IV Lasix, no improvement in Continue DVT prophylaxis Continue nutritional support updated 08/03 As needed Lasix Increase minute ventilation Norepinephrine for mean arterial pressure above 60 Continue Zosyn Continue steroids Discussed with RN and RT Updated 08/02 We will increase PEEP to 10, decreased driving pressure, Saturations continue to be low, Continue steroids Remdesivir Zosyn Patient not expected to survive Patient is a full code, previous conversations with family, family wishes to be aggressive JANELLE DENTON MD Aug 06, 2021 06:52
[2021-08-06 07:31] LABS: BASE EXCESS ABG 4 mmol/L (-3-3); HCO3 ABG 31 mmol/L (21-28); PCO2 ABG 57 mmHg (35-46); PO2 ABG 51 mmHg (65-108); SAT O2 ABG 82 % (92-99)
[2021-08-06] MEDS: ZINC SULFATE 220 MG CAPSULE. PO SCH (08:45)
[2021-08-06] MEDS: ASCORBIC ACID 500 MG TABLET PO SCH (08:45)
[2021-08-06] MEDS: ENOXAPARIN 40 MG/0.4 ML SYRINGE. SQ SCH (08:47)
[2021-08-06] MEDS: IV NORMAL SALINE 1000ML BAG 1,000 ML IV SCH (08:48)
[2021-08-06] MEDS: PANTOPRAZOLE IV PUSH 40 MG VIAL. IVP SCH ×2 (08:49→08:51)
[2021-08-06] MEDS: MIDAZOLAM 100mg/100ml NS BAG 100 ML IV PRN ×2 (09:07→19:47)
[2021-08-06 09:32] LABS: FIO2 ABG 100% VENT
--- NOTE | 2021-08-06 10:54 | PDOC ---
[facility] [facility] PROGRESS NOTE Date of Service DOS: DATE: 08/06/21 TIME: 10:53 Chief Complaint Chief Complaint acute hypoxic respiratory failure requiring mechanical ventilation COVID 19 pneumonia, standard treatement protocol . History of Present Illness History of Present Illness 07/17/2021 No acute events overnight. Patient saturating 90% on 40% Vapotherm. No concerns nursing at this time. Patient's chart, labs, images were reviewed and discussed with RN In addition to my E/M visit, advance care planning done with A total time of 20 minutes was spent from 920 to 940 face to face in discussion with the patient regarding their goals of care, CODE STATUS. 07/18/2021 No acute events overnight. Patient saturating 89% on Vapotherm. No dyspnea upon exertion or at rest. Pending chest x-ray results. No other concerns from nursing. 07/19/21 No acute events overnight. Saturating 91% on vapotherm. No dyspnea and is motiviated to get out of bed onto chair. total critical care time spent of 33 minutes 07/20/2021 No acute events overnight. Patient seen and examined bedside. Saturating well on Vapotherm. Patient accepted at [facility]. No concerns with nursing. A total of 35 minutes of critical care time was spent in reviewing chart, labs, and images. Discussed with RN and TRAVIS. 07/21/2021 No acute events overnight. Unfortunately patient was unable to be transferred to [facility] because of unable to tolerate BiPAP. At this point we will continue BiPAP and Vapotherm for inpatient care. Patient's chart, labs, images were reviewed and discussed with RN A total of 32 minutes of critical care time was spent in reviewing chart, labs, and images. Discussed with RN and SW. 07/22/2021 No acute events overnight. Patient seen and examined bedside. Saturating 100% on FiO2 and 15 L nonrebreather mask. Does complain of diarrhea and one-time Imodium was administered. Afebrile last 24 hours. Continue PT OT modalities. Encourage prone positioning when able. Patient's chart, labs, images were reviewed and discussed with RN A total of 32 minutes of critical care time was spent in reviewing chart, labs, and images. Discussed with RN and SW. 07/23/2021 No acute events overnight. Patient seen and examined resting comfortably at bedside. Saturating 83% on Vapotherm. Patient did have dyspneic episodes overnight desaturating down to 70s and 80s. She was offered BiPAP but she is declining and wishing to be DNR today. Patient's chart, labs, images were reviewed and discussed with RN 07/24/2021: Patient transferred to the ICU and intubated overnight. Currently afebrile, tachycardic. On vent with FiO2 100%, PEEP 8. We will continue steroids to complete 10-day course; begin taper tomorrow. 07/25/2021: Afebrile, no acute events overnight. On vent with FiO2 100%, PEEP 8. Completed remdesivir. Day 10 of steroids, will begin taper over 10 days. Continue supportive care. Critical care time 30 min spent reviewing charts, reviewing imaging, reviewing labs, and discussion with RN. 07/26/2021: Afebrile. On vent with FiO2 100%, PEEP 8. Completed remdesivir and 10 days of steroids; will begin slow steroid taper. Chest x-ray from 07/24 showed stable diffuse infiltrate. Leukocytosis likely secondary to steroid use. Will obtain CRP and procalcitonin. Continue supportive care. Critical care time 30 min spent reviewing charts, reviewing imaging, reviewing labs, and discussion with RN. 07/27/2021: Afebrile. On vent with FiO2 100%, PEEP 9. CRP 15, procalcitonin 0.10. WBC 17.2. We will hold off on further antibiotics for now continue to monitor. Completed remdesivir and 10 days of steroids; continue slow Decadron taper. Continue supportive care. Critical care time 30 min spent reviewing charts, reviewing imaging, reviewing labs, and discussion with RN. 07/28/2021: Afebrile. On vent FiO2 100%, PEEP 9. Completed remdesivir and 10 days of steroids; continue slow Decadron taper. Continue supportive care; on vasopressors. Critical care time 30 min spent reviewing charts, reviewing imaging, reviewing labs, and discussion with RN. 07/29/2021: Afebrile, no significant change overnight. On vent FiO2 100%, PEEP 9. Completed remdesivir and 10 days of steroids; continue slow Decadron taper. Continue supportive care; on vasopressors. Critical care time 30 min spent reviewing charts, reviewing imaging, reviewing labs, and discussion with RN. 07/30/2021: Afebrile. On vent with FiO2 100%, PEEP 9. Completed remdesivir and 10 days of steroids; continue slow Decadron taper (last day of Decadron taper should be tomorrow). Empiric antibiotics, supportive care; on Levophed. Empiric antibiotics could likely stop after Decadron taper; will obtain procalcitonin and chest x-ray tomorrow. Critical care time 30 min spent reviewing charts, reviewing imaging, reviewing labs, and discussion with RN. 07/31 Patient remains afebrile. Remains ventilated and sedated. Decadron taper finished today. Normal procalcitonin on the labs chest x-ray mildly improved. Pulmonary continues to follow. Continuing current plan, will wean oxygen as tolerated. 08/01 Patient evaluated examined at bedside. Some low saturations this morning. Remains ventilated and sedated. Continue COVID treatment. 08/02 Patient evaluated examined at bedside. She is still having lower saturation and this low 80s and upper 70s despite high oxygen provided. Contacted patient's son today and discussed case with him. He is well aware of her condition and at this point poor prognosis. I did bring up the idea of the DNR DNI and starting to look towards a hospice route as patient has been intubated for 10 days and is actually worsening. Patient son reported that he would like to talk with his and sister before making a final decision. Will likely have a family meeting with them Saturday or Saturday. 08/03 Patient evaluated examined at bedside. Saturations continued to drop despite ventilator adjustments. Very poor prognosis. Discussed with family yesterday. Will attempt to call again today. Otherwise continue current plan. 08/04 Evaluated examined at bedside, oxygen saturations definitely worse today. Cont acted patient's son planning for family meeting tomorrow in person. 08/05 Patient seen and examined at bedside. Continues to require high levels of oxygen. Met with family at bedside discussing poor prognosis. After discussing family decided they would like to continue full code for right now and assess for any sort of brain injury. Informed them that this would likely require imaging with how much sedation she is on and there is a chance she will not survive the actual process. They would like to think about it more at this point. We will check in with him again tomorrow. 08/06 No major clinical changes. Continues to have high ventilator settings. Really not safe for transport for imaging right now. Poor prognosis. Vitals/I&O Vitals/I&O: Vital Signs Date Time Temp Pulse Resp B/P (MAP) Pulse Ox O2 Delivery O2 Flow Rate FiO2 08/06/21 09:22 79 Ventilator 08/06/21 06:00 92 24 103/65 (78) 08/06/21 04:00 97.3 97.3 I & O 08/05/21 08/05/21 08/06/21 15:00 23:00 07:00 Intake Total 250 ml 1857 ml 1946 ml Output Total 330 ml 325 ml 350 ml Balance -80 ml 1532 ml 1596 ml Physical Exam General: Cooperative, No acute distress, Other (ET and NG tube in place) Heart: Other (Tachycardic) Lungs: Other (b lat diminished ) Abdomen: Normal bowel sounds, Soft (obese, ) Extremities: No cyanosis, No edema, Normal pulses Skin: No rashes, No significant lesion Labs Labs: Laboratory Tests Test 08/05/21 11:14 08/05/21 17:38 08/05/21 23:41 08/06/21 05:20 Glucose (Fingerstick) 158 mg/dL (70-99) 166 mg/dL (70-99) 137 mg/dL (70-99) White Blood Count 13.0 x10^3/uL (4.0-11.0) Red Blood Count 2.77 x10^6/uL (3.50-5.40) Hemoglobin 8.0 g/dL (12.0-15.5) Hematocrit 25.4 % (36.0-47.0) Mean Corpuscular Volume 92 fL (79-100) Mean Corpuscular Hemoglobin 29 pg (25-35) Mean Corpuscular Hemoglobin Concent 32 g/dL (31-37) Red Cell Distribution Width 18.0 % (11.5-14.5) Platelet Count 312 x10^3/uL (140-400) Test 08/06/21 05:25 08/06/21 05:30 08/06/21 08:00 Glucose (Fingerstick) 149 mg/dL (70-99) Sodium Level 136 mmol/L (136-145) Potassium Level 3.8 mmol/L (3.5-5.1) Chloride Level 97 mmol/L (98-107) Carbon Dioxide Level 37 mmol/L (21-32) Anion Gap 2 (6-14) Blood Urea Nitrogen 23 mg/dL (7-20) Creatinine 0.6 mg/dL (0.6-1.0) Estimated GFR (Cockcroft-Gault) 100.3 Glucose Level 157 mg/dL (70-99) Calcium Level 8.0 mg/dL (8.5-10.1) O2 Saturation 82 % (92-99) Arterial Blood pH 7.35 (7.35-7.45) Arterial Blood pCO2 at Patient Temp 57 mmHg (35-46) Arterial Blood pO2 at Patient Temp 51 mmHg (65-108) Arterial Blood HCO3 31 mmol/L (21-28) Arterial Blood Base Excess 4 mmol/L (-3-3) FiO2 100% vent Comment Review of Relevant I have reviewed the following items jluis (where applicable) has been applied. Justifications for Admission Other Justification JAMEE ESPINAL MD Aug 06, 2021 10:54
[2021-08-06] MEDS ORDERED: ALBUMIN HUMAN 25% 100 ML IV ONE (11:30)
[2021-08-06] MEDS ORDERED: FUROSEMIDE 40 MG/4 ML VIAL. IVP ONE (13:00)
[2021-08-06] MEDS: fentaNYL HIGH DOSE PCA 55 ML IV PRN (19:47)
[2021-08-07] VITALS (24 sets, daily range): BP systolic 71–100; BP diastolic 45–65
[2021-08-07] MEDS: DEXMEDETOMIDINE 400 MCG in IV NORMAL SALINE 100ML 96 ML IV PRN ×6 (02:41→22:51)
[2021-08-07] MEDS: PROPOFOL 100 ML IV PRN ×3 (04:36→22:50)
[2021-08-07] MEDS: PIPERACILLIN/TAZOBACTAM 3.375 GM in IV NORMAL SALINE 50ML 50 ML IV SCH ×3 (05:24→17:36)
[2021-08-07] MEDS: MIDAZOLAM 100mg/100ml NS BAG 100 ML IV PRN ×2 (05:25→16:48)
[2021-08-07] MEDS: INSULIN LISPRO 300 UNITS/3 ML VIAL. SQ SCH ×3 (05:29→17:43)
[2021-08-07 05:45] LABS: BASO # 0.1 x10^3/uL (0.0-0.2); BASO % 1 % (0-3); EOS # 0.7 x10^3/uL (0.0-0.7); EOS % 5 % (0-3); HEMATOCRIT 24.8 % (36.0-47.0); HEMOGLOBIN 7.9 g/dL (12.0-15.5); LYMPH # 1.1 x10^3/uL (1.0-4.8); LYMPH % 9 % (24-48); MEAN CORPUSCULAR HEMOGLOBIN 29 pg (25-35); MEAN CORPUSCULAR HGB CONC 32 g/dL (31-37); MEAN CORPUSCULAR VOLUME 92 fL (79-100); MONO # 0.4 x10^3/uL (0.0-1.1); MONO % 3 % (0-9); NEUT # 10.4 x10^3/uL (1.8-7.7); NEUT % 82 % (31-73); PLATELET COUNT 369 x10^3/uL (140-400); RED BLOOD COUNT 2.69 x10^6/uL (3.50-5.40); WHITE BLOOD COUNT 12.7 x10^3/uL (4.0-11.0)
[2021-08-07 06:04] LABS: CALCIUM 8.2 mg/dL (8.5-10.1); CREATININE 0.7 mg/dL (0.6-1.0); MAGNESIUM 2.3 mg/dL (1.8-2.4); POTASSIUM 3.7 mmol/L (3.5-5.1)
--- NOTE | 2021-08-07 07:54 | PDOC ---
PULMONARY PROGRESS NOTES DATE: 08/07/21 TIME: 07:54 Subjective Patient remains critically ill, currently on 100% FiO2 11 of PEEP Driving pressure of 24 plateau pressure 37 Vitals Vital Signs Date Time Temp Pulse Resp B/P (MAP) Pulse Ox O2 Delivery O2 Flow Rate FiO2 08/07/21 06:00 109 24 93/57 (69) 76 08/07/21 04:00 97.8 97.8 08/07/21 03:49 Ventilator Comments ros unable to obtain on vent sedated Lungs: Clear, Other Cardiovascular: S1, S2 Abdomen: Soft Extremities: Other (Mild edema) Skin: No Rashes Labs Laboratory Tests Test 08/05/21 08:00 08/05/21 11:14 08/05/21 17:38 08/05/21 23:41 O2 Saturation 84 % (92-99) Arterial Blood pH 7.37 (7.35-7.45) Arterial Blood pCO2 at Patient Temp 68 mmHg (35-46) Arterial Blood pO2 at Patient Temp 50 mmHg (65-108) Arterial Blood HCO3 38 mmol/L (21-28) Arterial Blood Base Excess 11 mmol/L (-3-3) FiO2 100% vent Glucose (Fingerstick) 158 mg/dL (70-99) 166 mg/dL (70-99) 137 mg/dL (70-99) Test 08/06/21 05:20 08/06/21 05:25 08/06/21 05:30 08/06/21 08:00 White Blood Count 13.0 x10^3/uL (4.0-11.0) Red Blood Count 2.77 x10^6/uL (3.50-5.40) Hemoglobin 8.0 g/dL (12.0-15.5) Hematocrit 25.4 % (36.0-47.0) Mean Corpuscular Volume 92 fL (79-100) Mean Corpuscular Hemoglobin 29 pg (25-35) Mean Corpuscular Hemoglobin Concent 32 g/dL (31-37) Red Cell Distribution Width 18.0 % (11.5-14.5) Platelet Count 312 x10^3/uL (140-400) Glucose (Fingerstick) 149 mg/dL (70-99) Sodium Level 136 mmol/L (136-145) Potassium Level 3.8 mmol/L (3.5-5.1) Chloride Level 97 mmol/L (98-107) Carbon Dioxide Level 37 mmol/L (21-32) Anion Gap 2 (6-14) Blood Urea Nitrogen 23 mg/dL (7-20) Creatinine 0.6 mg/dL (0.6-1.0) Estimated GFR (Cockcroft-Gault) 100.3 Glucose Level 157 mg/dL (70-99) Calcium Level 8.0 mg/dL (8.5-10.1) O2 Saturation 82 % (92-99) Arterial Blood pH 7.35 (7.35-7.45) Arterial Blood pCO2 at Patient Temp 57 mmHg (35-46) Arterial Blood pO2 at Patient Temp 51 mmHg (65-108) Arterial Blood HCO3 31 mmol/L (21-28) Arterial Blood Base Excess 4 mmol/L (-3-3) FiO2 100% vent Test 08/06/21 11:43 08/06/21 17:37 08/06/21 23:25 08/07/21 05:22 Glucose (Fingerstick) 158 mg/dL (70-99) 139 mg/dL (70-99) 154 mg/dL (70-99) 141 mg/dL (70-99) Test 08/07/21 05:30 White Blood Count 12.7 x10^3/uL (4.0-11.0) Red Blood Count 2.69 x10^6/uL (3.50-5.40) Hemoglobin 7.9 g/dL (12.0-15.5) Hematocrit 24.8 % (36.0-47.0) Mean Corpuscular Volume 92 fL (79-100) Mean Corpuscular Hemoglobin 29 pg (25-35) Mean Corpuscular Hemoglobin Concent 32 g/dL (31-37) Red Cell Distribution Width 18.0 % (11.5-14.5) Platelet Count 369 x10^3/uL (140-400) Neutrophils (%) (Auto) 82 % (31-73) Lymphocytes (%) (Auto) 9 % (24-48) Monocytes (%) (Auto) 3 % (0-9) Eosinophils (%) (Auto) 5 % (0-3) Basophils (%) (Auto) 1 % (0-3) Neutrophils # (Auto) 10.4 x10^3/uL (1.8-7.7) Lymphocytes # (Auto) 1.1 x10^3/uL (1.0-4.8) Monocytes # (Auto) 0.4 x10^3/uL (0.0-1.1) Eosinophils # (Auto) 0.7 x10^3/uL (0.0-0.7) Basophils # (Auto) 0.1 x10^3/uL (0.0-0.2) Sodium Level 137 mmol/L (136-145) Potassium Level 3.7 mmol/L (3.5-5.1) Chloride Level 97 mmol/L (98-107) Carbon Dioxide Level 37 mmol/L (21-32) Anion Gap 3 (6-14) Blood Urea Nitrogen 28 mg/dL (7-20) Creatinine 0.7 mg/dL (0.6-1.0) Estimated GFR (Cockcroft-Gault) 84.0 Glucose Level 136 mg/dL (70-99) Calcium Level 8.2 mg/dL (8.5-10.1) Magnesium Level 2.3 mg/dL (1.8-2.4) Laboratory Tests Test 08/06/21 08:00 08/06/21 11:43 08/06/21 17:37 08/06/21 23:25 O2 Saturation 82 % (92-99) Arterial Blood pH 7.35 (7.35-7.45) Arterial Blood pCO2 at Patient Temp 57 mmHg (35-46) Arterial Blood pO2 at Patient Temp 51 mmHg (65-108) Arterial Blood HCO3 31 mmol/L (21-28) Arterial Blood Base Excess 4 mmol/L (-3-3) FiO2 100% vent Glucose (Fingerstick) 158 mg/dL (70-99) 139 mg/dL (70-99) 154 mg/dL (70-99) Test 08/07/21 05:22 08/07/21 05:30 Glucose (Fingerstick) 141 mg/dL (70-99) White Blood Count 12.7 x10^3/uL (4.0-11.0) Red Blood Count 2.69 x10^6/uL (3.50-5.40) Hemoglobin 7.9 g/dL (12.0-15.5) Hematocrit 24.8 % (36.0-47.0) Mean Corpuscular Volume 92 fL (79-100) Mean Corpuscular Hemoglobin 29 pg (25-35) Mean Corpuscular Hemoglobin Concent 32 g/dL (31-37) Red Cell Distribution Width 18.0 % (11.5-14.5) Platelet Count 369 x10^3/uL (140-400) Neutrophils (%) (Auto) 82 % (31-73) Lymphocytes (%) (Auto) 9 % (24-48) Monocytes (%) (Auto) 3 % (0-9) Eosinophils (%) (Auto) 5 % (0-3) Basophils (%) (Auto) 1 % (0-3) Neutrophils # (Auto) 10.4 x10^3/uL (1.8-7.7) Lymphocytes # (Auto) 1.1 x10^3/uL (1.0-4.8) Monocytes # (Auto) 0.4 x10^3/uL (0.0-1.1) Eosinophils # (Auto) 0.7 x10^3/uL (0.0-0.7) Basophils # (Auto) 0.1 x10^3/uL (0.0-0.2) Sodium Level 137 mmol/L (136-145) Potassium Level 3.7 mmol/L (3.5-5.1) Chloride Level 97 mmol/L (98-107) Carbon Dioxide Level 37 mmol/L (21-32) Anion Gap 3 (6-14) Blood Urea Nitrogen 28 mg/dL (7-20) Creatinine 0.7 mg/dL (0.6-1.0) Estimated GFR (Cockcroft-Gault) 84.0 Glucose Level 136 mg/dL (70-99) Calcium Level 8.2 mg/dL (8.5-10.1) Magnesium Level 2.3 mg/dL (1.8-2.4) Medications Active Scripts Medications Dose Route/Sig Max Daily Dose Days Date Category Impression . IMPRESSION: 1. Acute hypoxemic respiratory failure secondary to COVID-19 viral pneumonia/ARDS. Intubated 07/23/2021 2. COVID-19 viral pneumonia/acute respiratory distress syndrome. 3. Possible bacterial pneumonia. 4. Obesity. 5. Abnormal chest x-ray consistent with viral pneumonia 6. Hypotension, 7. Leukocytosis, Chest x-ray reviewed 08/07 IMPRESSION: 1. Stable life support devices. 2. Stable bilateral perihilar and basilar opacities. Plan . Updated 08/07 Continue current support, avoid increasing PEEP, to avoid further barotrauma Patient not expected to survive We will continue current support DVT GI prophylaxis Chest x-ray reviewed, IV Lasix given, no improvement in x-ray findings Continue empiric Zosyn. Updated 08/06 cont vent support setting reviewed prognosis very poor family meeting 08/05 family wants to cont full support We will continue current vent settings, agree with not increasing PEEP, likelihood of barotrauma leading to pneumothorax is high, agree increasing PEEP will not make a difference. levo to keep map 65 abx Steroids Patient given IV Lasix, no improvement in Continue DVT prophylaxis Continue nutritional support discussed w rn rt Updated 08/05 cont vent support setting reviewed prognosis very poor family meeting today We will continue current vent settings, we will not increase PEEP, likelihood of barotrauma leading to pneumothorax is high, agree increasing PEEP will not make a difference. levo to keep map 65 abx Steroids Patient given IV Lasix, no improvement in Continue DVT prophylaxis Continue nutritional support discussed w rn rt Updated 08/04 We will continue current vent settings, we will not increase PEEP, likelihood of barotrauma leading to pneumothorax is high, I do not think increasing PEEP will make a difference. Plateau pressure is currently 34 Wean norepinephrine off Continue Zosyn Steroids Patient given IV Lasix, no improvement in Continue DVT prophylaxis Continue nutritional support SJ MORA MD Aug 07, 2021 07:54
[2021-08-07 08:15] LABS: BASE EXCESS ABG 7 mmol/L (-3-3); HCO3 ABG 34 mmol/L (21-28); SAT O2 ABG 78 % (92-99)
[2021-08-07 08:18] LABS: FIO2 ABG 100; PCO2 ABG 65 mmHg (35-46); PO2 ABG 45 mmHg (65-108)
--- NOTE | 2021-08-07 08:41 | PDOC ---
PROGRESS NOTES Date of Service: DATE: 08/07/21 TIME: 08:40 Chief Complaint Chief Complaint acute hypoxic respiratory failure requiring mechanical ventilation COVID 19 pneumonia, standard treatement protocol History of Present Illness History of Present Illness pt admitted to [facility] days ago for noted shortness of rbeath, was COVID positive ,and worsened over days. weakness and lethargy worse, hypoxia worse over days, transferred here for poss ICU need, on NRB, risk of intubation is high, . History of Present Illness History of Present Illness 07/17/2021 No acute events overnight. Patient saturating 90% on 40% Vapotherm. No concerns nursing at this time. Patient's chart, labs, images were reviewed and discussed with RN In addition to my E/M visit, advance care planning done with A total time of 20 minutes was spent from 920 to 940 face to face in discussion with the patient regarding their goals of care, CODE STATUS. 07/18/2021 No acute events overnight. Patient saturating 89% on Vapotherm. No dyspnea upon exertion or at rest. Pending chest x-ray results. No other concerns from nursing. 07/19/21 No acute events overnight. Saturating 91% on vapotherm. No dyspnea and is motiviated to get out of bed onto chair. total critical care time spent of 33 minutes 07/20/2021 No acute events overnight. Patient seen and examined bedside. Saturating well on Vapotherm. Patient accepted at [facility]. No concerns with nursing. A total of 35 minutes of critical care time was spent in reviewing chart, labs, and images. Discussed with RN and TRAVIS. 07/21/2021 No acute events overnight. Unfortunately patient was unable to be transferred to [facility] because of unable to tolerate BiPAP. At this point we will continue BiPAP and Vapotherm for inpatient care. Patient's chart, labs, images were reviewed and discussed with RN A total of 32 minutes of critical care time was spent in reviewing chart, labs, and images. Discussed with RN and SW. 07/22/2021 No acute events overnight. Patient seen and examined bedside. Saturating 100% on FiO2 and 15 L nonrebreather mask. Does complain of diarrhea and one-time Imodium was administered. Afebrile last 24 hours. Continue PT OT modalities. Encourage prone positioning when able. Patient's chart, labs, images were reviewed and discussed with RN A total of 32 minutes of critical care time was spent in reviewing chart, labs, and images. Discussed with RN and SW. 07/23/2021 No acute events overnight. Patient seen and examined resting comfortably at bedside. Saturating 83% on Vapotherm. Patient did have dyspneic episodes overnight desaturating down to 70s and 80s. She was offered BiPAP but she is declining and wishing to be DNR today. Patient's chart, labs, images were reviewed and discussed with RN 07/24/2021: Patient transferred to the ICU and intubated overnight. Currently afebrile, tachycardic. On vent with FiO2 100%, PEEP 8. We will continue steroids to complete 10-day course; begin taper tomorrow. 07/25/2021: Afebrile, no acute events overnight. On vent with FiO2 100%, PEEP 8. Completed remdesivir. Day 10 of steroids, will begin taper over 10 days. Continue supportive care. Critical care time 30 min spent reviewing charts, reviewing imaging, reviewing labs, and discussion with RN. 07/26/2021: Afebrile. On vent with FiO2 100%, PEEP 8. Completed remdesivir and 10 days of steroids; will begin slow steroid taper. Chest x-ray from 07/24 showed stable diffuse infiltrate. Leukocytosis likely secondary to steroid use. Will obtain CRP and procalcitonin. Continue supportive care. Critical care time 30 min spent reviewing charts, reviewing imaging, reviewing labs, and discussion with RN. 07/27/2021: Afebrile. On vent with FiO2 100%, PEEP 9. CRP 15, procalcitonin 0.10. WBC 17.2. We will hold off on further antibiotics for now continue to monitor. Completed remdesivir and 10 days of steroids; continue slow Decadron taper. Continue supportive care. Critical care time 30 min spent reviewing charts, reviewing imaging, reviewing labs, and discussion with RN. 07/28/2021: Afebrile. On vent FiO2 100%, PEEP 9. Completed remdesivir and 10 days of steroids; continue slow Decadron taper. Continue supportive care; on vasopressors. Critical care time 30 min spent reviewing charts, reviewing imaging, reviewing labs, and discussion with RN. 07/29/2021: Afebrile, no significant change overnight. On vent FiO2 100%, PEEP 9. Completed remdesivir and 10 days of steroids; continue slow Decadron taper. Continue supportive care; on vasopressors. Critical care time 30 min spent reviewing charts, reviewing imaging, reviewing labs, and discussion with RN. 07/30/2021: Afebrile. On vent with FiO2 100%, PEEP 9. Completed remdesivir and 10 days of steroids; continue slow Decadron taper (last day of Decadron taper should be tomorrow). Empiric antibiotics, supportive care; on Levophed. Empiric antibiotics could likely stop after Decadron taper; will obtain procalcitonin and chest x-ray tomorrow. Critical care time 30 min spent reviewing charts, reviewing imaging, reviewing labs, and discussion with RN. 07/31 Patient remains afebrile. Remains ventilated and sedated. Decadron taper finished today. Normal procalcitonin on the labs chest x-ray mildly improved. Pulmonary continues to follow. Continuing current plan, will wean oxygen as tolerated. 08/01 Patient evaluated examined at bedside. Some low saturations this morning. Remains ventilated and sedated. Continue COVID treatment. 08/02 Patient evaluated examined at bedside. She is still having lower saturation and this low 80s and upper 70s despite high oxygen provided. Contacted patient's son today and discussed case with him. He is well aware of her condition and at this point poor prognosis. I did bring up the idea of the DNR DNI and starting to look towards a hospice route as patient has been intubated for 10 days and is actually worsening. Patient son reported that he would like to talk with his and sister before making a final decision. Will likely have a family meeting with them Saturday or Saturday. 08/03 Patient evaluated examined at bedside. Saturations continued to drop despite ventilator adjustments. Very poor prognosis. Discussed with family yesterday. Will attempt to call again today. Otherwise continue current plan. 08/04 Evaluated examined at bedside, oxygen saturations definitely worse today. Contacted patient's son planning for family meeting tomorrow in person. 08/05 Patient seen and examined at bedside. Continues to require high levels of oxygen. Met with family at bedside discussing poor prognosis. After discussing family decided they would like to continue full code for right now and assess for any sort of brain injury. Informed them that this would likely require imaging with how much sedation she is on and there is a chance she will not survive the actual process. They would like to think about it more at this point. We will check in with him again tomorrow. 08/06 No major clinical changes. Continues to have high ventilator settings. Really not safe for transport for imaging right now. Poor prognosis. 08/07 No clinical changes. high ventilator settings. Really not safe for transport for imaging . Poor prognosis She would not be a good candidate for imaging studies. prognosis is extremely poor, neurology consulted severe protein, caloric malnutrition critically ill, 100% FiO2 11 of PEEP pressure of 24 plateau pressure 37 36 min cc time Vitals Vitals Vital Signs Date Time Temp Pulse Resp B/P (MAP) Pulse Ox O2 Delivery O2 Flow Rate FiO2 08/07/21 07:59 99.2 110 24 85/60 (68) 74 99.2 08/07/21 07:45 Ventilator Physical Exam Physical Exam sedated on vent General: No acute distress, Other (ET and NG tube in place) Heart: Other (Tachycardic) Lungs: Other (b lat diminished ) Abdomen: Normal bowel sounds, Soft (obese, ) Extremities: No cyanosis, No edema, Normal pulses Skin: No rashes, No significant lesion Labs LABS PATIENT: MEGHAN AVITIAOUNT: [id number] : 1955 LOCATION: [facility] ICU AGE: 66 SEX: F EXAM STATUS: ADM IN ORD. PHYSICIAN: RAFIA EGAN MD REASON: RF/ARDS PROCEDURE: PORTABLE CHEST 1V XR CHEST 1V INDICATION: RF/ARDS COMPARISON STUDY: 08/04/2021. FINDINGS: Life Support Devices: Stable endotracheal tube, enteric tube, right PICC. Lungs: Normal lung volume. Stable bilateral perihilar and basilar opacities. Pleura: Stable pleural spaces. Heart and Mediastinum: Stable cardiomediastinal silhouette and great vessels. IMPRESSION: 1. Stable life support devices. 2. Stable bilateral perihilar and basilar opacities. Electronically signed by: Christofer Johnson MD (08/07/2021 11:08 AM) [id number] DICTATED and SIGNED BY: CHRISTOFER JOHNSON MD DATE: 08/07/21 [id number] Laboratory Tests Test 08/06/21 11:43 08/06/21 17:37 08/06/21 23:25 08/07/21 05:22 Glucose (Fingerstick) 158 mg/dL (70-99) 139 mg/dL (70-99) 154 mg/dL (70-99) 141 mg/dL (70-99) Test 08/07/21 05:30 08/07/21 08:00 White Blood Count 12.7 x10^3/uL (4.0-11.0) Red Blood Count 2.69 x10^6/uL (3.50-5.40) Hemoglobin 7.9 g/dL (12.0-15.5) Hematocrit 24.8 % (36.0-47.0) Mean Corpuscular Volume 92 fL (79-100) Mean Corpuscular Hemoglobin 29 pg (25-35) Mean Corpuscular Hemoglobin Concent 32 g/dL (31-37) Red Cell Distribution Width 18.0 % (11.5-14.5) Platelet Count 369 x10^3/uL (140-400) Neutrophils (%) (Auto) 82 % (31-73) Lymphocytes (%) (Auto) 9 % (24-48) Monocytes (%) (Auto) 3 % (0-9) Eosinophils (%) (Auto) 5 % (0-3) Basophils (%) (Auto) 1 % (0-3) Neutrophils # (Auto) 10.4 x10^3/uL (1.8-7.7) Lymphocytes # (Auto) 1.1 x10^3/uL (1.0-4.8) Monocytes # (Auto) 0.4 x10^3/uL (0.0-1.1) Eosinophils # (Auto) 0.7 x10^3/uL (0.0-0.7) Basophils # (Auto) 0.1 x10^3/uL (0.0-0.2) Sodium Level 137 mmol/L (136-145) Potassium Level 3.7 mmol/L (3.5-5.1) Chloride Level 97 mmol/L (98-107) Carbon Dioxide Level 37 mmol/L (21-32) Anion Gap 3 (6-14) Blood Urea Nitrogen 28 mg/dL (7-20) Creatinine 0.7 mg/dL (0.6-1.0) Estimated GFR (Cockcroft-Gault) 84.0 Glucose Level 136 mg/dL (70-99) Calcium Level 8.2 mg/dL (8.5-10.1) Magnesium Level 2.3 mg/dL (1.8-2.4) O2 Saturation 78 % (92-99) Arterial Blood pH 7.34 (7.35-7.45) Arterial Blood pCO2 at Patient Temp 65 mmHg (35-46) Arterial Blood pO2 at Patient Temp 45 mmHg (65-108) Arterial Blood HCO3 34 mmol/L (21-28) Arterial Blood Base Excess 7 mmol/L (-3-3) FiO2 100 Comment Review of Relevant I have reviewed the following items jluis (where applicable) has been applied. Labs Laboratory Tests Test 08/05/21 11:14 08/05/21 17:38 08/05/21 23:41 08/06/21 05:20 Glucose (Fingerstick) 158 mg/dL (70-99) 166 mg/dL (70-99) 137 mg/dL (70-99) White Blood Count 13.0 x10^3/uL (4.0-11.0) Red Blood Count 2.77 x10^6/uL (3.50-5.40) Hemoglobin 8.0 g/dL (12.0-15.5) Hematocrit 25.4 % (36.0-47.0) Mean Corpuscular Volume 92 fL (79-100) Mean Corpuscular Hemoglobin 29 pg (25-35) Mean Corpuscular Hemoglobin Concent 32 g/dL (31-37) Red Cell Distribution Width 18.0 % (11.5-14.5) Platelet Count 312 x10^3/uL (140-400) Test 08/06/21 05:25 08/06/21 05:30 08/06/21 08:00 08/06/21 11:43 Glucose (Fingerstick) 149 mg/dL (70-99) 158 mg/dL (70-99) Sodium Level 136 mmol/L (136-145) Potassium Level 3.8 mmol/L (3.5-5.1) Chloride Level 97 mmol/L (98-107) Carbon Dioxide Level 37 mmol/L (21-32) Anion Gap 2 (6-14) Blood Urea Nitrogen 23 mg/dL (7-20) Creatinine 0.6 mg/dL (0.6-1.0) Estimated GFR (Cockcroft-Gault) 100.3 Glucose Level 157 mg/dL (70-99) Calcium Level 8.0 mg/dL (8.5-10.1) O2 Saturation 82 % (92-99) Arterial Blood pH 7.35 (7.35-7.45) Arterial Blood pCO2 at Patient Temp 57 mmHg (35-46) Arterial Blood pO2 at Patient Temp 51 mmHg (65-108) Arterial Blood HCO3 31 mmol/L (21-28) Arterial Blood Base Excess 4 mmol/L (-3-3) FiO2 100% vent Test 08/06/21 17:37 08/06/21 23:25 08/07/21 05:22 08/07/21 05:30 Glucose (Fingerstick) 139 mg/dL (70-99) 154 mg/dL (70-99) 141 mg/dL (70-99) White Blood Count 12.7 x10^3/uL (4.0-11.0) Red Blood Count 2.69 x10^6/uL (3.50-5.40) Hemoglobin 7.9 g/dL (12.0-15.5) Hematocrit 24.8 % (36.0-47.0) Mean Corpuscular Volume 92 fL (79-100) Mean Corpuscular Hemoglobin 29 pg (25-35) Mean Corpuscular Hemoglobin Concent 32 g/dL (31-37) Red Cell Distribution Width 18.0 % (11.5-14.5) Platelet Count 369 x10^3/uL (140-400) Neutrophils (%) (Auto) 82 % (31-73) Lymphocytes (%) (Auto) 9 % (24-48) Monocytes (%) (Auto) 3 % (0-9) Eosinophils (%) (Auto) 5 % (0-3) Basophils (%) (Auto) 1 % (0-3) Neutrophils # (Auto) 10.4 x10^3/uL (1.8-7.7) Lymphocytes # (Auto) 1.1 x10^3/uL (1.0-4.8) Monocytes # (Auto) 0.4 x10^3/uL (0.0-1.1) Eosinophils # (Auto) 0.7 x10^3/uL (0.0-0.7) Basophils # (Auto) 0.1 x10^3/uL (0.0-0.2) Sodium Level 137 mmol/L (136-145) Potassium Level 3.7 mmol/L (3.5-5.1) Chloride Level 97 mmol/L (98-107) Carbon Dioxide Level 37 mmol/L (21-32) Anion Gap 3 (6-14) Blood Urea Nitrogen 28 mg/dL (7-20) Creatinine 0.7 mg/dL (0.6-1.0) Estimated GFR (Cockcroft-Gault) 84.0 Glucose Level 136 mg/dL (70-99) Calcium Level 8.2 mg/dL (8.5-10.1) Magnesium Level 2.3 mg/dL (1.8-2.4) Test 08/07/21 08:00 O2 Saturation 78 % (92-99) Arterial Blood pH 7.34 (7.35-7.45) Arterial Blood pCO2 at Patient Temp 65 mmHg (35-46) Arterial Blood pO2 at Patient Temp 45 mmHg (65-108) Arterial Blood HCO3 34 mmol/L (21-28) Arterial Blood Base Excess 7 mmol/L (-3-3) FiO2 100 Laboratory Tests Test 08/06/21 11:43 08/06/21 17:37 08/06/21 23:25 08/07/21 05:22 Glucose (Fingerstick) 158 mg/dL (70-99) 139 mg/dL (70-99) 154 mg/dL (70-99) 141 mg/dL (70-99) Test 08/07/21 05:30 08/07/21 08:00 White Blood Count 12.7 x10^3/uL (4.0-11.0) Red Blood Count 2.69 x10^6/uL (3.50-5.40) Hemoglobin 7.9 g/dL (12.0-15.5) Hematocrit 24.8 % (36.0-47.0) Mean Corpuscular Volume 92 fL (79-100) Mean Corpuscular Hemoglobin 29 pg (25-35) Mean Corpuscular Hemoglobin Concent 32 g/dL (31-37) Red Cell Distribution Width 18.0 % (11.5-14.5) Platelet Count 369 x10^3/uL (140-400) Neutrophils (%) (Auto) 82 % (31-73) Lymphocytes (%) (Auto) 9 % (24-48) Monocytes (%) (Auto) 3 % (0-9) Eosinophils (%) (Auto) 5 % (0-3) Basophils (%) (Auto) 1 % (0-3) Neutrophils # (Auto) 10.4 x10^3/uL (1.8-7.7) Lymphocytes # (Auto) 1.1 x10^3/uL (1.0-4.8) Monocytes # (Auto) 0.4 x10^3/uL (0.0-1.1) Eosinophils # (Auto) 0.7 x10^3/uL (0.0-0.7) Basophils # (Auto) 0.1 x10^3/uL (0.0-0.2) Sodium Level 137 mmol/L (136-145) Potassium Level 3.7 mmol/L (3.5-5.1) Chloride Level 97 mmol/L (98-107) Carbon Dioxide Level 37 mmol/L (21-32) Anion Gap 3 (6-14) Blood Urea Nitrogen 28 mg/dL (7-20) Creatinine 0.7 mg/dL (0.6-1.0) Estimated GFR (Cockcroft-Gault) 84.0 Glucose Level 136 mg/dL (70-99) Calcium Level 8.2 mg/dL (8.5-10.1) Magnesium Level 2.3 mg/dL (1.8-2.4) O2 Saturation 78 % (92-99) Arterial Blood pH 7.34 (7.35-7.45) Arterial Blood pCO2 at Patient Temp 65 mmHg (35-46) Arterial Blood pO2 at Patient Temp 45 mmHg (65-108) Arterial Blood HCO3 34 mmol/L (21-28) Arterial Blood Base Excess 7 mmol/L (-3-3) FiO2 100 Medications Current Medications Ondansetron HCl (Zofran) 4 mg PRN Q6HRS PRN IVP NAUSEA/VOMITING Last administered on 07/22/21at 22:51; Start 07/15/21 at 00:00 Throat Lozenges (Cepacol Sore Throat Lozenge) 1 vincent PRN Q2HRS PRN PO SORE THROAT Last administered on 07/17/21at 00:23; Start 07/15/21 at 00:00 Ceftriaxone Sodium (Rocephin) 1 gm Q24H IVP Last administered on 07/21/21at 0 8:23; Start 07/15/21 at 09:00; Stop 07/21/21 at 13:26; Status DC Azithromycin (Zithromax) 250 mg DAILY PO Last administered on 07/21/21at 08:17; Start 07/15/21 at 09:00; Stop 07/21/21 at 08:53; Status DC Dexamethasone Sodium Phosphate (Decadron) 10 mg DAILY IVP Last administered on 07/15/21at 10:24; Start 07/15/21 at 09:00; Stop 07/15/21 at 13:07; Status DC Enoxaparin Sodium (Lovenox 40mg Syringe) 40 mg Q24H SQ Last administered on 08/06/21at 08:47; Start 07/15/21 at 09:00 Lactobacillus Rhamnosus (Culturelle) 1 cap BID PO Last administered on 07/26/21at 21:27; Start 07/15/21 at 09:00; Stop 07/27/21 at 08:20; Status DC Acetaminophen (Tylenol) 650 mg PRN Q4HRS PRN PO MILD PAIN / TEMP > 100.3'F Last administered on 07/17/21at 19:18; Start 07/15/21 at 00:00 Guaifenesin (Robitussin Dm) 10 ml PRN Q4HRS PRN PO COUGH Last administered on 07/23/21at 13:00; Start 07/15/21 at 00:00 Remdesivir 100 mg/ Sodium Chloride 230 ml @ 460 mls/hr DAILY IV Last administered on 07/18/21at 08:59; Start 07/15/21 at 09:00; Stop 07/18/21 at 09:29; Status DC Oxycodone/ Acetaminophen (Percocet 5/325) 1 tab PRN Q8HRS PRN PO MODERATE- SEVERE PAIN Last administered on 07/23/21at 13:00; Start 07/15/21 at 09:15 Potassium Chloride/Dextrose/ Sod Cl 1,000 ml @ 80 mls/hr [id number] ONCE IV Last administered on 07/15/21at 10:26; Start 07/15/21 at 09:15; Stop 07/15/21 at 21:44; Status DC Ascorbic Acid (Vitamin C) 500 mg DAILY PO Last administered on 08/06/21at 08:45; Start 07/15/21 at 09:30 Zinc Sulfate (Orazinc) 220 mg DAILY PO Last administered on 08/06/21at 08:45; Start 07/15/21 at 09:30 Dexamethasone Sodium Phosphate (Decadron) 6 mg DAILY IVP Last administered on 07/25/21at 08:46; Start 07/16/21 at 09:00; Stop 07/26/21 at 06:39; Status DC Sterile Water (WATER for RESP) 1,000 ml CONT PRN INH VIA VAPOTHERM DEVICE Last administered on 07/20/21at 08:03; Start 07/15/21 at 13:30 Potassium Chloride/Dextrose/ Sod Cl 1,000 ml @ 100 mls/hr Q10H IV Last administered on 07/17/21at 08:43; Start 07/16/21 at 11:00; Stop 07/17/21 at 16:00; Status DC Lorazepam (Ativan) 0.25 mg PRN Q4HRS PRN PO anxiety 2/2 bipap trials Last administered on 07/23/21at 09:47; Start 07/21/21 at 09:45; Stop 07/23/21 at 14:30; Status DC Loperamide HCl (Imodium) 2 mg PRN 1X PRN PO DIARRHEA Last administered on 07/22/21at 20:42; Start 07/22/21 at 12:45 Propofol 100 ml @ As Directed STK-MED ONCE IV ; Start 07/23/21 at 13:45; Stop 07/23/21 at 13:45; Status DC Succinylcholine Chloride (Anectine) 200 mg STK-MED ONCE .ROUTE ; Start 07/23/21 at 13:45; Stop 07/23/21 at 13:46; Status DC Etomidate (Amidate) 20 mg STK-MED ONCE IV ; Start 07/23/21 at 13:45; Stop 07/23/21 at 13:46; Status DC Fentanyl Citrate 30 ml @ 0 mls/hr CONT PRN IV SEE PROTOCOL Last administered on 07/25/21at 09:31; Start 07/23/21 at 14:00; Stop 07/25/21 at 16:54; Status DC Propofol 100 ml @ 0 mls/hr CONT PRN IV PER PROTOCOL Last administered on 08/07/21at 04:36; Start 07/23/21 at 14:00 Fentanyl Citrate (Fentanyl 2ml Vial) 25 mcg PRN Q1HR PRN IV SEE COMMENTS; Start 07/23/21 at 14:00 Fentanyl Citrate (Fentanyl 2ml Vial) 50 mcg PRN Q1HR PRN IV SEE COMMENTS; Start 07/23/21 at 14:00 Morphine Sulfate (Morphine Sulfate) 2 mg PRN Q1HR PRN IV SEE COMMENTS.; Start 07/23/21 at 14:00 Morphine Sulfate (Morphine Sulfate) 4 mg PRN Q1HR PRN IV SEE COMMENTS.; Start 07/23/21 at 14:00 Midazolam HCl 100 ml @ 0 mls/hr CONT PRN IV SEE PROTOCOL Last administered on 08/07/21at 05:25; Start 07/23/21 at 14:00 Vecuronium [place] (Norcuron Bolus) 6 mg PRN Q2HR PRN IV VENTILATOR COMPLIANCE Last administered on 07/27/21at 11:41; Start 07/23/21 at 14:00 Lorazepam (Ativan) 5 mg PRN Q4HRS PRN PO anxiety 2/2 bipap trials; Start 07/23/21 at 14:30 Pantoprazole Sodium (PROTONIX VIAL for IV PUSH) 40 mg DAILYAC IVP Last administered on 08/06/21at 08:51; Start 07/24/21 at 09:00 Dexmedetomidine HCl 400 mcg/ Sodium Chloride 100 ml @ 0 mls/hr CONT PRN IV PER PROTOCOL Last administered on 08/07/21at 05:25; Start 07/24/21 at 10:00 Sodium Chloride 500 ml @ 500 mls/hr 1X PRN PRN IV SEE COMMENTS Last administered on 07/26/21at 10:40; Start 07/24/21 at 10:00 Etomidate (Amidate) 20 mg STK-MED ONCE IV ; Start 07/23/21 at 14:00; Stop 07/24/21 at 12:26; Status DC Succinylcholine Chloride (Anectine) 200 mg STK-MED ONCE .ROUTE ; Start 07/23/21 at 14:00; Stop 07/24/21 at 12:26; Status DC Propofol (Diprivan) 1,000 mg STK-MED ONCE IV ; Start 07/23/21 at 14:00; Stop 07/24/21 at 12:26; Status DC Insulin Human Lispro (HumaLOG) 0-5 UNITS Q6HRS SQ Last administered on 08/06/21at 23:26; Start 07/24/21 at 18:00 Dextrose (Dextrose 50%-Water Syringe) 12.5 gm PRN Q15MIN PRN IV SEE COMMENTS; Start 07/24/21 at 18:00 Fentanyl Citrate 55 ml @ 0 mls/hr CONT PRN IV SEE PROTOCOL Last administered on 08/06/21at 19:47; Start 07/25/21 at 16:00 Dexamethasone Sodium Phosphate (Decadron) 4 mg DAILY IVP Last administered on 07/30/21at 08:57; Start 07/26/21 at 09:00; Stop 07/31/21 at 08:59; Status DC Lorazepam (Ativan Inj) 1 mg PRN Q1HR PRN IVP ANXIETY / AGITATION Last administered on 07/26/21at 11:42; Start 07/26/21 at 11:15 Vecuronium [place] 50 mg/ Sodium Chloride 50 ml @ 4.502 mls/ hr CONT PRN IV SEE I/O RECORD Last administered on 08/06/21at 21:09; Start 07/27/21 at 11:30 Norepinephrine Bitartrate 8 mg/ Dextrose 258 ml @ 18.15 mls/ hr CONT PRN IV PER PROTOCOL Last administered on 08/04/21at 09:30; Start 07/27/21 at 17:00 Piperacillin Sod/ Tazobactam Sod (Zosyn Per Pharmacy) 1 each PRN DAILY PRN MC SEE COMMENTS; Start 07/28/21 at 10:15 Piperacillin Sod/ Tazobactam Sod 3.375 gm/Sodium Chloride 50 ml @ 100 mls/hr Q6HRS IV Last administered on 08/07/21at 05:24; Start 07/28/21 at 11:00 Sodium Chloride 1,000 ml @ 30 mls/hr Q24H IV Last administered on 08/06/21at 08:48; Start 07/28/21 at 11:00 Furosemide (Lasix) 40 mg 1X ONCE IVP Last administered on 08/01/21at 12:12; Start 08/01/21 at 11:15; Stop 08/01/21 at 11:16; Status DC Furosemide (Lasix) 40 mg 1X ONCE IVP Last administered on 08/03/21at 09:28; Start 08/03/21 at 09:30; Stop 08/03/21 at 09:31; Status DC Furosemide (Lasix) 40 mg 1X ONCE IVP Last administered on 08/04/21at 12:39; Start 08/04/21 at 11:15; Stop 08/04/21 at 11:21; Status DC Albuterol/ Ipratropium (Duoneb) 3 ml RTQID NEB ; Start 08/05/21 at 12:00; Stop 08/05/21 at 15:37; Status DC Albumin Human 100 ml @ 100 mls/hr 1X ONCE IV Last administered on 08/06/21at 11:46; Start 08/06/21 at 11:30; Stop 08/06/21 at 12:29; Status DC Furosemide (Lasix) 40 mg 1X ONCE IVP Last administered on 08/06/21at 11:44; Start 08/06/21 at 13:00; Stop 08/06/21 at 13:01; Status DC Active Scripts Active Prednisone 20 Mg Tablet 1 Tab PO DAILY 5 Days Vitals/I & O Vital Sign - Last 24 Hours 08/06/21 08/06/21 08/06/21 08/06/21 09:00 09:22 10:00 11:00 Pulse 98 98 104 Resp 24 24 B/P (MAP) 102/64 (77) 104/63 (77) 92/64 (73) Pulse Ox 78 79 79 78 O2 Delivery Ventilator 08/06/21 08/06/21 08/06/21 08/06/21 12:00 12:00 12:12 13:00 Temp 97.7 97.7 Pulse 104 104 Resp 24 B/P (MAP) 94/60 (71) 88/61 (70) Pulse Ox 78 81 81 O2 Delivery Mechanical Ventilator Ventilator 08/06/21 08/06/21 08/06/21 08/06/21 14:00 15:00 16:00 16:00 Temp 97.7 97.7 Pulse 102 106 102 Resp 24 24 24 B/P (MAP) 96/65 (75) 89/54 (66) 94/55 (68) Pulse Ox 80 79 79 O2 Delivery Mechanical Ventilator 08/06/21 08/06/21 08/06/21 08/06/21 16:07 17:00 18:00 19:00 Pulse 106 108 107 Resp 24 24 B/P (MAP) 107/68 (81) 98/68 (78) 95/61 (72) Pulse Ox 79 78 80 78 O2 Delivery Ventilator 08/06/21 08/06/21 08/06/21 08/06/21 20:00 20:00 20:33 20:40 Temp 97.6 97.6 Pulse 110 110 Resp 24 24 B/P (MAP) 104/65 (78) 102/64 (77) Pulse Ox 77 77 77 O2 Delivery Mechanical Ventilator Ventilator 08/06/21 08/06/21 08/06/21 08/06/21 21:00 22:00 22:05 23:00 Pulse 112 111 111 Resp 24 24 24 B/P (MAP) 90/58 (69) 94/55 (68) 89/57 (68) Pulse Ox 76 76 77 76 O2 Delivery Ventilator 08/07/21 08/07/21 08/07/21 08/07/21 00:00 00:01 00:41 01:00 Temp 97.9 97.9 Pulse 107 106 Resp 24 24 B/P (MAP) 84/53 (63) 86/53 (64) Pulse Ox 78 80 78 O2 Delivery Mechanical Ventilator Ventilator 08/07/21 08/07/21 08/07/21 08/07/21 02:00 03:00 03:30 03:49 Pulse 104 105 Resp 24 24 B/P (MAP) 90/58 (69) 80/57 (65) Pulse Ox 78 79 79 O2 Delivery Mechanical Ventilator Ventilator 08/07/21 08/07/21 08/07/21 08/07/21 04:00 05:00 06:00 07:45 Temp 97.8 97.8 Pulse 104 106 109 Resp 24 24 24 B/P (MAP) 81/56 (64) 100/65 (77) 93/57 (69) Pulse Ox 78 75 76 79 O2 Delivery Ventilator 08/07/21 07:59 Temp 99.2 99.2 Pulse 110 Resp 24 B/P (MAP) 85/60 (68) Pulse Ox 74 Intake and Output 08/06/21 08/06/21 08/07/21 15:00 23:00 07:00 Intake Total 410 ml 1771.60 ml 1901 ml Output Total 245 ml 1255 ml 410 ml Balance 165 ml 516.60 ml 1491 ml Justicifation of Admission Dx: Justifications for Admission: Justification of Admission Dx: Yes Sepsis: Hypoxemia NATHALIE VÁSQUEZ MD Aug 07, 2021 08:40
--- NOTE | 2021-08-07 09:08 | PDOC ---
PROGRESS NOTES Date of Service DATE: 08/07/21 TIME: 09:06 Assessment A weekend neurology consult was called for neurological assessment of a patient who is sedated, on the ventilator, and paralyzed. COVID with respiratory failure Unable to transport the patient for any other tests. A bedside EEG would be useless given the sedation, which cannot be lifted because she is on high levels of PEEP and paralyzed. Plan Discussed with nurse Neurology will follow at intervals Subjective None Objective Vital Signs Date Time Temp Pulse Resp B/P (MAP) Pulse Ox O2 Delivery O2 Flow Rate FiO2 08/07/21 07:59 99.2 110 24 85/60 (68) 74 99.2 08/07/21 07:45 Ventilator Intake and Output 08/07/21 07:00 Intake Total 4082.60 ml Output Total 1910 ml Balance 2172.60 ml IV Total 2017.60 ml Tube Feeding 1505 ml Blood Product 300 ml Other 260 ml Output Urine Total 1910 ml PHYSICAL EXAM Sedated, paralyzed, on ventilator, unresponsive Pupils pinpoint No spontaneous extraocular movements CN: no focal findings. Muscle tone: normal. Muscle strength: No response to pain DTR: 0+ Plantar reflex: Silent Gait: not examined in bed. Sensory exam: Unable to examine Cerebellar: Unable to assess Review of Relevant I have reviewed the following items jluis (where applicable) has been applied. Labs Laboratory Tests Test 08/05/21 11:14 08/05/21 17:38 08/05/21 23:41 08/06/21 05:20 Glucose (Fingerstick) 158 mg/dL (70-99) 166 mg/dL (70-99) 137 mg/dL (70-99) White Blood Count 13.0 x10^3/uL (4.0-11.0) Red Blood Count 2.77 x10^6/uL (3.50-5.40) Hemoglobin 8.0 g/dL (12.0-15.5) Hematocrit 25.4 % (36.0-47.0) Mean Corpuscular Volume 92 fL (79-100) Mean Corpuscular Hemoglobin 29 pg (25-35) Mean Corpuscular Hemoglobin Concent 32 g/dL (31-37) Red Cell Distribution Width 18.0 % (11.5-14.5) Platelet Count 312 x10^3/uL (140-400) Test 08/06/21 05:25 08/06/21 05:30 08/06/21 08:00 08/06/21 11:43 Glucose (Fingerstick) 149 mg/dL (70-99) 158 mg/dL (70-99) Sodium Level 136 mmol/L (136-145) Potassium Level 3.8 mmol/L (3.5-5.1) Chloride Level 97 mmol/L (98-107) Carbon Dioxide Level 37 mmol/L (21-32) Anion Gap 2 (6-14) Blood Urea Nitrogen 23 mg/dL (7-20) Creatinine 0.6 mg/dL (0.6-1.0) Estimated GFR (Cockcroft-Gault) 100.3 Glucose Level 157 mg/dL (70-99) Calcium Level 8.0 mg/dL (8.5-10.1) O2 Saturation 82 % (92-99) Arterial Blood pH 7.35 (7.35-7.45) Arterial Blood pCO2 at Patient Temp 57 mmHg (35-46) Arterial Blood pO2 at Patient Temp 51 mmHg (65-108) Arterial Blood HCO3 31 mmol/L (21-28) Arterial Blood Base Excess 4 mmol/L (-3-3) FiO2 100% vent Test 08/06/21 17:37 08/06/21 23:25 08/07/21 05:22 08/07/21 05:30 Glucose (Fingerstick) 139 mg/dL (70-99) 154 mg/dL (70-99) 141 mg/dL (70-99) White Blood Count 12.7 x10^3/uL (4.0-11.0) Red Blood Count 2.69 x10^6/uL (3.50-5.40) Hemoglobin 7.9 g/dL (12.0-15.5) Hematocrit 24.8 % (36.0-47.0) Mean Corpuscular Volume 92 fL (79-100) Mean Corpuscular Hemoglobin 29 pg (25-35) Mean Corpuscular Hemoglobin Concent 32 g/dL (31-37) Red Cell Distribution Width 18.0 % (11.5-14.5) Platelet Count 369 x10^3/uL (140-400) Neutrophils (%) (Auto) 82 % (31-73) Lymphocytes (%) (Auto) 9 % (24-48) Monocytes (%) (Auto) 3 % (0-9) Eosinophils (%) (Auto) 5 % (0-3) Basophils (%) (Auto) 1 % (0-3) Neutrophils # (Auto) 10.4 x10^3/uL (1.8-7.7) Lymphocytes # (Auto) 1.1 x10^3/uL (1.0-4.8) Monocytes # (Auto) 0.4 x10^3/uL (0.0-1.1) Eosinophils # (Auto) 0.7 x10^3/uL (0.0-0.7) Basophils # (Auto) 0.1 x10^3/uL (0.0-0.2) Sodium Level 137 mmol/L (136-145) Potassium Level 3.7 mmol/L (3.5-5.1) Chloride Level 97 mmol/L (98-107) Carbon Dioxide Level 37 mmol/L (21-32) Anion Gap 3 (6-14) Blood Urea Nitrogen 28 mg/dL (7-20) Creatinine 0.7 mg/dL (0.6-1.0) Estimated GFR (Cockcroft-Gault) 84.0 Glucose Level 136 mg/dL (70-99) Calcium Level 8.2 mg/dL (8.5-10.1) Magnesium Level 2.3 mg/dL (1.8-2.4) Test 08/07/21 08:00 O2 Saturation 78 % (92-99) Arterial Blood pH 7.34 (7.35-7.45) Arterial Blood pCO2 at Patient Temp 65 mmHg (35-46) Arterial Blood pO2 at Patient Temp 45 mmHg (65-108) Arterial Blood HCO3 34 mmol/L (21-28) Arterial Blood Base Excess 7 mmol/L (-3-3) FiO2 100 Laboratory Tests Test 08/06/21 11:43 08/06/21 17:37 08/06/21 23:25 08/07/21 05:22 Glucose (Fingerstick) 158 mg/dL (70-99) 139 mg/dL (70-99) 154 mg/dL (70-99) 141 mg/dL (70-99) Test 08/07/21 05:30 08/07/21 08:00 White Blood Count 12.7 x10^3/uL (4.0-11.0) Red Blood Count 2.69 x10^6/uL (3.50-5.40) Hemoglobin 7.9 g/dL (12.0-15.5) Hematocrit 24.8 % (36.0-47.0) Mean Corpuscular Volume 92 fL (79-100) Mean Corpuscular Hemoglobin 29 pg (25-35) Mean Corpuscular Hemoglobin Concent 32 g/dL (31-37) Red Cell Distribution Width 18.0 % (11.5-14.5) Platelet Count 369 x10^3/uL (140-400) Neutrophils (%) (Auto) 82 % (31-73) Lymphocytes (%) (Auto) 9 % (24-48) Monocytes (%) (Auto) 3 % (0-9) Eosinophils (%) (Auto) 5 % (0-3) Basophils (%) (Auto) 1 % (0-3) Neutrophils # (Auto) 10.4 x10^3/uL (1.8-7.7) Lymphocytes # (Auto) 1.1 x10^3/uL (1.0-4.8) Monocytes # (Auto) 0.4 x10^3/uL (0.0-1.1) Eosinophils # (Auto) 0.7 x10^3/uL (0.0-0.7) Basophils # (Auto) 0.1 x10^3/uL (0.0-0.2) Sodium Level 137 mmol/L (136-145) Potassium Level 3.7 mmol/L (3.5-5.1) Chloride Level 97 mmol/L (98-107) Carbon Dioxide Level 37 mmol/L (21-32) Anion Gap 3 (6-14) Blood Urea Nitrogen 28 mg/dL (7-20) Creatinine 0.7 mg/dL (0.6-1.0) Estimated GFR (Cockcroft-Gault) 84.0 Glucose Level 136 mg/dL (70-99) Calcium Level 8.2 mg/dL (8.5-10.1) Magnesium Level 2.3 mg/dL (1.8-2.4) O2 Saturation 78 % (92-99) Arterial Blood pH 7.34 (7.35-7.45) Arterial Blood pCO2 at Patient Temp 65 mmHg (35-46) Arterial Blood pO2 at Patient Temp 45 mmHg (65-108) Arterial Blood HCO3 34 mmol/L (21-28) Arterial Blood Base Excess 7 mmol/L (-3-3) FiO2 100 Medications Current Medications Ondansetron HCl (Zofran) 4 mg PRN Q6HRS PRN IVP NAUSEA/VOMITING Last administered on 07/22/21at 22:51; Start 07/15/21 at 00:00 Throat Lozenges (Cepacol Sore Throat Lozenge) 1 vincent PRN Q2HRS PRN PO SORE THROAT Last administered on 07/17/21 00:23; Start 07/15/21 at 00:00 Ceftriaxone Sodium (Rocephin) 1 gm Q24H IVP Last administered on 07/21/21 08:23; Start 07/15/21 at 09:00; Stop 07/21/21 at 13:26; Status DC Azithromycin (Zithromax) 250 mg DAILY PO Last administered on 07/21/21at 08:17; Start 07/15/21 at 09:00; Stop 07/21/21 at 08:53; Status DC Dexamethasone Sodium Phosphate (Decadron) 10 mg DAILY IVP Last administered on 07/15/21at 10:24; Start 07/15/21 at 09:00; Stop 07/15/21 at 13:07; Status DC Enoxaparin Sodium (Lovenox 40mg Syringe) 40 mg Q24H SQ Last administered on 08/06/21at 08:47; Start 07/15/21 at 09:00 Lactobacillus Rhamnosus (Culturelle) 1 cap BID PO Last administered on 07/26/21at 21:27; Start 07/15/21 at 09:00; Stop 07/27/21 at 08:20; Status DC Acetaminophen (Tylenol) 650 mg PRN Q4HRS PRN PO MILD PAIN / TEMP > 100.3'F Last administered on 07/17/21at 19:18; Start 07/15/21 at 00:00 Guaifenesin (Robitussin Dm) 10 ml PRN Q4HRS PRN PO COUGH Last administered on 07/23/21 13:00; Start 07/15/21 at 00:00 Remdesivir 100 mg/ Sodium Chloride 230 ml @ 460 mls/hr DAILY IV Last administered on 07/18/21at 08:59; Start 07/15/21 at 09:00; Stop 07/18/21 at 09:29; Status DC Oxycodone/ Acetaminophen (Percocet 5/325) 1 tab PRN Q8HRS PRN PO MODERATE- SEVERE PAIN Last administered on 07/23/21at 13:00; Start 07/15/21 at 09:15 Potassium Chloride/Dextrose/ Sod Cl 1,000 ml @ 80 mls/hr [id number] ONCE IV Last administered on 07/15/21at 10:26; Start 07/15/21 at 09:15; Stop 07/15/21 at 21:44; Status DC Ascorbic Acid (Vitamin C) 500 mg DAILY PO Last administered on 08/06/21 08:45; Start 07/15/21 at 09:30 Zinc Sulfate (Orazinc) 220 mg DAILY PO Last administered on 08/06/21at 08:45; Start 07/15/21 at 09:30 Dexamethasone Sodium Phosphate (Decadron) 6 mg DAILY IVP Last administered on 07/25/21at 08:46; Start 07/16/21 at 09:00; Stop 07/26/21 at 06:39; Status DC Sterile Water (WATER for RESP) 1,000 ml CONT PRN INH VIA VAPOTHERM DEVICE Last administered on 07/20/21at 08:03; Start 07/15/21 at 13:30 Potassium Chloride/Dextrose/ Sod Cl 1,000 ml @ 100 mls/hr Q10H IV Last administered on 07/17/21at 08:43; Start 07/16/21 at 11:00; Stop 07/17/21 at 16:00; Status DC Lorazepam (Ativan) 0.25 mg PRN Q4HRS PRN PO anxiety 2/2 bipap trials Last administered on 07/23/21at 09:47; Start 07/21/21 at 09:45; Stop 07/23/21 at 14:30; Status DC Loperamide HCl (Imodium) 2 mg PRN 1X PRN PO DIARRHEA Last administered on 07/22/21at 20:42; Start 07/22/21 at 12:45 Propofol 100 ml @ As Directed STK-MED ONCE IV ; Start 07/23/21 at 13:45; Stop 07/23/21 at 13:45; Status DC Succinylcholine Chloride (Anectine) 200 mg STK-MED ONCE .ROUTE ; Start 07/23/21 at 13:45; Stop 07/23/21 at 13:46; Status DC Etomidate (Amidate) 20 mg STK-MED ONCE IV ; Start 07/23/21 at 13:45; Stop 07/23/21 at 13:46; Status DC Fentanyl Citrate 30 ml @ 0 mls/hr CONT PRN IV SEE PROTOCOL Last administered on 07/25/21at 09:31; Start 07/23/21 at 14:00; Stop 07/25/21 at 16:54; Status DC Propofol 100 ml @ 0 mls/hr CONT PRN IV PER PROTOCOL Last administered on 08/07/21at 04:36; Start 07/23/21 at 14:00 Fentanyl Citrate (Fentanyl 2ml Vial) 25 mcg PRN Q1HR PRN IV SEE COMMENTS; Start 07/23/21 at 14:00 Fentanyl Citrate (Fentanyl 2ml Vial) 50 mcg PRN Q1HR PRN IV SEE COMMENTS; Start 07/23/21 at 14:00 Morphine Sulfate (Morphine Sulfate) 2 mg PRN Q1HR PRN IV SEE COMMENTS.; Start 07/23/21 at 14:00 Morphine Sulfate (Morphine Sulfate) 4 mg PRN Q1HR PRN IV SEE COMMENTS.; Start 07/23/21 at 14:00 Midazolam HCl 100 ml @ 0 mls/hr CONT PRN IV SEE PROTOCOL Last administered on 08/07/21at 05:25; Start 07/23/21 at 14:00 Vecuronium [place] (Norcuron Bolus) 6 mg PRN Q2HR PRN IV VENTILATOR COMPLIANCE Last administered on 07/27/21at 11:41; Start 07/23/21 at 14:00 Lorazepam (Ativan) 5 mg PRN Q4HRS PRN PO anxiety 2/2 bipap trials; Start 07/23/21 at 14:30 Pantoprazole Sodium (PROTONIX VIAL for IV PUSH) 40 mg DAILYAC IVP Last administered on 08/06/21at 08:51; Start 07/24/21 at 09:00 Dexmedetomidine HCl 400 mcg/ Sodium Chloride 100 ml @ 0 mls/hr CONT PRN IV PER PROTOCOL Last administered on 08/07/21at 05:25; Start 07/24/21 at 10:00 Sodium Chloride 500 ml @ 500 mls/hr 1X PRN PRN IV SEE COMMENTS Last administered on 07/26/21at 10:40; Start 07/24/21 at 10:00 Etomidate (Amidate) 20 mg STK-MED ONCE IV ; Start 07/23/21 at 14:00; Stop 07/24/21 at 12:26; Status DC Succinylcholine Chloride (Anectine) 200 mg STK-MED ONCE .ROUTE ; Start 07/23/21 at 14:00; Stop 07/24/21 at 12:26; Status DC Propofol (Diprivan) 1,000 mg STK-MED ONCE IV ; Start 07/23/21 at 14:00; Stop 07/24/21 at 12:26; Status DC Insulin Human Lispro (HumaLOG) 0-5 UNITS Q6HRS SQ Last administered on 08/06/21at 23:26; Start 07/24/21 at 18:00 Dextrose (Dextrose 50%-Water Syringe) 12.5 gm PRN Q15MIN PRN IV SEE COMMENTS; Start 07/24/21 at 18:00 Fentanyl Citrate 55 ml @ 0 mls/hr CONT PRN IV SEE PROTOCOL Last administered on 08/06/21at 19:47; Start 07/25/21 at 16:00 Dexamethasone Sodium Phosphate (Decadron) 4 mg DAILY IVP Last administered on 07/30/21at 08:57; Start 07/26/21 at 09:00; Stop 07/31/21 at 08:59; Status DC Lorazepam (Ativan Inj) 1 mg PRN Q1HR PRN IVP ANXIETY / AGITATION Last a dministered on 07/26/21at 11:42; Start 07/26/21 at 11:15 Vecuronium [place] 50 mg/ Sodium Chloride 50 ml @ 4.502 mls/ hr CONT PRN IV SEE I/O RECORD Last administered on 08/06/21at 21:09; Start 07/27/21 at 11:30 Norepinephrine Bitartrate 8 mg/ Dextrose 258 ml @ 18.15 mls/ hr CONT PRN IV PER PROTOCOL Last administered on 08/04/21at 09:30; Start 07/27/21 at 17:00 Piperacillin Sod/ Tazobactam Sod (Zosyn Per Pharmacy) 1 each PRN DAILY PRN MC SEE COMMENTS; Start 07/28/21 at 10:15 Piperacillin Sod/ Tazobactam Sod 3.375 gm/Sodium Chloride 50 ml @ 100 mls/hr Q6HRS IV Last administered on 08/07/21at 05:24; Start 07/28/21 at 11:00 Sodium Chloride 1,000 ml @ 30 mls/hr Q24H IV Last administered on 08/06/21at 08:48; Start 07/28/21 at 11:00 Furosemide (Lasix) 40 mg 1X ONCE IVP Last administered on 08/01/21at 12:12; Start 08/01/21 at 11:15; Stop 08/01/21 at 11:16; Status DC Furosemide (Lasix) 40 mg 1X ONCE IVP Last administered on 08/03/21at 09:28; Start 08/03/21 at 09:30; Stop 08/03/21 at 09:31; Status DC Furosemide (Lasix) 40 mg 1X ONCE IVP Last administered on 08/04/21at 12:39; Start 08/04/21 at 11:15; Stop 08/04/21 at 11:21; Status DC Albuterol/ Ipratropium (Duoneb) 3 ml RTQID NEB ; Start 08/05/21 at 12:00; Stop 08/05/21 at 15:37; Status DC Albumin Human 100 ml @ 100 mls/hr 1X ONCE IV Last administered on 08/06/21at 11:46; Start 08/06/21 at 11:30; Stop 08/06/21 at 12:29; Status DC Furosemide (Lasix) 40 mg 1X ONCE IVP Last administered on 08/06/21at 11:44; Start 08/06/21 at 13:00; Stop 08/06/21 at 13:01; Status DC Active Scripts Active Prednisone 20 Mg Tablet 1 Tab PO DAILY 5 Days Vitals/I & O Vital Sign - Last 24 Hours 08/06/21 08/06/21 08/06/21 08/06/21 09:22 10:00 11:00 12:00 Pulse 98 104 Resp 24 24 B/P (MAP) 104/63 (77) 92/64 (73) Pulse Ox 79 79 78 O2 Delivery Ventilator Mechanical Ventilator 08/06/21 08/06/21 08/06/2108/06/21 12:00 12:12 13:00 14:00 Temp 97.7 97.7 Pulse 104 104 102 Resp 24 24 B/P (MAP) 94/60 (71) 88/61 (70) 96/65 (75) Pulse Ox 78 81 81 80 O2 Delivery Ventilator 08/06/21 08/06/21 08/06/21 08/06/21 15:00 16:00 16:00 16:07 Temp 97.7 97.7 Pulse 106 102 Resp 24 24 B/P (MAP) 89/54 (66) 94/55 (68) Pulse Ox 79 79 79 O2 Delivery Mechanical Ventilator Ventilator 08/06/21 08/06/21 08/06/21 08/06/21 17:00 18:00 19:00 20:00 Pulse 106 108 107 Resp 24 24 B/P (MAP) 107/68 (81) 98/68 (78) 95/61 (72) Pulse Ox 78 80 78 O2 Delivery Mechanical Ventilator 08/06/21 08/06/21 08/06/21 08/06/21 20:00 20:33 20:40 21:00 Temp 97.6 97.6 Pulse 110 110 112 Resp 24 24 24 B/P (MAP) 104/65 (78) 102/64 (77) 90/58 (69) Pulse Ox 77 77 77 76 O2 Delivery Ventilator 08/06/21 08/06/21 08/06/21 08/07/21 22:00 22:05 23:00 00:00 Pulse 111 111 Resp 24 24 B/P (MAP) 94/55 (68) 89/57 (68) Pulse Ox 76 77 76 O2 Delivery Ventilator Mechanical Ventilator 08/07/21 08/07/21 08/07/21 08/07/21 00:01 00:41 01:00 02:00 Temp 97.9 97.9 Pulse 107 106 104 Resp 24 24 24 B/P (MAP) 84/53 (63) 86/53 (64) 90/58 (69) Pulse Ox 78 80 78 78 O2 Delivery Ventilator 08/07/21 08/07/21 08/07/21 08/07/21 03:00 03:30 03:49 04:00 Temp 97.8 97.8 Pulse 105 104 Resp 24 24 B/P (MAP) 80/57 (65) 81/56 (64) Pulse Ox 79 79 78 O2 Delivery Mechanical Ventilator Ventilator 08/07/21 08/07/21 08/07/21 08/07/21 05:00 06:00 07:45 07:59 Temp 99.2 99.2 Pulse 106 109 110 Resp 24 24 24 B/P (MAP) 100/65 (77) 93/57 (69) 85/60 (68) Pulse Ox 75 76 79 74 O2 Delivery Ventilator Intake and Output 08/06/21 08/06/21 08/07/21 15:00 23:00 07:00 Intake Total 410 ml 1771.60 ml 1901 ml Output Total 245 ml 1255 ml 410 ml Balance 165 ml 516.60 ml 1491 ml Justicifation of Admission Dx: Justifications for Admission: Justification of Admission Dx: N/A BALDEV MA MD Aug 07, 2021 09:08
[2021-08-07] MEDS: ENOXAPARIN 40 MG/0.4 ML SYRINGE. SQ SCH (10:28)
[2021-08-07] MEDS: ZINC SULFATE 220 MG CAPSULE. PO SCH (10:28)
[2021-08-07] MEDS: ASCORBIC ACID 500 MG TABLET PO SCH (10:28)
[2021-08-07] MEDS: PANTOPRAZOLE IV PUSH 40 MG VIAL. IVP SCH (10:28)
[2021-08-07] MEDS: IV NORMAL SALINE 1000ML BAG 1,000 ML IV SCH (10:29)
--- NOTE | 2021-08-07 11:10 | RAD ---
XR CHEST 1V INDICATION: RF/ARDS COMPARISON STUDY: 08/04/2021. FINDINGS: Life Support Devices: Stable endotracheal tube, enteric tube, right PICC. Lungs: Normal lung volume. Stable bilateral perihilar and basilar opacities. Pleura: Stable pleural spaces. Heart and Mediastinum: Stable cardiomediastinal silhouette and great vessels. IMPRESSION: 1. Stable life support devices. 2. Stable bilateral perihilar and basilar opacities. Electronically signed by: Serafin Johnson MD (08/07/2021 11:08 AM) [id number]
[2021-08-07] MEDS: NORCURON - VECURONIUM 50 MG in IV NORMAL SALINE 50ML 50 ML IV PRN (11:20)
--- NOTE | 2021-08-07 18:40 | NUR ---
Family request Dr. Appiah to call tomorrow reguarding patient's plan of care and neurology consult. Lorenzo, patient's son, is the person to call.
[2021-08-07] MEDS: fentaNYL HIGH DOSE PCA 55 ML IV PRN (22:52)
[2021-08-08] VITALS (24 sets, daily range): BP systolic 78–114; BP diastolic 52–70
[2021-08-08] MEDS: PIPERACILLIN/TAZOBACTAM 3.375 GM in IV NORMAL SALINE 50ML 50 ML IV SCH ×3 (00:27→12:22)
[2021-08-08] MEDS: INSULIN LISPRO 300 UNITS/3 ML VIAL. SQ SCH ×4 (00:30→18:00)
[2021-08-08] MEDS: NOREPINEPHRINE VIAL 8 MG in IV DEXTROSE 5% 250 ML IV PRN ×3 (02:57→21:44)
[2021-08-08] MEDS: MIDAZOLAM 100mg/100ml NS BAG 100 ML IV PRN ×2 (04:32→15:52)
[2021-08-08 06:38] LABS: BASO # 0.1 x10^3/uL (0.0-0.2); BASO % 1 % (0-3); EOS # 0.8 x10^3/uL (0.0-0.7); EOS % 6 % (0-3); HEMATOCRIT 25.4 % (36.0-47.0); HEMOGLOBIN 7.9 g/dL (12.0-15.5); LYMPH # 1.4 x10^3/uL (1.0-4.8); LYMPH % 10 % (24-48); MEAN CORPUSCULAR HEMOGLOBIN 29 pg (25-35); MEAN CORPUSCULAR HGB CONC 31 g/dL (31-37); MEAN CORPUSCULAR VOLUME 93 fL (79-100); MONO # 0.6 x10^3/uL (0.0-1.1); MONO % 4 % (0-9); NEUT # 11.3 x10^3/uL (1.8-7.7); NEUT % 80 % (31-73); PLATELET COUNT 425 x10^3/uL (140-400); RED BLOOD COUNT 2.74 x10^6/uL (3.50-5.40); RED CELL DISTRIBUTION WIDTH 18.3 % (11.5-14.5); WHITE BLOOD COUNT 14.1 x10^3/uL (4.0-11.0)
[2021-08-08 07:00] LABS: ALBUMIN 1.4 g/dL (3.4-5.0); ALBUMIN/GLOBULIN RATIO 0.3 (1.0-1.7); CALCIUM 7.8 mg/dL (8.5-10.1); GFR 55.6; POTASSIUM 3.7 mmol/L (3.5-5.1); TOTAL BILIRUBIN 0.6 mg/dL (0.2-1.0); TOTAL PROTEIN 5.5 g/dL (6.4-8.2)
[2021-08-08] MEDS: DEXMEDETOMIDINE 400 MCG in IV NORMAL SALINE 100ML 96 ML IV PRN ×4 (07:10→23:51)
[2021-08-08 08:14] LABS: BASE EXCESS ABG 1 mmol/L (-3-3); HCO3 ABG 27 mmol/L (21-28); PCO2 ABG 54 mmHg (35-46); PO2 ABG 53 mmHg (65-108); SAT O2 ABG 83 % (92-99)
[2021-08-08 08:16] LABS: FIO2 ABG 100
[2021-08-08] MEDS: PANTOPRAZOLE IV PUSH 40 MG VIAL. IVP SCH (09:03)
[2021-08-08] MEDS: ASCORBIC ACID 500 MG TABLET PO SCH (09:04)
[2021-08-08] MEDS: ZINC SULFATE 220 MG CAPSULE. PO SCH (09:04)
[2021-08-08] MEDS: ENOXAPARIN 40 MG/0.4 ML SYRINGE. SQ SCH (09:04)
--- NOTE | 2021-08-08 09:12 | PDOC ---
PULMONARY PROGRESS NOTES DATE: 08/08/21 TIME: 09:10 Subjective Patient remains critically ill, currently on 100% FiO2 11 of PEEP. Pressure control inverse ratio ventilation. PO2 remains marginal in the mid 50s Vitals Vital Signs Date Time Temp Pulse Resp B/P (MAP) Pulse Ox O2 Delivery O2 Flow Rate FiO2 08/08/21 09:04 94 24 92/59 (70) 81 08/08/21 07:50 Ventilator 08/08/21 07:26 97.8 97.8 Comments ros unable to obtain on vent sedated Lungs: Clear Cardiovascular: S1, S2 Abdomen: Soft Extremities: Other (Mild edema) Skin: No Rashes Labs Laboratory Tests Test 08/06/21 11:43 08/06/21 17:37 08/06/21 23:25 08/07/21 05:22 Glucose (Fingerstick) 158 mg/dL (70-99) 139 mg/dL (70-99) 154 mg/dL (70-99) 141 mg/dL (70-99) Test 08/07/21 05:30 08/07/21 08:00 08/07/21 11:24 08/07/21 17:41 White Blood Count 12.7 x10^3/uL (4.0-11.0) Red Blood Count 2.69 x10^6/uL (3.50-5.40) Hemoglobin 7.9 g/dL (12.0-15.5) Hematocrit 24.8 % (36.0-47.0) Mean Corpuscular Volume 92 fL (79-100) Mean Corpuscular Hemoglobin 29 pg (25-35) Mean Corpuscular Hemoglobin Concent 32 g/dL (31-37) Red Cell Distribution Width 18.0 % (11.5-14.5) Platelet Count 369 x10^3/uL (140-400) Neutrophils (%) (Auto) 82 % (31-73) Lymphocytes (%) (Auto) 9 % (24-48) Monocytes (%) (Auto) 3 % (0-9) Eosinophils (%) (Auto) 5 % (0-3) Basophils (%) (Auto) 1 % (0-3) Neutrophils # (Auto) 10.4 x10^3/uL (1.8-7.7) Lymphocytes # (Auto) 1.1 x10^3/uL (1.0-4.8) Monocytes # (Auto) 0.4 x10^3/uL (0.0-1.1) Eosinophils # (Auto) 0.7 x10^3/uL (0.0-0.7) Basophils # (Auto) 0.1 x10^3/uL (0.0-0.2) Sodium Level 137 mmol/L (136-145) Potassium Level 3.7 mmol/L (3.5-5.1) Chloride Level 97 mmol/L (98-107) Carbon Dioxide Level 37 mmol/L (21-32) Anion Gap 3 (6-14) Blood Urea Nitrogen 28 mg/dL (7-20) Creatinine 0.7 mg/dL (0.6-1.0) Estimated GFR (Cockcroft-Gault) 84.0 Glucose Level 136 mg/dL (70-99) Calcium Level 8.2 mg/dL (8.5-10.1) Magnesium Level 2.3 mg/dL (1.8-2.4) O2 Saturation 78 % (92-99) Arterial Blood pH 7.34 (7.35-7.45) Arterial Blood pCO2 at Patient Temp 65 mmHg (35-46) Arterial Blood pO2 at Patient Temp 45 mmHg (65-108) Arterial Blood HCO3 34 mmol/L (21-28) Arterial Blood Base Excess 7 mmol/L (-3-3) FiO2 100 Glucose (Fingerstick) 147 mg/dL (70-99) 156 mg/dL (70-99) Test 08/08/21 00:22 08/08/21 05:41 08/08/21 06:15 08/08/21 08:00 Glucose (Fingerstick) 161 mg/dL (70-99) 165 mg/dL (70-99) White Blood Count 14.1 x10^3/uL (4.0-11.0) Red Blood Count 2.74 x10^6/uL (3.50-5.40) Hemoglobin 7.9 g/dL (12.0-15.5) Hematocrit 25.4 % (36.0-47.0) Mean Corpuscular Volume 93 fL (79-100) Mean Corpuscular Hemoglobin 29 pg (25-35) Mean Corpuscular Hemoglobin Concent 31 g/dL (31-37) Red Cell Distribution Width 18.3 % (11.5-14.5) Platelet Count 425 x10^3/uL (140-400) Neutrophils (%) (Auto) 80 % (31-73) Lymphocytes (%) (Auto) 10 % (24-48) Monocytes (%) (Auto) 4 % (0-9) Eosinophils (%) (Auto) 6 % (0-3) Basophils (%) (Auto) 1 % (0-3) Neutrophils # (Auto) 11.3 x10^3/uL (1.8-7.7) Lymphocytes # (Auto) 1.4 x10^3/uL (1.0-4.8) Monocytes # (Auto) 0.6 x10^3/uL (0.0-1.1) Eosinophils # (Auto) 0.8 x10^3/uL (0.0-0.7) Basophils # (Auto) 0.1 x10^3/uL (0.0-0.2) Sodium Level 136 mmol/L (136-145) Potassium Level 3.7 mmol/L (3.5-5.1) Chloride Level 99 mmol/L (98-107) Carbon Dioxide Level 35 mmol/L (21-32) Anion Gap 2 (6-14) Blood Urea Nitrogen 40 mg/dL (7-20) Creatinine 1.0 mg/dL (0.6-1.0) Estimated GFR (Cockcroft-Gault) 55.6 BUN/Creatinine Ratio 40 (6-20) Glucose Level 156 mg/dL (70-99) Calcium Level 7.8 mg/dL (8.5-10.1) Ferritin 299 ng/mL (8-252) Total Bilirubin 0.6 mg/dL (0.2-1.0) Aspartate Amino Transf (AST/SGOT) 36 U/L (15-37) Alanine Aminotransferase (ALT/SGPT) 39 U/L (14-59) Alkaline Phosphatase 152 U/L (46-116) Total Protein 5.5 g/dL (6.4-8.2) Albumin 1.4 g/dL (3.4-5.0) Albumin/Globulin Ratio 0.3 (1.0-1.7) O2 Saturation 83 % (92-99) Arterial Blood pH 7.32 (7.35-7.45) Arterial Blood pCO2 at Patient Temp 54 mmHg (35-46) Arterial Blood pO2 at Patient Temp 53 mmHg (65-108) Arterial Blood HCO3 27 mmol/L (21-28) Arterial Blood Base Excess 1 mmol/L (-3-3) FiO2 100 Laboratory Tests Test 08/07/21 11:24 08/07/21 17:41 08/08/21 00:22 08/08/21 05:41 Glucose (Fingerstick) 147 mg/dL (70-99) 156 mg/dL (70-99) 161 mg/dL (70-99) 165 mg/dL (70-99) Test 08/08/21 06:15 08/08/21 08:00 White Blood Count 14.1 x10^3/uL (4.0-11.0) Red Blood Count 2.74 x10^6/uL (3.50-5.40) Hemoglobin 7.9 g/dL (12.0-15.5) Hematocrit 25.4 % (36.0-47.0) Mean Corpuscular Volume 93 fL (79-100) Mean Corpuscular Hemoglobin 29 pg (25-35) Mean Corpuscular Hemoglobin Concent 31 g/dL (31-37) Red Cell Distribution Width 18.3 % (11.5-14.5) Platelet Count 425 x10^3/uL (140-400) Neutrophils (%) (Auto) 80 % (31-73) Lymphocytes (%) (Auto) 10 % (24-48) Monocytes (%) (Auto) 4 % (0-9) Eosinophils (%) (Auto) 6 % (0-3) Basophils (%) (Auto) 1 % (0-3) Neutrophils # (Auto) 11.3 x10^3/uL (1.8-7.7) Lymphocytes # (Auto) 1.4 x10^3/uL (1.0-4.8) Monocytes # (Auto) 0.6 x10^3/uL (0.0-1.1) Eosinophils # (Auto) 0.8 x10^3/uL (0.0-0.7) Basophils # (Auto) 0.1 x10^3/uL (0.0-0.2) Sodium Level 136 mmol/L (136-145) Potassium Level 3.7 mmol/L (3.5-5.1) Chloride Level 99 mmol/L (98-107) Carbon Dioxide Level 35 mmol/L (21-32) Anion Gap 2 (6-14) Blood Urea Nitrogen 40 mg/dL (7-20) Creatinine 1.0 mg/dL (0.6-1.0) Estimated GFR (Cockcroft-Gault) 55.6 BUN/Creatinine Ratio 40 (6-20) Glucose Level 156 mg/dL (70-99) Calcium Level 7.8 mg/dL (8.5-10.1) Ferritin 299 ng/mL (8-252) Total Bilirubin 0.6 mg/dL (0.2-1.0) Aspartate Amino Transf (AST/SGOT) 36 U/L (15-37) Alanine Aminotransferase (ALT/SGPT) 39 U/L (14-59) Alkaline Phosphatase 152 U/L (46-116) Total Protein 5.5 g/dL (6.4-8.2) Albumin 1.4 g/dL (3.4-5.0) Albumin/Globulin Ratio 0.3 (1.0-1.7) O2 Saturation 83 % (92-99) Arterial Blood pH 7.32 (7.35-7.45) Arterial Blood pCO2 at Patient Temp 54 mmHg (35-46) Arterial Blood pO2 at Patient Temp 53 mmHg (65-108) Arterial Blood HCO3 27 mmol/L (21-28) Arterial Blood Base Excess 1 mmol/L (-3-3) FiO2 100 Medications Active Scripts Medications Dose Route/Sig Max Daily Dose Days Date Category Comments Chest x-ray reviewed 08/07/2021 Diffuse bilateral interstitial infiltrates, no change Impression . IMPRESSION: 1. Acute hypoxemic respiratory failure secondary to COVID-19 viral pneumonia/ARDS. Intubated 07/23/2021 2. COVID-19 viral pneumonia/acute respiratory distress syndrome. 3. Possible bacterial pneumonia. 4. Obesity. 5. Abnormal chest x-ray consistent with viral pneumonia 6. Hypotension, stable 7. Leukocytosis, 8. Severe protein calorie malnutrition. Plan . Updated 08/08 Remains on pressure control inverse ratio ventilation, 100% FiO2 and 11 of PEEP. Continue current support, avoid increasing PEEP, to avoid further barotrauma Patient not expected to survive We will continue current support DVT GI prophylaxis Chest x-ray reviewed, no improvement in x-ray findings Continue empiric Zosyn. Discussed with RN and RT. Will call the son later today Updated 08/07 Continue current support, avoid increasing PEEP, to avoid further barotrauma Patient not expected to survive We will continue current support DVT GI prophylaxis Chest x-ray reviewed, IV Lasix given, no improvement in x-ray findings Continue empiric Zosyn. Updated 08/06 cont vent support setting reviewed prognosis very poor family meeting 08/05 family wants to cont full support We will continue current vent settings, agree with not increasing PEEP, likelihood of barotrauma leading to pneumothorax is high, agree increasing PEEP will not make a difference. levo to keep map 65 abx Steroids Patient given IV Lasix, no improvement in Continue DVT prophylaxis Continue nutritional support discussed w rn rt Updated 08/05 cont vent support setting reviewed prognosis very poor family meeting today We will continue current vent settings, we will not increase PEEP, likelihood of barotrauma leading to pneumothorax is high, agree increasing PEEP will not make a difference. levo to keep map 65 abx Steroids Patient given IV Lasix, no improvement in Continue DVT prophylaxis Continue nutritional support discussed w rn rt Updated 08/04 We will continue current vent settings, we will not increase PEEP, likelihood of barotrauma leading to pneumothorax is high, I do not think increasing PEEP will make a difference. Plateau pressure is currently 34 Wean norepinephrine off Continue Zosyn Steroids Patient given IV Lasix, no improvement in Continue DVT prophylaxis Continue nutritional support RAFIA EGAN MD Aug 08, 2021 09:12
--- NOTE | 2021-08-08 09:37 | PDOC ---
PROGRESS NOTES Date of Service: DATE: 08/08/21 TIME: 09:36 Chief Complaint Chief Complaint acute hypoxic respiratory failure requiring mechanical ventilation COVID 19 pneumonia, standard treatement protocol History of Present Illness History of Present Illness pt admitted to [facility] days ago for noted shortness of rbeath, was COVID positive ,and worsened over days. weakness and lethargy worse, hypoxia worse over days, transferred here for poss ICU need, on NRB, risk of intubation is high, . History of Present Illness History of Present Illness 07/17/2021 No acute events overnight. Patient saturating 90% on 40% Vapotherm. No concerns nursing at this time. Patient's chart, labs, images were reviewed and discussed with RN In addition to my E/M visit, advance care planning done with A total time of 20 minutes was spent from 920 to 940 face to face in discussion with the patient regarding their goals of care, CODE STATUS. 07/18/2021 No acute events overnight. Patient saturating 89% on Vapotherm. No dyspnea upon exertion or at rest. Pending chest x-ray results. No other concerns from nursing. 07/19/21 No acute events overnight. Saturating 91% on vapotherm. No dyspnea and is motiviated to get out of bed onto chair. total critical care time spent of 33 minutes 07/20/2021 No acute events overnight. Patient seen and examined bedside. Saturating well on Vapotherm. Patient accepted at [facility]. No concerns with nursing. A total of 35 minutes of critical care time was spent in reviewing chart, labs, and images. Discussed with RN and TRAVIS. 07/21/2021 No acute events overnight. Unfortunately patient was unable to be transferred to [facility] because of unable to tolerate BiPAP. At this point we will continue BiPAP and Vapotherm for inpatient care. Patient's chart, labs, images were reviewed and discussed with RN A total of 32 minutes of critical care time was spent in reviewing chart, labs, and images. Discussed with RN and SW. 07/22/2021 No acute events overnight. Patient seen and examined bedside. Saturating 100% on FiO2 and 15 L nonrebreather mask. Does complain of diarrhea and one-time Imodium was administered. Afebrile last 24 hours. Continue PT OT modalities. Encourage prone positioning when able. Patient's chart, labs, images were reviewed and discussed with RN A total of 32 minutes of critical care time was spent in reviewing chart, labs, and images. Discussed with RN and SW. 07/23/2021 No acute events overnight. Patient seen and examined resting comfortably at bedside. Saturating 83% on Vapotherm. Patient did have dyspneic episodes overnight desaturating down to 70s and 80s. She was offered BiPAP but she is declining and wishing to be DNR today. Patient's chart, labs, images were reviewed and discussed with RN 07/24/2021: Patient transferred to the ICU and intubated overnight. Currently afebrile, tachycardic. On vent with FiO2 100%, PEEP 8. We will continue steroids to complete 10-day course; begin taper tomorrow. 07/25/2021: Afebrile, no acute events overnight. On vent with FiO2 100%, PEEP 8. Completed remdesivir. Day 10 of steroids, will begin taper over 10 days. Continue supportive care. Critical care time 30 min spent reviewing charts, reviewing imaging, reviewing labs, and discussion with RN. 07/26/2021: Afebrile. On vent with FiO2 100%, PEEP 8. Completed remdesivir and 10 days of steroids; will begin slow steroid taper. Chest x-ray from 07/24 showed stable diffuse infiltrate. Leukocytosis likely secondary to steroid use. Will obtain CRP and procalcitonin. Continue supportive care. Critical care time 30 min spent reviewing charts, reviewing imaging, reviewing labs, and discussion with RN. 07/27/2021: Afebrile. On vent with FiO2 100%, PEEP 9. CRP 15, procalcitonin 0.10. WBC 17.2. We will hold off on further antibiotics for now continue to monitor. Completed remdesivir and 10 days of steroids; continue slow Decadron taper. Continue supportive care. Critical care time 30 min spent reviewing charts, reviewing imaging, reviewing labs, and discussion with RN. 07/28/2021: Afebrile. On vent FiO2 100%, PEEP 9. Completed remdesivir and 10 days of steroids; continue slow Decadron taper. Continue supportive care; on vasopressors. Critical care time 30 min spent reviewing charts, reviewing imaging, reviewing labs, and discussion with RN. 07/29/2021: Afebrile, no significant change overnight. On vent FiO2 100%, PEEP 9. Completed remdesivir and 10 days of steroids; continue slow Decadron taper. Continue supportive care; on vasopressors. Critical care time 30 min spent reviewing charts, reviewing imaging, reviewing labs, and discussion with RN. 07/30/2021: Afebrile. On vent with FiO2 100%, PEEP 9. Completed remdesivir and 10 days of steroids; continue slow Decadron taper (last day of Decadron taper should be tomorrow). Empiric antibiotics, supportive care; on Levophed. Empiric antibiotics could likely stop after Decadron taper; will obtain procalcitonin and chest x-ray tomorrow. Critical care time 30 min spent reviewing charts, reviewing imaging, reviewing labs, and discussion with RN. 07/31 Patient remains afebrile. Remains ventilated and sedated. Decadron taper finished today. Normal procalcitonin on the labs chest x-ray mildly improved. Pulmonary continues to follow. Continuing current plan, will wean oxygen as tolerated. 08/01 Patient evaluated examined at bedside. Some low saturations this morning. Remains ventilated and sedated. Continue COVID treatment. 08/02 Patient evaluated examined at bedside. She is still having lower saturation and this low 80s and upper 70s despite high oxygen provided. Contacted patient's son today and discussed case with him. He is well aware of her condition and at this point poor prognosis. I did bring up the idea of the DNR DNI and starting to look towards a hospice route as patient has been intubated for 10 days and is actually worsening. Patient son reported that he would like to talk with his and sister before making a final decision. Will likely have a family meeting with them Saturday or Saturday. 08/03 Patient evaluated examined at bedside. Saturations continued to drop despite ventilator adjustments. Very poor prognosis. Discussed with family yesterday. Will attempt to call again today. Otherwise continue current plan. 08/04 Evaluated examined at bedside, oxygen saturations definitely worse today. Contacted patient's son planning for family meeting tomorrow in person. 08/05 Patient seen and examined at bedside. Continues to require high levels of oxygen. Met with family at bedside discussing poor prognosis. After discussing family decided they would like to continue full code for right now and assess for any sort of brain injury. Informed them that this would likely require imaging with how much sedation she is on and there is a chance she will not survive the actual process. They would like to think about it more at this point. We will check in with him again tomorrow. 08/06 No major clinical changes. Continues to have high ventilator settings. Really not safe for transport for imaging right now. Poor prognosis. 08/07 No clinical changes. high ventilator settings. Really not safe for transport for imaging . Poor prognosis She would not be a good candidate for imaging studies. prognosis is extremely poor, neurology consulted severe protein, caloric malnutrition critically ill, 100% FiO2 11 of PEEP pressure of 24 plateau pressure 37 36 min cc time 08/08 No clinical changes. high ventilator settings. Really not safe for transport for imaging . Poor prognosis She would not be a good candidate for imaging studies. prognosis is extremely poor, neurology consulted severe protein, caloric malnutrition critically ill, 100% FiO2 11 of PEEP pressure of 24 plateau pressure 37 pressure control inverse ratio ventilation, 100% FiO2 and 11 of PEEP. avoid increasing PEEP, to avoid barotrauma grave prognosis 32 min cc time Vitals Vitals Vital Signs Date Time Temp Pulse Resp B/P (MAP) Pulse Ox O2 Delivery O2 Flow Rate FiO2 08/08/21 09:21 87/53 (64) 08/08/21 09:04 94 24 81 08/08/21 08:00 Mechanical Ventilator 08/08/21 07:26 97.8 97.8 Physical Exam Physical Exam sedated on vent General: No acute distress, Other (ET and NG tube in place) Heart: Other (Tachycardic) Lungs: Clear Abdomen: Normal bowel sounds, Soft (obese, ) Extremities: No cyanosis, No edema, Normal pulses Skin: No rashes, No significant lesion Labs LABS Laboratory Tests Test 08/07/21 11:24 08/07/21 17:41 08/08/21 00:22 08/08/21 05:41 Glucose (Fingerstick) 147 mg/dL (70-99) 156 mg/dL (70-99) 161 mg/dL (70-99) 165 mg/dL (70-99) Test 08/08/21 06:15 08/08/21 08:00 White Blood Count 14.1 x10^3/uL (4.0-11.0) Red Blood Count 2.74 x10^6/uL (3.50-5.40) Hemoglobin 7.9 g/dL (12.0-15.5) Hematocrit 25.4 % (36.0-47.0) Mean Corpuscular Volume 93 fL (79-100) Mean Corpuscular Hemoglobin 29 pg (25-35) Mean Corpuscular Hemoglobin Concent 31 g/dL (31-37) Red Cell Distribution Width 18.3 % (11.5-14.5) Platelet Count 425 x10^3/uL (140-400) Neutrophils (%) (Auto) 80 % (31-73) Lymphocytes (%) (Auto) 10 % (24-48) Monocytes (%) (Auto) 4 % (0-9) Eosinophils (%) (Auto) 6 % (0-3) Basophils (%) (Auto) 1 % (0-3) Neutrophils # (Auto) 11.3 x10^3/uL (1.8-7.7) Lymphocytes # (Auto) 1.4 x10^3/uL (1.0-4.8) Monocytes # (Auto) 0.6 x10^3/uL (0.0-1.1) Eosinophils # (Auto) 0.8 x10^3/uL (0.0-0.7) Basophils # (Auto) 0.1 x10^3/uL (0.0-0.2) Sodium Level 136 mmol/L (136-145) Potassium Level 3.7 mmol/L (3.5-5.1) Chloride Level 99 mmol/L (98-107) Carbon Dioxide Level 35 mmol/L (21-32) Anion Gap 2 (6-14) Blood Urea Nitrogen 40 mg/dL (7-20) Creatinine 1.0 mg/dL (0.6-1.0) Estimated GFR (Cockcroft-Gault) 55.6 BUN/Creatinine Ratio 40 (6-20) Glucose Level 156 mg/dL (70-99) Calcium Level 7.8 mg/dL (8.5-10.1) Ferritin 299 ng/mL (8-252) Total Bilirubin 0.6 mg/dL (0.2-1.0) Aspartate Amino Transf (AST/SGOT) 36 U/L (15-37) Alanine Aminotransferase (ALT/SGPT) 39 U/L (14-59) Alkaline Phosphatase 152 U/L (46-116) Total Protein 5.5 g/dL (6.4-8.2) Albumin 1.4 g/dL (3.4-5.0) Albumin/Globulin Ratio 0.3 (1.0-1.7) O2 Saturation 83 % (92-99) Arterial Blood pH 7.32 (7.35-7.45) Arterial Blood pCO2 at Patient Temp 54 mmHg (35-46) Arterial Blood pO2 at Patient Temp 53 mmHg (65-108) Arterial Blood HCO3 27 mmol/L (21-28) Arterial Blood Base Excess 1 mmol/L (-3-3) FiO2 100 Comment Review of Relevant I have reviewed the following items jluis (where applicable) has been applied. Labs Laboratory Tests Test 08/06/21 11:43 08/06/21 17:37 08/06/21 23:25 08/07/21 05:22 Glucose (Fingerstick) 158 mg/dL (70-99) 139 mg/dL (70-99) 154 mg/dL (70-99) 141 mg/dL (70-99) Test 08/07/21 05:30 08/07/21 08:00 08/07/21 11:24 08/07/21 17:41 White Blood Count 12.7 x10^3/uL (4.0-11.0) Red Blood Count 2.69 x10^6/uL (3.50-5.40) Hemoglobin 7.9 g/dL (12.0-15.5) Hematocrit 24.8 % (36.0-47.0) Mean Corpuscular Volume 92 fL (79-100) Mean Corpuscular Hemoglobin 29 pg (25-35) Mean Corpuscular Hemoglobin Concent 32 g/dL (31-37) Red Cell Distribution Width 18.0 % (11.5-14.5) Platelet Count 369 x10^3/uL (140-400) Neutrophils (%) (Auto) 82 % (31-73) Lymphocytes (%) (Auto) 9 % (24-48) Monocytes (%) (Auto) 3 % (0-9) Eosinophils (%) (Auto) 5 % (0-3) Basophils (%) (Auto) 1 % (0-3) Neutrophils # (Auto) 10.4 x10^3/uL (1.8-7.7) Lymphocytes # (Auto) 1.1 x10^3/uL (1.0-4.8) Monocytes # (Auto) 0.4 x10^3/uL (0.0-1.1) Eosinophils # (Auto) 0.7 x10^3/uL (0.0-0.7) Basophils # (Auto) 0.1 x10^3/uL (0.0-0.2) Sodium Level 137 mmol/L (136-145) Potassium Level 3.7 mmol/L (3.5-5.1) Chloride Level 97 mmol/L (98-107) Carbon Dioxide Level 37 mmol/L (21-32) Anion Gap 3 (6-14) Blood Urea Nitrogen 28 mg/dL (7-20) Creatinine 0.7 mg/dL (0.6-1.0) Estimated GFR (Cockcroft-Gault) 84.0 Glucose Level 136 mg/dL (70-99) Calcium Level 8.2 mg/dL (8.5-10.1) Magnesium Level 2.3 mg/dL (1.8-2.4) O2 Saturation 78 % (92-99) Arterial Blood pH 7.34 (7.35-7.45) Arterial Blood pCO2 at Patient Temp 65 mmHg (35-46) Arterial Blood pO2 at Patient Temp 45 mmHg (65-108) Arterial Blood HCO3 34 mmol/L (21-28) Arterial Blood Base Excess 7 mmol/L (-3-3) FiO2 100 Glucose (Fingerstick) 147 mg/dL (70-99) 156 mg/dL (70-99) Test 08/08/21 00:22 08/08/21 05:41 08/08/21 06:15 08/08/21 08:00 Glucose (Fingerstick) 161 mg/dL (70-99) 165 mg/dL (70-99) White Blood Count 14.1 x10^3/uL (4.0-11.0) Red Blood Count 2.74 x10^6/uL (3.50-5.40) Hemoglobin 7.9 g/dL (12.0-15.5) Hematocrit 25.4 % (36.0-47.0) Mean Corpuscular Volume 93 fL (79-100) Mean Corpuscular Hemoglobin 29 pg (25-35) Mean Corpuscular Hemoglobin Concent 31 g/dL (31-37) Red Cell Distribution Width 18.3 % (11.5-14.5) Platelet Count 425 x10^3/uL (140-400) Neutrophils (%) (Auto) 80 % (31-73) Lymphocytes (%) (Auto) 10 % (24-48) Monocytes (%) (Auto) 4 % (0-9) Eosinophils (%) (Auto) 6 % (0-3) Basophils (%) (Auto) 1 % (0-3) Neutrophils # (Auto) 11.3 x10^3/uL (1.8-7.7) Lymphocytes # (Auto) 1.4 x10^3/uL (1.0-4.8) Monocytes # (Auto) 0.6 x10^3/uL (0.0-1.1) Eosinophils # (Auto) 0.8 x10^3/uL (0.0-0.7) Basophils # (Auto) 0.1 x10^3/uL (0.0-0.2) Sodium Level 136 mmol/L (136-145) Potassium Level 3.7 mmol/L (3.5-5.1) Chloride Level 99 mmol/L (98-107) Carbon Dioxide Level 35 mmol/L (21-32) Anion Gap 2 (6-14) Blood Urea Nitrogen 40 mg/dL (7-20) Creatinine 1.0 mg/dL (0.6-1.0) Estimated GFR (Cockcroft-Gault) 55.6 BUN/Creatinine Ratio 40 (6-20) Glucose Level 156 mg/dL (70-99) Calcium Level 7.8 mg/dL (8.5-10.1) Ferritin 299 ng/mL (8-252) Total Bilirubin 0.6 mg/dL (0.2-1.0) Aspartate Amino Transf (AST/SGOT) 36 U/L (15-37) Alanine Aminotransferase (ALT/SGPT) 39 U/L (14-59) Alkaline Phosphatase 152 U/L (46-116) Total Protein 5.5 g/dL (6.4-8.2) Albumin 1.4 g/dL (3.4-5.0) Albumin/Globulin Ratio 0.3 (1.0-1.7) O2 Saturation 83 % (92-99) Arterial Blood pH 7.32 (7.35-7.45) Arterial Blood pCO2 at Patient Temp 54 mmHg (35-46) Arterial Blood pO2 at Patient Temp 53 mmHg (65-108) Arterial Blood HCO3 27 mmol/L (21-28) Arterial Blood Base Excess 1 mmol/L (-3-3) FiO2 100 Laboratory Tests Test 08/07/21 11:24 08/07/21 17:41 08/08/21 00:22 08/08/21 05:41 Glucose (Fingerstick) 147 mg/dL (70-99) 156 mg/dL (70-99) 161 mg/dL (70-99) 165 mg/dL (70-99) Test 08/08/21 06:15 08/08/21 08:00 White Blood Count 14.1 x10^3/uL (4.0-11.0) Red Blood Count 2.74 x10^6/uL (3.50-5.40) Hemoglobin 7.9 g/dL (12.0-15.5) Hematocrit 25.4 % (36.0-47.0) Mean Corpuscular Volume 93 fL (79-100) Mean Corpuscular Hemoglobin 29 pg (25-35) Mean Corpuscular Hemoglobin Concent 31 g/dL (31-37) Red Cell Distribution Width 18.3 % (11.5-14.5) Platelet Count 425 x10^3/uL (140-400) Neutrophils (%) (Auto) 80 % (31-73) Lymphocytes (%) (Auto) 10 % (24-48) Monocytes (%) (Auto) 4 % (0-9) Eosinophils (%) (Auto) 6 % (0-3) Basophils (%) (Auto) 1 % (0-3) Neutrophils # (Auto) 11.3 x10^3/uL (1.8-7.7) Lymphocytes # (Auto) 1.4 x10^3/uL (1.0-4.8) Monocytes # (Auto) 0.6 x10^3/uL (0.0-1.1) Eosinophils # (Auto) 0.8 x10^3/uL (0.0-0.7) Basophils # (Auto) 0.1 x10^3/uL (0.0-0.2) Sodium Level 136 mmol/L (136-145) Potassium Level 3.7 mmol/L (3.5-5.1) Chloride Level 99 mmol/L (98-107) Carbon Dioxide Level 35 mmol/L (21-32) Anion Gap 2 (6-14) Blood Urea Nitrogen 40 mg/dL (7-20) Creatinine 1.0 mg/dL (0.6-1.0) Estimated GFR (Cockcroft-Gault) 55.6 BUN/Creatinine Ratio 40 (6-20) Glucose Level 156 mg/dL (70-99) Calcium Level 7.8 mg/dL (8.5-10.1) Ferritin 299 ng/mL (8-252) Total Bilirubin 0.6 mg/dL (0.2-1.0) Aspartate Amino Transf (AST/SGOT) 36 U/L (15-37) Alanine Aminotransferase (ALT/SGPT) 39 U/L (14-59) Alkaline Phosphatase 152 U/L (46-116) Total Protein 5.5 g/dL (6.4-8.2) Albumin 1.4 g/dL (3.4-5.0) Albumin/Globulin Ratio 0.3 (1.0-1.7) O2 Saturation 83 % (92-99) Arterial Blood pH 7.32 (7.35-7.45) Arterial Blood pCO2 at Patient Temp 54 mmHg (35-46) Arterial Blood pO2 at Patient Temp 53 mmHg (65-108) Arterial Blood HCO3 27 mmol/L (21-28) Arterial Blood Base Excess 1 mmol/L (-3-3) FiO2 100 Medications Current Medications Ondansetron HCl (Zofran) 4 mg PRN Q6HRS PRN IVP NAUSEA/VOMITING Last administered on 07/22/21at 22:51; Start 07/15/21 at 00:00 Throat Lozenges (Cepacol Sore Throat Lozenge) 1 vincent PRN Q2HRS PRN PO SORE THROAT Last administered on 07/17/21at 00:23; Start 07/15/21 at 00:00 Ceftriaxone Sodium (Rocephin) 1 gm Q24H IVP Last administered on 07/21/21at 08:23; Start 07/15/21 at 09:00; Stop 07/21/21 at 13:26; Status DC Azithromycin (Zithromax) 250 mg DAILY PO Last administered on 07/21/21 08:17; Start 07/15/21 at 09:00; Stop 07/21/21 at 08:53; Status DC Dexamethasone Sodium Phosphate (Decadron) 10 mg DAILY IVP Last administered on 07/15/21at 10:24; Start 07/15/21 at 09:00; Stop 07/15/21 at 13:07; Status DC Enoxaparin Sodium (Lovenox 40mg Syringe) 40 mg Q24H SQ Last administered on 08/08/21at 09:04; Start 07/15/21 at 09:00 Lactobacillus Rhamnosus (Culturelle) 1 cap BID PO Last administered on 07/26/21at 21:27; Start 07/15/21 at 09:00; Stop 07/27/21 at 08:20; Status DC Acetaminophen (Tylenol) 650 mg PRN Q4HRS PRN PO MILD PAIN / TEMP > 100.3'F Last administered on 07/17/21at 19:18; Start 07/15/21 at 00:00 Guaifenesin (Robitussin Dm) 10 ml PRN Q4HRS PRN PO COUGH Last administered on 07/23/21at 13:00; Start 07/15/21 at 00:00 Remdesivir 100 mg/ Sodium Chloride 230 ml @ 460 mls/hr DAILY IV Last administered on 07/18/21at 08:59; Start 07/15/21 at 09:00; Stop 07/18/21 at 09:29; Status DC Oxycodone/ Acetaminophen (Percocet 5/325) 1 tab PRN Q8HRS PRN PO MODERATE- SEVERE PAIN Last administered on 07/23/21at 13:00; Start 07/15/21 at 09:15 Potassium Chloride/Dextrose/ Sod Cl 1,000 ml @ 80 mls/hr [id number] ONCE IV Last administered on 07/15/21at 10:26; Start 07/15/21 at 09:15; Stop 07/15/21 at 21:44; Status DC Ascorbic Acid (Vitamin C) 500 mg DAILY PO Last administered on 08/08/21at 09:04; Start 07/15/21 at 09:30 Zinc Sulfate (Orazinc) 220 mg DAILY PO Last administered on 9/28/21at 09:04; Start 07/15/21 at 09:30 Dexamethasone Sodium Phosphate (Decadron) 6 mg DAILY IVP Last administered on 07/25/21at 08:46; Start 07/16/21 at 09:00; Stop 07/26/21 at 06:39; Status DC Sterile Water (WATER for RESP) 1,000 ml CONT PRN INH VIA VAPOTHERM DEVICE Last administered on 07/20/21at 08:03; Start 07/15/21 at 13:30 Potassium Chloride/Dextrose/ Sod Cl 1,000 ml @ 100 mls/hr Q10H IV Last administered on 07/17/21at 08:43; Start 07/16/21 at 11:00; Stop 07/17/21 at 16:00; Status DC Lorazepam (Ativan) 0.25 mg PRN Q4HRS PRN PO anxiety 2/2 bipap trials Last administered on 07/23/21at 09:47; Start 07/21/21 at 09:45; Stop 07/23/21 at 14:30; Status DC Loperamide HCl (Imodium) 2 mg PRN 1X PRN PO DIARRHEA Last administered on 07/22/21at 20:42; Start 07/22/21 at 12:45 Propofol 100 ml @ As Directed STK-MED ONCE IV ; Start 07/23/21 at 13:45; Stop 07/23/21 at 13:45; Status DC Succinylcholine Chloride (Anectine) 200 mg STK-MED ONCE .ROUTE ; Start 07/23/21 at 13:45; Stop 07/23/21 at 13:46; Status DC Etomidate (Amidate) 20 mg STK-MED ONCE IV ; Start 07/23/21 at 13:45; Stop 07/23/21 at 13:46; Status DC Fentanyl Citrate 30 ml @ 0 mls/hr CONT PRN IV SEE PROTOCOL Last administered on 07/25/21at 09:31; Start 07/23/21 at 14:00; Stop 07/25/21 at 16:54; Status DC Propofol 100 ml @ 0 mls/hr CONT PRN IV PER PROTOCOL Last administered on 08/07/21at 22:50; Start 07/23/21 at 14:00 Fentanyl Citrate (Fentanyl 2ml Vial) 25 mcg PRN Q1HR PRN IV SEE COMMENTS; Start 07/23/21 at 14:00 Fentanyl Citrate (Fentanyl 2ml Vial) 50 mcg PRN Q1HR PRN IV SEE COMMENTS; Start 07/23/21 at 14:00 Morphine Sulfate (Morphine Sulfate) 2 mg PRN Q1HR PRN IV SEE COMMENTS.; Start 07/23/21 at 14:00 Morphine Sulfate (Morphine Sulfate) 4 mg PRN Q1HR PRN IV SEE COMMENTS.; Start 07/23/21 at 14:00 Midazolam HCl 100 ml @ 0 mls/hr CONT PRN IV SEE PROTOCOL Last administered on 08/08/21at 04:32; Start 07/23/21 at 14:00 Vecuronium Hamilton (Norcuron Bolus) 6 mg PRN Q2HR PRN IV VENTILATOR COMPLIANCE Last administered on 07/27/21at 11:41; Start 07/23/21 at 14:00 Lorazepam (Ativan) 5 mg PRN Q4HRS PRN PO anxiety 2/2 bipap trials; Start 07/23/21 at 14:30 Pantoprazole Sodium (PROTONIX VIAL for IV PUSH) 40 mg DAILYAC IVP Last administered on 08/08/21at 09:03; Start 07/24/21 at 09:00 Dexmedetomidine HCl 400 mcg/ Sodium Chloride 100 ml @ 0 mls/hr CONT PRN IV PER PROTOCOL Last administered on 08/08/21at 07:10; Start 07/24/21 at 10:00 Sodium Chloride 500 ml @ 500 mls/hr 1X PRN PRN IV SEE COMMENTS Last administered on 07/26/21at 10:40; Start 07/24/21 at 10:00 Etomidate (Amidate) 20 mg STK-MED ONCE IV ; Start 07/23/21 at 14:00; Stop 07/24/21 at 12:26; Status DC Succinylcholine Chloride (Anectine) 200 mg STK-MED ONCE .ROUTE ; Start 07/23/21 at 14:00; Stop 07/24/21 at 12:26; Status DC Propofol (Diprivan) 1,000 mg STK-MED ONCE IV ; Start 07/23/21 at 14:00; Stop 07/24/21 at 12:26; Status DC Insulin Human Lispro (HumaLOG) 0-5 UNITS Q6HRS SQ Last administered on 08/08/21at 05:43; Start 07/24/21 at 18:00 Dextrose (Dextrose 50%-Water Syringe) 12.5 gm PRN Q15MIN PRN IV SEE COMMENTS; Start 07/24/21 at 18:00 Fentanyl Citrate 55 ml @ 0 mls/hr CONT PRN IV SEE PROTOCOL Last administered on 08/07/21at 22:52; Start 07/25/21 at 16:00 Dexamethasone Sodium Phosphate (Decadron) 4 mg DAILY IVP Last administered on 07/30/21at 08:57; Start 07/26/21 at 09:00; Stop 07/31/21 at 08:59; Status DC Lorazepam (Ativan Inj) 1 mg PRN Q1HR PRN IVP ANXIETY / AGITATION Last administered on 07/26/21at 11:42; Start 07/26/21 at 11:15 Vecuronium Hamilton 50 mg/ Sodium Chloride 50 ml @ 4.502 mls/ hr CONT PRN IV SEE I/O RECORD Last administered on 08/07/21at 11:20; Start 07/27/21 at 11:30 Norepinephrine Bitartrate 8 mg/ Dextrose 258 ml @ 18.15 mls/ hr CONT PRN IV PER PROTOCOL Last administered on 08/08/21at 02:57; Start 07/27/21 at 17:00 Piperacillin Sod/ Tazobactam Sod (Zosyn Per Pharmacy) 1 each PRN DAILY PRN MC SEE COMMENTS; Start 07/28/21 at 10:15 Piperacillin Sod/ Tazobactam Sod 3.375 gm/Sodium Chloride 50 ml @ 100 mls/hr Q6HRS IV Last administered on 08/08/21at 05:42; Start 07/28/21 at 11:00 Sodium Chloride 1,000 ml @ 30 mls/hr Q24H IV Last administered on 08/07/21at 10:29; Start 07/28/21 at 11:00 Furosemide (Lasix) 40 mg 1X ONCE IVP Last administered on 08/01/21at 12:12; Start 08/01/21 at 11:15; Stop 08/01/21 at 11:16; Status DC Furosemide (Lasix) 40 mg 1X ONCE IVP Last administered on 08/03/21at 09:28; Start 08/03/21 at 09:30; Stop 08/03/21 at 09:31; Status DC Furosemide (Lasix) 40 mg 1X ONCE IVP Last administered on 08/04/21at 12:39; Start 08/04/21 at 11:15; Stop 08/04/21 at 11:21; Status DC Albuterol/ Ipratropium (Duoneb) 3 ml RTQID NEB ; Start 08/05/21 at 12:00; Stop 08/05/21 at 15:37; Status DC Albumin Human 100 ml @ 100 mls/hr 1X ONCE IV Last administered on 08/06/21at 11:46; Start 08/06/21 at 11:30; Stop 08/06/21 at 12:29; Status DC Furosemide (Lasix) 40 mg 1X ONCE IVP Last administered on 08/06/21at 11:44; Start 08/06/21 at 13:00; Stop 08/06/21 at 13:01; Status DC Active Scripts Active Prednisone 20 Mg Tablet 1 Tab PO DAILY 5 Days Vitals/I & O Vital Sign - Last 24 Hours 08/07/21 08/07/21 08/07/21 08/07/21 10:00 11:05 12:07 12:26 Temp 99.0 99.0 Pulse 107 108 Resp 24 24 B/P (MAP) 83/51 (62) 96/58 (71) Pulse Ox 76 74 76 O2 Delivery Ventilator Mechanical Ventilator 08/07/21 08/07/21 08/07/21 08/07/21 12:27 13:00 14:29 14:46 Pulse 110 116 114 110 Resp 24 24 24 24 B/P (MAP) 93/59 (70) 94/58 (70) 87/59 (68) 86/54 (65) Pulse Ox 74 72 75 75 08/07/21 08/07/21 08/07/21 08/07/21 15:20 15:20 16:22 16:23 Temp 97.5 97.5 Pulse 111 113 Resp 24 24 B/P (MAP) 90/62 (71) 83/59 (67) Pulse Ox 76 74 74 O2 Delivery Ventilator Mechanical Ventilator 08/07/21 08/07/21 08/07/21 08/07/21 17:09 17:09 18:03 19:00 Pulse 110 111 111 Resp 24 24 24 B/P (MAP) 75/54 (61) 77/56 (63) 75/56 (62) Pulse Ox 76 77 71 72 O2 Delivery Ventilator 08/07/21 08/07/21 08/07/21 08/07/21 20:00 20:00 20:30 21:00 Temp 98.6 98.6 Pulse 113 111 Resp 24 24 B/P (MAP) 76/54 (61) 71/55 (60) Pulse Ox 71 73 71 O2 Delivery Mechanical Ventilator Ventilator 08/07/21 08/07/21 08/07/21 08/07/21 22:00 22:52 23:00 23:00 Pulse 109 104 Resp 24 24 B/P (MAP) 77/45 (56) 84/64 (71) Pulse Ox 72 70 80 76 O2 Delivery Ventilator 08/08/21 08/08/21 08/08/21 08/08/21 00:00 00:00 01:00 02:00 Temp 98.9 98.9 Pulse 99 98 97 Resp 24 24 24 B/P (MAP) 100/67 (78) 102/67 (79) 102/70 (81) Pulse Ox 77 75 76 O2 Delivery Mechanical Ventilator 08/08/21 08/08/21 08/08/21 08/08/21 02:30 03:00 04:00 04:00 Temp 98.7 98.7 Pulse 98 98 Resp 24 24 B/P (MAP) 114/70 (85) 114/70 (85) Pulse Ox 75 77 77 O2 Delivery Ventilator Mechanical Ventilator 08/08/21 08/08/21 08/08/21 08/08/21 04:54 05:00 06:00 07:26 Temp 97.8 97.8 Pulse 90 95 94 Resp 24 24 24 B/P (MAP) 96/68 (77) 100/67 (78) 90/54 (66) Pulse Ox 78 79 79 79 O2 Delivery Ventilator 08/08/21 08/08/21 08/08/21 08/08/21 07:50 08:00 08:00 09:04 Pulse 92 94 Resp 24 24 B/P (MAP) 93/60 (71) 92/59 (70) Pulse Ox 82 81 81 O2 Delivery Ventilator Mechanical Ventilator 08/08/21 09:21 B/P (MAP) 87/53 (64) Intake and Output 08/07/21 08/07/21 08/08/21 15:00 23:00 07:00 Intake Total 250 ml 1905 ml 1628 ml Output Total 420 ml 160 ml 295 ml Balance -170 ml 1745 ml 1333 ml Justicifation of Admission Dx: Justifications for Admission: Justification of Admission Dx: Yes Sepsis: Hypoxemia NATHALIE VÁSQUEZ MD Aug 08, 2021 09:36
[2021-08-08] MEDS: PROPOFOL 100 ML IV PRN ×2 (10:09→21:43)
[2021-08-08] MEDS: NORCURON - VECURONIUM 50 MG in IV NORMAL SALINE 50ML 50 ML IV PRN (10:43)
[2021-08-08] MEDS: IV NORMAL SALINE 1000ML BAG 1,000 ML IV SCH (12:23)
[2021-08-08] MEDS ORDERED: MINERAL OIL/PETROLATUM,WHITE OPHTH OINT 3.5GM TUBE. OU PRN (15:30)
[2021-08-09] VITALS (23 sets, daily range): BP systolic 79–111; BP diastolic 51–69
[2021-08-09] MEDS: INSULIN LISPRO 300 UNITS/3 ML VIAL. SQ SCH ×4 (00:23→17:30)
[2021-08-09] MEDS: DEXMEDETOMIDINE 400 MCG in IV NORMAL SALINE 100ML 96 ML IV PRN ×5 (03:44→20:55)
[2021-08-09] MEDS: MIDAZOLAM 100mg/100ml NS BAG 100 ML IV PRN ×3 (03:45→20:28)
[2021-08-09] MEDS: fentaNYL HIGH DOSE PCA 55 ML IV PRN (03:46)
[2021-08-09] MEDS: NOREPINEPHRINE VIAL 8 MG in IV DEXTROSE 5% 250 ML IV PRN ×3 (03:47→18:28)
--- NOTE | 2021-08-09 07:55 | PDOC ---
PROGRESS NOTES Date of Service: DATE: 08/09/21 TIME: 07:54 Chief Complaint Chief Complaint acute hypoxic respiratory failure requiring mechanical ventilation COVID 19 pneumonia, standard treatement protocol History of Present Illness History of Present Illness pt admitted to [facility] ago for noted shortness of rbeath, was COVID positive ,and worsened over days. weakness and lethargy worse, hypoxia worse over days, transferred here for poss ICU need, on NRB, risk of intubation is high, . History of Present Illness History of Present Illness 07/17/2021 No acute events overnight. Patient saturating 90% on 40% Vapotherm. No concerns nursing at this time. Patient's chart, labs, images were reviewed and discussed with RN In addition to my E/M visit, advance care planning done with A total time of 20 minutes was spent from 920 to 940 face to face in discussion with the patient regarding their goals of care, CODE STATUS. 07/18/2021 No acute events overnight. Patient saturating 89% on Vapotherm. No dyspnea upon exertion or at rest. Pending chest x-ray results. No other concerns from nursing. 07/19/21 No acute events overnight. Saturating 91% on vapotherm. No dyspnea and is motiviated to get out of bed onto chair. total critical care time spent of 33 minutes 07/20/2021 No acute events overnight. Patient seen and examined bedside. Saturating well on Vapotherm. Patient accepted at [facility]. No concerns with nursing. A total of 35 minutes of critical care time was spent in reviewing chart, labs, and images. Discussed with RN and TRAVIS. 07/21/2021 No acute events overnight. Unfortunately patient was unable to be transferred to [facility] because of unable to tolerate BiPAP. At this point we will continue BiPAP and Vapotherm for inpatient care. Patient's chart, labs, images were reviewed and discussed with RN A total of 32 minutes of critical care time was spent in reviewing chart, labs, and images. Discussed with RN and SW. 07/22/2021 No acute events overnight. Patient seen and examined bedside. Saturating 100% on FiO2 and 15 L nonrebreather mask. Does complain of diarrhea and one-time Imodium was administered. Afebrile last 24 hours. Continue PT OT modalities. Encourage prone positioning when able. Patient's chart, labs, images were reviewed and discussed with RN A total of 32 minutes of critical care time was spent in reviewing chart, labs, and images. Discussed with RN and SW. 07/23/2021 No acute events overnight. Patient seen and examined resting comfortably at bedside. Saturating 83% on Vapotherm. Patient did have dyspneic episodes overnight desaturating down to 70s and 80s. She was offered BiPAP but she is declining and wishing to be DNR today. Patient's chart, labs, images were reviewed and discussed with RN 07/24/2021: Patient transferred to the ICU and intubated overnight. Currently afebrile, tachycardic. On vent with FiO2 100%, PEEP 8. We will continue steroids to complete 10-day course; begin taper tomorrow. 07/25/2021: Afebrile, no acute events overnight. On vent with FiO2 100%, PEEP 8. Completed remdesivir. Day 10 of steroids, will begin taper over 10 days. Continue supportive care. Critical care time 30 min spent reviewing charts, reviewing imaging, reviewing labs, and discussion with RN. 07/26/2021: Afebrile. On vent with FiO2 100%, PEEP 8. Completed remdesivir and 10 days of steroids; will begin slow steroid taper. Chest x-ray from 07/24 showed stable diffuse infiltrate. Leukocytosis likely secondary to steroid use. Will obtain CRP and procalcitonin. Continue supportive care. Critical care time 30 min spent reviewing charts, reviewing imaging, reviewing labs, and discussion with RN. 07/27/2021: Afebrile. On vent with FiO2 100%, PEEP 9. CRP 15, procalcitonin 0.10. WBC 17.2. We will hold off on further antibiotics for now continue to monitor. Completed remdesivir and 10 days of steroids; continue slow Decadron taper. Continue supportive care. Critical care time 30 min spent reviewing charts, reviewing imaging, reviewing labs, and discussion with RN. 07/28/2021: Afebrile. On vent FiO2 100%, PEEP 9. Completed remdesivir and 10 days of steroids; continue slow Decadron taper. Continue supportive care; on vasopressors. Critical care time 30 min spent reviewing charts, reviewing imaging, reviewing labs, and discussion with RN. 07/29/2021: Afebrile, no significant change overnight. On vent FiO2 100%, PEEP 9. Completed remdesivir and 10 days of steroids; continue slow Decadron taper. Continue supportive care; on vasopressors. Critical care time 30 min spent reviewing charts, reviewing imaging, reviewing labs, and discussion with RN. 07/30/2021: Afebrile. On vent with FiO2 100%, PEEP 9. Completed remdesivir and 10 days of steroids; continue slow Decadron taper (last day of Decadron taper should be tomorrow). Empiric antibiotics, supportive care; on Levophed. Empiric antibiotics could likely stop after Decadron taper; will obtain procalcitonin and chest x-ray tomorrow. Critical care time 30 min spent reviewing charts, reviewing imaging, reviewing labs, and discussion with RN. 07/31 Patient remains afebrile. Remains ventilated and sedated. Decadron taper finished today. Normal procalcitonin on the labs chest x-ray mildly improved. Pulmonary continues to follow. Continuing current plan, will wean oxygen as tolerated. 08/01 Patient evaluated examined at bedside. Some low saturations this morning. Remains ventilated and sedated. Continue COVID treatment. 08/02 Patient evaluated examined at bedside. She is still having lower saturation and this low 80s and upper 70s despite high oxygen provided. Contacted patient's son today and discussed case with him. He is well aware of her condition and at this point poor prognosis. I did bring up the idea of the DNR DNI and starting to look towards a hospice route as patient has been intubated for 10 days and is actually worsening. Patient son reported that he would like to talk with his and sister before making a final decision. Will likely have a family meeting with them Saturday or Saturday. 08/03 Patient evaluated examined at bedside. Saturations continued to drop despite ventilator adjustments. Very poor prognosis. Discussed with family yesterday. Will attempt to call again today. Otherwise continue current plan. 08/04 Evaluated examined at bedside, oxygen saturations definitely worse today. Contacted patient's son planning for family meeting tomorrow in person. 08/05 Patient seen and examined at bedside. Continues to require high levels of oxygen. Met with family at bedside discussing poor prognosis. After discussing family decided they would like to continue full code for right now and assess for any sort of brain injury. Informed them that this would likely require imaging with how much sedation she is on and there is a chance she will not survive the actual process. They would like to think about it more at this point. We will check in with him again tomorrow. 08/06 No major clinical changes. Continues to have high ventilator settings. Really not safe for transport for imaging right now. Poor prognosis. 08/07 No clinical changes. high ventilator settings. Really not safe for transport for imaging . Poor prognosis She would not be a good candidate for imaging studies. prognosis is extremely poor, neurology consulted severe protein, caloric malnutrition critically ill, 100% FiO2 11 of PEEP pressure of 24 plateau pressure 37 36 min cc time 08/08 No clinical changes. high ventilator settings. Really not safe for transport for imaging . Poor prognosis She would not be a good candidate for imaging studies. prognosis is extremely poor, neurology consulted severe protein, caloric malnutrition critically ill, 100% FiO2 11 of PEEP pressure of 24 plateau pressure 37 pressure control inverse ratio ventilation, 100% FiO2 and 11 of PEEP. avoid increasing PEEP, to avoid barotrauma grave prognosis 32 min cc time 08/09 No clinical changes. high ventilator settings. Poor prognosis She would not be a good candidate for imaging studies. neurology consulted severe protein, caloric malnutrition critically ill, 100% FiO2 11 of PEEP pressure of 24 plateau pressure 37 pressure control inverse ratio ventilation, 100% FiO2 and 11 of PEEP. avoid increasing PEEP, to avoid barotrauma grave prognosis 34 min cc time consider comfort care Vitals Vitals Vital Signs Date Time Temp Pulse Resp B/P (MAP) Pulse Ox O2 Delivery O2 Flow Rate FiO2 08/09/21 07:02 97.8 115 24 95/61 (72) 77 97.8 08/09/21 05:35 Ventilator Physical Exam Physical Exam sedated on vent General: No acute distress, Other (ET and NG tube in place) Heart: Other (Tachycardic) Lungs: Clear Abdomen: Normal bowel sounds, Soft (obese, ) Extremities: No cyanosis, No edema, Normal pulses Skin: No rashes, No significant lesion Labs LABS Laboratory Tests Test 08/08/21 08:00 08/08/21 12:19 08/09/21 00:21 08/09/21 05:00 O2 Saturation 83 % (92-99) Arterial Blood pH 7.32 (7.35-7.45) Arterial Blood pCO2 at Patient Temp 54 mmHg (35-46) Arterial Blood pO2 at Patient Temp 53 mmHg (65-108) Arterial Blood HCO3 27 mmol/L (21-28) Arterial Blood Base Excess 1 mmol/L (-3-3) FiO2 100 Glucose (Fingerstick) 167 mg/dL (70-99) 163 mg/dL (70-99) Triglycerides Level 272 mg/dL (0-150) Test 08/09/21 07:08 Glucose (Fingerstick) 174 mg/dL (70-99) Comment Review of Relevant I have reviewed the following items jluis (where applicable) has been applied. Labs Laboratory Tests Test 08/07/21 08:00 08/07/21 11:24 08/07/21 17:41 08/08/21 00:22 O2 Saturation 78 % (92-99) Arterial Blood pH 7.34 (7.35-7.45) Arterial Blood pCO2 at Patient Temp 65 mmHg (35-46) Arterial Blood pO2 at Patient Temp 45 mmHg (65-108) Arterial Blood HCO3 34 mmol/L (21-28) Arterial Blood Base Excess 7 mmol/L (-3-3) FiO2 100 Glucose (Fingerstick) 147 mg/dL (70-99) 156 mg/dL (70-99) 161 mg/dL (70-99) Test 08/08/21 05:41 08/08/21 06:15 08/08/21 08:00 08/08/21 12:19 Glucose (Fingerstick) 165 mg/dL (70-99) 167 mg/dL (70-99) White Blood Count 14.1 x10^3/uL (4.0-11.0) Red Blood Count 2.74 x10^6/uL (3.50-5.40) Hemoglobin 7.9 g/dL (12.0-15.5) Hematocrit 25.4 % (36.0-47.0) Mean Corpuscular Volume 93 fL (79-100) Mean Corpuscular Hemoglobin 29 pg (25-35) Mean Corpuscular Hemoglobin Concent 31 g/dL (31-37) Red Cell Distribution Width 18.3 % (11.5-14.5) Platelet Count 425 x10^3/uL (140-400) Neutrophils (%) (Auto) 80 % (31-73) Lymphocytes (%) (Auto) 10 % (24-48) Monocytes (%) (Auto) 4 % (0-9) Eosinophils (%) (Auto) 6 % (0-3) Basophils (%) (Auto) 1 % (0-3) Neutrophils # (Auto) 11.3 x10^3/uL (1.8-7.7) Lymphocytes # (Auto) 1.4 x10^3/uL (1.0-4.8) Monocytes # (Auto) 0.6 x10^3/uL (0.0-1.1) Eosinophils # (Auto) 0.8 x10^3/uL (0.0-0.7) Basophils # (Auto) 0.1 x10^3/uL (0.0-0.2) Sodium Level 136 mmol/L (136-145) Potassium Level 3.7 mmol/L (3.5-5.1) Chloride Level 99 mmol/L (98-107) Carbon Dioxide Level 35 mmol/L (21-32) Anion Gap 2 (6-14) Blood Urea Nitrogen 40 mg/dL (7-20) Creatinine 1.0 mg/dL (0.6-1.0) Estimated GFR (Cockcroft-Gault) 55.6 BUN/Creatinine Ratio 40 (6-20) Glucose Level 156 mg/dL (70-99) Calcium Level 7.8 mg/dL (8.5-10.1) Ferritin 299 ng/mL (8-252) Total Bilirubin 0.6 mg/dL (0.2-1.0) Aspartate Amino Transf (AST/SGOT) 36 U/L (15-37) Alanine Aminotransferase (ALT/SGPT) 39 U/L (14-59) Alkaline Phosphatase 152 U/L (46-116) Total Protein 5.5 g/dL (6.4-8.2) Albumin 1.4 g/dL (3.4-5.0) Albumin/Globulin Ratio 0.3 (1.0-1.7) O2 Saturation 83 % (92-99) Arterial Blood pH 7.32 (7.35-7.45) Arterial Blood pCO2 at Patient Temp 54 mmHg (35-46) Arterial Blood pO2 at Patient Temp 53 mmHg (65-108) Arterial Blood HCO3 27 mmol/L (21-28) Arterial Blood Base Excess 1 mmol/L (-3-3) FiO2 100 Test 08/09/21 00:21 08/09/21 05:00 08/09/21 07:08 Glucose (Fingerstick) 163 mg/dL (70-99) 174 mg/dL (70-99) Triglycerides Level 272 mg/dL (0-150) Laboratory Tests Test 08/08/21 08:00 08/08/21 12:19 08/09/21 00:21 08/09/21 05:00 O2 Saturation 83 % (92-99) Arterial Blood pH 7.32 (7.35-7.45) Arterial Blood pCO2 at Patient Temp 54 mmHg (35-46) Arterial Blood pO2 at Patient Temp 53 mmHg (65-108) Arterial Blood HCO3 27 mmol/L (21-28) Arterial Blood Base Excess 1 mmol/L (-3-3) FiO2 100 Glucose (Fingerstick) 167 mg/dL (70-99) 163 mg/dL (70-99) Triglycerides Level 272 mg/dL (0-150) Test 08/09/21 07:08 Glucose (Fingerstick) 174 mg/dL (70-99) Medications Current Medications Ondansetron HCl (Zofran) 4 mg PRN Q6HRS PRN IVP NAUSEA/VOMITING Last administered on 07/22/21at 22:51; Start 07/15/21 at 00:00 Throat Lozenges (Cepacol Sore Throat Lozenge) 1 vincent PRN Q2HRS PRN PO SORE THROAT Last administered on 07/17/21at 00:23; Start 07/15/21 at 00:00 Ceftriaxone Sodium (Rocephin) 1 gm Q24H IVP Last administered on 07/21/21at 08:23; Start 07/15/21 at 09:00; Stop 07/21/21 at 13:26; Status DC Azithromycin (Zithromax) 250 mg DAILY PO Last administered on 07/21/21at 08:17; Start 07/15/21 at 09:00; Stop 07/21/21 at 08:53; Status DC Dexamethasone Sodium Phosphate (Decadron) 10 mg DAILY IVP Last administered on 07/15/21at 10:24; Start 07/15/21 at 09:00; Stop 07/15/21 at 13:07; Status DC Enoxaparin Sodium (Lovenox 40mg Syringe) 40 mg Q24H SQ Last administered on 08/08/21 09:04; Start 07/15/21 at 09:00 Lactobacillus Rhamnosus (Culturelle) 1 cap BID PO Last administered on 07/26/21 21:27; Start 07/15/21 at 09:00; Stop 07/27/21 at 08:20; Status DC Acetaminophen (Tylenol) 650 mg PRN Q4HRS PRN PO MILD PAIN / TEMP > 100.3'F Last administered on 07/17/21 19:18; Start 07/15/21 at 00:00 Guaifenesin (Robitussin Dm) 10 ml PRN Q4HRS PRN PO COUGH Last administered on 07/23/21 13:00; Start 07/15/21 at 00:00 Remdesivir 100 mg/ Sodium Chloride 230 ml @ 460 mls/hr DAILY IV Last administered on 07/18/21 08:59; Start 07/15/21 at 09:00; Stop 07/18/21 at 09:29; Status DC Oxycodone/ Acetaminophen (Percocet 5/325) 1 tab PRN Q8HRS PRN PO MODERATE- SEVERE PAIN Last administered on 07/23/21 13:00; Start 07/15/21 at 09:15 Potassium Chloride/Dextrose/ Sod Cl 1,000 ml @ 80 mls/hr [id number] ONCE IV Last administered on 07/15/21 10:26; Start 07/15/21 at 09:15; Stop 07/15/21 at 21:44; Status DC Ascorbic Acid (Vitamin C) 500 mg DAILY PO Last administered on 08/08/21at 09:04; Start 07/15/21 at 09:30 Zinc Sulfate (Orazinc) 220 mg DAILY PO Last administered on 08/08/21 09:04; Start 07/15/21 at 09:30 Dexamethasone Sodium Phosphate (Decadron) 6 mg DAILY IVP Last administered on 07/25/21at 08:46; Start 07/16/21 at 09:00; Stop 07/26/21 at 06:39; Status DC Sterile Water (WATER for RESP) 1,000 ml CONT PRN INH VIA VAPOTHERM DEVICE Last administered on 07/20/21 08:03; Start 07/15/21 at 13:30 Potassium Chloride/Dextrose/ Sod Cl 1,000 ml @ 100 mls/hr Q10H IV Last administered on 07/17/21at 08:43; Start 07/16/21 at 11:00; Stop 07/17/21 at 16:00; Status DC Lorazepam (Ativan) 0.25 mg PRN Q4HRS PRN PO anxiety 2/2 bipap trials Last administered on 07/23/21at 09:47; Start 07/21/21 at 09:45; Stop 07/23/21 at 14:30; Status DC Loperamide HCl (Imodium) 2 mg PRN 1X PRN PO DIARRHEA Last administered on 07/22/21at 20:42; Start 07/22/21 at 12:45 Propofol 100 ml @ As Directed STK-MED ONCE IV ; Start 07/23/21 at 13:45; Stop 07/23/21 at 13:45; Status DC Succinylcholine Chloride (Anectine) 200 mg STK-MED ONCE .ROUTE ; Start 07/23/21 at 13:45; Stop 07/23/21 at 13:46; Status DC Etomidate (Amidate) 20 mg STK-MED ONCE IV ; Start 07/23/21 at 13:45; Stop 07/23/21 at 13:46; Status DC Fentanyl Citrate 30 ml @ 0 mls/hr CONT PRN IV SEE PROTOCOL Last administered on 07/25/21at 09:31; Start 07/23/21 at 14:00; Stop 07/25/21 at 16:54; Status DC Propofol 100 ml @ 0 mls/hr CONT PRN IV PER PROTOCOL Last administered on 08/08/21at 21:43; Start 07/23/21 at 14:00 Fentanyl Citrate (Fentanyl 2ml Vial) 25 mcg PRN Q1HR PRN IV SEE COMMENTS; Start 07/23/21 at 14:00 Fentanyl Citrate (Fentanyl 2ml Vial) 50 mcg PRN Q1HR PRN IV SEE COMMENTS; Start 07/23/21 at 14:00 Morphine Sulfate (Morphine Sulfate) 2 mg PRN Q1HR PRN IV SEE COMMENTS.; Start 07/23/21 at 14:00 Morphine Sulfate (Morphine Sulfate) 4 mg PRN Q1HR PRN IV SEE COMMENTS.; Start 07/23/21 at 14:00 Midazolam HCl 100 ml @ 0 mls/hr CONT PRN IV SEE PROTOCOL Last administered on 08/09/21at 03:45; Start 07/23/21 at 14:00 Vecuronium [place] (Norcuron Bolus) 6 mg PRN Q2HR PRN IV VENTILATOR COMPLIANCE Last administered on 07/27/21at 11:41; Start 07/23/21 at 14:00 Lorazepam (Ativan) 5 mg PRN Q4HRS PRN PO anxiety 2/2 bipap trials; Start 07/23/21 at 14:30 Pantoprazole Sodium (PROTONIX VIAL for IV PUSH) 40 mg DAILYAC IVP Last administered on 08/08/21at 09:03; Start 07/24/21 at 09:00 Dexmedetomidine HCl 400 mcg/ Sodium Chloride 100 ml @ 0 mls/hr CONT PRN IV PER PROTOCOL Last administered on 08/09/21at 03:44; Start 07/24/21 at 10:00 Sodium Chloride 500 ml @ 500 mls/hr 1X PRN PRN IV SEE COMMENTS Last administered on 07/26/21at 10:40; Start 07/24/21 at 10:00 Etomidate (Amidate) 20 mg STK-MED ONCE IV ; Start 07/23/21 at 14:00; Stop 07/24/21 at 12:26; Status DC Succinylcholine Chloride (Anectine) 200 mg STK-MED ONCE .ROUTE ; Start 07/23/21 at 14:00; Stop 07/24/21 at 12:26; Status DC Propofol (Diprivan) 1,000 mg STK-MED ONCE IV ; Start 07/23/21 at 14:00; Stop 07/24/21 at 12:26; Status DC Insulin Human Lispro (HumaLOG) 0-5 UNITS Q6HRS SQ Last administered on 08/09/21at 07:10; Start 07/24/21 at 18:00 Dextrose (Dextrose 50%-Water Syringe) 12.5 gm PRN Q15MIN PRN IV SEE COMMENTS; Start 07/24/21 at 18:00 Fentanyl Citrate 55 ml @ 0 mls/hr CONT PRN IV SEE PROTOCOL Last administered on 08/09/21at 03:46; Start 07/25/21 at 16:00 Dexamethasone Sodium Phosphate (Decadron) 4 mg DAILY IVP Last administered on 07/30/21at 08:57; Start 07/26/21 at 09:00; Stop 07/31/21 at 08:59; Status DC Lorazepam (Ativan Inj) 1 mg PRN Q1HR PRN IVP ANXIETY / AGITATION Last administered on 07/26/21at 11:42; Start 07/26/21 at 11:15 Vecuronium [place] 50 mg/ Sodium Chloride 50 ml @ 4.502 mls/ hr CONT PRN IV SEE I/O RECORD Last administered on 08/08/21at 10:43; Start 07/27/21 at 11:30 Norepinephrine Bitartrate 8 mg/ Dextrose 258 ml @ 18.15 mls/ hr CONT PRN IV PER PROTOCOL Last administered on 08/09/21at 03:47; Start 07/27/21 at 17:00 Piperacillin Sod/ Tazobactam Sod (Zosyn Per Pharmacy) 1 each PRN DAILY PRN MC SEE COMMENTS; Start 07/28/21 at 10:15; Stop 08/08/21 at 15:01; Status DC Piperacillin Sod/ Tazobactam Sod 3.375 gm/Sodium Chloride 50 ml @ 100 mls/hr Q6HRS IV Last administered on 08/08/21at 12:22; Start 07/28/21 at 11:00; Stop 08/08/21 at 15:00; Status DC Sodium Chloride 1,000 ml @ 30 mls/hr Q24H IV Last administered on 08/08/21at 12:23; Start 07/28/21 at 11:00 Furosemide (Lasix) 40 mg 1X ONCE IVP Last administered on 08/01/21at 12:12; Start 08/01/21 at 11:15; Stop 08/01/21 at 11:16; Status DC Furosemide (Lasix) 40 mg 1X ONCE IVP Last administered on 08/03/21at 09:28; Start 08/03/21 at 09:30; Stop 08/03/21 at 09:31; Status DC Furosemide (Lasix) 40 mg 1X ONCE IVP Last administered on 08/04/21at 12:39; Start 08/04/21 at 11:15; Stop 08/04/21 at 11:21; Status DC Albuterol/ Ipratropium (Duoneb) 3 ml RTQID NEB ; Start 08/05/21 at 12:00; Stop 08/05/21 at 15:37; Status DC Albumin Human 100 ml @ 100 mls/hr 1X ONCE IV Last administered on 08/06/21at 11:46; Start 08/06/21 at 11:30; Stop 08/06/21 at 12:29; Status DC Furosemide (Lasix) 40 mg 1X ONCE IVP Last administered on 08/06/21at 11:44; Start 08/06/21 at 13:00; Stop 08/06/21 at 13:01; Status DC Multi-Ingred Cream/Lotion/Oil/ Oint (Artificial Tears Eye Ointment) 1 kareem PRN Q1HR PRN OU DRY EYE; Start 08/08/21 at 15:30 Active Scripts Active Prednisone 20 Mg Tablet 1 Tab PO DAILY 5 Days Vitals/I & O Vital Sign - Last 24 Hours 08/08/21 08/08/21 08/08/21 08/08/21 08:00 08:00 09:04 09:21 Pulse 92 94 Resp 24 24 B/P (MAP) 93/60 (71) 92/59 (70) 87/53 (64) Pulse Ox 81 81 O2 Delivery Mechanical Ventilator 08/08/21 08/08/21 08/08/21 08/08/21 10:06 11:00 12:00 12:03 Temp 97.6 97.6 Pulse 90 91 91 Resp 24 24 24 B/P (MAP) 78/52 (61) 93/58 (70) 86/58 (67) Pulse Ox 83 83 83 O2 Delivery Mechanical Ventilator 08/08/21 08/08/21 08/08/21 08/08/21 12:20 12:26 13:14 14:12 Pulse 93 89 92 Resp 24 24 24 B/P (MAP) 101/67 (78) 104/65 (78) 92/60 (71) Pulse Ox 82 83 86 83 O2 Delivery Ventilator 08/08/21 08/08/21 08/08/21 08/08/21 14:13 15:00 15:56 16:14 Temp 97.4 97.4 Pulse 91 Resp 24 B/P (MAP) 85/57 (66) Pulse Ox 84 85 83 O2 Delivery Ventilator Mechanical Ventilator Ventilator 08/08/21 08/08/21 08/08/21 08/08/21 16:32 17:53 18:39 20:00 Temp 98.6 98.6 Pulse 91 93 96 Resp 24 24 24 B/P (MAP) 87/57 (67) 99/60 (73) 100/61 (74) Pulse Ox 84 84 84 83 O2 Delivery Ventilator 08/08/21 08/08/21 08/08/21 08/08/21 20:00 20:16 21:00 22:00 Pulse 98 100 Resp 24 24 B/P (MAP) 103/59 (74) 102/65 (77) Pulse Ox 83 82 83 O2 Delivery Mechanical Ventilator Ventilator 08/08/21 08/08/21 08/09/21 08/09/21 22:25 23:00 00:00 00:00 Temp 98.6 98.6 Pulse 108 111 Resp 24 24 B/P (MAP) 104/69 (81) 104/62 (76) Pulse Ox 81 79 80 O2 Delivery Ventilator Mechanical Ventilator 08/09/21 08/09/21 08/09/21 08/09/21 01:00 01:15 02:00 03:00 Pulse 109 113 113 Resp 24 24 24 B/P (MAP) 99/66 (77) 111/69 (83) 103/61 (75) Pulse Ox 79 80 79 79 O2 Delivery Ventilator 08/09/21 08/09/21 08/09/21 08/09/21 03:10 03:46 04:00 04:00 Temp 99.1 99.1 Pulse 114 Resp 24 B/P (MAP) 91/64 (73) Pulse Ox 82 79 77 O2 Delivery Ventilator Mechanical Ventilator 08/09/21 08/09/21 08/09/21 08/09/21 04:16 05:00 05:35 06:00 Pulse 114 114 Resp 24 24 B/P (MAP) 102/67 (79) 102/62 (75) Pulse Ox 77 79 78 79 O2 Delivery Ventilator 08/09/21 07:02 Temp 97.8 97.8 Pulse 115 Resp 24 B/P (MAP) 95/61 (72) Pulse Ox 77 Intake and Output 08/08/21 08/08/21 08/09/21 15:00 23:00 07:00 Intake Total 250 ml 1346 ml 1765 ml Output Total 325 ml 245 ml 425 ml Balance -75 ml 1101 ml 1340 ml Justicifation of Admission Dx: Justifications for Admission: Justification of Admission Dx: Yes Sepsis: Hypoxemia NATHALIE VÁSQUEZ MD Aug 09, 2021 07:54
--- NOTE | 2021-08-09 08:12 | RAD ---
XR CHEST 1V INDICATION: RF/ARDS 105 . COMPARISON STUDY: 08/07/2021. FINDINGS: Life Support Devices: Stable endotracheal tube, enteric tube, right PICC. Lungs: Normal lung volume. Stable bilateral perihilar and basilar opacity. Pleura: Stable trace bilateral pleural effusions. Heart and Mediastinum: Stable cardiomediastinal silhouette and great vessels. IMPRESSION: 1. Stable life support devices. 2. Stable bilateral perihilar and basilar opacities and trace pleural effusions. Electronically signed by: Serafin Johnson MD (08/09/2021 8:09 AM) [id number]
[2021-08-09 08:20] LABS: BASE EXCESS ABG 1 mmol/L (-3-3); HCO3 ABG 29 mmol/L (21-28); SAT O2 ABG 79 % (92-99)
[2021-08-09] MEDS: ENOXAPARIN 40 MG/0.4 ML SYRINGE. SQ SCH (08:36)
[2021-08-09] MEDS: ASCORBIC ACID 500 MG TABLET PO SCH (08:36)
[2021-08-09] MEDS: PANTOPRAZOLE IV PUSH 40 MG VIAL. IVP SCH (08:36)
[2021-08-09] MEDS: ZINC SULFATE 220 MG CAPSULE. PO SCH (08:36)
[2021-08-09] MEDS: PROPOFOL 100 ML IV PRN ×2 (08:37→18:25)
[2021-08-09 09:07] LABS: PCO2 ABG 72 mmHg (35-46); PO2 ABG 49 mmHg (65-108)
[2021-08-09 09:08] LABS: FIO2 ABG 100% PC24/24/PEEP11
--- NOTE | 2021-08-09 10:27 | NUR ---
SS following up with discharge planning. SS reviewed pt chart and discussed with pt RN. No changes. Pt is currently on the vent at 100%. COVID19 recovered. Pt on IV Zosyn. Tube feeds. Pt on Precedex, Vec, Propofol, Fentanyl, Versed, and Levophed. Not stable for transfer at this time. SS will continue to follow for discharge planning. Addendum: 08/09/21 at 1028 by MAKENZIE BOSCH SS CORRECTION TO NOTE: Zosyn discontinued.
--- NOTE | 2021-08-09 10:48 | PDOC ---
PULMONARY PROGRESS NOTES DATE: 08/09/21 TIME: 10:45 Subjective Patient with worsening hypoxia and hypercapnia. Patient remains critically ill, currently on 100% FiO2 11 of PEEP. Pressure control inverse ratio ventilation. Vitals Vital Signs Date Time Temp Pulse Resp B/P (MAP) Pulse Ox O2 Delivery O2 Flow Rate FiO2 08/09/21 10:03 119 25 103/68 (80) 77 08/09/21 08:23 Mechanical Ventilator 08/09/21 07:02 97.8 97.8 Comments ros unable to obtain on vent sedated Lungs: Clear Cardiovascular: S1, S2 Abdomen: Soft Extremities: Other (Mild edema) Skin: No Rashes Labs Laboratory Tests Test 08/07/21 11:24 08/07/21 17:41 08/08/21 00:22 08/08/21 05:41 Glucose (Fingerstick) 147 mg/dL (70-99) 156 mg/dL (70-99) 161 mg/dL (70-99) 165 mg/dL (70-99) Test 08/08/21 06:15 08/08/21 08:00 08/08/21 12:19 08/09/21 00:21 White Blood Count 14.1 x10^3/uL (4.0-11.0) Red Blood Count 2.74 x10^6/uL (3.50-5.40) Hemoglobin 7.9 g/dL (12.0-15.5) Hematocrit 25.4 % (36.0-47.0) Mean Corpuscular Volume 93 fL (79-100) Mean Corpuscular Hemoglobin 29 pg (25-35) Mean Corpuscular Hemoglobin Concent 31 g/dL (31-37) Red Cell Distribution Width 18.3 % (11.5-14.5) Platelet Count 425 x10^3/uL (140-400) Neutrophils (%) (Auto) 80 % (31-73) Lymphocytes (%) (Auto) 10 % (24-48) Monocytes (%) (Auto) 4 % (0-9) Eosinophils (%) (Auto) 6 % (0-3) Basophils (%) (Auto) 1 % (0-3) Neutrophils # (Auto) 11.3 x10^3/uL (1.8-7.7) Lymphocytes # (Auto) 1.4 x10^3/uL (1.0-4.8) Monocytes # (Auto) 0.6 x10^3/uL (0.0-1.1) Eosinophils # (Auto) 0.8 x10^3/uL (0.0-0.7) Basophils # (Auto) 0.1 x10^3/uL (0.0-0.2) Sodium Level 136 mmol/L (136-145) Potassium Level 3.7 mmol/L (3.5-5.1) Chloride Level 99 mmol/L (98-107) Carbon Dioxide Level 35 mmol/L (21-32) Anion Gap 2 (6-14) Blood Urea Nitrogen 40 mg/dL (7-20) Creatinine 1.0 mg/dL (0.6-1.0) Estimated GFR (Cockcroft-Gault) 55.6 BUN/Creatinine Ratio 40 (6-20) Glucose Level 156 mg/dL (70-99) Calcium Level 7.8 mg/dL (8.5-10.1) Ferritin 299 ng/mL (8-252) Total Bilirubin 0.6 mg/dL (0.2-1.0) Aspartate Amino Transf (AST/SGOT) 36 U/L (15-37) Alanine Aminotransferase (ALT/SGPT) 39 U/L (14-59) Alkaline Phosphatase 152 U/L (46-116) Total Protein 5.5 g/dL (6.4-8.2) Albumin 1.4 g/dL (3.4-5.0) Albumin/Globulin Ratio 0.3 (1.0-1.7) O2 Saturation 83 % (92-99) Arterial Blood pH 7.32 (7.35-7.45) Arterial Blood pCO2 at Patient Temp 54 mmHg (35-46) Arterial Blood pO2 at Patient Temp 53 mmHg (65-108) Arterial Blood HCO3 27 mmol/L (21-28) Arterial Blood Base Excess 1 mmol/L (-3-3) FiO2 100 Glucose (Fingerstick) 167 mg/dL (70-99) 163 mg/dL (70-99) Test 08/09/21 05:00 08/09/21 07:08 08/09/21 08:00 Triglycerides Level 272 mg/dL (0-150) Glucose (Fingerstick) 174 mg/dL (70-99) O2 Saturation 79 % (92-99) Arterial Blood pH 7.23 (7.35-7.45) Arterial Blood pCO2 at Patient Temp 72 mmHg (35-46) Arterial Blood pO2 at Patient Temp 49 mmHg (65-108) Arterial Blood HCO3 29 mmol/L (21-28) Arterial Blood Base Excess 1 mmol/L (-3-3) FiO2 100% pc24/24/[id number] Laboratory Tests Test 08/08/21 12:19 08/09/21 00:21 08/09/21 05:00 08/09/21 07:08 Glucose (Fingerstick) 167 mg/dL (70-99) 163 mg/dL (70-99) 174 mg/dL (70-99) Triglycerides Level 272 mg/dL (0-150) Test 08/09/21 08:00 O2 Saturation 79 % (92-99) Arterial Blood pH 7.23 (7.35-7.45) Arterial Blood pCO2 at Patient Temp 72 mmHg (35-46) Arterial Blood pO2 at Patient Temp 49 mmHg (65-108) Arterial Blood HCO3 29 mmol/L (21-28) Arterial Blood Base Excess 1 mmol/L (-3-3) FiO2 100% pc24/24/[id number] Medications Active Scripts Medications Dose Route/Sig Max Daily Dose Days Date Category Comments Chest x-ray reviewed 08/07/2021 Diffuse bilateral interstitial infiltrates, no change Impression . IMPRESSION: 1. Acute hypoxemic respiratory failure secondary to COVID-19 viral pneumonia/ARDS. Intubated 07/23/2021. Continue to have worsening hypoxia and hypercapnia. 2. COVID-19 viral pneumonia/acute respiratory distress syndrome. 3. Possible bacterial pneumonia. 4. Obesity. 5. Abnormal chest x-ray consistent with viral pneumonia 6. Hypotension, stable 7. Leukocytosis, 8. Severe protein calorie malnutrition. Plan . Updated 08/09 Remains on pressure control inverse ratio ventilation, 100% FiO2 and 11 of PEEP. I have increased the PEEP to 12 and. Increase the pressure control to 25 Continue current support, avoid increasing PEEP, to avoid further barotrauma Patient not expected to survive We will continue current support DVT GI prophylaxis Chest x-ray reviewed, no improvement in x-ray findings Continue empiric Zosyn. Discussed with RN and RT. I have individually talked to patient's daughter Verónica at the bedside. I have also talked to patient's son Lorenzo. I have explained to them patient's critical condition and no hope for survival. I have recommended that we should consider comfort care. Increasing further pressures on the ventilator will cause barotrauma. Patient's son and the daughter will then inform me about their decision later today. If they do not proceed with comfort care, then I would recommend at least a DNR. Critical care time 30 minutes Updated 08/08 Remains on pressure control inverse ratio ventilation, 100% FiO2 and 11 of PEEP. Continue current support, avoid increasing PEEP, to avoid further barotrauma Patient not expected to survive We will continue current support DVT GI prophylaxis Chest x-ray reviewed, no improvement in x-ray findings Continue empiric Zosyn. Discussed with RN and RT. Will call the son later today Updated 08/07 Continue current support, avoid increasing PEEP, to avoid further barotrauma Patient not expected to survive We will continue current support DVT GI prophylaxis Chest x-ray reviewed, IV Lasix given, no improvement in x-ray findings Continue empiric Zosyn. Updated 08/06 cont vent support setting reviewed prognosis very poor family meeting 08/05 family wants to cont full support We will continue current vent settings, agree with not increasing PEEP, likelihood of barotrauma leading to pneumothorax is high, agree increasing PEEP will not make a difference. levo to keep map 65 abx Steroids Patient given IV Lasix, no improvement in Continue DVT prophylaxis Continue nutritional support discussed w rn rt Updated 08/05 cont vent support setting reviewed prognosis very poor family meeting today We will continue current vent settings, we will not increase PEEP, likelihood of barotrauma leading to pneumothorax is high, agree increasing PEEP will not make a difference. levo to keep map 65 abx Steroids Patient given IV Lasix, no improvement in Continue DVT prophylaxis Continue nutritional support discussed w rn rt Updated 08/04 We will continue current vent settings, we will not increase PEEP, likelihood of barotrauma leading to pneumothorax is high, I do not think increasing PEEP will make a difference. Plateau pressure is currently 34 Wean norepinephrine off Continue Zosyn Steroids Patient given IV Lasix, no improvement in Continue DVT prophylaxis Continue nutritional support RAFIA EGAN MD Aug 09, 2021 10:48
[2021-08-09] MEDS: NORCURON - VECURONIUM 50 MG in IV NORMAL SALINE 50ML 50 ML IV PRN ×2 (11:54→23:38)
--- NOTE | 2021-08-09 15:51 | NUR ---
Patient's son was educated on comfort care and withdraw of care. Patient's son also asked if the patient would still be a donor candidate. This RN called [facility] and relayed information needed. [facility] will call back to let us know if patient is donor candidate. I updated patient's son by phone. Addendum: 08/09/21 at 1713 by KRISTIE COUGHLIN RN Val from [facility] called to let the family know that patient is not a candidate for organ transplant. Once patient has passed [facility] will assess for tissue and eye donation. The family requests no eye donation. [facility] agreed. Addendum: 08/09/21 at 1803 by KRISTIE COUGHLIN RN Code status was changed to DNR per family request. This was verified by 2 RNs, Arely Coughlin RN and Nneka Way RN. Son request withdraw of care will be sometime next week. Three grandchildren birthdays are now and beginning of August. This RN also updated son for that patient is not an organ candidate, however, possible for tissue donor. Educated son the steps when withdraw of care takes place. This RN explained to son that patient's care will continue until the decide when to withdraw care.
[2021-08-09] MEDS: IV NORMAL SALINE 1000ML BAG 1,000 ML IV SCH (18:24)
[2021-08-10] VITALS (10 sets, daily range): BP systolic 68–95; BP diastolic 49–64
[2021-08-10] MEDS: INSULIN LISPRO 300 UNITS/3 ML VIAL. SQ SCH ×3 (00:07→12:00)
[2021-08-10] MEDS: DEXMEDETOMIDINE 400 MCG in IV NORMAL SALINE 100ML 96 ML IV PRN ×4 (00:55→13:33)
[2021-08-10] MEDS: NOREPINEPHRINE VIAL 8 MG in IV DEXTROSE 5% 250 ML IV PRN ×4 (01:33→13:32)
[2021-08-10] MEDS: fentaNYL HIGH DOSE PCA 55 ML IV PRN (04:25)
[2021-08-10] MEDS: PROPOFOL 100 ML IV PRN ×2 (04:31→10:44)
[2021-08-10] MEDS: MIDAZOLAM 100mg/100ml NS BAG 100 ML IV PRN ×2 (06:23→07:54)
[2021-08-10 08:04] LABS: BASE EXCESS ABG -3 mmol/L (-3-3); HCO3 ABG 26 mmol/L (21-28); SAT O2 ABG 75 % (92-99)
[2021-08-10 08:05] LABS: PCO2 ABG 69 mmHg (35-46); PO2 ABG 45 mmHg (65-108)
--- NOTE | 2021-08-10 08:59 | NUR ---
0800 Increase in levo again. ABG to Dr Appiah. No order ca\hanges at this time. On way to unit with plans to speak w family then. Condition grave
--- NOTE | 2021-08-10 09:45 | PDOC ---
PROGRESS NOTES Date of Service: DATE: 08/10/21 TIME: 09:45 Chief Complaint Chief Complaint acute hypoxic respiratory failure requiring mechanical ventilation COVID 19 pneumonia, standard treatement protocol History of Present Illness History of Present Illness pt admitted to [facility] days ago for noted shortness of rbeath, was COVID positive ,and worsened over days. weakness and lethargy worse, hypoxia worse over days, transferred here for poss ICU need, on NRB, risk of intubation is high, . History of Present Illness History of Present Illness 07/17/2021 No acute events overnight. Patient saturating 90% on 40% Vapotherm. No concerns nursing at this time. Patient's chart, labs, images were reviewed and discussed with RN In addition to my E/M visit, advance care planning done with A total time of 20 minutes was spent from 920 to 940 face to face in discussion with the patient regarding their goals of care, CODE STATUS. 07/18/2021 No acute events overnight. Patient saturating 89% on Vapotherm. No dyspnea upon exertion or at rest. Pending chest x-ray results. No other concerns from nursing. 07/19/21 No acute events overnight. Saturating 91% on vapotherm. No dyspnea and is motiviated to get out of bed onto chair. total critical care time spent of 33 minutes 07/20/2021 No acute events overnight. Patient seen and examined bedside. Saturating well on Vapotherm. Patient accepted at [facility]. No concerns with nursing. A total of 35 minutes of critical care time was spent in reviewing chart, labs, and images. Discussed with RN and TRAVIS. 07/21/2021 No acute events overnight. Unfortunately patient was unable to be transferred to [facility] because of unable to tolerate BiPAP. At this point we will continue BiPAP and Vapotherm for inpatient care. Patient's chart, labs, images were reviewed and discussed with RN A total of 32 minutes of critical care time was spent in reviewing chart, labs, and images. Discussed with RN and SW. 07/22/2021 No acute events overnight. Patient seen and examined bedside. Saturating 100% on FiO2 and 15 L nonrebreather mask. Does complain of diarrhea and one-time Imodium was administered. Afebrile last 24 hours. Continue PT OT modalities. Encourage prone positioning when able. Patient's chart, labs, images were reviewed and discussed with RN A total of 32 minutes of critical care time was spent in reviewing chart, labs, and images. Discussed with RN and SW. 07/23/2021 No acute events overnight. Patient seen and examined resting comfortably at bedside. Saturating 83% on Vapotherm. Patient did have dyspneic episodes overnight desaturating down to 70s and 80s. She was offered BiPAP but she is declining and wishing to be DNR today. Patient's chart, labs, images were reviewed and discussed with RN 07/24/2021: Patient transferred to the ICU and intubated overnight. Currently afebrile, tachycardic. On vent with FiO2 100%, PEEP 8. We will continue steroids to complete 10-day course; begin taper tomorrow. 07/25/2021: Afebrile, no acute events overnight. On vent with FiO2 100%, PEEP 8. Completed remdesivir. Day 10 of steroids, will begin taper over 10 days. Continue supportive care. Critical care time 30 min spent reviewing charts, reviewing imaging, reviewing labs, and discussion with RN. 07/26/2021: Afebrile. On vent with FiO2 100%, PEEP 8. Completed remdesivir and 10 days of steroids; will begin slow steroid taper. Chest x-ray from 07/24 showed stable diffuse infiltrate. Leukocytosis likely secondary to steroid use. Will obtain CRP and procalcitonin. Continue supportive care. Critical care time 30 min spent reviewing charts, reviewing imaging, reviewing labs, and discussion with RN. 07/27/2021: Afebrile. On vent with FiO2 100%, PEEP 9. CRP 15, procalcitonin 0.10. WBC 17.2. We will hold off on further antibiotics for now continue to monitor. Completed remdesivir and 10 days of steroids; continue slow Decadron taper. Continue supportive care. Critical care time 30 min spent reviewing charts, reviewing imaging, reviewing labs, and discussion with RN. 07/28/2021: Afebrile. On vent FiO2 100%, PEEP 9. Completed remdesivir and 10 days of steroids; continue slow Decadron taper. Continue supportive care; on vasopressors. Critical care time 30 min spent reviewing charts, reviewing imaging, reviewing labs, and discussion with RN. 07/29/2021: Afebrile, no significant change overnight. On vent FiO2 100%, PEEP 9. Completed remdesivir and 10 days of steroids; continue slow Decadron taper. Continue supportive care; on vasopressors. Critical care time 30 min spent reviewing charts, reviewing imaging, reviewing labs, and discussion with RN. 07/30/2021: Afebrile. On vent with FiO2 100%, PEEP 9. Completed remdesivir and 10 days of steroids; continue slow Decadron taper (last day of Decadron taper should be tomorrow). Empiric antibiotics, supportive care; on Levophed. Empiric antibiotics could likely stop after Decadron taper; will obtain procalcitonin and chest x-ray tomorrow. Critical care time 30 min spent reviewing charts, reviewing imaging, reviewing labs, and discussion with RN. 07/31 Patient remains afebrile. Remains ventilated and sedated. Decadron taper finished today. Normal procalcitonin on the labs chest x-ray mildly improved. Pulmonary continues to follow. Continuing current plan, will wean oxygen as tolerated. 08/01 Patient evaluated examined at bedside. Some low saturations this morning. Remains ventilated and sedated. Continue COVID treatment. 08/02 Patient evaluated examined at bedside. She is still having lower saturation and this low 80s and upper 70s despite high oxygen provided. Contacted patient's son today and discussed case with him. He is well aware of her condition and at this point poor prognosis. I did bring up the idea of the DNR DNI and starting to look towards a hospice route as patient has been intubated for 10 days and is actually worsening. Patient son reported that he would like to talk with his and sister before making a final decision. Will likely have a family meeting with them Saturday or Saturday. 08/03 Patient evaluated examined at bedside. Saturations continued to drop despite ventilator adjustments. Very poor prognosis. Discussed with family yesterday. Will attempt to call again today. Otherwise continue current plan. 08/04 Evaluated examined at bedside, oxygen saturations definitely worse today. Contacted patient's son planning for family meeting tomorrow in person. 08/05 Patient seen and examined at bedside. Continues to require high levels of oxygen. Met with family at bedside discussing poor prognosis. After discussing family decided they would like to continue full code for right now and assess for any sort of brain injury. Informed them that this would likely require imaging with how much sedation she is on and there is a chance she will not survive the actual process. They would like to think about it more at this point. We will check in with him again tomorrow. 08/06 No major clinical changes. Continues to have high ventilator settings. Really not safe for transport for imaging right now. Poor prognosis. 08/07 No clinical changes. high ventilator settings. Really not safe for transport for imaging . Poor prognosis She would not be a good candidate for imaging studies. prognosis is extremely poor, neurology consulted severe protein, caloric malnutrition critically ill, 100% FiO2 11 of PEEP pressure of 24 plateau pressure 37 36 min cc time 08/08 No clinical changes. high ventilator settings. Really not safe for transport for imaging . Poor prognosis She would not be a good candidate for imaging studies. prognosis is extremely poor, neurology consulted severe protein, caloric malnutrition critically ill, 100% FiO2 11 of PEEP pressure of 24 plateau pressure 37 pressure control inverse ratio ventilation, 100% FiO2 and 11 of PEEP. avoid increasing PEEP, to avoid barotrauma grave prognosis 32 min cc time 08/09 No clinical changes. high ventilator settings. Poor prognosis She would not be a good candidate for imaging studies. neurology consulted severe protein, caloric malnutrition critically ill, 100% FiO2 11 of PEEP pressure of 24 plateau pressure 37 pressure control inverse ratio ventilation, 100% FiO2 and 11 of PEEP. avoid increasing PEEP, to avoid barotrauma grave prognosis 34 min cc time consider comfort care 08/10 No clinical changes. high ventilator settings. Poor prognosis She would not be a good candidate for imaging studies. neurology consulted severe protein, caloric malnutrition critically ill, 100% FiO2 11 of PEEP pressure of 24 plateau pressure 37 pressure control inverse ratio ventilation, 100% FiO2 and 11 of PEEP. avoid increasing PEEP, to avoid barotrauma grave prognosis began comfort care about 14:19 today Vitals Vitals Vital Signs Date Time Temp Pulse Resp B/P (MAP) Pulse Ox O2 Delivery O2 Flow Rate FiO2 08/10/21 07:55 68 Ventilator 08/10/21 06:00 122 25 95/63 (74) 08/10/21 04:00 100.4 100.4 Physical Exam Physical Exam sedated on vent General: No acute distress, Other (ET and NG tube in place) Heart: Other (Tachycardic) Lungs: Clear Abdomen: Normal bowel sounds, Soft (obese, ) Extremities: No cyanosis, No edema, Normal pulses Skin: No rashes, No significant lesion Labs LABS Laboratory Tests Test 08/09/21 14:03 08/09/21 17:29 08/09/21 23:58 08/10/21 05:55 Glucose (Fingerstick) 175 mg/dL (70-99) 159 mg/dL (70-99) 185 mg/dL (70-99) 168 mg/dL (70-99) Test 08/10/21 07:59 O2 Saturation 75 % (92-99) Arterial Blood pH 7.19 (7.35-7.45) Arterial Blood pCO2 at Patient Temp 69 mmHg (35-46) Arterial Blood pO2 at Patient Temp 45 mmHg (65-108) Arterial Blood HCO3 26 mmol/L (21-28) Arterial Blood Base Excess -3 mmol/L (-3-3) FiO2 100% vent Comment Review of Relevant I have reviewed the following items jluis (where applicable) has been applied. Labs Laboratory Tests Test 08/08/21 12:19 08/09/21 00:21 08/09/21 05:00 08/09/21 07:08 Glucose (Fingerstick) 167 mg/dL (70-99) 163 mg/dL (70-99) 174 mg/dL (70-99) Triglycerides Level 272 mg/dL (0-150) Test 08/09/21 08:00 08/09/21 14:03 08/09/21 17:29 08/09/21 23:58 O2 Saturation 79 % (92-99) Arterial Blood pH 7.23 (7.35-7.45) Arterial Blood pCO2 at Patient Temp 72 mmHg (35-46) Arterial Blood pO2 at Patient Temp 49 mmHg (65-108) Arterial Blood HCO3 29 mmol/L (21-28) Arterial Blood Base Excess 1 mmol/L (-3-3) FiO2 100% [id number] Glucose (Fingerstick) 175 mg/dL (70-99) 159 mg/dL (70-99) 185 mg/dL (70-99) Test 08/10/21 05:55 08/10/21 07:59 Glucose (Fingerstick) 168 mg/dL (70-99) O2 Saturation 75 % (92-99) Arterial Blood pH 7.19 (7.35-7.45) Arterial Blood pCO2 at Patient Temp 69 mmHg (35-46) Arterial Blood pO2 at Patient Temp 45 mmHg (65-108) Arterial Blood HCO3 26 mmol/L (21-28) Arterial Blood Base Excess -3 mmol/L (-3-3) FiO2 100% vent Laboratory Tests Test 08/09/21 14:03 08/09/21 17:29 08/09/21 23:58 08/10/21 05:55 Glucose (Fingerstick) 175 mg/dL (70-99) 159 mg/dL (70-99) 185 mg/dL (70-99) 168 mg/dL (70-99) Test 08/10/21 07:59 O2 Saturation 75 % (92-99) Arterial Blood pH 7.19 (7.35-7.45) Arterial Blood pCO2 at Patient Temp 69 mmHg (35-46) Arterial Blood pO2 at Patient Temp 45 mmHg (65-108) Arterial Blood HCO3 26 mmol/L (21-28) Arterial Blood Base Excess -3 mmol/L (-3-3) FiO2 100% vent Medications Current Medications Ondansetron HCl (Zofran) 4 mg PRN Q6HRS PRN IVP NAUSEA/VOMITING Last administered on 07/22/21at 22:51; Start 07/15/21 at 00:00 Throat Lozenges (Cepacol Sore Throat Lozenge) 1 vincent PRN Q2HRS PRN PO SORE THROAT Last administered on 07/17/21at 00:23; Start 07/15/21 at 00:00 Ceftriaxone Sodium (Rocephin) 1 gm Q24H IVP Last administered on 07/21/21at 08:23; Start 07/15/21 at 09:00; Stop 07/21/21 at 13:26; Status DC Azithromycin (Zithromax) 250 mg DAILY PO Last administered on 07/21/21at 08:17; Start 07/15/21 at 09:00; Stop 07/21/21 at 08:53; Status DC Dexamethasone Sodium Phosphate (Decadron) 10 mg DAILY IVP Last administered on 07/15/21at 10:24; Start 07/15/21 at 09:00; Stop 07/15/21 at 13:07; Status DC Enoxaparin Sodium (Lovenox 40mg Syringe) 40 mg Q24H SQ Last administered on 08/09/21 08:36; Start 07/15/21 at 09:00 Lactobacillus Rhamnosus (Culturelle) 1 cap BID PO Last administered on 07/26/21 21:27; Start 07/15/21 at 09:00; Stop 07/27/21 at 08:20; Status DC Acetaminophen (Tylenol) 650 mg PRN Q4HRS PRN PO MILD PAIN / TEMP > 100.3'F Last administered on 07/17/21 19:18; Start 07/15/21 at 00:00 Guaifenesin (Robitussin Dm) 10 ml PRN Q4HRS PRN PO COUGH Last administered on 07/23/21 13:00; Start 07/15/21 at 00:00 Remdesivir 100 mg/ Sodium Chloride 230 ml @ 460 mls/hr DAILY IV Last administered on 07/18/21 08:59; Start 07/15/21 at 09:00; Stop 07/18/21 at 09:29; Status DC Oxycodone/ Acetaminophen (Percocet 5/325) 1 tab PRN Q8HRS PRN PO MODERATE- SEVERE PAIN Last administered on 07/23/21 13:00; Start 07/15/21 at 09:15 Potassium Chloride/Dextrose/ Sod Cl 1,000 ml @ 80 mls/hr [id number] ONCE IV Last administered on 07/15/21 10:26; Start 07/15/21 at 09:15; Stop 07/15/21 at 21:44; Status DC Ascorbic Acid (Vitamin C) 500 mg DAILY PO Last administered on 08/09/21 08:36; Start 07/15/21 at 09:30 Zinc Sulfate (Orazinc) 220 mg DAILY PO Last administered on 08/09/21 08:36; Start 07/15/21 at 09:30 Dexamethasone Sodium Phosphate (Decadron) 6 mg DAILY IVP Last administered on 07/25/21at 08:46; Start 07/16/21 at 09:00; Stop 07/26/21 at 06:39; Status DC Sterile Water (WATER for RESP) 1,000 ml CONT PRN INH VIA VAPOTHERM DEVICE Last administered on 07/20/21 08:03; Start 07/15/21 at 13:30 Potassium Chloride/Dextrose/ Sod Cl 1,000 ml @ 100 mls/hr Q10H IV Last administered on 07/17/21at 08:43; Start 07/16/21 at 11:00; Stop 07/17/21 at 16:00; Status DC Lorazepam (Ativan) 0.25 mg PRN Q4HRS PRN PO anxiety 2/2 bipap trials Last administered on 07/23/21at 09:47; Start 07/21/21 at 09:45; Stop 07/23/21 at 14:30; Status DC Loperamide HCl (Imodium) 2 mg PRN 1X PRN PO DIARRHEA Last administered on 07/22/21at 20:42; Start 07/22/21 at 12:45 Propofol 100 ml @ As Directed STK-MED ONCE IV ; Start 07/23/21 at 13:45; Stop 07/23/21 at 13:45; Status DC Succinylcholine Chloride (Anectine) 200 mg STK-MED ONCE .ROUTE ; Start 07/23/21 at 13:45; Stop 07/23/21 at 13:46; Status DC Etomidate (Amidate) 20 mg STK-MED ONCE IV ; Start 07/23/21 at 13:45; Stop 07/23/21 at 13:46; Status DC Fentanyl Citrate 30 ml @ 0 mls/hr CONT PRN IV SEE PROTOCOL Last administered on 07/25/21at 09:31; Start 07/23/21 at 14:00; Stop 07/25/21 at 16:54; Status DC Propofol 100 ml @ 0 mls/hr CONT PRN IV PER PROTOCOL Last administered on 08/10/21at 04:31; Start 07/23/21 at 14:00 Fentanyl Citrate (Fentanyl 2ml Vial) 25 mcg PRN Q1HR PRN IV SEE COMMENTS; Start 07/23/21 at 14:00 Fentanyl Citrate (Fentanyl 2ml Vial) 50 mcg PRN Q1HR PRN IV SEE COMMENTS; Start 07/23/21 at 14:00 Morphine Sulfate (Morphine Sulfate) 2 mg PRN Q1HR PRN IV SEE COMMENTS.; Start 07/23/21 at 14:00 Morphine Sulfate (Morphine Sulfate) 4 mg PRN Q1HR PRN IV SEE COMMENTS.; Start 07/23/21 at 14:00 Midazolam HCl 100 ml @ 0 mls/hr CONT PRN IV SEE PROTOCOL Last administered on 08/10/21at 07:54; Start 07/23/21 at 14:00 Vecuronium [place] (Norcuron Bolus) 6 mg PRN Q2HR PRN IV VENTILATOR COMPLIANCE Last administered on 07/27/21at 11:41; Start 07/23/21 at 14:00 Lorazepam (Ativan) 5 mg PRN Q4HRS PRN PO anxiety 2/2 bipap trials; Start 07/23/21 at 14:30 Pantoprazole Sodium (PROTONIX VIAL for IV PUSH) 40 mg DAILYAC IVP Last admini stered on 08/09/21at 08:36; Start 07/24/21 at 09:00 Dexmedetomidine HCl 400 mcg/ Sodium Chloride 100 ml @ 0 mls/hr CONT PRN IV PER PROTOCOL Last administered on 08/10/21at 04:46; Start 07/24/21 at 10:00 Sodium Chloride 500 ml @ 500 mls/hr 1X PRN PRN IV SEE COMMENTS Last administered on 07/26/21at 10:40; Start 07/24/21 at 10:00 Etomidate (Amidate) 20 mg STK-MED ONCE IV ; Start 07/23/21 at 14:00; Stop 07/24/21 at 12:26; Status DC Succinylcholine Chloride (Anectine) 200 mg STK-MED ONCE .ROUTE ; Start 07/23/21 at 14:00; Stop 07/24/21 at 12:26; Status DC Propofol (Diprivan) 1,000 mg STK-MED ONCE IV ; Start 07/23/21 at 14:00; Stop 07/24/21 at 12:26; Status DC Insulin Human Lispro (HumaLOG) 0-5 UNITS Q6HRS SQ Last administered on 08/10/21at 05:59; Start 07/24/21 at 18:00 Dextrose (Dextrose 50%-Water Syringe) 12.5 gm PRN Q15MIN PRN IV SEE COMMENTS; Start 07/24/21 at 18:00 Fentanyl Citrate 55 ml @ 0 mls/hr CONT PRN IV SEE PROTOCOL Last administered on 08/10/21at 04:25; Start 07/25/21 at 16:00 Dexamethasone Sodium Phosphate (Decadron) 4 mg DAILY IVP Last administered on 07/30/21at 08:57; Start 07/26/21 at 09:00; Stop 07/31/21 at 08:59; Status DC Lorazepam (Ativan Inj) 1 mg PRN Q1HR PRN IVP ANXIETY / AGITATION Last administered on 07/26/21at 11:42; Start 07/26/21 at 11:15 Vecuronium [place] 50 mg/ Sodium Chloride 50 ml @ 4.502 mls/ hr CONT PRN IV SEE I/O RECORD Last administered on 08/09/21at 23:38; Start 07/27/21 at 11:30 Norepinephrine Bitartrate 8 mg/ Dextrose 258 ml @ 18.15 mls/ hr CONT PRN IV PER PROTOCOL Last administered on 08/10/21at 09:32; Start 07/27/21 at 17:00 Piperacillin Sod/ Tazobactam Sod (Zosyn Per Pharmacy) 1 each PRN DAILY PRN MC SEE COMMENTS; Start 07/28/21 at 10:15; Stop 08/08/21 at 15:01; Status DC Piperacillin Sod/ Tazobactam Sod 3.375 gm/Sodium Chloride 50 ml @ 100 mls/hr Q6HRS IV Last administered on 08/08/21at 12:22; Start 07/28/21 at 11:00; Stop 08/08/21 at 15:00; Status DC Sodium Chloride 1,000 ml @ 30 mls/hr Q24H IV Last administered on 08/09/21at 18:24; Start 07/28/21 at 11:00 Furosemide (Lasix) 40 mg 1X ONCE IVP Last administered on 08/01/21at 12:12; Start 08/01/21 at 11:15; Stop 08/01/21 at 11:16; Status DC Furosemide (Lasix) 40 mg 1X ONCE IVP Last administered on 08/03/21at 09:28; Start 08/03/21 at 09:30; Stop 08/03/21 at 09:31; Status DC Furosemide (Lasix) 40 mg 1X ONCE IVP Last administered on 08/04/21at 12:39; Start 08/04/21 at 11:15; Stop 08/04/21 at 11:21; Status DC Albuterol/ Ipratropium (Duoneb) 3 ml RTQID NEB ; Start 08/05/21 at 12:00; Stop 08/05/21 at 15:37; Status DC Albumin Human 100 ml @ 100 mls/hr 1X ONCE IV Last administered on 08/06/21at 11:46; Start 08/06/21 at 11:30; Stop 08/06/21 at 12:29; Status DC Furosemide (Lasix) 40 mg 1X ONCE IVP Last administered on 08/06/21at 11:44; Start 08/06/21 at 13:00; Stop 08/06/21 at 13:01; Status DC Multi-Ingred Cream/Lotion/Oil/ Oint (Artificial Tears Eye Ointment) 1 kareem PRN Q1HR PRN OU DRY EYE; Start 08/08/21 at 15:30 Active Scripts Active Prednisone 20 Mg Tablet 1 Tab PO DAILY 5 Days Vitals/I & O Vital Sign - Last 24 Hours 08/09/21 08/09/21 08/09/21 08/09/21 10:03 11:18 11:54 12:04 Temp 99.0 99.0 Pulse 119 116 119 Resp 25 B/P (MAP) 103/68 (80) 92/67 (75) 109/69 (82) Pulse Ox 77 78 76 75 O2 Delivery Ventilator 08/09/21 08/09/21 08/09/21 08/09/21 12:11 13:13 14:05 15:16 Temp 98.9 98.9 Pulse 118 120 119 Resp 25 B/P (MAP) 95/65 (75) 99/66 (77) 107/66 (80) Pulse Ox 77 75 75 O2 Delivery Mechanical Ventilator 08/09/21 08/09/21 08/09/21 08/09/21 15:41 15:48 15:48 17:46 Pulse 119 120 Resp 25 B/P (MAP) 95/59 (71) 92/58 (69) Pulse Ox 77 74 74 O2 Delivery Ventilator Mechanical Ventilator 08/09/21 08/09/21 08/09/21 08/09/21 17:56 19:00 20:00 20:00 Temp 98.9 98.9 Pulse 120 120 Resp 25 B/P (MAP) 87/59 (68) 83/51 (62) Pulse Ox 77 74 73 O2 Delivery Ventilator Mechanical Ventilator 08/09/21 08/09/21 08/09/21 08/09/21 20:09 21:00 22:00 22:24 Pulse 116 118 Resp 25 25 B/P (MAP) 80/51 (61) 80/52 (61) Pulse Ox 76 73 72 72 O2 Delivery Ventilator Ventilator 08/09/21 08/10/21 08/10/21 08/10/21 23:00 00:00 00:01 00:35 Temp 99.2 99.2 Pulse 118 120 Resp 25 25 B/P (MAP) 79/51 (60) 83/52 (62) Pulse Ox 71 70 72 O2 Delivery Mechanical Ventilator Ventilator 08/10/21 08/10/21 08/10/21 08/10/21 01:00 02:00 02:06 03:00 Pulse 118 118 122 Resp 25 25 25 B/P (MAP) 81/54 (63) 81/55 (64) 80/55 (63) Pulse Ox 71 72 72 70 O2 Delivery Ventilator 08/10/21 08/10/21 08/10/21 08/10/21 04:00 04:00 04:25 04:39 Temp 100.4 100.4 Pulse 120 Resp 25 25 B/P (MAP) 82/60 (67) Pulse Ox 73 72 72 O2 Delivery Mechanical Ventilator Ventilator Ventilator 08/10/21 08/10/21 08/10/21 08/10/21 04:55 05:00 06:00 07:55 Pulse 122 122 Resp 25 25 25 B/P (MAP) 95/64 (74) 95/63 (74) Pulse Ox 72 72 70 68 O2 Delivery Ventilator Ventilator Intake and Output 08/09/21 08/09/21 08/10/21 15:00 23:00 07:00 Intake Total 200 ml 2395 ml 3295.92 ml Output Total 175 ml 550 ml 120 ml Balance 25 ml 1845 ml 3175.92 ml Justicifation of Admission Dx: Justifications for Admission: Justification of Admission Dx: Yes Sepsis: Hypoxemia NATHALIE VÁSQUEZ MD Aug 10, 2021 09:45
[2021-08-10] MEDS: ASCORBIC ACID 500 MG TABLET PO SCH (10:41)
[2021-08-10] MEDS: ENOXAPARIN 40 MG/0.4 ML SYRINGE. SQ SCH (10:42)
[2021-08-10] MEDS: ACETAMINOPHEN 325 MG TABLET. PO PRN (10:42)
[2021-08-10] MEDS: PANTOPRAZOLE IV PUSH 40 MG VIAL. IVP SCH (10:44)
[2021-08-10] MEDS: ZINC SULFATE 220 MG CAPSULE. PO SCH (10:45)
[2021-08-10] MEDS ORDERED: IV NORMAL SALINE 1000ML BAG 1,000 ML IV SCH (11:00)
--- NOTE | 2021-08-10 11:30 | PDOC ---
PULMONARY PROGRESS NOTES DATE: 08/10/21 TIME: 11:28 Subjective Patient with worsening hypoxia and hypercapnia. Patient remains critically ill, currently on 100% FiO2 12 of PEEP. Pressure control inverse ratio ventilation. Vitals Vital Signs Date Time Temp Pulse Resp B/P (MAP) Pulse Ox O2 Delivery O2 Flow Rate FiO2 08/10/21 10:08 67 Ventilator 08/10/21 06:00 122 25 95/63 (74) 08/10/21 04:00 100.4 100.4 Comments ros unable to obtain on vent sedated Lungs: Clear Cardiovascular: S1, S2 Abdomen: Soft Extremities: Other (Mild edema) Skin: No Rashes Labs Laboratory Tests Test 08/08/21 12:19 08/09/21 00:21 08/09/21 05:00 08/09/21 07:08 Glucose (Fingerstick) 167 mg/dL (70-99) 163 mg/dL (70-99) 174 mg/dL (70-99) Triglycerides Level 272 mg/dL (0-150) Test 08/09/21 08:00 08/09/21 14:03 08/09/21 17:29 08/09/21 23:58 O2 Saturation 79 % (92-99) Arterial Blood pH 7.23 (7.35-7.45) Arterial Blood pCO2 at Patient Temp 72 mmHg (35-46) Arterial Blood pO2 at Patient Temp 49 mmHg (65-108) Arterial Blood HCO3 29 mmol/L (21-28) Arterial Blood Base Excess 1 mmol/L (-3-3) FiO2 100% pc24/24/[id number] Glucose (Fingerstick) 175 mg/dL (70-99) 159 mg/dL (70-99) 185 mg/dL (70-99) Test 08/10/21 05:55 08/10/21 07:59 Glucose (Fingerstick) 168 mg/dL (70-99) O2 Saturation 75 % (92-99) Arterial Blood pH 7.19 (7.35-7.45) Arterial Blood pCO2 at Patient Temp 69 mmHg (35-46) Arterial Blood pO2 at Patient Temp 45 mmHg (65-108) Arterial Blood HCO3 26 mmol/L (21-28) Arterial Blood Base Excess -3 mmol/L (-3-3) FiO2 100% vent Laboratory Tests Test 08/09/21 14:03 08/09/21 17:29 08/09/21 23:58 08/10/21 05:55 Glucose (Fingerstick) 175 mg/dL (70-99) 159 mg/dL (70-99) 185 mg/dL (70-99) 168 mg/dL (70-99) Test 08/10/21 07:59 O2 Saturation 75 % (92-99) Arterial Blood pH 7.19 (7.35-7.45) Arterial Blood pCO2 at Patient Temp 69 mmHg (35-46) Arterial Blood pO2 at Patient Temp 45 mmHg (65-108) Arterial Blood HCO3 26 mmol/L (21-28) Arterial Blood Base Excess -3 mmol/L (-3-3) FiO2 100% vent Medications Active Scripts Medications Dose Route/Sig Max Daily Dose Days Date Category Comments Chest x-ray reviewed 08/07/2021 Diffuse bilateral interstitial infiltrates, no change Impression . IMPRESSION: 1. Acute hypoxemic respiratory failure secondary to COVID-19 viral pneumonia/ARDS. Intubated 07/23/2021. Continue to have worsening hypoxia and hypercapnia. 2. COVID-19 viral pneumonia/acute respiratory distress syndrome. 3. Possible bacterial pneumonia. 4. Obesity. 5. Abnormal chest x-ray consistent with viral pneumonia 6. Hypotension, stable 7. Leukocytosis, 8. Severe protein calorie malnutrition. Plan . Updated 08/10 Remains on pressure control inverse ratio ventilation, 100% FiO2 and 11 of PEEP. I have increased the PEEP to 12 and. Increase the pressure control to 25 Continue current support, avoid increasing PEEP, to avoid further barotrauma Patient not expected to survive We will continue current support DVT GI prophylaxis Chest x-ray reviewed, no improvement in x-ray findings Continue empiric Zosyn. Discussed with RN and RT. I have individually talked to patient's daughter Verónica at the bedside yesterday.. I have also talked to patient's son Lorenzo. I have explained to them patient's critical condition and no hope for survival. I have recommended that we should consider comfort care. Increasing further pressures on the ventilator will cause barotrauma. Patient's family is agreeable to allow natural and proceed with comfort care. Discussed with RN. Updated 08/09 Remains on pressure control inverse ratio ventilation, 100% FiO2 and 11 of PEEP. I have increased the PEEP to 12 and. Increase the pressure control to 25 Continue current support, avoid increasing PEEP, to avoid further barotrauma Patient not expected To survive We will continue current support DVT GI prophylaxis Chest x-ray reviewed, no improvement in x-ray findings Continue empiric Zosyn. Discussed with RN and RT. I have individually talked to patient's daughter Verónica at the bedside. I have also talked to patient's son Lorenzo. I have explained to them patient's critical condition and no hope for survival. I have recommended that we should consider comfort care. Increasing further pressures on the ventilator will cause barotrauma. Patient's son and the daughter will then inform me about their decision later today. If they do not proceed with comfort care, then I would recommend at least a DNR. Critical care time 30 minutes Updated 08/08 Remains on pressure control inverse ratio ventilation, 100% FiO2 and 11 of PEEP. Continue current support, avoid increasing PEEP, to avoid further barotrauma Patient not expected to survive We will continue current support DVT GI prophylaxis Chest x-ray reviewed, no improvement in x-ray findings Continue empiric Zosyn. Discussed with RN and RT. Will call the son later today Updated 08/07 Continue current support, avoid increasing PEEP, to avoid further barotrauma Patient not expected to survive We will continue current support DVT GI prophylaxis Chest x-ray reviewed, IV Lasix given, no improvement in x-ray findings Continue empiric Zosyn. Updated 08/06 cont vent support setting reviewed prognosis very poor family meeting 08/05 family wants to cont full support We will continue current vent settings, agree with not increasing PEEP, likelihood of barotrauma leading to pneumothorax is high, agree increasing PEEP will not make a difference. levo to keep map 65 abx Steroids Patient given IV Lasix, no improvement in Continue DVT prophylaxis Continue nutritional support discussed w rn rt Updated 08/05 cont vent support setting reviewed prognosis very poor family meeting today We will continue current vent settings, we will not increase PEEP, likelihood of barotrauma leading to pneumothorax is high, agree increasing PEEP will not make a difference. levo to keep map 65 abx Steroids Patient given IV Lasix, no improvement in Continue DVT prophylaxis Continue nutritional support discussed w rn rt Updated 08/04 We will continue current vent settings, we will not increase PEEP, likelihood of barotrauma leading to pneumothorax is high, I do not think increasing PEEP will make a difference. Plateau pressure is currently 34 Wean norepinephrine off Continue Zosyn Steroids Patient given IV Lasix, no improvement in Continue DVT prophylaxis Continue nutritional support RAFIA EGAN MD Aug 10, 2021 11:30
--- NOTE | 2021-08-10 12:15 | NUR ---
1200 Patients brother and sister in independently/ Son-Lorenzo in prior to their visit. Plan to take them home after visit then return for EOL care w patient's immediate family. Discussed w Customer Service Correspondence Clerk [place]- [place] for all 5 to be at bedside for EOL. DR Appiah in formed/family decision / orders noted. Propofol off. Pressors required w/o BP improvement. No output x4H form sarah cath. Sats gradually decreasing from. Sed neds w continued infusion 0800 to now. Appears comfortable
--- NOTE | 2021-08-10 14:31 | NUR ---
Extubated at 1410 per RT. Family opted out of being present w procedure At bedside shortly thereafter. .Pt assede x2 RNs w no response to verbal or tactile stimuli,absent breath sounds,resp chest movement or apical heart beat x 60 sec .No gag reflex present or pupilary response. [employer] [place] called .No retrieval
--- NOTE | 2021-08-10 16:05 | NUR ---
1500 to [facility] per cart. Lorenzo (son)reported personal belongings home with him several days ago. No elaboration on items at this time
--- NOTE | 2021-08-10 17:14 | PDOC3 ---
Discharge Summary Date of Admission: Jul 15, 2021 Date of Discharge: Aug 10, 2021 Follow-Up: Other () Admitting Diagnosis comment: HISTORY OF PRESENT ILLNESS: 66-year-old female that has been sick for approximately 2 weeks. she tested positive for COVID. She has not been vaccinated. initially admitted to [facility] She progressed to worsening shortness of breath. admitted here on 100% nonrebreather and nasal cannula. imaging study was reviewed, compatible with COVID-19 viral pneumonia. CONSULTS PULMONARY Complications worsening hypoxia requiring vent support cause of Chief Complaint acute hypoxic respiratory failure requiring mechanical ventilation COVID 19 pneumonia, standard treatement protocol History of Present Illness History of [facility] shortness of rbeath, was COVID positive ,and worsened over days. weakness and lethargy worse, hypoxia worse over days, transferred here for poss ICU need, on NRB, risk of intubation is high, . History of Present Illness hospital course 07/17/2021 No acute events overnight. Patient saturating 90% on 40% Vapotherm. No concerns nursing at this time. Patient's chart, labs, images were reviewed and discussed with RN In addition to my E/M visit, advance care planning done with A total time of 20 minutes was spent from 920 to 940 face to face in discussion with the patient regarding their goals of care, CODE STATUS. 07/18/2021 No acute events overnight. Patient saturating 89% on Vapotherm. No dyspnea upon exertion or at rest. Pending chest x-ray results. No other concerns from nursing. 07/19/21 No acute events overnight. Saturating 91% on vapotherm. No dyspnea and is motiviated to get out of bed onto chair. total critical care time spent of 33 minutes 07/20/2021 No acute events overnight. Patient seen and examined bedside. Saturating well on Vapotherm. Patient accepted at [facility]. No concerns with nursing. A total of 35 minutes of critical care time was spent in reviewing chart, labs, and images. Discussed with RN and SW. 07/21/2021 No acute events overnight. Unfortunately patient was unable to be transferred to [facility] because of unable to tolerate BiPAP. At this point we will continue BiPAP and Vapotherm for inpatient care. Patient's chart, labs, images were reviewed and discussed with RN A total of 32 minutes of critical care time was spent in reviewing chart, labs, and images. Discussed with RN and SW. 07/22/2021 No acute events overnight. Patient seen and examined bedside. Saturating 100% on FiO2 and 15 L nonrebreather mask. Does complain of diarrhea and one-time Imodium was administered. Afebrile last 24 hours. Continue PT OT modalities. Encourage prone positioning when able. Patient's chart, labs, images were reviewed and discussed with RN A total of 32 minutes of critical care time was spent in reviewing chart, labs, and images. Discussed with RN and SW. 07/23/2021 No acute events overnight. Patient seen and examined resting comfortably at bedside. Saturating 83% on Vapotherm. Patient did have dyspneic episodes overnight desaturating down to 70s and 80s. She was offered BiPAP but she is declining and wishing to be DNR today. Patient's chart, labs, images were reviewed and discussed with RN 07/24/2021: Patient transferred to the ICU and intubated overnight. Currently afebrile, tachycardic. On vent with FiO2 100%, PEEP 8. We will continue steroids to complete 10-day course; begin taper tomorrow. 07/25/2021: Afebrile, no acute events overnight. On vent with FiO2 100%, PEEP 8. Completed remdesivir. Day 10 of steroids, will begin taper over 10 days. Continue supportive care. Critical care time 30 min spent reviewing charts, reviewing imaging, reviewing labs, and discussion with RN. 07/26/2021: Afebrile. On vent with FiO2 100%, PEEP 8. Completed remdesivir and 10 days of steroids; will begin slow steroid taper. Chest x-ray from 07/24 showed stable diffuse infiltrate. Leukocytosis likely secondary to steroid use. Will obtain CRP and procalcitonin. Continue supportive care. Critical care time 30 min spent reviewing charts, reviewing imaging, reviewing labs, and discussion with RN. 07/27/2021: Afebrile. On vent with FiO2 100%, PEEP 9. CRP 15, procalcitonin 0.10. WBC 17.2. We will hold off on further antibiotics for now continue to monitor. Completed remdesivir and 10 days of steroids; continue slow Decadron taper. Continue supportive care. Critical care time 30 min spent reviewing charts, reviewing imaging, reviewing labs, and discussion with RN. 07/28/2021: Afebrile. On vent FiO2 100%, PEEP 9. Completed remdesivir and 10 days of steroids; continue slow Decadron taper. Continue supportive care; on vasopressors. Critical care time 30 min spent reviewing charts, reviewing imaging, reviewing labs, and discussion with RN. 07/29/2021: Afebrile, no significant change overnight. On vent FiO2 100%, PEEP 9. Completed remdesivir and 10 days of steroids; continue slow Decadron taper. Continue supportive care; on vasopressors. Critical care time 30 min spent reviewing charts, reviewing imaging, reviewing labs, and discussion with RN. 07/30/2021: Afebrile. On vent with FiO2 100%, PEEP 9. Completed remdesivir and 10 days of steroids; continue slow Decadron taper (last day of Decadron taper should be tomorrow). Empiric antibiotics, supportive care; on Levophed. Empiric antibiotics could likely stop after Decadron taper; will obtain procalcitonin and chest x-ray tomorrow. Critical care time 30 min spent reviewing charts, reviewing imaging, reviewing labs, and discussion with RN. 07/31 Patient remains afebrile. Remains ventilated and sedated. Decadron taper finished today. Normal procalcitonin on the labs chest x-ray mildly improved. Pulmonary continues to follow. Continuing current plan, will wean oxygen as tolerated. 08/01 Patient evaluated examined at bedside. Some low saturations this morning. Remains ventilated and sedated. Continue COVID treatment. 08/02 Patient evaluated examined at bedside. She is still having lower saturation and this low 80s and upper 70s despite high oxygen provided. Contacted patient's son today and discussed case with him. He is well aware of her condition and at this point poor prognosis. I did bring up the idea of the DNR DNI and starting to look towards a hospice route as patient has been intubated for 10 days and is actually worsening. Patient son reported that he would like to talk with his and sister before making a final decision. Will likely have a family meeting with them Saturday or Saturday. 08/03 Patient evaluated examined at bedside. Saturations continued to drop despite ventilator adjustments. Very poor prognosis. Discussed with family yesterday. Will attempt to call again today. Otherwise continue current plan. 08/04 Evaluated examined at bedside, oxygen saturations definitely worse today. Contacted patient's son planning for family meeting tomorrow in person. 08/05 Patient seen and examined at bedside. Continues to require high levels of oxygen. Met with family at bedside discussing poor prognosis. After discussing family decided they would like to continue full code for right now and assess for any sort of brain injury. Informed them that this would likely require imaging with how much sedation she is on and there is a chance she will not survive the actual process. They would like to think about it more at this point. We will check in with him again tomorrow. 08/06 No major clinical changes. Continues to have high ventilator settings. Really not safe for transport for imaging right now. Poor prognosis. 08/07 No clinical changes. high ventilator settings. Really not safe for transport for imaging . Poor prognosis She would not be a good candidate for imaging studies. prognosis is extremely poor, neurology consulted severe protein, caloric malnutrition critically ill, 100% FiO2 11 of PEEP pressure of 24 plateau pressure 37 36 min cc time 08/08 No clinical changes. high ventilator settings. Really not safe for transport for imaging . Poor prognosis She would not be a good candidate for imaging studies. prognosis is extremely poor, neurology consulted severe protein, caloric malnutrition critically ill, 100% FiO2 11 of PEEP pressure of 24 plateau pressure 37 pressure control inverse ratio ventilation, 100% FiO2 and 11 of PEEP. avoid increasing PEEP, to avoid barotrauma grave prognosis 32 min cc time 08/09 No clinical changes. high ventilator settings. Poor prognosis She would not be a good candidate for imaging studies. neurology consulted severe protein, caloric malnutrition critically ill, 100% FiO2 11 of PEEP pressure of 24 plateau pressure 37 pressure control inverse ratio ventilation, 100% FiO2 and 11 of PEEP. avoid increasing PEEP, to avoid barotrauma grave prognosis 34 min cc time consider comfort care 08/10 No clinical changes. high ventilator settings. Poor prognosis She would not be a good candidate for imaging studies. neurology consulted severe protein, caloric malnutrition critically ill, 100% FiO2 11 of PEEP pressure of 24 plateau pressure 37 pressure control inverse ratio ventilation, 100% FiO2 and 11 of PEEP. avoid increasing PEEP, to avoid barotrauma grave prognosis began comfort care about 14:19 today Vitals Vitals Vital Signs Date Time Temp Pulse Resp B/P (MAP) Pulse Ox O2 Delivery O2 Flow Rate FiO2 08/10/21 07:55 68 Ventilator 08/10/21 06:00 122 25 95/63 (74) 08/10/21 04:00 100.4 100.4 Physical Exam Physical Exam sedated on vent General: No acute distress, Other (ET and NG tube in place) Heart: Other (Tachycardic) Lungs: Clear Abdomen: Normal bowel sounds, Soft (obese, ) Extremities: No cyanosis, No edema, Normal pulses Skin: No rashes, No significant lesion Brief Hospital Course Ms. Young is a 66 old [sex] who presented with [severe covid pneumonia ] CONDITION AT DISCHARGE: / Discharge Medications Current Medications Ondansetron HCl (Zofran) 4 mg PRN Q6HRS PRN IVP NAUSEA/VOMITING Last administered on 07/22/21at 22:51; Start 07/15/21 at 00:00 Throat Lozenges (Cepacol Sore Throat Lozenge) 1 vincent PRN Q2HRS PRN PO SORE THROAT Last administered on 07/17/21at 00:23; Start 07/15/21 at 00:00 Ceftriaxone Sodium (Rocephin) 1 gm Q24H IVP Last administered on 07/21/21 08:23; Start 07/15/21 at 09:00; Stop 07/21/21 at 13:26; Status DC Azithromycin (Zithromax) 250 mg DAILY PO Last administered on 07/21/21at 08:17; Start 07/15/21 at 09:00; Stop 07/21/21 at 08:53; Status DC Dexamethasone Sodium Phosphate (Decadron) 10 mg DAILY IVP Last administered on 07/15/21at 10:24; Start 07/15/21 at 09:00; Stop 07/15/21 at 13:07; Status DC Enoxaparin Sodium (Lovenox 40mg Syringe) 40 mg Q24H SQ Last administered on 08/10/21at 10:42; Start 07/15/21 at 09:00 Lactobacillus Rhamnosus (Culturelle) 1 cap BID PO Last administered on 07/26/21 21:27; Start 07/15/21 at 09:00; Stop 07/27/21 at 08:20; Status DC Acetaminophen (Tylenol) 650 mg PRN Q4HRS PRN PO MILD PAIN / TEMP > 100.3'F Last administered on 08/10/21 10:42; Start 07/15/21 at 00:00 Guaifenesin (Robitussin Dm) 10 ml PRN Q4HRS PRN PO COUGH Last administered on 07/23/21 13:00; Start 07/15/21 at 00:00 Remdesivir 100 mg/ Sodium Chloride 230 ml @ 460 mls/hr DAILY IV Last administered on 07/18/21 08:59; Start 07/15/21 at 09:00; Stop 07/18/21 at 09:29; Status DC Oxycodone/ Acetaminophen (Percocet 5/325) 1 tab PRN Q8HRS PRN PO MODERATE- SEVERE PAIN Last administered on 07/23/21 13:00; Start 07/15/21 at 09:15 Potassium Chloride/Dextrose/ Sod Cl 1,000 ml @ 80 mls/hr [id number] ONCE IV Last administered on 07/15/21 10:26; Start 07/15/21 at 09:15; Stop 07/15/21 at 21:44; Status DC Ascorbic Acid (Vitamin C) 500 mg DAILY PO Last administered on 08/10/21 10:41; Start 07/15/21 at 09:30 Zinc Sulfate (Orazinc) 220 mg DAILY PO Last administered on 08/10/21 10:45; Start 07/15/21 at 09:30 Dexamethasone Sodium Phosphate (Decadron) 6 mg DAILY IVP Last administered on 07/25/21 08:46; Start 07/16/21 at 09:00; Stop 07/26/21 at 06:39; Status DC Sterile Water (WATER for RESP) 1,000 ml CONT PRN INH VIA VAPOTHERM DEVICE Last administered on 07/20/21 08:03; Start 07/15/21 at 13:30 Potassium Chloride/Dextrose/ Sod Cl 1,000 ml @ 100 mls/hr Q10H IV Last admin istered on 07/17/21 08:43; Start 07/16/21 at 11:00; Stop 07/17/21 at 16:00; Status DC Lorazepam (Ativan) 0.25 mg PRN Q4HRS PRN PO anxiety 2/2 bipap trials Last administered on 07/23/21at 09:47; Start 07/21/21 at 09:45; Stop 07/23/21 at 14:30; Status DC Loperamide HCl (Imodium) 2 mg PRN 1X PRN PO DIARRHEA Last administered on 07/22/21at 20:42; Start 07/22/21 at 12:45 Propofol 100 ml @ As Directed STK-MED ONCE IV ; Start 07/23/21 at 13:45; Stop 07/23/21 at 13:45; Status DC Succinylcholine Chloride (Anectine) 200 mg STK-MED ONCE .ROUTE ; Start 07/23/21 at 13:45; Stop 07/23/21 at 13:46; Status DC Etomidate (Amidate) 20 mg STK-MED ONCE IV ; Start 07/23/21 at 13:45; Stop 07/23/21 at 13:46; Status DC Fentanyl Citrate 30 ml @ 0 mls/hr CONT PRN IV SEE PROTOCOL Last administered on 07/25/21at 09:31; Start 07/23/21 at 14:00; Stop 07/25/21 at 16:54; Status DC Propofol 100 ml @ 0 mls/hr CONT PRN IV PER PROTOCOL Last administered on 08/10/21at 10:44; Start 07/23/21 at 14:00 Fentanyl Citrate (Fentanyl 2ml Vial) 25 mcg PRN Q1HR PRN IV SEE COMMENTS; Start 07/23/21 at 14:00 Fentanyl Citrate (Fentanyl 2ml Vial) 50 mcg PRN Q1HR PRN IV SEE COMMENTS; Start 07/23/21 at 14:00 Morphine Sulfate (Morphine Sulfate) 2 mg PRN Q1HR PRN IV SEE COMMENTS.; Start 07/23/21 at 14:00 Morphine Sulfate (Morphine Sulfate) 4 mg PRN Q1HR PRN IV SEE COMMENTS.; Start 07/23/21 at 14:00 Midazolam HCl 100 ml @ 0 mls/hr CONT PRN IV SEE PROTOCOL Last administered on 08/10/21at 07:54; Start 07/23/21 at 14:00 Vecuronium [place] (Norcuron Bolus) 6 mg PRN Q2HR PRN IV VENTILATOR COMPLIANCE Last administered on 07/27/21at 11:41; Start 07/23/21 at 14:00 Lorazepam (Ativan) 5 mg PRN Q4HRS PRN PO anxiety 2/2 bipap trials; Start 07/23/21 at 14:30 Pantoprazole Sodium (PROTONIX VIAL for IV PUSH) 40 mg DAILYAC IVP Last administered on 08/10/21at 10:44; Start 07/24/21 at 09:00 Dexmedetomidine HCl 400 mcg/ Sodium Chloride 100 ml @ 0 mls/hr CONT PRN IV PER PROTOCOL Last administered on 08/10/21at 13:33; Start 07/24/21 at 10:00 Sodium Chloride 500 ml @ 500 mls/hr 1X PRN PRN IV SEE COMMENTS Last administered on 07/26/21at 10:40; Start 07/24/21 at 10:00 Etomidate (Amidate) 20 mg STK-MED ONCE IV ; Start 07/23/21 at 14:00; Stop 07/24/21 at 12:26; Status DC Succinylcholine Chloride (Anectine) 200 mg STK-MED ONCE .ROUTE ; Start 07/23/21 at 14:00; Stop 07/24/21 at 12:26; Status DC Propofol (Diprivan) 1,000 mg STK-MED ONCE IV ; Start 07/23/21 at 14:00; Stop 07/24/21 at 12:26; Status DC Insulin Human Lispro (HumaLOG) 0-5 UNITS Q6HRS SQ Last administered on 08/10/21at 05:59; Start 07/24/21 at 18:00 Dextrose (Dextrose 50%-Water Syringe) 12.5 gm PRN Q15MIN PRN IV SEE COMMENTS; Start 07/24/21 at 18:00 Fentanyl Citrate 55 ml @ 0 mls/hr CONT PRN IV SEE PROTOCOL Last administered on 08/10/21at 04:25; Start 07/25/21 at 16:00 Dexamethasone Sodium Phosphate (Decadron) 4 mg DAILY IVP Last administered on 07/30/21at 08:57; Start 07/26/21 at 09:00; Stop 07/31/21 at 08:59; Status DC Lorazepam (Ativan Inj) 1 mg PRN Q1HR PRN IVP ANXIETY / AGITATION Last administered on 07/26/21at 11:42; Start 07/26/21 at 11:15 Vecuronium [place] 50 mg/ Sodium Chloride 50 ml @ 4.502 mls/ hr CONT PRN IV SEE I/O RECORD Last administered on 08/09/21at 23:38; Start 07/27/21 at 11:30 Norepinephrine Bitartrate 8 mg/ Dextrose 258 ml @ 18.15 mls/ hr CONT PRN IV PER PROTOCOL Last administered on 08/10/21at 13:32; Start 07/27/21 at 17:00 Piperacillin Sod/ Tazobactam Sod (Zosyn Per Pharmacy) 1 each PRN DAILY PRN MC SEE COMMENTS; Start 07/28/21 at 10:15; Stop 08/08/21 at 15:01; Status DC Piperacillin Sod/ Tazobactam Sod 3.375 gm/Sodium Chloride 50 ml @ 100 mls/hr Q6HRS IV Last administered on 08/08/21at 12:22; Start 07/28/21 at 11:00; Stop 08/08/21 at 15:00; Status DC Sodium Chloride 1,000 ml @ 30 mls/hr Q24H IV Last administered on 08/09/21at 18:24; Start 07/28/21 at 11:00; Stop 08/10/21 at 10:54; Status DC Furosemide (Lasix) 40 mg 1X ONCE IVP Last administered on 08/01/21at 12:12; Start 08/01/21 at 11:15; Stop 08/01/21 at 11:16; Status DC Furosemide (Lasix) 40 mg 1X ONCE IVP Last administered on 08/03/21at 09:28; Start 08/03/21 at 09:30; Stop 08/03/21 at 09:31; Status DC Furosemide (Lasix) 40 mg 1X ONCE IVP Last administered on 08/04/21at 12:39; Start 08/04/21 at 11:15; Stop 08/04/21 at 11:21; Status DC Albuterol/ Ipratropium (Duoneb) 3 ml RTQID NEB ; Start 08/05/21 at 12:00; Stop 08/05/21 at 15:37; Status DC Albumin Human 100 ml @ 100 mls/hr 1X ONCE IV Last administered on 08/06/21at 11:46; Start 08/06/21 at 11:30; Stop 08/06/21 at 12:29; Status DC Furosemide (Lasix) 40 mg 1X ONCE IVP Last administered on 08/06/21at 11:44; Start 08/06/21 at 13:00; Stop 08/06/21 at 13:01; Status DC Multi-Ingred Cream/Lotion/Oil/ Oint (Artificial Tears Eye Ointment) 1 kareem PRN Q1HR PRN OU DRY EYE; Start 08/08/21 at 15:30 Sodium Chloride 1,000 ml @ 10 mls/hr Q24H IV Last administered on 08/10/21at 11:00; Start 08/10/21 at 11:00 Active Scripts Active Prednisone 20 Mg Tablet 1 Tab PO DAILY 5 Days Vital Signs Vital Signs Date Time Temp Pulse Resp B/P (MAP) Pulse Ox O2 Delivery O2 Flow Rate FiO2 08/10/21 12:58 63 Ventilator 08/10/21 12:00 122 68/49 (55) 08/10/21 09:30 25 08/10/21 04:00 100.4 100.4 Labs Laboratory Tests Test 08/09/21 00:21 08/09/21 05:00 08/09/21 07:08 08/09/21 08:00 Glucose (Fingerstick) 163 mg/dL (70-99) 174 mg/dL (70-99) Triglycerides Level 272 mg/dL (0-150) O2 Saturation 79 % (92-99) Arterial Blood pH 7.23 (7.35-7.45) Arterial Blood pCO2 at Patient Temp 72 mmHg (35-46) Arterial Blood pO2 at Patient Temp 49 mmHg (65-108) Arterial Blood HCO3 29 mmol/L (21-28) Arterial Blood Base Excess 1 mmol/L (-3-3) FiO2 100% pc24/[id number] Test 08/09/21 14:03 08/09/21 17:29 08/09/21 23:58 08/10/21 05:55 Glucose (Fingerstick) 175 mg/dL (70-99) 159 mg/dL (70-99) 185 mg/dL (70-99) 168 mg/dL (70-99) Test 08/10/21 07:59 O2 Saturation 75 % (92-99) Arterial Blood pH 7.19 (7.35-7.45) Arterial Blood pCO2 at Patient Temp 69 mmHg (35-46) Arterial Blood pO2 at Patient Temp 45 mmHg (65-108) Arterial Blood HCO3 26 mmol/L (21-28) Arterial Blood Base Excess -3 mmol/L (-3-3) FiO2 100% vent Laboratory Tests Test 08/09/21 17:29 08/09/21 23:58 08/10/21 05:55 08/10/21 07:59 Glucose (Fingerstick) 159 mg/dL (70-99) 185 mg/dL (70-99) 168 mg/dL (70-99) O2 Saturation 75 % (92-99) Arterial Blood pH 7.19 (7.35-7.45) Arterial Blood pCO2 at Patient Temp 69 mmHg (35-46) Arterial Blood pO2 at Patient Temp 45 mmHg (65-108) Arterial Blood HCO3 26 mmol/L (21-28) Arterial Blood Base Excess -3 mmol/L (-3-3) FiO2 100% vent Allergies Allergies Coded Allergies Type Severity Reaction Last Updated Verified No Known Drug Allergies 05/15/16 No Disposition/Orders: Justicifation of Admission Dx: Justifications for Admission: Justification of Admission Dx: Yes Sepsis: Hypoxemia NATHALIE VÁSQUEZ MD Aug 10, 2021 17:14
== END 2021-08-10 14:19 | DRG 870 ==
LOC: 6 SOUTH 23:40 → 1 WEST ICU 07-23 14:20
PROVIDERS: ADMIT Family Medicine; ATTEND Family Medicine
PROC: XW033E5 Introduction of Remdesivir Anti-infective into Peripheral Vein, Percutaneous Approach, New Technology Group 5 (ICD-10-PCS; 2021-07-15)
PROC: 0BH17EZ Insertion of Endotracheal Airway into Trachea, Via Natural or Artificial Opening (ICD-10-PCS; 2021-07-21)
PROC: 02HV33Z Insertion of Infusion Device into Superior Vena Cava, Percutaneous Approach (ICD-10-PCS; 2021-07-21)
PROC: 5A1955Z Respiratory Ventilation, Greater than 96 Consecutive Hours (ICD-10-PCS; principal; 2021-07-23)
PROC: 5A09357 Assistance with Respiratory Ventilation, Less than 24 Consecutive Hours, Continuous Positive Airway Pressure (ICD-10-PCS; 2021-07-23)
DX: A41.89 Other specified sepsis (principal); J12.82 Pneumonia due to coronavirus disease 2019; E43 Unspecified severe protein-calorie malnutrition; U07.1 COVID-19; J96.01 Acute respiratory failure with hypoxia; Z68.41 Body mass index [BMI] 40.0-44.9, adult; I10 Essential (primary) hypertension; T38.0X5A Adverse effect of glucocorticoids and synthetic analogues, initial encounter; Z51.5 Encounter for palliative care; Z66 Do not resuscitate; Z80.0 Family history of malignant neoplasm of digestive organs; Z82.49 Family history of ischemic heart disease and other diseases of the circulatory system; Z87.891 Personal history of nicotine dependence; Z90.710 Acquired absence of both cervix and uterus; Z98.84 Bariatric surgery status; E66.01 Morbid (severe) obesity due to excess calories; Y92.89 Other specified places as the place of occurrence of the external cause; Z90.49 Acquired absence of other specified parts of digestive tract
CPT/HCPCS: 36415; 36569; 36600; 71045; 80048; 80053; 82728; 82805; 82962; 83735; 84100; 84145; 84478; 85007; 85025; 85027; 86140; 94002; 94003; 94640; 94660; 94760; C9113; J0330; J0696; J1100; J1650; J1815; J1940; J2060; J2250; J2405; J2543; J2704; J3010; J3480; J3490; J7030; J7040; J7050; J7060; P9046; U0003; U0005; G0378